=== PATIENT | female | born 1995 | race Caucasian/White ===

== ENCOUNTER 2025-01-30 05:28 | Day surgery (SDC) | payer BC, SELFPAY ==
[2025-01-30] VITALS (9 sets, daily range): BP systolic 87–115; BP diastolic 49–69; PULSE 60–90; RESP 16–18; TEMP 36.3–36.6; O2SAT 95–100; BMI 26.7
[2025-01-30] MEDS: Lactated Ringers 1,000 ML 15 ML IV (06:16)
--- NOTE | 2025-01-30 06:18 | PCM.PRE.AN2 ---
ASA Classification* ASA Classification ASA Classification: 2 Assessment & Plan Anesthesia* Anesthesia Assessment Anesthesia Assessment: Discussed sedation and/or anesthesia options, risks, benefits, and alternatives with patient/parents/legal guardian/POA. Questions invited. The patient/parents/legal guardian/POA seems to understand and agrees to proceed with anesthesia plan. Reviewed the physical assessment, medical history, allergy history and patient home medications list prior to surgery/procedure/anesthetic and documented any changes. Performed airway and anesthesia risk assessments. 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 When Was Last Pacemaker Check QUESTION #4 FULL TEXT: You/Your Family Experience fever (hyperthermia) with Anesthesia Last Oral Intake Last Oral intake: Last Oral Intake NPO since 02:30 01/30/25 06:10 Meds taken in AM with sips of water? Meds patient instructed to take am of surgery PONV PONV - marine operations coordinator: PONV - marine operations coordinator Female Yes 01/24/25 13:41 HX of Motion Sickness Yes 01/24/25 13:41 HX of N/V After Surgery No 01/24/25 13:41 Non-Smoker Yes 01/24/25 13:41 Duration of Surgery greater No 01/24/25 13:41 than 60 minutes Number of Risk Factors 3 01/24/25 13:41 PONV Score Moderate Risk 01/24/25 13:41 Height & Weight Height & Weight: Anesthesia: Height & Weight Height 5 ft 5 in 01/30/25 06:10 Weight: 73 kg 01/30/25 06:10 Body Mass Index (BMI) 26.7 01/30/25 06:10 Respiratory Assessment Respiratory Assessment - marine operations coordinator: Respiratory Tract Infection Hx - marine operations coordinator Hx Respiratory Tract Infection No 01/24/25 13:41 STOP Sleep Apnea STOP Sleep Apnea - marine operations coordinator: STOP Sleep Apnea - marine operations coordinator Hx Hypertension No 01/24/25 13:41 Hx Sleep Apnea No 01/24/25 13:41 CPAP BIPAP Do you snore loudly (louder No 01/24/25 13:41 than talking or can be heard Do you often feel tired/ No 01/24/25 13:41 fatigued/ sleepy during daytime? Has anyone observed you stop No 01/24/25 13:41 breathing during sleep? STOP Results Negative 01/24/25 13:41 QUESTION #5 FULL TEXT : Do you snore loudly (louder than talking or can be heard through closed doors)? Tobacco Use History Tobacco Use History - marine operations coordinator: Tobacco Use History - marine operations coordinator Tobacco Use Smoking Status Never smoker 01/24/25 13:41 Hx Tobacco Use No 01/24/25 13:41 Years Smoking Packs Smoked per Day Smoking Cessation Date was within the last 15 years Hx Smoking Cessation Date Hx Smoking Cessation Counseling Hematologic Medial History Hematologic Hx - marine operations coordinator: Hematologic Medical Hx - commissioning manager Hx of Blood Transfusion No 01/24/25 13:41 Hx of Transfusion in last 3 No 01/24/25 13:41 Months Date of Last Transfusion (if within last 3 months) Ever experience any problems No 01/24/25 13:41 with transfusion(s)? Specify any problems Hx of Preganancy in last 3 No 01/24/25 13:41 Months Nurse Filling Out Transfusion DSCHRIBER 01/24/25 13:41 & Questions: Date: 01/24/25 01/24/25 13:41 Time: 13:42 01/24/25 13:41 Patient unable to answer at this time (ie. confused, unrespo /Reproduction History /Reproductive History - marine operations coordinator: /Reproductive Hx- marine operations coordinator Hx Now No 01/24/25 13:41 Gestational Age (in weeks): EDC: Hx Hx Para Hx Section SAB Yes 01/24/25 13:41 Active Medications Active Medications: Current Medications Generic Name Dose Route Start Last Admin Trade Name Freq PRN Reason Stop Dose Admin Lactated Ringer's 1,000 mls @ 15 mls/hr 01/30/25 06:00 01/30/25 06:16 IV 15 mls/hr .Q48H JULIETA Administration PFSH Medical History Breast feeding status of mother Wears glasses Low iron Dietary restriction Difficulty swallowing Non-smoker Asthma Shortness of breath on exertion Vitamin D deficiency TMJ arthralgia Family history of colon cancer Home Medications ?Medication ?Instructions ?Recorded ?Last Taken ?Type albuterol sulfate 90 mcg/actuation 2 puff inhalation Q6H PRN 12/19/24 01/29/25 History aerosol inhaler (Ventolin HFA) shortness of breath or wheezing budesonide-formoterol HFA 160 2 puff inhalation BID 12/19/24 01/30/25 History mcg-4.5 mcg/actuation aerosol inhaler (Symbicort) multivitamin with mins no.113-iron 1 cap PO DAILY 12/19/24 01/21/25 History 4.5 mg-folic acid 200 mcg capsule ( Multivitamin (Ferrous Gluconate)) cetirizine 10 mg tablet (Zyrtec) 10 mg PO QDAY 12/20/24 Unknown History peg 3350-sod sulf,iefly-plo-olv See Rx Instructions PO .COMPLEX #2 01/28/25 01/29/25 Rx 178.7-7.3-0.5-1.12-0.9 gram oral mL soln (Suflave) Allergy/AdvReac Type Severity Reaction Status Date / Time latex Allergy Intermediate redness Verified 01/30/25 06:10 adhesive AdvReac Mild Rash Verified 01/30/25 06:10 lavender (Lavandula AdvReac Mild Hives Verified 01/30/25 06:10 angustifolia) Family History Mother Cancer Colon cancer Inflammatory bowel disease Epilepsy Father Diabetes Surgical History Hx of oophorectomy H/O wisdom tooth extraction H/O arthroscopy of knee Social History Smoking Status: Never smoker alcohol intake: current details: 1-2 times per year substance use type: does not use Addt'l Information Additional Findings: >4 Mets Review of Systems (Anesthesia) ROS Narrative System reviewed and no additional complaints, except as documented. Physical Exam Const alert and oriented x3 Orientation / Consciousness: awake Resp normal respiratory effort and normal air movement Auscultation: clear to auscultation bilaterally Cardio regular rate and regular rhythm Neuro oriented x3 and moves all extremities
--- NOTE | 2025-01-30 06:24 | PCM.HP.STD ---
HPI - General General Date of Admission: 01/30/25 Date of Service: 01/30/25 Chief Complaint: Dysphagia and family history of colon cancer HPI Narrative KALEY AL, is a 29 F who presents [ Chief Complaint: trouble swallowing Details: 29y/o female with intermittent dysphagia, first started when she was a teenager - progressively worse - gets stuck high in her throat - Brenda 09/13/2023 Esophagram - can choke on apple sauce or solid foods - tried to chug water to force down or up - she reports a personal h/o asthma - denies any h/o eczema - denies any family h/o esophageal or gastric CA - denies any h/o smoking - occasional alcohol use - denies any HB - denies any N/V - mom with colon cancer in her early 30's - reports there is no chance she could be now - she has PCOS - she is not on OC - she is breast feeding [facility] Medical History Breast feeding status of mother Wears glasses Low iron Dietary restriction Difficulty swallowing Non-smoker Asthma Shortness of breath on exertion Vitamin D deficiency TMJ arthralgia Family history of colon cancer Home Medications ?Medication ?Instructions ?Recorded ?Last Taken ?Type albuterol sulfate 90 mcg/actuation 2 puff inhalation Q6H PRN 12/19/24 01/29/25 History aerosol inhaler (Ventolin HFA) shortness of breath or wheezing budesonide-formoterol HFA 160 2 puff inhalation BID 12/19/24 01/30/25 History mcg-4.5 mcg/actuation aerosol inhaler (Symbicort) multivitamin with mins no.113-iron 1 cap PO DAILY 12/19/24 01/21/25 History 4.5 mg-folic acid 200 mcg capsule ( Multivitamin (Ferrous Gluconate)) cetirizine 10 mg tablet (Zyrtec) 10 mg PO QDAY 12/20/24 Unknown History peg 3350-sod sulf,xpwrd-gye-wff See Rx Instructions PO .COMPLEX #2 01/28/25 01/29/25 Rx 178.7-7.3-0.5-1.12-0.9 gram oral mL soln (Suflave) Allergy/AdvReac Type Severity Reaction Status Date / Time latex Allergy Intermediate redness Verified 01/30/25 06:10 adhesive AdvReac Mild Rash Verified 01/30/25 06:10 lavender (Lavandula AdvReac Mild Hives Verified 01/30/25 06:10 angustifolia) Family History Mother Cancer Colon cancer Inflammatory bowel disease Epilepsy Father Diabetes Surgical History Hx of oophorectomy H/O wisdom tooth extraction H/O arthroscopy of knee Social History Smoking Status: Never smoker alcohol intake: current details: 1-2 times per year substance use type: does not use ROS Constitutional Constitutional: Denies fatigue, fever(s), poor appetite, weight gain or weight loss Gastrointestinal Gastrointestinal: Denies belching, bloating, change in bowel habits, change in stool character, chewing difficulty, coffee ground emesis, constipation, cramping, diarrhea, dyspepsia, dysphagia, early satiety, excessive flatus, fecal incontinence, heartburn, hematemesis, hematochezia, hemorrhoids, loose stools, melena, nausea, odynophagia, rectal bleeding, tenesmus, vomiting or weight changes Vital Signs Vital Signs Vital Signs: 01/30/25 06:10 01/30/25 06:10 01/30/25 06:22 Temperature 97.3 F L 97.3 F L Temperature Source Temporal Pulse Rate 90 90 Respiratory Rate 18 18 Respiratory Pattern Normal Blood Pressure 105/69 105/69 Blood Pressure Mean 81 Blood Pressure Source Monitor Blood Pressure Position Semi-Fowlers Blood Pressure Location Left Arm Pulse Ox 98 98 Oxygen Delivery Method Room Air Room Air Weight Weight: 160 lb 14.999 oz Body Mass Index (BMI) 26.7 Physical Exam Const alert, oriented x3, no apparent distress and healthy appearing General Appearance: cooperative GI normal to inspection, nondistended, normoactive bowel sounds, soft to palpation, non-tender and non-distended Percussion: normal to percussion Rectal Exam: deferred Assessment & Plan Assessment/Plan (1) Family history of colon cancer in mother: (2) Dysphagia: PLAN: Assessment and Plan Assessment and Plan (1) Dysphagia: Status: Acute (2) Family history of colon cancer in mother: Status: Acute Comment: in her early 30's Orders: Orders Esophagus Dual Contrast Today R13.10 - Dysphagia, unspecified Plan 29-year-old female with a history of PCOS and asthma, presenting with dysphagia. The patient reports chronic and progressively worsening difficulty swallowing, initially observed in teenage years, with current impairment to both solid and soft foods. The condition was evaluated with a barium swallow revealing possible obstruction at the gastroesophageal junction, necessitating further esophageal examination via esophagram. There is no significant unintentional weight loss. A significant family history includes a maternal history of colon cancer in her early 30's, necessitating early screening for colorectal malignancy. Patient Instructions: ]
[2025-01-30 06:28] LABS: Internal QC Validated? YES +Cl - CLEAR BKGD; Pregnancy, Serum, hCG Quali. NEGATIVE Negative; Record Kit Lot#, Serum Preg. 0000964736
--- NOTE | 2025-01-30 06:30 | COLBX_PTH ---
PATIENT: KALEY ALT #:[id number] LOC: EN U#:[id number] AGE/SX: 29/F ROOM: RE01/30/[address]: Dr. Terrell May DO : 1995 BED: DIS: 01/30/2025 SPEC #: [id number] RECD: 01/30/25 08:32 STATUS: MARGARETH MERY #: [id number] REYNALDO: 01/30/25 06:[address]: Terrell May DEPT: SURGICAL PATHOLOGY RECD BY: Donald Sherman ENTERED: 01/30/25 14:55 SP TYPE: COLON BX OTHR DR: Moni Tony, REGIONAL SALES REPRESENTATIVE-C Tissues: A - Esophagus, NOS Procedures: Surgery Specimen Level IV HEADER OPERATION: Colonoscopy, EGD with biopsy and dilatation PRE-OP DIAGNOSIS: Family history of colon cancer in mother, dysphagia TISSUE SUBMITTED: A- Random esophagus biopsy MICROSCOPIC DIAGNOSIS A. Esophagus, random, biopsy: * Squamous mucosa with reactive changes and up to 40 eosinophils per high power field. * Columnar mucosa negative for goblet cell metaplasia. MICROSCOPIC DESCRIPTION Slides are reviewed. GROSS DESCRIPTION A. Received in fixative is one container labeled with the patient's name and designated Random esophagus biopsy. The specimen consists of multiple irregular fragments of lozano tissue that in aggregate measure 1.5 x 0.5 x 0.2 cm. The specimen is totally submitted in one cassette. GA 01/30/2025 CPT:64099
--- NOTE | 2025-01-30 07:05 | OP.EGD_ITS ---
Patient Name: Livia Boyer Procedure Date: 01/30/2025 6:11 AM Date of : 1995 Age: 29 Procedure: Upper GI endoscopy Indications: Dysphagia Providers: Terrell May DO Referring MD: Moni Tony Medicines: Monitored Anesthesia Care Patient Profile: This is a 29 year old female. Refer to note in patient chart for documentation of history and physical. Patient has symptoms of dysphagia with both liquids and solids. Complications: No immediate complications. Procedure: Pre-Anesthesia Assessment: - Prior to the procedure, a History and Physical was performed, and patient medications and allergies were reviewed. The patient is competent. The risks and benefits of the procedure and the sedation options and risks were discussed with the patient. All questions were answered and informed consent was obtained. Patient identification and proposed procedure were verified by the physician in the pre-procedure area. Mental Status Examination: alert and oriented. Airway Examination: normal oropharyngeal airway and neck mobility. Respiratory Examination: clear to auscultation. CV Examination: normal. Prophylactic Antibiotics: The patient does not require prophylactic antibiotics. Prior Anticoagulants: The patient has taken no anticoagulant or antiplatelet agents except for NSAID medication. ASA Grade Assessment: II - A patient with mild systemic disease. After reviewing the risks and benefits, the patient was deemed in satisfactory condition to undergo the procedure. The anesthesia plan was to use monitored anesthesia care (MAC). Immediately prior to administration of medications, the patient was re-assessed for adequacy to receive sedatives. The heart rate, respiratory rate, oxygen saturations, blood pressure, adequacy of pulmonary ventilation, and response to care were monitored throughout the procedure. The physical status of the patient was re-assessed after the procedure. After obtaining informed consent, the endoscope was passed under direct vision. Throughout the procedure, the patient's blood pressure, pulse, and oxygen saturations were monitored continuously. The Colonoscope was introduced through the mouth, and advanced to the second part of duodenum. The upper GI endoscopy was accomplished without difficulty. The patient tolerated the procedure well. Scope In: 6:41:28 AM Scope Out: 6:49:01 AM Total Procedure Duration Time 0 hours 7 minutes 33 seconds Findings: Mucosal changes including ringed esophagus, small-caliber esophagus, circumferential folds and congestion (edema) were found in the lower third of the esophagus. Biopsies were obtained from the proximal and distal esophagus with cold forceps for histology of suspected eosinophilic esophagitis. Verification of patient identification for the specimen was done. Estimated blood loss was minimal. One benign-appearing, intrinsic severe stenosis was found 37 to 40 cm from the incisors. This stenosis measured 6 cm (in length). The stenosis was traversed after dilation. A guidewire was placed and the scope was withdrawn. Dilation was performed with a Savary dilator with no resistance at 57 Fr. The dilation site was examined and showed moderate improvement in luminal narrowing. No gross lesions were noted in the entire examined stomach. The examined duodenum was normal. Impression: - Esophageal mucosal changes consistent with eosinophilic esophagitis. - Benign-appearing esophageal stenosis. Dilated. - No gross lesions in the entire stomach. - Normal examined duodenum. - Biopsies were taken with a cold forceps for evaluation of eosinophilic esophagitis. Recommendation: - Discharge patient to home. - Advance diet as tolerated. - Continue present medications. - Await pathology results. - Repeat upper endoscopy in 2 months for surveillance. - Use Prilosec (omeprazole) 20 mg PO BID for 2 months. Procedure Code(s): --- Professional --- 01938, Esophagogastroduodenoscopy, flexible, transoral; with insertion of guide wire followed by passage of dilator(s) through esophagus over guide wire 08128, 59,51, Esophagogastroduodenoscopy, flexible, transoral; with biopsy, single or multiple CPT copyright 2021 [employer]. All rights reserved. The codes documented in this report are preliminary and upon skylights assembler review may be revised to meet current compliance requirements. Terrell May DO 01/30/2025 7:04:54 AM This report has been signed electronically. Number of Addenda: 0 Note Initiated On: 01/30/2025 6:11 AM
--- NOTE | 2025-01-30 07:06 | OP.PROVAT_ITS ---
01/30/2025 Moni Tony Re : Upper GI endoscopy procedure for Livia Boyer Dear Cecily This procedure was performed on Thursday, January 30, 2025. My impressions and recommendations are as follows: Impressions : - Esophageal mucosal changes consistent with eosinophilic esophagitis. - Benign-appearing esophageal stenosis. Dilated. - No gross lesions in the entire stomach. - Normal examined duodenum. - Biopsies were taken with a cold forceps for evaluation of eosinophilic esophagitis. Recommendations : - Discharge patient to home. - Advance diet as tolerated. - Continue present medications. - Await pathology results. - Repeat upper endoscopy in 2 months for surveillance. - Use Prilosec (omeprazole) 20 mg PO BID for 2 months. My findings are described in the full procedure note, which is enclosed. If I can be of further assistance, please feel free to contact me at . Sincerely, Terrell Friend, DO 01/30/2025 7:04:54 AM This report has been signed electronically.
--- NOTE | 2025-01-30 07:07 | OP.COLON_ITS ---
Patient Name: Livia Boyer Procedure Date: 01/30/2025 6:49 AM Date of : 1995 Age: 29 Procedure: Colonoscopy Indications: Screening in patient at increased risk: Colorectal cancer in mother before age 60 Providers: Terrell May DO Referring MD: Moni Tony Medicines: Monitored Anesthesia Care Patient Profile: This is a 29 year old female. Refer to note in patient chart for documentation of history and physical. Patient has symptoms of dysphagia with both liquids and solids. Last Colonoscopy: none. The patient's first colonoscopy is today. Complications: No immediate complications. Procedure: Pre-Anesthesia Assessment: - Prior to the procedure, a History and Physical was performed, and patient medications and allergies were reviewed. The patient is competent. The risks and benefits of the procedure and the sedation options and risks were discussed with the patient. All questions were answered and informed consent was obtained. Patient identification and proposed procedure were verified by the physician in the pre-procedure area. Mental Status Examination: alert and oriented. Airway Examination: normal oropharyngeal airway and neck mobility. Respiratory Examination: clear to auscultation. CV Examination: normal. Prophylactic Antibiotics: The patient does not require prophylactic antibiotics. Prior Anticoagulants: The patient has taken no anticoagulant or antiplatelet agents except for NSAID medication. ASA Grade Assessment: II - A patient with mild systemic disease. After reviewing the risks and benefits, the patient was deemed in satisfactory condition to undergo the procedure. The anesthesia plan was to use monitored anesthesia care (MAC). Immediately prior to administration of medications, the patient was re-assessed for adequacy to receive sedatives. The heart rate, respiratory rate, oxygen saturations, blood pressure, adequacy of pulmonary ventilation, and response to care were monitored throughout the procedure. The physical status of the patient was re-assessed after the procedure. After I obtained informed consent, the scope was passed under direct vision. Throughout the procedure, the patient's blood pressure, pulse, and oxygen saturations were monitored continuously. The Colonoscope was introduced through the anus and advanced to the cecum, identified by appendiceal orifice and ileocecal valve. The colonoscopy was performed without difficulty. The patient tolerated the procedure well. The quality of the bowel preparation was adequate. The ileocecal valve, appendiceal orifice, and rectum were photographed. Scope In: 6:51:05 AM Scope Withdrawal Time 0 hours 5 minutes 34 seconds Scope Out: 6:59:23 AM Total Procedure Duration Time 0 hours 8 minutes 18 seconds Findings: The perianal and digital rectal examinations were normal. The colon (entire examined portion) appeared normal. Impression: - The entire examined colon is normal. - No specimens collected. Recommendation: - Discharge patient to home. - Resume previous diet. - Continue present medications. - Repeat colonoscopy in 5 years for screening purposes. Procedure Code(s): --- Professional --- G0105, Colorectal cancer screening; colonoscopy on individual at high risk CPT copyright 2021 [employer]. All rights reserved. The codes documented in this report are preliminary and upon supervisor rod placing review may be revised to meet current compliance requirements. Terrell May DO 01/30/2025 7:07:11 AM This report has been signed electronically. Number of Addenda: 0 Note Initiated On: 01/30/2025 6:49 AM
--- NOTE | 2025-01-30 07:07 | OP.PROVAT_ITS ---
01/30/2025 Mnoi Tony Re : Colonoscopy procedure for Livia Boyer Dear Cecily This procedure was performed on Thursday, January 30, 2025. My impressions and recommendations are as follows: Impressions : - The entire examined colon is normal. - No specimens collected. Recommendations : - Discharge patient to home. - Resume previous diet. - Continue present medications. - Repeat colonoscopy in 5 years for screening purposes. My findings are described in the full procedure note, which is enclosed. If I can be of further assistance, please feel free to contact me at . Sincerely, Terrell May, DO 01/30/2025 7:07:11 AM This report has been signed electronically.
--- NOTE | 2025-01-30 07:11 | PCM.POST.ANE ---
Anesthesia: Postop Eval I Current Vital Signs Temperature: 97.9 F Pulse Rate: 72 Blood Pressure: 115/69 Respiratory Rate: 16 Pulse Ox: 98 Oxygen Delivery Method: Room Air Assessment Airway patent: Yes Spontaneous unlabored respirations: Yes Mental status: Awake and Calm nausea: No Vomiting: No Anesthesia Complication: No Fluid Hydration Crystalloid volume administer (ml): 800 Total IV fluid infused: 800 Progress Note Anesthesia document: Postop Eval 1 completed: Yes
[2025-01-30] MEDS: Pantoprazole Sodium 40 MG in 0.9% Normal Saline (100mL MB+) 100 ML 300 MG IV (07:24)
--- NOTE | 2025-01-30 08:29 | PCM.POSTANE2 ---
Anesthesia Postop Eval I Sum Postop Eval Completion status Anesthesia document: Postop Eval 1 completed: Yes Anesthesia Postop Eval I Summary Anesthesia Postop Eval I Summary: Anesthesia Postop Eval I: Assessment Summary Airway patent Yes 01/30/25 07:11 [email or web address] Spontaneous unlabored Yes 01/30/25 07:11 [email or web address] respirations Mental status Awake,Calm 01/30/25 07:11 [email or web address] nausea No 01/30/25 07:11 [email or web address] Vomiting No 01/30/25 07:11 [email or web address] Anesthesia Postop Eval I: Fluid Summary Crystalloid volume administer 800 01/30/25 07:11 [email or web address] (ml) Colloids volume administered ( ml) Blood Product volume administered (ml) Total IV fluid infused 800 01/30/25 07:11 [email or web address] Anesthesia Postop Eval I: Summary Notes Anesthesia Complication No 01/30/25 07:11 [email or web address] Anesthesia Complication Comment: Post-operative progress note Anesthesia: Postop Eval II Evaluation Mental status: Awake and Calm Pain Level: 0 nausea: No Vomiting: No Complications Anesthesia Complication: No
--- OUTSIDE RECORDS SUMMARY | 2025-01-31 21:51 | XMS RPT_ITS | CCD ---
Author Organization [facility] CliniSyut Care Team Providers Care Nuclear Operator Name Role Phone Yoan Diaz Unavailable [phone] Jackie Diaz Unavailable MIRTHA RIVERA Unavailable Unavailable DOMINGA MEDEROS Unavailable Unavailable DOMINGA MEDEROS Unavailable Unavailable Isaiah Stark Unavailable Unavailable Isaiah Stark Unavailable Unavailable DOMINGA MEDEROS Unavailable UnavailJACKIE Kingsley Unavailable Unavailab le Unavailable Primary Care Provider UnavailYoan Kingsley Primary Care Provid er Yoan Diaz Primary Care Provider YOAN DIAZ Primary Care Asmita vailable LORENA OSBORNE Attending Unavailable LORENA OSBORNE Admitting Unavailable Liana Mccollum Unavailable YOAN DIAZ Primary Care Asmita vailable SUSI NY Attending Unavailab LIANA Anderson Attending Unavailable YOAN DIAZ Primary Care Asmita vailable YOAN DIAZ Attending Asmita vailable YOAN DIAZ Primary Care Asmita vailable CECILY HOLLINGSWORTH-MONI CLEMENTE Primary Care Physician CECILY NANOTECHNOLOGY ENGINEERING TECHNOLOGIST-MONI CLEMENTE Primary Care Physician CECILY NANOTECHNOLOGY ENGINEERING TECHNOLOGIST-MONI CLEMENTE Primary Care Physician Unavailable Primary Care Provider UnavailMONI Reyes Attending Unavailable MONI TONY Primary Care Unavailable MONI TONY Attending Unavailable MONI TONY Primary Care Unavailable MONI TONY Primary Care Unavailable RUCHI HAWK MD Attending Unavailable MONI TONY Attending Unavailable MONI TONY Primary Care Unavailable MONI TONY Attending Unavailable MONI TONY Primary Care Unavailable LORSON, MONI Attending Unavailable LORSON, MAURICE Primary Care Unavailable LORSON, MAURICE Attending Unavailable LORSON, MAURICE Primary Care Unavailable PROVIDER, UNKNOWN Attending Unavailable LORSON, MAURICE Primary Care Unavailable PROVIDER, UNKNOWN Attending Unavailable LORSON, MAURICE Primary Care Unavailable REUBEN SWEET, JAMES Attending Unavailable LORSON, MAURICE Primary Care Unavailable MARCIAL GORDON MD Attending Unavailable LORSON, MAURICE Primary Care Unavailable PROVIDER, UNKNOWN Attending Unavailable LORSON, MAURICE Primary Care Unavailable LORSON, MAURICE Attending Unavailable LORSON, MAURICE Primary Care Unavailable ALEXIS DUNHAM MD Attending Unavailable LORSON, MAURICE Primary Care Unavailable LIVIA TORRES Referring Unavailable JACKIE MENA Attending [facility] Unavailable LORSON NANOTECHNOLOGY ENGINEERING TECHNOLOGIST-MOLD STRIPPER, MAURICE Primary Care Unavail able LAURIE HOLLINGSWORTH-CNM, MAX Figueroa Attending Unav kumarable SUNIL PEARSON, LIVIA Attending Unavailable DAVID CROSS MD Admitting Unavailable LORSON NANOTECHNOLOGY ENGINEERING TECHNOLOGIST-MOLD STRIPPER, MAURICE Primary Care Unavail able LORSON NANOTECHNOLOGY ENGINEERING TECHNOLOGIST-MOLD STRIPPER, MAURICE Primary Care Unavail able BRITTNY PEARSON, CLAIRE Gonzalez Attending Unavail able LIVIA TORRES MD Attending Unavailable LORSON NANOTECHNOLOGY ENGINEERING TECHNOLOGIST-MOLD STRIPPER, MAURICE Primary Care Unavail able SUNIL PEARSON, LIVIA Attending Unavailable LORSON NANOTECHNOLOGY ENGINEERING TECHNOLOGIST-MOLD STRIPPER, MAURICE Primary Care Unavail able SUNIL PEARSON, LIVIA Attending Unavailable LORSON NANOTECHNOLOGY ENGINEERING TECHNOLOGIST-MOLD STRIPPER, MAURICE Primary Care Unavail able LIVIA TORRES MD Attending Unavailable LORSON NANOTECHNOLOGY ENGINEERING TECHNOLOGIST-MOLD STRIPPER, MAURICE Primary Care Unavail able SUNIL PEARSON, LIVIA Attending Unavailable LORSON NANOTECHNOLOGY ENGINEERING TECHNOLOGIST-MOLD STRIPPER, MAURICE Primary Care Unavail able SUNIL PEARSON, LIVIA Attending Unavailable LORSON NANOTECHNOLOGY ENGINEERING TECHNOLOGIST-MOLD STRIPPER, MAURICE Primary Care Unavail able Nikolai FARMWORKER LIVESTOCK-CNing Attending Provider Cecily FARMWORKER LIVESTOCK-C, [place] Primary Care Provider [phone] Cecily FARMWORKER LIVESTOCK-C, Moni Referring Provider [phone] Cecily Moni Referring Unavailable [facility], [place] Primary Care Unavailable Ning Menchaca Attending Unavailable [facility] Primary Care Unavailable Terrell May Attending Unavailable Allergies Allergy Classification Reported Allergen(s) Allergy Type Date of Onset Reaction(s) Facility (20 sources) Latex; Translations: [latex] Allergy to substance 5 Red color (finding) [facility] (16 sources) Adhesive bandage Allergy to substance Eruption of skin (disorder) [facility] (17 sources) Lavender extract; Translations: [lavender] Food allergy 5 Weal (disorder) [facility] (2 sources) Adhesive agent; Translations: [adhesive] Propensity to adverse reactions 5 Rash [facility] (1 source) lavender (Lavandula angustifolia) Drug allergy (disorder) 5 [facility] Repository Medications Current Medications Medication Drug Class(es) Dates Sig (Normalized) Sig (Original) acetaminophen 500 mg oral tablet (2 sources) Start: 06-20-2024 End: 07-18-2024 Tylenol Extra Strength 500 mg oral tablet Dose : 500 mg = 1 tab(s), Oral, q4h, X 14 day(s), # 30 tab(s), 1 Refill(s), 07/18/24 6:02:00 PM EDT, Pharmacy: [facility]/pharmacy #[id number], 157.5, cm, 06/19/24 5:00:00 EST, Height, kg, 06/19/24 5:00:00 EST, Dosing Weight Start Date: 06/20/24 Stop Date: 07/18/24 Status: Ordered Quantity: 30.0 Unit: tab(s) Repeat number: 2 [id number] 200 actuat albuterol 0.09 mg/actuat metered dose inhaler (20 sources) beta2-Adrenergic Agonist Start: 12-19-2024 Albuterol Sulfate (Ventolin Hfa) 90 mcg/actuation HFA aerosol inhaler Active 2 NMA INHALATION EVERY 6 HOURS as needed December 19, 2024 12:00am Start: 11-14-2023 take 2 puff(s) by in halation every six hours as needed for wheezing Ventolin HFA MDI (90 mcg/inh) inhalation aerosol 2 puff(s), Inhalation, q6hr, PRN as needed for wheezing, # 3 EA, 1 Refill(s), Pharmacy: [facility], 164.5, cm, 10/26/23 13:57:00 EDT, Height, kg, 10/26/23 13:57:00 EDT, Dosing Weight Start Date: 11/14/23 Status: Ordered Quantity: 3.0 Unit: EA Repeat number: 2 Start: 11-14-2023 take 2 puff(s) by in halation every six hours as needed for wheezing Ventolin HFA MDI (90 mcg/inh) inhalation aerosol 2 puff(s), Inhalation, q6hr, PRN as needed for wheezing, # 3 EA, 1 Refill(s), Pharmacy: [facility], 164.5, cm, 10/26/23 13:57:00 EDT, Height, kg, 10/26/23 13:57:00 EDT, Dosing Weight Start Date: 11/14/23 Status: Ordered Start: 08-01-2023 take 2 puff(s) by in halation every six hours as needed for wheezing Ventolin HFA MDI (90 mcg/inh) inhalation aerosol 2 puff(s), Inhalation, q6hr, PRN as needed for wheezing, # 3 EA, 1 Refill(s), Pharmacy: [facility], 160, cm, 07/06/23 11:31:00 EST, Height, kg, 07/06/23 11:31:00 EST, Dosing Weight Start Date: 08/01/23 Status: Ordered Start: 08-01-2023 take 2 puff(s) by in halation every six hours as needed for wheezing Ventolin HFA MDI (90 mcg/inh) inhalation aerosol 2 puff(s), Inhalation, q6hr, PRN as needed for wheezing, # 3 EA, 1 Refill(s), Pharmacy: [facility], 160, cm, 07/06/23 11:31:00 EST, Height, kg, 07/06/23 11:31:00 EST, Dosing Weight Start Date: 08/01/23 Status: Ordered Quantity: 3.0 Unit: EA Repeat number: 2 Start: 08-01-2023 take 2 puff(s) by in halation every six hours as needed for wheezing Ventolin HFA MDI (90 mcg/inh) inhalation aerosol 2 puff(s), Inhalation, q6hr, PRN as needed for wheezing, # 3 EA, 1 Refill(s), Pharmacy: [facility], 160, cm, 07/06/23 11:31:00 EST, Height, kg, 07/06/23 11:31:00 EST, Dosing Weight Start Date: 08/01/23 Status: Ordered Start: 07-18-2023 take 2 puff(s) by in halation every six hours as needed for wheezing Ventolin HFA MDI (90 mcg/inh) inhalation aerosol 2 puff(s), Inhalation, q6hr, PRN as needed for wheezing, # 1 EA, 1 Refill(s), Pharmacy: [facility], 160, cm, 07/06/23 11:31:00 EST, Height, kg, 07/06/23 11:31:00 EST, Dosing Weight Start Date: 07/18/23 Status: Ordered Start: 05-24-2023 take 2 puff(s) by in halation every six hours as needed for wheezing Ventolin HFA MDI (90 mcg/inh) inhalation aerosol 2 puff(s), Inhalation, q6hr, PRN as needed for wheezing, # 1 EA, 0 Refill(s), Pharmacy: [email or web address] #[id number], 160, cm, 03/09/23 14:38:00 EST, Height, kg, 03/09/23 14:38:00 EST, Dosing Weight Start Date: 05/24/23 Status: Ordered Start: 07-22-2021 take 2 puff(s) by in halation every six hours as needed for wheezing Ventolin HFA MDI (90 mcg/inh) inhalation aerosol 2 puff(s), Inhalation, q6hr, PRN as needed for wheezing, # 1 EA, 1 Refill(s), Pharmacy: [facility] 157, cm, 07/09/21 14:07:00 EST, Height, kg, 07/09/21 14:07:00 EST, Dosing Weight Start Date: 07/22/21 Status: Ordered Start: 06-12-2021 take 2 puff(s) by in halation every six hours as needed for wheezing Ventolin HFA MDI (90 mcg/inh) inhalation aerosol 2 puff(s), Inhalation, q6hr, PRN as needed for wheezing, # 1 EA, 1 Refill(s), Pharmacy: [facility] 162.5, cm, 05/12/21 8:14:00 EST, Height, kg, 05/12/21 8:14:00 EST, Dosing Weight Start Date: 06/12/21 Status: Ordered Start: 04-21-2021 take 2 puff(s) by in halation every six hours as needed for wheezing Ventolin HFA MDI (90 mcg/inh) inhalation aerosol 2 puff(s), Inhalation, q6hr, PRN as needed for wheezing, # 1 EA, 1 Refill(s), Pharmacy: [facility] 163, cm, 04/14/21 9:06:00 EST, Height, kg, 04/14/21 9:06:00 EST, Dosing Weight Start Date: 04/21/21 Status: Ordered Start: 02-02-2020 take 2 puff(s) by in halation every six hours as needed albuterol HFA (PROVENTIL HFA, VENTOLIN HFA) 90 mcg/actuation inhaler Inhale 2 Puffs as instructed every 6 hours as needed. 0 02/02/2020 Active Start: 03-02-2019 take 2 puff(s) by in halation every six hours as needed for wheezing albuterol (Ventolin HFA) 90 mcg/actuation inhaler Indications: Asthma, unspecified asthma severity, unspecified whether complicated, unspecified whether persistent Inhale 2 (two) puffs every 6 (six) hours as needed for wheezing or shortness of breath . 1 Inhaler 5 03/02/2019 Active Start: 12-14-2018 End: 03-14-2019 take 2.5 mg by inhalation every four hours as needed albuterol (PROVENTIL) 2.5 mg /3 mL (0.083 %) nebulizer solution Take 3 mL (2.5 mg total) by nebulization every 4 (four) hours as needed . 75 mL 3 12/14/2018 Active Start: 01-27-2018 take 2 puff(s) by in halation every six hours as needed for wheezing albuterol (VENTOLIN HFA) 90 mcg/actuation inhaler Inhale 2 (two) puffs every 6 (six) hours as needed NEEDED FOR WHEEZING. 1 Inhaler 11 01/27/2018 Active Start: 01-27-2018 albuterol (EFREN TOLIN HFA) 90 mcg/actuation inhaler Inhale 2 (two) puffs every 6 (six) hours as needed NEEDED FOR WHEEZING. 1 Inhaler 11 01/27/2018 Active Start: 05-03-2017 End: 01-27-2018 take 2 puff(s) by mouth every six hours as needed for wheezing VENTOLIN HFA 90 mcg/actuation inhaler INHALE TWO PUFFS BY MOUTH EVERY 6 HOURS NEEDED FOR WHEEZING 1 Inhaler 3 05/03/2017 01/27/2018 Discontinued Start: 05-03-2017 take 2 puff(s) by mo uth every six hours as needed for wheezing VENTOLIN HFA 90 mcg/actuation inhaler INHALE TWO PUFFS BY MOUTH EVERY 6 HOURS NEEDED FOR WHEEZING 1 Inhaler 3 05/03/2017 Active Start: 01-24-2017 take 2.5 mg by inhal ation every four hours as needed albuterol (PROVENTIL) 2.5 mg /3 mL (0.083 %) nebulizer solution Inhale 2.5 mg every 4 (four) hours as needed. 0 01/24/2017 Active Start: 01-24-2017 take 2.5 mg by inhal ation every four hours as needed albuterol (2.5 MG/3ML) 0.083% inhalation solution 3 mL by Nebulization route every 4 hours as needed for Wheezing or Shortness of Breath. 25 vial 0 01/24/2017 Active Start: 04-22-2016 End: 04-22-2017 albuterol 90 mcg/actuation i nhaler Indications: Bronchitis Inhale 2 puffs every 6 (six) hours as needed for wheezing. 1 Inhaler 5 04/22/2016 04/22/2017 Active Alcohol Swabs (3 sources) Start: 04-10-2024 Alcohol Swabs See Instructions, Use one alcohol swab to clean the finger QID as directed for blood sugar checks, # 200 EA, 3 Refill(s), Pharmacy: [facility], 160, cm, 03/21/24 11:41:00 EST, Height, 71.4, kg, 12/01/23 17:41:00 EDT, Dosing Weight Start Date: 04/10/24 Status: Ordered Quantity: 200.0 Unit: EA Repeat number: 4 Start: 04-10-2024 Alcohol Swabs See Instructions, Use one alcohol swab to clean the finger QID as directed for blood sugar checks, # 200 EA, 3 Refill(s), Pharmacy: [facility], 160, cm, 03/21/24 11:41:00 EST, Height, 71.4, kg, 12/01/23 17:41:00 EDT, Dosing Weight Start Date: 04/10/24 Status: Ordered amoxicillin 875 mg / clavulanate 125 mg oral tablet (5 sources) Penicillin-class Antibacterial Start: 04-03-2019 End: 04-13-2019 take 1 tablet by mouth twice daily amoxicillin-clavulanate (AUGMENTIN) 875-125 mg per tablet Indications: Non-recurrent acute serous otitis media of left ear , Acute non-recurrent maxillary sinusitis Take 1 (one) tablet by mouth 2 (two) times a day for 10 days . 20 tablet 0 04/03/2019 04/13/2019 Active Start: 01-09-2019 End: 01-19-2019 take 1 tablet by mouth twice daily amoxicillin-clavulanate (AUGMENTIN) 875-125 mg per tablet Indications: Acute non-recurrent frontal sinusitis Take 1 (one) tablet by mouth 2 (two) times a day for 10 days . 20 tablet 0 01/09/2019 01/19/2019 Active Start: 07-07-2017 End: 07-14-2017 take 1 tablet by mouth twice daily amoxicillin-clavulanate (AUGMENTIN) 875-125 mg per tablet Indications: Fever, unspecified fever cause , Sore throat Take 1 (one) tablet by mouth 2 (two) times a day for 7 days. 14 tablet 0 07/07/2017 07/14/2017 Active Start: 01-17-2017 End: 01-27-2017 take 1 tablet by mouth twice daily amoxicillin-clavulanate (AUGMENTIN) 875-125 mg per tablet Indications: Sinusitis, unspecified chronicity, unspecified location Take 1 (one) tablet by mouth 2 (two) times a day for 10 days. 20 tablet 0 01/17/2017 01/27/2017 Active Start: 12-31-2016 End: 01-10-2017 take 1 tablet by mouth twice daily amoxicillin-clavulanate (AUGMENTIN) 875-125 mg per tablet Indications: Bronchitis Take 1 (one) tablet by mouth 2 (two) times a day for 10 days. 20 tablet 0 12/31/2016 01/10/2017 Active ascorbic acid 250 mg oral tablet (6 sources) Vitamin C Start: 04-04-2024 ascorbic acid 250 mg oral tablet Dose : 250 mg = 1 tab(s), Oral, qDay, take w iron to enhance absorption, # 90 tab(s), 0 Refill(s), Pharmacy: [facility], 160, cm, 03/21/24 11:41:00 EST, Height, kg, 12/01/23 17:41:00 EDT, Dosing Weight Start Date: 04/04/24 Status: Ordered Quantity: 90.0 Unit: tab(s) Repeat number: 1 aspirin 81 mg delayed release oral tablet (4 sources) Platelet Aggregation Inhibitor, Nonsteroidal Anti-inflammatory Drug Start: 12-21-2023 aspirin 81 mg ora l delayed release tablet Dose : 81 mg = 1 tab(s), Oral, Daily, take until delivery for pre-eclampsia prevention, # 90 tab(s), 3 Refill(s), Pharmacy: [facility]/pharmacy #[id number], 12 weeks gestation of , 160, cm, 12/21/23 8:36:00 EDT, Height, kg, 12/01/23 17:41:00 EDT, Dosing Weight Start Date: 12/21/23 Status: Ordered azithromycin 250 mg oral tablet (2 sources) Macrolide Antimicrobial Start: 04-28-2021 End: 05-03-2021 Zithromax 250 mg oral tablet Take two (2) tablets day 1-then one (1) tablet, Oral, Daily, X 5 day(s), # 6 tab(s), 0 Refill(s), 05/03/21 10:27:00 EST, Pharmacy: [facility] 157.5, cm, 04/28/21 9:56:00 EST, Height, 63.6, kg, 04/28/21 9:56:00 EST, Dosing Weight Start Date: 04/28/21 Stop Date: 05/03/21 Status: Ordered Start: 01-27-2018 End: 02-01-2018 take 1 tablet by mouth once daily azithromycin (ZITHROMAX) 500 MG tablet Indications: Bronchitis Take 1 (one) tablet (500 mg total) by mouth daily for 5 days. 5 tablet 0 01/27/2018 02/01/2018 Active benzocaine 200 mg/ml topical spray (2 sources) Standardized Chemical Allergen Start: 06-20-2024 End: 07-04-2024 apply 1 dose topically four times daily Americaine 20% topical spray Dose = 1 azeem, Topical, QID, X 14 day(s), # 1 EA, 0 Refill(s), Pharmacy: [facility]/pharmacy #[id number], 157.5, cm, 06/19/24 5:00:00 EST, Height, kg, 06/19/24 5:00:00 EST, Dosing Weight Start Date: 06/20/24 Stop Date: 07/04/24 Status: Ordered Quantity: 1.0 Unit: EA Repeat number: 1 benzonatate 100 mg oral capsule (4 sources) Non-narcotic Antitussive Start: 01-09-2019 End: 01-16-2019 take 1 capsule by mouth three times daily as needed for cough benzonatate (TESSALON) 100 MG capsule Indications: Cough Take 1 (one) capsule (100 mg total) by mouth 3 (three) times a day as needed for cough . 20 capsule 0 01/09/2019 01/16/2019 Active Start: 12-13-2018 End: 12-20-2018 take 1 capsule by mouth three times daily as needed for cough benzonatate (TESSALON) 100 MG capsule Indications: Cough Take 1 (one) capsule (100 mg total) by mouth 3 (three) times a day as needed for cough . 20 capsule 0 12/13/2018 12/20/2018 Active Start: 01-17-2017 End: 01-24-2017 take 1 capsule by mouth three times daily as needed for cough benzonatate (TESSALON) 200 MG capsule Indications: Cough Take 1 (one) capsule (200 mg total) by mouth 3 (three) times a day as needed for cough. 20 capsule 0 01/17/2017 01/24/2017 Active Start: 12-31-2016 End: 01-07-2017 take 1 capsule by mouth three times daily as needed for cough benzonatate (TESSALON) 100 MG capsule Indications: Bronchitis Take 1 (one) capsule (100 mg total) by mouth 3 (three) times a day as needed for cough. 20 capsule 0 12/31/2016 01/07/2017 Active Blood Glucose Test Machine (3 sources) Start: 04-10-2024 Blood Glucose Test Machine See Instructions, Glucometer. Use to check sugar 4 times per day. Any brand of choice, # 1 EA, 0 Refill(s), Pharmacy: [facility], 160, cm, 03/21/24 11:41:00 EST, Height, 71.4, kg, 12/01/23 17:41:00 EDT, Dosing Weight Start Date: 04/10/24 Status: Ordered Quantity: 1.0 Unit: EA Repeat number: 1 Start: 04-10-2024 Blood Glucose Test Machine See Instructions, Glucometer. Use to check sugar 4 times per day. Any brand of choice, # 1 EA, 0 Refill(s), Pharmacy: [facility], 160, cm, 03/21/24 11:41:00 EST, Height, 71.4, kg, 12/01/23 17:41:00 EDT, Dosing Weight Start Date: 04/10/24 Status: Ordered Breztri Aerosphere inhalation aerosol (3 sources) Start: 06-24-2021 take 1 dose by inhalation twice daily Breztri Aerosphere inhalation aerosol Dose = 2 puff(s), Inhalation, BID, 0 Refill(s) Start Date: 06/24/21 Status: Ordered Budesonide-Formote rol (20 sources) Corticosteroid, beta2-Adrenergi c Agonist Start: 12-19-2024 Budesonide-Formote rol (Symbicort) 160-4.5 mcg/actuation HFA aerosol inhaler Active 2 NMA INHALATION TWICE A DAY December 19, 2024 12:00am Start: 02-02-2020 budesonide-for moterol (SYMBICORT) 160-4.5 mcg/actuation inhaler Inhale 2 Puffs as instructed. 0 02/02/2020 Active Start: 12-13-2018 take 2 puff(s) by in halation twice daily budesonide-formoterol (SYMBICORT) 160-4.5 mcg/actuation inhaler Indications: Cough , Mild intermittent asthma with acute exacerbation Inhale 2 (two) puffs 2 (two) times a day . 3 Inhaler 3 12/13/2018 Active Start: 08-23-2017 End: 12-13-2018 take 2 puff(s) by inhalation twice daily budesonide-formoterol (SYMBICORT) 160-4.5 mcg/actuation inhaler Indications: Cough , Mild intermittent asthma with acute exacerbation Inhale 2 (two) puffs 2 (two) times a day. 3 Inhaler 3 08/23/2017 12/13/2018 Discontinued (Reorder) Start: 08-23-2017 budesonide-for moterol (SYMBICORT) 160-4.5 mcg/actuation inhaler Indications: Cough , Mild intermittent asthma with acute exacerbation Inhale 2 (two) puffs 2 (two) times a day. 3 Inhaler 3 08/23/2017 Active Start: 12-31-2016 take 2 puff(s) by in halation twice daily budesonide-formoterol (SYMBICORT) 160-4.5 mcg/actuation inhaler Indications: Cough , Mild intermittent asthma with acute exacerbation Inhale 2 (two) puffs 2 (two) times a day. 3 Inhaler 3 12/31/2016 Active Start: 06-24-2016 End: 12-31-2016 take 2 puff(s) by mouth twice daily SYMBICORT 160-4.5 mcg/actuation inhaler Indications: Cough , Mild intermittent asthma with acute exacerbation INHALE TWO PUFFS BY MOUTH TWICE A DAY 1 Inhaler 11 06/24/2016 12/31/2016 Discontinued busPIRone hydrochloride 5 mg oral tablet (2 sources) Start: 04-14-2021 End: 05-14-2021 busPIRone 5 mg oral tablet Dose : 5 mg = 1 tab(s), Oral, BID, PRN Anxiety, # 60 tab(s), 0 Refill(s), Pharmacy: [address], 163, cm, 04/14/21 9:06:00 EST, Height, kg, 04/14/21 9:06:00 EST, Dosing Weight Start Date: 04/14/21 Stop Date: 05/14/21 Status: Ordered cephalexin 500 mg oral capsule (2 sources) Cephalosporin Antibacterial Start: 04-13-2018 End: 04-23-2018 take 1 capsule by mouth three times daily cephALEXin (KEFLEX) 500 MG capsule Indications: Acute maxillary sinusitis, recurrence not specified Take 1 (one) capsule (500 mg total) by mouth 3 (three) times a day for 10 days . 30 capsule 0 04/13/2018 04/23/2018 Active take 1 capsule by mouth four rita es daily cephALEXin (KEFLEX) 500 MG capsule Take 500 mg by mouth 4 (four) times a day For 7 days. . 0 Active cetirizine hydrochloride 10 mg oral tablet (1 source) Histamine-1 Receptor Antagonist Start: 12-20-2024 take 1 tablet by mouth once daily Cetirizine (Zyrtec) 10 mg tablet Active 10 mg PO daily December 20, 2024 12:00am cholecalciferol 0.125 mg oral tablet (1 source) Vitamin D Start: 07-21-2021 End: 01-17-2022 cholecalciferol 125 mcg (5000 intl units) oral tablet Dose : 125 mcg = 1 tab(s), Oral, qDay, # 90 tab(s), 1 Refill(s), Pharmacy: [facility] [address], 157, cm, 07/09/21 14:07:00 EST, Height, kg, 07/09/21 14:07:00 EST, Dosing Weight Start Date: 07/21/21 Stop Date: 01/17/22 Status: Ordered codeine phosphate 2 mg/ml / guaiFENesin 20 mg/ml oral solution (2 sources) Opioid Agonist Start: 01-24-2017 take 10 mL by mouth every six hours as needed guaiFENesin-codeine 100-10 MG/5ML Solution take 10 mL by mouth every 6 hours as needed for Cough. 118 mL 0 01/24/2017 Active 2 ml dicyclomine hydrochloride 10 mg/ml injection (7 sources) Anticholinergic Start: 10-09-2018 dicyclomine (BENTYL) injection 20 mg Start: 10-09-2018 End: 01-09-2019 take 1 tablet by mouth three times daily as needed for pain dicyclomine (BENTYL) 20 mg tablet Take 1 (one) tablet (20 mg total) by mouth 3 (three) times a day as needed (Abdominal pain) . 20 tablet 0 10/09/2018 01/09/2019 Discontinued (Therapy completed) DME MISCellaneous (8 sources) Start: 10-26-2023 DME MISCellane ous See Instructions, peak flow meter use weekly and with any signs of asthma exacerbation. If peak expiratory flow less than 80% of baseline should proceed with albuterol treatment. . if unimproved or less than 50% proceed to ER, # 1 EA, 0 Refill(s), Pharmacy: [email or web address] #[id number], Asthma during in first trimester, 164.5, cm, 10/26/23 13:57:00 EDT, Height, 74, kg, 10/26/23 13:57:00 EDT, Dosing Weight Start Date: 10/26/23 Status: Ordered Quantity: 1.0 Unit: EA Repeat number: 1 Indication: Diseases of the respiratory system complicating , first trimester Start: 10-26-2023 MIKAYLA MISCellane ous See Instructions, peak flow meter use weekly and with any signs of asthma exacerbation. If peak expiratory flow less than 80% of baseline should proceed with albuterol treatment. . if unimproved or less than 50% proceed to ER, # 1 EA, 0 Refill(s), Pharmacy: [email or web address] #[id number], Asthma during in first trimester, 164.5, cm, 10/26/23 13:57:00 EDT, Height, 74, kg, 10/26/23 13:57:00 EDT, Dosing Weight Start Date: 10/26/23 Status: Ordered doxycycline hyclate 100 mg oral tablet (1 source) Tetracycline-class Drug Start: 12-13-2018 End: 12-23-2018 take 1 tablet by mouth twice daily doxycycline hyclate (VIBRA-TABS) 100 MG tablet Indications: Exacerbation of asthma, unspecified asthma severity, unspecified whether persistent , Bronchitis Take 1 (one) tablet (100 mg total) by mouth 2 (two) times a day for 10 days . 20 tablet 0 12/13/2018 12/23/2018 Active ferrous sulfate 325 mg oral tablet (6 sources) Start: 04-04-2024 ferrous sulfate 325 mg (65 mg elemental iron) oral tablet Dose : 325 mg = 1 tab(s), Oral, qDay, # 100 tab(s), 0 Refill(s), Pharmacy: [facility], 160, cm, 03/21/24 11:41:00 EST, Height, kg, 12/01/23 17:41:00 EDT, Dosing Weight Start Date: 04/04/24 Status: Ordered Quantity: 100.0 Unit: tab(s) Repeat number: 1 Flonase 50 mcg/inh nasal spray (4 sources) Start: 02-19-2021 take 1 dose nasal route twice daily Flonase 50 mcg/inh nasal spray Dose = 1 spray(s), Nostril, each, BID, # 16 gram(s), 0 Refill(s), Pharmacy: [facility] Acute sinusitis, 164, cm, 02/19/21 11:33:00 EDT, Height, kg, 02/19/21 11:33:00 EDT, Dosing Weight Start Date: 02/19/21 Status: Ordered fluticasone propionate 0.05 mg/actuat metered dose nasal spray (5 sources) Corticosteroid Start: 02-19-2021 take 1 dose nasal route twice daily Flonase 50 mcg/inh nasal spray Dose = 1 spray(s), Nostril, each, BID, # 16 gram(s), 0 Refill(s), Pharmacy: [facility] Acute sinusitis, 164, cm, 02/19/21 11:33:00 EDT, Height, kg, 02/19/21 11:33:00 EDT, Dosing Weight Start Date: 02/19/21 Status: Ordered Start: 01-09-2019 End: 01-09-2020 take 2 spray(s) nasal route once daily fluticasone propionate (FLONASE) 50 mcg/actuation nasal spray Indications: Acute non-recurrent frontal sinusitis Instill 2 (two) sprays into each nostril daily . 16 g 12 01/09/2019 Active hydrOXYzine hydrochloride 25 mg oral tablet (3 sources) Antihistamine Start: 07-09-2021 hydrOXYzine hydrochloride 25 mg oral tablet Dose : 25 mg = 1 tab(s), Oral, QID, PRN as needed for anxiety, # 40 tab(s), 0 Refill(s), Pharmacy: [facility] 157, cm, 07/09/21 14:07:00 EST, Height, kg, 07/09/21 14:07:00 EST, Dosing Weight Start Date: 3/10/22 Status: Ordered ibuprofen 600 mg oral tablet (6 sources) Nonsteroidal Anti-inflammatory Drug Start: 06-20-2024 End: 06-27-2024 ibuprofen 600 mg oral tablet Dose : 600 mg = 1 tab(s), Oral, q6h, PRN for pain, Take with food or milk., X 7 day(s), # 42 cap(s), 0 Refill(s), 06/27/24 6:02:00 PM EST, Pharmacy: [facility]/pharmacy #[id number], 157.5, cm, 06/19/24 5:00:00 EST, Height, kg, 06/19/24 5:00:00 EST, Dosing Weight Start Date: 06/20/24 Stop Date: 06/27/24 Status: Ordered Quantity: 42.0 Unit: cap(s) Repeat number: 1 Start: 10-09-2018 End: 11-08-2018 take 1 tablet by mouth every eight hours as needed ibuprofen (ADVIL,MOTRIN) 600 MG tablet Take 1 (one) tablet (600 mg total) by mouth every 8 (eight) hours as needed for pain . 30 tablet 0 10/09/2018 11/08/2018 Active metoclopramide 10 mg oral tablet (9 sources) Dopamine-2 Receptor Antagonist Start: 05-07-2024 Reglan 10 mg oral tablet Dose : 10 mg = 1 tab(s), Oral, TIDAC, PRN Nausea, # 30 tab(s), 2 Refill(s), Pharmacy: [facility], 157.5, cm, 04/18/24 15:14:00 EST, Height, kg, 04/14/24 23:25:00 EST, Dosing Weight Start Date: 05/07/24 Status: Ordered Quantity: 30.0 Unit: tab(s) Repeat number: 3 Start: 02-13-2024 Reglan 10 mg o ral tablet Dose : 10 mg = 1 tab(s), Oral, TIDAC, PRN Nausea, # 28 tab(s), 2 Refill(s), Pharmacy: [facility], 160, cm, 01/18/24 15:07:00 EDT, Height, kg, 12/01/23 17:41:00 EDT, Dosing Weight Start Date: 02/13/24 Status: Ordered Start: 12-16-2023 Reglan 10 mg o ral tablet Dose : 10 mg = 1 tab(s), Oral, TIDAC, PRN Nausea, # 28 tab(s), 2 Refill(s), Pharmacy: [facility], 160, cm, 11/28/23 10:00:00 EDT, Height, kg, 12/01/23 17:41:00 EDT, Dosing Weight Start Date: 12/16/23 Status: Ordered Start: 11-28-2023 Reglan 10 mg o ral tablet Dose : 10 mg = 1 tab(s), Oral, TIDAC, PRN Nausea, # 28 tab(s), 2 Refill(s), [facility]acy: [facility] #[id number], 160, cm, 11/28/23 10:00:00 EDT, Height, kg, 11/28/23 10:00:00 EDT, Dosing Weight Start Date: 11/28/23 Status: Ordered Mv-Min No.[id number] Acid ( Multivit (Fe Gluc)) 4.5 mg iron- 200 mcg capsule (1 source) Start: 12-19-2024 take 4.5 capsules by mouth once daily Mv-Min No.925-[id number]-Hvizt Acid ( Multivit (Fe Gluc)) 4.5 mg iron- 200 mcg capsule Active NMA PO .QD December 19, 2024 12:00am ondansetron 4 mg disintegrating oral tablet (18 sources) Serotonin-3 Receptor Antagonist Start: 12-01-2023 End: 12-22-2023 ondansetron 4 mg oral tablet, disintegrating Dose : 4 mg = 1 tab(s), Oral, q6h, PRN Nausea/Vomiting, # 20 tab(s), 0 Refill(s), 12/22/23 8:11:00 PM EDT Start Date: 12/01/23 Stop Date: 12/22/23 Status: Ordered Start: 06-14-2023 End: 07-10-2023 take 1 tablet by mouth every eight hours Zofran ODT use ondansetron oral tablet, disintegrating Dose : 4 mg =, Oral, q8h, # 21 tab(s), 0 Refill(s) Start Date: 07/03/23 Stop Date: 07/10/23 Status: Ordered Start: 10-09-2018 End: 10-09-2018 ondansetron (ZOFRAN) injecti on 4 mg Start: 10-09-2018 End: 01-09-2019 take 1 tablet by mouth every six hours as needed ondansetron (ZOFRAN ODT) 4 MG disintegrating tablet Dissolve 1 (one) tablet (4 mg total) on top of tongue every 6 (six) hours as needed for nausea . 20 tablet 0 10/09/2018 01/09/2019 Discontinued (Therapy completed) PreNata oral tablet, chewable (10 sources) Start: 10-30-2023 take 1 tablet by mouth once daily PreNata oral tablet, chewable Dose = 1 tab(s), Chewed, qDay, any chewable or gummy covered, # 30 tab(s), 11 Refill(s), Pharmacy: [facility] #[id number], 164.5, cm, 10/26/23 13:57:00 EDT, Height, kg, 10/26/23 13:57:00 EDT, Dosing Weight Start Date: 10/30/23 Status: Ordered Quantity: 30.0 Unit: tab(s) Repeat number: 12 Start: 10-30-2023 take 1 tablet by carmelita th once daily PreNata oral tablet, chewable Dose = 1 tab(s), Chewed, qDay, any chewable or gummy covered, # 30 tab(s), 11 Refill(s), Pharmacy: [facility] #[id number], 164.5, cm, 10/26/23 13:57:00 EDT, Height, kg, 10/26/23 13:57:00 EDT, Dosing Weight Start Date: 10/30/23 Status: Ordered 19 (Pease) oral tablet (6 sources) Start: 10-26-2023 take 1 tablet by mouth once daily 19 (Pease) oral tablet Dose = 1 tab(s), Oral, qDay, # 90 tab(s), 3 Refill(s), Pharmacy: [facility] #[id number], 164.5, cm, 10/26/23 13:57:00 EDT, Height, kg, 10/26/23 13:57:00 EDT, Dosing Weight Start Date: 10/26/23 Status: Ordered sertraline 100 mg oral tablet (5 sources) Serotonin Reuptake Inhibitor Start: 07-28-2021 End: 11-25-2021 sertraline 100 mg oral tablet Dose : 150 mg = 1.5 tab(s), Oral, qDay, # 45 tab(s), 3 Refill(s), [email or web address] 163, cm, 07/28/21 8:06:00 EDT, Height, kg, 07/28/21 8:06:00 EDT, Dosing Weight Start Date: 07/28/21 Stop Date: 11/25/21 Status: Ordered Start: 07-09-2021 sertraline 100 mg oral tablet Dose : 100 mg = 1 tab(s), Oral, qDay, dose increase, # 90 tab(s), 0 Refill(s), [email or web address] 162.5, cm, 06/24/21 10:49:00 EST, Height, kg, 06/24/21 10:49:00 EST, Dosing Weight Start Date: 07/09/21 Status: Ordered Start: 04-01-2021 End: 09-28-2021 sertraline 50 mg oral tablet Dose : 75 mg = 1.5 tab(s), Oral, qDay, # 45 tab(s), 5 Refill(s), [facility] 164, cm, 02/26/21 7:05:00 EDT, Height, kg, 02/26/21 7:05:00 EDT, Dosing Weight Start Date: 04/01/21 Stop Date: 09/28/21 Status: Ordered Symbicort 160 mcg-4.5 mcg/inh Inhaler (20 sources) Start: 11-14-2023 take 1 dose by inhalation twice daily Symbicort 160 mcg-4.5 mcg/inh Inhaler Dose = 2 puff(s), Inhalation, BID, inhale 2 puffs by mouth twice a day Rinse mouth after use, # 1 EA, 11 Refill(s), Pharmacy: [facility], 164.5, cm, 10/26/23 13:57:00 EDT, Height, kg, 10/26/23 13:57:00 EDT, Dosing Weight Start Date: 11/14/23 Status: Ordered Quantity: 1.0 Unit: EA Repeat number: 12 Start: 11-14-2023 take 1 dose by inhal ation twice daily Symbicort 160 mcg-4.5 mcg/inh Inhaler Dose = 2 puff(s), Inhalation, BID, inhale 2 puffs by mouth twice a day Rinse mouth after use, # 1 EA, 11 Refill(s), Pharmacy: [facility], 164.5, cm, 10/26/23 13:57:00 EDT, Height, kg, 10/26/23 13:57:00 EDT, Dosing Weight Start Date: 11/14/23 Status: Ordered Start: 07-18-2023 take 1 dose by inhal ation twice daily Symbicort 160 mcg-4.5 mcg/inh Inhaler Dose = 2 puff(s), Inhalation, BID, inhale 2 puffs by mouth twice a day Rinse mouth after use, # 1 EA, 11 Refill(s), Pharmacy: [facility], 160, cm, 07/06/23 11:31:00 EST, Height, kg, 07/06/23 11:31:00 EST, Dosing Weight Start Date: 07/18/23 Status: Ordered Start: 05-24-2023 take 1 dose by inhal ation twice daily Symbicort 160 mcg-4.5 mcg/inh Inhaler Dose = 2 puff(s), Inhalation, BID, inhale 2 puffs by mouth twice a day Rinse mouth after use, # 1 EA, 0 Refill(s), Pharmacy: [facility] #[id number], 160, cm, 03/09/23 14:38:00 EST, Height, kg, 03/09/23 14:38:00 EST, Dosing Weight Start Date: 05/24/23 Status: Ordered Start: 01-16-2021 take 1 dose by mouth twice yanni ly Symbicort 160 mcg-4.5 mcg/inh Inhaler Dose = 2 puff(s), Inhalation, BID, rinse mouth and throat after use., # 1 EA, 5 Refill(s), Pharmacy: [email or web address] 164, cm, 01/06/21 8:58:00 EDT, Height, kg, 01/06/21 8:58:00 EDT, Dosing Weight Start Date: 01/16/21 Status: Ordered tiZANidine 4 mg oral capsule (1 source) Central alpha-2 Adrenergic Agonist Start: 03-29-2017 End: 04-08-2017 take 1 capsule by mouth three times daily as needed for muscle spasms, then take 1 capsule by mouth as needed for muscle spasms tiZANidine (ZANAFLEX) 4 MG capsule Indications: Left arm pain Take 1 (one) capsule (4 mg total) by mouth 3 (three) times a day as needed for muscle spasms. 30 capsule 0 03/29/2017 04/08/2017 Active Vitamin B6 50 mg oral tablet (2 sources) Start: 11-07-2023 End: 02-05-2024 Vitamin B6 50 mg oral tablet Dose : 25 mg = 0.5 tab(s), Oral, BID, for prevention of nausea, X 30 day(s), # 30 tab(s), 2 Refill(s), 02/05/24 12:54:00 PM EDT, Pharmacy: [facility] #[id number], 164.5, cm, 10/26/23 13:57:00 EDT, Height, kg, 10/26/23 13:57:00 EDT, Dosing Weight Start Date: 11/07/23 Stop Date: 02/05/24 Status: Ordered Completed/Discontinued Medications Medication Drug Class(es) Dates Sig (Normalized) Sig (Original) dextromethorphan hydrobromide 3 mg/ml / promethazine hydrochloride 1.25 mg/ml oral solution (2 sources) Phenothiazine, Uncompetitive [id number]-asparta te Receptor Antagonist, Sigma-1 Agonist Start: 01-17-2017 End: 03-29-2017 promethazine-dextro methorphan (PROMETHAZINE-DM) 6.25-15 mg/5 mL syrup Indications: Cough Take 7.5ml PO at HS. 118 mL 0 01/17/2017 03/29/2017 Discontinued diclofenac sodium 75 mg delayed release oral tablet (3 sources) Nonsteroidal Anti-inflammatory Drug Start: 03-29-2017 End: 03-29-2018 take 1 tablet by mouth twice daily at mealtime diclofenac sodium (VOLTAREN) 75 MG EC tablet Indications: Left arm pain Take 1 (one) tablet (75 mg total) by mouth 2 (two) times a day with meals. 60 tablet 11 03/29/2017 01/27/2018 Discontinued diphenhydrAMINE hydrochloride 25 mg disintegrating oral tablet (6 sources) Histamine-1 Receptor Antagonist Start: 12-19-2024 End: 12-20-2024 take 1 tablet by mouth at bedtime Diphenhydramine Hcl (Unisom Sleepmelts) 25 mg tablet,disintegrati ng Discontinued 25 mg PO AT BEDTIME December 19, 2024 12:00am December 20, 2024 2:14pm Start: 11-07-2023 End: 09-11-2024 Unisom 25mg oral tablet Dose : 25 mg = 1 tab(s), Oral, qHS, for nausea prevention, X 90 day(s), # 30 tab(s), 2 Refill(s), 09/11/24 12:03:00 PM EDT, Pharmacy: [facility], 160, cm, 11/28/23 10:00:00 EDT, Height, kg, 12/01/23 17:41:00 EDT, Dosing Weight Start Date: 12/16/23 Stop Date: 09/11/24 Status: Ordered levocetirizine dihydrochloride 5 mg oral tablet (9 sources) Histamine-1 Receptor Antagonist Start: 01-27-2018 End: 01-27-2019 take 1 tablet by mouth once daily in the evening levocetirizine (XYZAL) 5 MG tablet Indications: Environmental and seasonal allergies TAKE ONE TABLET BY MOUTH EVERY EVENING 30 tablet 11 07/05/2018 01/09/2019 Discontinued (Therapy completed) montelukast 10 mg oral tablet (18 sources) Leukotriene Receptor Antagonist Start: 12-19-2024 End: 12-20-2024 take 1 tablet by mouth once daily Montelukast 10 mg tablet Discontinued 10 mg PO daily December 19, 2024 12:00am December 20, 2024 2:14pm Start: 01-18-2023 Singulair 10 m g oral tablet Dose : 10 mg = 1 tab(s), Oral, qDay, # 90 tab(s), 3 Refill(s), Pharmacy: [facility] #[id number], 164, cm, 12/28/22 9:50:00 EDT, Height, kg, 12/28/22 9:50:00 EDT, Dosing Weight Start Date: 01/18/23 Status: Ordered Start: 12-23-2020 Singulair 10 m g oral tablet Dose : 10 mg = 1 tab(s), Oral, qDay, # 90 tab(s), 3 Refill(s), [facility]: [email or web address] 157.5, cm, 11/24/20 12:47:00 EDT, Height, kg, 12/09/20 10:09:00 EDT, Dosing Weight Start Date: 12/23/20 Status: Ordered Start: 12-13-2018 End: 12-13-2019 take 1 tablet by mouth once daily montelukast (SINGULAIR) 10 mg tablet Indications: Mild intermittent asthma with acute exacerbation Take 1 (one) tablet (10 mg total) by mouth nightly . 30 tablet 11 12/13/2018 Active omeprazole 40 mg delayed release oral capsule (3 sources) Proton Pump Inhibitor Start: 06-14-2023 End: 06-28-2023 omeprazole 40 mg oral delayed release capsule Dose : 40 mg = 1 cap(s), Oral, qDay, # 14 cap(s), 0 Refill(s), Pharmacy: [facility] #[id number], 160, cm, 06/14/23 10:05:00 EST, Height, kg, 06/14/23 10:05:00 EST, Dosing Weight Start Date: 06/14/23 Stop Date: 06/28/23 Status: Ordered predniSONE 10 mg oral tablet (8 sources) Start: 12-13-2018 End: 01-09-2019 predniSONE (DELTASONE) 10 MG tablet Indications: Exacerbation of asthma, unspecified asthma severity, unspecified whether persistent , Bronchitis Take 3 tabs by mouth for 3 days, take 2 tabs by mouth for 3 days, take 1 tab by mouth for 3 days . 18 tablet 0 12/13/2018 01/09/2019 Discontinued (Therapy completed) Start: 07-07-2017 End: 04-13-2018 take 3 tablets by mouth once daily, then take 2 tablets by mouth once daily, then take 1 tablet by mouth once daily predniSONE (DELTASONE) 10 MG tablet Indications: Bronchitis 3 tabs po daily for 3 days then 2 tabs po daily for 3 days then 1 tab po daily for 5 days. 20 tablet 0 01/27/2018 04/13/2018 Discontinued Start: 12-31-2016 End: 01-17-2017 take 4 tablets by mouth once daily, then take 2 tablets by mouth once daily, then take 1 tablet by mouth once daily, then take 1 tablet by mouth every other day predniSONE (DELTASONE) 10 MG tablet Indications: Bronchitis Take 4 tabs PO daily x 2 days then 2 tabs PO daily x 4 days then 1 tab PO daily x 2 days then 1 tab PO QOD x 4 days. 22 tablet 0 12/31/2016 01/17/2017 Discontinued promethazine hydrochloride 12.5 mg oral tablet (1 source) Phenothiazine Start: 12-19-2024 End: 12-20-2024 take 1 tablet by mouth every four to six hours as needed Promethazine 12.5 mg tablet Discontinued 12.5 mg PO EVERY 4-6 HOURS as needed December 19, 2024 12:00am December 20, 2024 2:14pm pyridoxine hydrochloride 25 mg oral tablet (1 source) Start: 12-19-2024 End: 12-20-2024 Pyridoxine (Vitamin B6) 50 mg tablet Discontinued 25 mg PO TWICE A DAY December 19, 2024 12:00am December 20, 2024 2:14pm 1000 ml sodium chloride 9 mg/ml injection (2 sources) Start: 10-09-2018 End: 10-09-2018 sodium chloride 0.9% (NS) bolus 500 mL Start: 10-09-2018 End: 10-09-2018 sodium chloride (PF) (NS) fl ush 5 mL terbinafine hydrochloride 10 mg/ml topical cream (3 sources) Allylamine Antifungal Start: 12-19-2024 End: 12-20-2024 Terbinafine Hcl 1 % cream Discontinued 1 NMA TOPICAL TWICE A DAY December 19, 2024 12:00am December 20, 2024 2:14pm Start: 09-20-2023 End: 11-19-2023 terbinafine 1% topical cream Apply 1 azeem, Topical, BID, X 30 day(s), # 30 gram(s), 1 Refill(s), Pharmacy: [facility], Cream, 164.5, cm, 09/20/23 10:54:00 EDT, Height, 74, kg, 09/20/23 10:54:00 EDT, Dosing Weight Start Date: 09/20/23 Stop Date: 11/19/23 Status: Ordered 60 actuat tiotropium 0.33460 mg/actuat inhalation spray (11 sources) Anticholinergic Start: 12-19-2024 End: 12-20-2024 take 1.25 ug by inhalation once daily Tiotropium [place] (Spiriva Respimat) 1.25 mcg/actuation mist Discontinued 2 NMA INHALATION daily December 19, 2024 12:00am December 20, 2024 2:14pm Start: 03-12-2024 Spiriva Respim at 1.25 mcg/inh inhalation aerosol 2 puff(s), Inhalation, qDay, # 3 EA, 3 Refill(s), Pharmacy: [facility], 160, cm, 02/22/24 15:33:00 EDT, Height, kg, 12/01/23 17:41:00 EDT, Dosing Weight Start Date: 03/12/24 Status: Ordered Quantity: 3.0 Unit: EA Repeat number: 4 Start: 11-14-2023 Spiriva Respim at 1.25 mcg/inh inhalation aerosol 2 puff(s), Inhalation, qDay, # 4 gram(s), 3 Refill(s), Pharmacy: [facility], 164.5, cm, 10/26/23 13:57:00 EDT, Height, kg, 10/26/23 13:57:00 EDT, Dosing Weight Start Date: 11/14/23 Status: Ordered Start: 09-21-2023 SPIRIVA RESPIM AT 1.25 mcg/actuation inhaler Start: 09-20-2023 Spiriva Respim at 1.25 mcg/inh inhalation aerosol 2 puff(s), Inhalation, qDay, # 4 gram(s), 3 Refill(s), [facility]: [email or web address][id number], 164.5, cm, 09/20/23 10:54:00 EDT, Height, kg, 09/20/23 10:54:00 EDT, Dosing Weight Start Date: 09/20/23 Status: Ordered Problems Active Problems Problem Classification Problem Date Documented Da te Episodic/Chronic Abdominal pain (4 sources) Right lower quadrant pain; Translations: [Abdominal pain] Onset: Episodic Administrative/social admission (1 source) Patient encounter status; Translations: [Encounter for pre-employment examination] 12-26-2023 Episodic Allergic reactions (1 source) Allergic disposition Episodic Anxiety disorders (20 sources) Mixed anxiety and depressive disorder; Translations: [Anxiety] 02-05-2021 Chronic Asthma (20 sources) Unspecified asthma with (acute) exacerbation; Translations: [Mild intermittent asthma] Onset: 7 03-07-2020 Chronic Bacterial infection; unspecified site (1 source) Streptococcus agalactiae infection; Translations: [Streptococcus, group B, as the cause of diseases classified elsewhere] Onset: 5 Episodic Blindness and vision defects (15 sources) Visual impairment 06-28-2023 Chronic Cardiac dysrhythmias (1 source) Tachyarrhythmia ; Translations: [Tachycardia, unspecified] Onset: 5 Episodic Chronic obstructive pulmonary disease and bronchiectasis (3 sources) Bronchitis; Translations: [Bronchitis] Episodic Deficiency and other anemia (1 source) Anemia; Translations: [Anemia, unspecified] Onset: 5 Episodic Diabetes or abnormal glucose tolerance complicating ; childbirth; or the puerperium (1 source) Gestational diabetes mellitus complicating ; Translations: [Gestational diabetes mellitus in , diet controlled] Onset: 5 Episodic Disorders of teeth and jaw (16 sources) Arthralgia of temporomandibular joint 08-10-2022 Episodic Genitourinary symptoms and ill-defined conditions (3 sources) Blood in urine; Translations: [Unspecified abnormal findings in urine] Onset: 4 Episodic Influenza (3 sources) Influenza 07-06-2023 Episodic Joint disorders and dislocations; trauma-related (16 sources) 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 10-16-2021 Chronic Lymphadenitis (1 source) Nonspecific mesenteric lymphadenitis; Translations: [Acute mesenteric adenitis] Episodic Malaise and fatigue (17 sources) Fatigue 04-14-2021 Episodic Menstrual disorders (4 sources) Secondary amenorrhea; Translations: [Irregular menstruation, unspecified] Onset: 3 Chronic Miscellaneous mental health disorders (17 sources) Bruxism (teeth grinding); Translations: [Other somatoform disorders] 08-10-2022 Chronic Mood disorders (1 source) Depressive disorder; Translations: [Depression] 12-19-2024 Chronic Mycoses (12 sources) Pityriasis versicolor; Translations: [Tinea pedis] 02-26-2021 Episodic Nausea and vomiting (8 sources) Nausea; Translations: [Nausea] 06-14-2023 Episodic Nutritional deficiencies (19 sources) Vitamin D deficiency 2021 Chronic Other complications of ; puerperium affecting management of mother (1 source) hemorrhage; Translations: [Other immediate hemorrhage] Onset: 5 Episodic Other complications of (1 source) Vomiting of ; Translations: [Vomiting of , unspecified] Onset: 4 Episodic Other complications of (1 source) Excessive growth affecting management of mother; Translations: [Maternal care for excessive growth, third trimester, not applicable or unspecified] Onset: 5 Episodic Other complications of (2 sources) Supervision of high risk done; Translations: [Supervision of other high risk pregnancies, unspecified trimester] Onset: 5 Episodic Other endocrine disorders (1 source) Polycystic ovary; Translations: [Polycystic ovarian syndrome] 12-20-2024 Chronic Other gastrointestinal disorders (18 sources) Dysphagia; Translations: [Dysphagia, unspecified] 06-14-2023 Episodic Other gastrointestinal disorders (1 source) Dysphagia, unspecified; Translations: [Dysphagia, unspecified] Onset: 5 Episodic Other injuries and conditions due to external causes (5 sources) Motion sickness 02-05-2021 Episodic Other lower respiratory disease (3 sources) Cough; Translations: [Cough] Episodic Other non-traumatic joint disorders (6 sources) Knee pain 10-16-2021 Episodic Other screening for suspected conditions (not mental disorders or infectious disease) (6 sources) Encounter for screening for cardiovascular disorders; Translations: [Encounter for screening for diabetes mellitus] Onset: 4 Episodic Other upper respiratory disease (20 sources) Allergic rhinitis; Translations: [Allergic rhinitis, unspecified] 2021 Chronic Other upper respiratory disease (1 source) Seasonal allergy; Translations: [Other seasonal allergic rhinitis] 12-20-2024 Chronic Other upper respiratory disease (7 sources) Nasal congestion 08-20-2021 Episodic Other upper respiratory infections (16 sources) Acute pharyngitis, unspecified; Translations: [Acute maxillary sinusitis] Onset: 7 09-25-2023 Episodic Otitis media and related conditions (1 source) Acute serous otitis media; Translations: [Non-recurrent acute serous otitis media of left ear] Episodic Ovarian cyst (7 sources) Hemorrhagic cyst of ovary; Translations: [Ruptured cyst of ovary] 11-13-2020 Episodic Residual codes; unclassified (5 sources) History of laparoscopy 11-24-2020 Episodic Residual codes; unclassified (18 sources) Family history of cancer of colon; Translations: [Family history of malignant neoplasm of digestive organs] 02-01-2023 Episodic Comment on above: in her early 30s Residual codes; unclassified (1 source) Rubella status not known 09-20-2023 Episodic Residual codes; unclassified (2 sources) 12 weeks gestation of ; Translations: [12 weeks gestation of ] Onset: 4 Episodic Residual codes; unclassified (2 sources) Other specified health status; Translations: [Other specified health status] Onset: 4 Episodic Residual codes; unclassified (1 source) Gestation period, 38 weeks; Translations: [38 weeks gestation of ] Onset: 5 Episodic Residual codes; unclassified (2 sources) 36 weeks gestation of ; Translations: [36 weeks gestation of ] Onset: 5 Episodic Residual codes; unclassified (1 source) Family history of malignant neoplasm of digestive organs; Translations: [Family history of malignant neoplasm of digestive organs] Onset: 5 Episodic Superficial injury; contusion (1 source) Contusion of thumb; Translations: [Contusion of right thumb without damage to nail, initial encounter] Episodic Unclassified (17 sources) Patient encounter status 12-25-2020 Unclassified (2 sources) Streptococcus agalactiae (organism) 06-19-2024 Past or Other Problems Problem Classification Problem Date Documented Date Episodic/Chronic Immunizations and screening for infectious disease (2 sources) Encounter for screening for other viral diseases; Translations: [Encounter for screening for other viral diseases] Onset: 06-14-2023 Episodic Noninfectious gastroenteritis (2 sources) Noninfective gastroenteritis and colitis, unspecified; Translations: [Noninfective gastroenteritis and colitis, unspecified] Onset: 11-19-2016 Episodic Other connective tissue disease (3 sources) Pain in left arm; Translations: [Pain in left arm] Onset: 03-29-2017 Episodic Other and delivery including normal (10 sources) Onset: 09-27-2023 10-26-2023 Episodic Results Test Name Value Interpretation Reference Range Facility Gastroenterology Visit Repor ton 12-20-2024 Gastroenterology Visit Report [facility] [address] [place] [address] OFFICE VISIT Date of Service: 12/20/24 MR#: [id number] Acct: [id number] Name: LIVIA BOYER Rep #: [id number] : 1995 Provider: YAIMA crandall Age/Sex: 29/F Location[place] [facility] [place] Status: Signed Intake Vital Signs 12/20/24 14:19 Height 5 ft 5 in Weight: 164 lb 2 oz BMI 27.3 BP 110/76 Respiration 14 Pulse 83 Temp 97.2 F L Temp Source Temporal Pulse Oximetry (%) 98 Oxygen Delivery Method room air Intake Visit Reasons: Dysphagia Chief Complaint: trouble swallowing Lift Team Technician Required: No Accompanied by: Self Is patient in pain?: No Allergies latex Allergy (Intermediate, Verified 12/19/24 17:34) redness adhesive Adverse Reaction (Mild, Verified 12/19/24 17:34) Rash lavender (Lavandula angustifolia) Adverse Reaction (Mild, Verified 12/19/24 17:34) Hives Medications ???Medication ???Instructions ???Recorded ???Confirmed ???Type albuterol sulfate 90 mcg/actuation 2 puff inhalation Q6H PRN 12/20/24 History aerosol inhaler (Ventolin HFA) budesonide-formoterol HFA 160 2 puff inhalation BID 12/19/24 History mcg-4.5 mcg/actuation aerosol inhaler (Symbicort) multivitamin with mins no.113-iron cap PO .QD 12/19/24 12/20/24 His tory 4.5 mg-folic acid 200 mcg capsule ( Multivitamin (Ferrous Gluconate)) cetirizine 10 mg tablet (Zyrtec) 10 mg PO QDAY 12/20/24 12/20/24 Hi story PFSH Medical History Ovarian cyst Acute exacerbation of asthma with allergic rhinitis Vitamin D deficiency Vision loss TMJ arthralgia Anemia Family history of colon cancer Derangement of unspecified meniscus due to old tear or injury, right knee Physical exam, pre-employment Surgical History H/O wisdom tooth extraction H/O arthroscopy of knee Family History Mother Cancer Colon cancer Inflammatory bowel disease Epilepsy Father Diabetes Social History Smoking Status: Never smoker alcohol intake: current details: 1-2 times per year substance use type: does not use HPI HPI Chief Complaint: trouble swallowing Details: 29y/o female with intermittent dysphagia, first started when she was a teenager - progressively worse - gets stuck high in her throat - Brenda 09/13/2023 Esophagram - can choke on apple sauce or solid foods - tried to chug water to force down or up - she reports a personal h/o asthma - denies any h/o eczema - denies any family h/o esophageal or gastric CA - denies any h/o smoking - occasional alcohol use - denies any HB - denies any N/V - mom with colon cancer in her early 30's - reports there is no chance she could be now - she has PCOS - she is not on OC - she is breast feeding ROS Const Constitutional: No fatigue, fever(s) or weight change ENT ENT: Positive for difficulty swallowing Gastro GI: Positive for difficulty swallowing; No abdominal pain, belching, bloating, change in bowel habits, change in stool character, coffee ground emesis, constipation, cramping, diarrhea, heartburn, feeling full early, excessive flatus, incontinent of stools, Vomiting blood/hematemesis, Blood in stool, loose stools, Black,tarry stools, nausea/dyspepsia, pain with swallowing, vomiting or other Musc Musculoskeletal: No joint pain Skin Skin: No yellowing of the eye or itchy eyes Psych Psychiatric: No anxiety and No depression Endo Endocrine: No fatigue or weight change Aller/Imm Allergy/Immunologic: No itchy eyes Josh/Lymp Hematologic/Lymphatic: No easy bleeding or easy bruising Exam Const General: cooperative, healthy appearing, no acute distress and well developed Nutritional Appearance: average body habitus and well nourished Orientation: alert and oriented x3 HENMT Head: normocephalic Ears: hearing grossly normal bilaterally Mouth: moist mucous membranes Teeth and gingiva: dentition normal Eyes Conjunctivae: conjunctivae normal Sclera: sclerae normal Neck Neck: normal visual inspection, full ROM and trachea midline Resp Effort Inspection: normal respiratory effort, able to speak in complete sentences and symmetric chest movement Auscultation: Bilateral: Clear to Auscultation Cardio Rate: regular rate Rhythm: regular rhythm GI Inspection: normal to inspection Auscultation: normal bowel sounds Palpation: soft and no hepatosplenomegaly Rectal Exam: deferred Skin General: no rashes or lesions noted and turgor normal Neuro General: patient alert and (more content not included)... Normal [facility] .Auto Diffon 06-25-2024 Basophil, Absolute 0.0 10 3/mcL Normal 0.0-0.2 [facility] Comment on above: Performed By: #### G FR, ADIFF, ANEU, ABOGEL, TSH, TROPHS, MDW, APTT, CMP, CBC, MG, PRO, ABSGEL ####[place] [address] [place], [place] [address] Basophils/100 WBC (Bld) 0.3 % Normal 0.0-2.5 [facility] Comment on above: Performed By: #### G FR, ADIFF, ANEU, ABOGEL, TSH, TROPHS, MDW, APTT, CMP, CBC, MG, PRO, ABSGEL ####[place] [address] [place], [place] [address] Eosinophil, Absolute 0.1 10 3/mcL Normal 0.0-0.7 [facility] Comment on above: Performed By: #### G FR, ADIFF, ANEU, ABOGEL, TSH, TROPHS, MDW, APTT, CMP, CBC, MG, PRO, ABSGEL ####[place] [address] [place] [address] Eosinophils/100 WBC (Bld) 3.0 % Normal 0.0-7.0 [facility] Comment on above: Performed By: #### G FR, ADIFF, ANEU, ABOGEL, TSH, TROPHS, MDW, APTT, CMP, CBC, MG, PRO, ABSGEL ####[place] [address] [place], [place] [address] Lymphocyte, Absolute 1.2 10 3/mcL Normal 0.9-4.3 [facility] Comment on above: Performed By: #### G FR, ADIFF, ANEU, ABOGEL, TSH, TROPHS, MDW, APTT, CMP, CBC, MG, PRO, ABSGEL ####[address] [address] Lymphocytes/100 WBC (Bld) 28.7 % Normal 20.0-40.0 [facility] Comment on above: Performed By: #### G FR, ADIFF, ANEU, ABOGEL, TSH, TROPHS, MDW, APTT, CMP, CBC, MG, PRO, ABSGEL ####[address] [address] Monocyte, Absolute 0.3 10 3/mcL Normal 0.1-1.4 [facility] Comment on above: Performed By: #### G FR, ADIFF, ANEU, ABOGEL, TSH, TROPHS, MDW, APTT, CMP, CBC, MG, PRO, ABSGEL ####[address] [address] Monocytes/100 WBC (Bld) 7.7 % Normal 2.0-13.0 [facility] Comment on above: Performed By: #### G FR, ADIFF, ANEU, ABOGEL, TSH, TROPHS, MDW, APTT, CMP, CBC, MG, PRO, ABSGEL ####[place] [address] [place], [place] [address] Neutrophils/100 WBC (Bld) 60.3 % Normal 50.0-75.0 [facility] Comment on above: Performed By: #### G FR, ADIFF, ANEU, ABOGEL, TSH, TROPHS, MDW, APTT, CMP, CBC, MG, PRO, ABSGEL ####[facility] [place], [place] [address] .GFRon 06-25-2024 GFR/1.73 sq M.predicted among non-blacks MDRD (S/P/Bld) [Vol rate/Area] mL/min/{1.73_m2} Normal [facility] Comment on above: Result Comment: Stages of Chronic Kidney Disease (CKD) Stage Description eGFR(ml/min/1.73 sq.m.) CKD 1 Normal kidney function or >=90 normal kindney function with possible kidney damage (ex. Proteinuria) CKD 2 Kidney damage with mild loss 60-89 of kidney function CKD 3a Mild to moderate loss of kidney 45-59 function CKD 3b Moderate to severe loss of 30-44 of kindey function CKD 4 Severe loss of kidney function 15-29 CKD 5 Kidney failure <15 Note: (go live 2024) the eGFR calculation was updated to the 2020 CKD-EPI creatinine equation without a race factor to calculate the eGFR results. Performed By: #### G FR, ADIFF, ANEU, ABOGEL, TSH, TROPHS, MDW, APTT, CMP, CBC, MG, PRO, ABSGEL ####[facility] [place], [place] [address] .MDWon 06-25-2024 Monocyte Distribution Width 26.44 High 0.00-20.00 [facility] Comment on above: Result Comment: For adults in ED, MDW>20.0 may be associated with a higher risk of sepsis during the first 12hrs of hospital admission Performed By: #### G FR, ADIFF, ANEU, ABOGEL, TSH, TROPHS, MDW, APTT, CMP, CBC, MG, PRO, ABSGEL ####[place] [address] [place], [place] [address] .NEUABSon 06-25-2024 Neutrophil, Absolute 2.6 10 3/mcL Normal 2.3-8.1 [facility] Comment on above: Performed By: #### G FR, ADIFF, ANEU, ABOGEL, TSH, TROPHS, MDW, APTT, CMP, CBC, MG, PRO, ABSGEL ####[address] [address] .Urinalysis Microscopic (AO) on 06-25-2024 UA Mucous 1+ /hpf Normal [facility] Comment on above: Performed By: #### H H #### [address] [address] UA RBC LOADED Abnormal None Seen [facility] Comment on above: Performed By: #### H H #### [address] [address] UA Renal Epithelial 0-5 Abnormal [facility] Comment on above: Performed By: #### H H #### [place] [address] UA Squam Epithelial 0-5 Abnormal None Seen [facility] Comment on above: Performed By: #### H H #### [place] [address] UA WBC 5-10 Abnormal None Seen [facility] Comment on above: Performed By: #### H H #### [place] [address] ABO/Rh (Gel)on 06-25-2024 ABO/Rh Interp Positive Invalid Interpretation Code [facility] Comment on above: Performed By: #### H H #### [place] [address] ABS (Gel)on 06-25-2024 ABSC Interp (Gel) Negative Normal [facility] Comment on above: Performed By: #### H H #### [place] [address] APTTon 06-25-2024 aPTT Coag (Bld) [Time] 27.8 s Normal 25.0-35.0 [facility] Comment on above: Result Comment: For Heparin anticoagulation therapy, the recommended therapeutic range is: 45.4-75.9 seconds. Patients on heparin therapy may have an extreme result. Performed By: #### G FR, ADIFF, ANEU, ABOGEL, TSH, TROPHS, MDW, APTT, CMP, CBC, MG, PRO, ABSGEL ####[address] [address] CBCon 06-25-2024 Erythrocyte distribution width (RBC) [Ratio] 19.1 % High 11.5-15.5 [facility] Comment on above: Performed By: #### G FR, ADIFF, ANEU, ABOGEL, TSH, TROPHS, MDW, APTT, CMP, CBC, MG, PRO, ABSGEL #### [place] [address] Hematocrit (Bld) [Volume fraction] 23.2 % Low 34.0-46.0 [facility] Comment on above: Performed By: #### G FR, ADIFF, ANEU, ABOGEL, TSH, TROPHS, MDW, APTT, CMP, CBC, MG, PRO, ABSGEL #### [place] [address] Hgb 7.5 G/dL Low 12.0-16.0 [facility] Comment on above: Performed By: #### G FR, ADIFF, ANEU, ABOGEL, TSH, TROPHS, MDW, APTT, CMP, CBC, MG, PRO, ABSGEL #### [address] [address] MCH (RBC) [Entitic mass] 26.0 pg Low 27.0-33.0 [facility] Comment on above: Performed By: #### G FR, ADIFF, ANEU, ABOGEL, TSH, TROPHS, MDW, APTT, CMP, CBC, MG, PRO, ABSGEL #### [address] [address] MCHC 32.5 G/dL Normal 32.0-36.0 [facility] Comment on above: Performed By: #### G FR, ADIFF, ANEU, ABOGEL, TSH, TROPHS, MDW, APTT, CMP, CBC, MG, PRO, ABSGEL #### [place] [address] MCV (RBC) [Entitic vol] 80.0 fL Normal 80.0-99.0 [facility] Comment on above: Performed By: #### G FR, ADIFF, ANEU, ABOGEL, TSH, TROPHS, MDW, APTT, CMP, CBC, MG, PRO, ABSGEL #### [address] [address] Platelet 263 10 3/mcL Normal 150-450 [facility] Comment on above: Performed By: #### G FR, ADIFF, ANEU, ABOGEL, TSH, TROPHS, MDW, APTT, CMP, CBC, MG, PRO, ABSGEL #### [address] [address] Platelet mean volume (Bld) [Entitic vol] 7.5 fL Normal 6.6-10.5 [facility] Comment on above: Performed By: #### G FR, ADIFF, ANEU, ABOGEL, TSH, TROPHS, MDW, APTT, CMP, CBC, MG, PRO, ABSGEL #### [address] [address] RBC 2.89 10 6/mcL Low 4.10-5.30 [facility] Comment on above: Performed By: #### G FR, ADIFF, ANEU, ABOGEL, TSH, TROPHS, MDW, APTT, CMP, CBC, MG, PRO, ABSGEL #### [address] [address] WBC 4.2 10 3/mcL Low 4.5-10.8 [facility] Comment on above: Performed By: #### G FR, ADIFF, ANEU, ABOGEL, TSH, TROPHS, MDW, APTT, CMP, CBC, MG, PRO, ABSGEL #### [address] [address] CMPon 06-25-2024 Albumin Level 2.6 G/dL Low 3.5-5.0 [facility] Comment on above: Performed By: #### G FR, ADIFF, ANEU, ABOGEL, TSH, TROPHS, MDW, APTT, CMP, CBC, MG, PRO, ABSGEL ####[facility] [place] [phone] Albumin/Globulin [Mass ratio] 0.7 {ratio} Low 1.1-2.5 [facility] Comment on above: Performed By: #### G FR, ADIFF, ANEU, ABOGEL, TSH, TROPHS, MDW, APTT, CMP, CBC, MG, PRO, ABSGEL ####[place] [address] [place] [phone] ALP [Catalytic activity/Vol] 82 U/L Normal 40-135 [facility] Comment on above: Performed By: #### G FR, ADIFF, ANEU, ABOGEL, TSH, TROPHS, MDW, APTT, CMP, CBC, MG, PRO, ABSGEL ####[place] [address] [place] [phone] ALT [Catalytic activity/Vol] 46 U/L Normal 14-59 [facility] Comment on above: Performed By: #### G FR, ADIFF, ANEU, ABOGEL, TSH, TROPHS, MDW, APTT, CMP, CBC, MG, PRO, ABSGEL ####[place] [phone] AST [Catalytic activity/Vol] 28 U/L Normal 10-40 [facility] Comment on above: Performed By: #### G FR, ADIFF, ANEU, ABOGEL, TSH, TROPHS, MDW, APTT, CMP, CBC, MG, PRO, ABSGEL ####[place] [address] [place] [phone] Bili Total 0.2 mg/dL Normal 0.2-1.0 [facility] Comment on above: Result Comment: Use of this assay is not recommended for patients undergoing treatment with eltrombopag due to the potential for falsely elevated results. Performed By: #### G FR, ADIFF, ANEU, ABOGEL, TSH, TROPHS, MDW, APTT, CMP, CBC, MG, PRO, ABSGEL ####[place] [address] [place] [phone] BUN/Creatinine Ratio 11 ratio Normal 7-27 [facility] Comment on above: Performed By: #### G FR, ADIFF, ANEU, ABOGEL, TSH, TROPHS, MDW, APTT, CMP, CBC, MG, PRO, ABSGEL ####[address] [address] Calcium [Mass/Vol] 8.9 mg/dL Normal 8.4-10.2 [facility] Comment on above: Performed By: #### G FR, ADIFF, ANEU, ABOGEL, TSH, TROPHS, MDW, APTT, CMP, CBC, MG, PRO, ABSGEL ####[place] [address] [place], [place] [address] Chloride [Moles/Vol] 105 mmol/L Normal 98-107 [facility] Comment on above: Performed By: #### G FR, ADIFF, ANEU, ABOGEL, TSH, TROPHS, MDW, APTT, CMP, CBC, MG, PRO, ABSGEL ####[place] [address] CO2 [Moles/Vol] 25 mmol/L Normal 22-29 [facility] Comment on above: Performed By: #### G FR, ADIFF, ANEU, ABOGEL, TSH, TROPHS, MDW, APTT, CMP, CBC, MG, PRO, ABSGEL ####[address] [address] Creatinine [Mass/Vol] 0.65 mg/dL Normal 0.55-1.02 [facility] Comment on above: Result Comment: Test ing performed on Siemens Dimension EXL analyzer using a modified kinetic Natan technique. Performed By: #### G FR, ADIFF, ANEU, ABOGEL, TSH, TROPHS, MDW, APTT, CMP, CBC, MG, PRO, ABSGEL ####[place] [address] [place], [place] [address] Electrolyte Balance 9.0 mEq/L Normal 4.0-15.0 [facility] Comment on above: Performed By: #### G FR, ADIFF, ANEU, ABOGEL, TSH, TROPHS, MDW, APTT, CMP, CBC, MG, PRO, ABSGEL ####[facility] [place], [place] [address] Globulin 3.6 G/dL Normal 1.5-3.8 [facility] Comment on above: Performed By: #### G FR, ADIFF, ANEU, ABOGEL, TSH, TROPHS, MDW, APTT, CMP, CBC, MG, PRO, ABSGEL ####[place] [address] [place], [place] [address] Glucose [Mass/Vol] 105 mg/dL Normal 70-105 [facility] Comment on above: Performed By: #### G FR, ADIFF, ANEU, ABOGEL, TSH, TROPHS, MDW, APTT, CMP, CBC, MG, PRO, ABSGEL ####[place] [address] [place], [place] [address] Potassium [Moles/Vol] 3.7 mmol/L Normal 3.5-5.1 [facility] Comment on above: Performed By: #### G FR, ADIFF, ANEU, ABOGEL, TSH, TROPHS, MDW, APTT, CMP, CBC, MG, PRO, ABSGEL ####[place] [address] [place], [place] [address] Sodium [Moles/Vol] 139 mmol/L Normal 136-145 [facility] Comment on above: Performed By: #### G FR, ADIFF, ANEU, ABOGEL, TSH, TROPHS, MDW, APTT, CMP, CBC, MG, PRO, ABSGEL ####[place] [address] [place], [place] [address] Total Protein 6.2 G/dL Low 6.4-8.2 [facility] Comment on above: Performed By: #### G FR, ADIFF, ANEU, ABOGEL, TSH, TROPHS, MDW, APTT, CMP, CBC, MG, PRO, ABSGEL ####[place] [address] [place], [place] [address] Urea nitrogen [Mass/Vol] 7 mg/dL Normal 7-18 [facility] Comment on above: Performed By: #### G FR, ADIFF, ANEU, ABOGEL, TSH, TROPHS, W, APTT, CMP, CBC, MG, PRO, ABSGEL ####[facility] [place], [place] [address] CT ANGIOGRAPHY CHEST W/CONTR Bonnie 06-25-2024 CT ANGIOGRAPHY CHEST W/CONTRAST ORIGINAL EXAMINATION: CTA OF THE CHEST 06/25/2024 2:34 pm TECHNIQUE: CTA of the chest was performed after the administration of intravenous contrast. Multiplanar reformatted images are provided for review. MIP images are provided for review. Automated exposure control, iterative reconstruction, and/or weight based adjustment of the mA/kV was utilized to reduce the radiation dose to as low as reasonably achievable. COMPARISON: July 03, 2023 HISTORY: ORDERING SYSTEM PROVIDED HISTORY: Reason for Exam: Concern for PE FINDINGS: No osseous abnormality identified. Overall lung volumes are low. Scattered areas of ground-glass density are noted, presumably scattered areas of volume loss. No focal regions of consolidation are visible, and there is no pleural fluid seen. No adenopathy is visible. No pulmonary artery defect is identified. No additional contributory abnormality seen. IMPRESSION: 1. Overall low lung volumes with hypoventilatory changes. 2. No other acute finding. No evidence for pulmonary embolism. Interpreted by: Jackie Hamm MD Preliminary Report By: Jackie Hamm MD Electronically signed By Jackie Hamm MD Dictated Date: 06/25/2024 2:35:31 PM Prelim Date: 06/25/2024 2:37:43 PM Sign Date: 06/25/2024 2:37:43 PM Ordering Provider: PINA Gage [facility] LABORATORYOrdered By: Divine Branch on 06-25-2024 ABO and Rh group Nom (Bld) Blood group A Rh(D) positive Invalid Interpretation Code AO BB Auto SS Blood group antibody screen Ql Negative ABSC (06/25/24 12:55 PM) Normal AO BB Auto SS LABORATORYOrdered By: SYSTEM SYSTEM on 06-25-2024 Albumin BCP dye [Mass/Vol] 2.6 G/dL Low 3.5 - 5.0 G/dL AO ADM SS Albumin/Globulin [Mass ratio] 0.7 {ratio} Low 1.1 - 2.5 ratio AO ADM SS ALP [Catalytic activity/Vol] 82 U/L Normal 40 - 135 U/L AO ADM SS ALT With P-5'-P [Catalytic activity/Vol] 46 U/L Normal 14 - 59 U/L AO ADM SS aPTT Coag (PPP) [Time] 27.8 s Normal 25.0 - 35.0 seconds AO [facility] SS Comment on above: Interpretive Data: F or Heparin anticoagulation therapy, the recommended therapeutic range is: 45.4-75.9 seconds. Patients on heparin therapy may have an extreme result. AST With P-5'-P [Catalytic activity/Vol] 28 U/L Normal 10 - 40 U/L AO ADM SS Basophils (Bld) [#/Vol] 0.0 103/mcL Normal 0.0 - 0.2 10^3/mcL AO Workflow SS Basophils/100 WBC (Bld) 0.3 % Normal 0.0 - 2.5 % AO Workflow SS Bilirubin [Mass/Vol] 0.2 mg/dL Normal 0.2 - 1 .0 mg/dL AO ADM SS Comment on above: Interpretive Data: U se of this assay is not recommended for patients undergoing treatment with eltrombopag due to the potential for falsely elevated results. Calcium [Mass/Vol] 8.9 mg/dL Normal 8.4 - 10. 2 mg/dL AO ADM SS Chloride [Moles/Vol] 105 mmol/L Normal 98 - 10 7 mmol/L AO ADM SS CO2 [Moles/Vol] 25 mmol/L Normal 22 - 29 mmol/L AO ADM SS Creatinine [Mass/Vol] 0.65 mg/dL Normal 0.55 - 1.02 mg/dL AO ADM SS Comment on above: Interpretive Data: T esting performed on Siemens Dimension EXL analyzer using a modified kinetic Natan technique. Electrolyte Balance 9.0 mEq/L Normal 4.0 - 15 .0 mEq/L AO ADM SS Eosinophil, Absolute 0.1 103/mcL Normal 0.0 - 0 .7 10^3/mcL AO Workflow SS Eosinophils/100 WBC (Bld) 3.0 % Normal 0.0 - 7.0 % AO Workflow SS Erythrocyte distribution width (RBC) [Ratio] 19.1 % High 11.5 - 15.5 % AO Workflow SS Estimated Glomerular Filtration Rate ml/min/1.73sqm Invalid Interpretation Code AO Chemistry S Comment on above: Interpretive Data: Stages of Chronic Kidney Disease (CKD) Stage Description eGFR(ml/min/1.73 sq.m.) CKD 1 Normal kidney function or >=90 normal kindney function with possible kidney damage (ex. Proteinuria) CKD 2 Kidney damage with mild loss 60-89 of kidney function CKD 3a Mild to moderate loss of kidney 45-59 function CKD 3b Moderate to severe loss of 30-44 of kindey function CKD 4 Severe loss of kidney function 15-29 CKD 5 Kidney failure <15 Note: (go live 2024) the eGFR calculation was updated to the 2020 CKD-EPI creatinine equation without a race factor to calculate the eGFR results. Globulin 3.6 G/dL Normal 1.5 - 3.8 G/dL AO ADM SS Glucose [Mass/Vol] 105 mg/dL Normal 70 - 105 mg/dL AO ADM SS Hematocrit (Bld) [Volume fraction] 23.2 % Low 34.0 - 46.0 % AO Workflow SS Hemoglobin (Bld) [Mass/Vol] 7.5 G/dL Low 12.0 - 16.0 G/dL AO Workflow SS INR Coag (PPP) [Relative time] 1.0 {INR} Invalid Interpretation Code AO [facility] SS Comment on above: Interpretive Data: [employer] [employer] (CHEST, 1991, [id number]) recommended therapeutic range for oral anticoagulant therapy is: LOW RISK: Prophylaxis of venous thrombosis INR: 2.0-3.0 Treatment of pulmonary embolism 2.0-3.0 Prevention of systemic embolism 2.0-3.0 HIGH RISK: Mechanical prosthetic valves 2.5-3.5 Lymphocytes (Bld) [#/Vol] 1.2 103/mcL Normal 0.9 - 4.3 10^3/mcL AO Workflow SS Lymphocytes/100 WBC (Bld) 28.7 % Normal 20.0 - 40.0 % AO Workflow SS Magnesium [Mass/Vol] 2.1 mg/dL Normal 1.8 - 2 .4 mg/dL AO ADM SS MCH (RBC) [Entitic mass] 26.0 pg Low 27.0 - 33.0 pg AO Workflow SS MCHC 32.5 G/dL Normal 32.0 - 36.0 G/dL AO Workflow SS MCV (RBC) [Entitic vol] 80.0 fL Normal 80.0 - 99.0 fL AO Workflow SS Monocyte distribution width Auto (Bld) [Entitic vol] 26.44 1 High 0.00 - 20.00 AO Workflow SS Comment on above: Result Comment: For adults in ED, MDW>20.0 may be associated with a higher risk of sepsis during the first 12hrs of hospital admission Monocytes (Bld) [#/Vol] 0.3 103/mcL Normal 0.1 - 1.4 10^3/mcL AO Workflow SS Monocytes/100 WBC (Bld) 7.7 % Normal 2.0 - 13.0 % AO Workflow SS Neutrophils (Bld) [#/Vol] 2.6 103/mcL Normal 2.3 - 8.1 10^3/mcL AO Workflow SS Neutrophils/100 WBC (Bld) 60.3 % Normal 50.0 - 75.0 % AO Workflow SS Platelet mean volume (Bld) [Entitic vol] 7.5 fL Normal 6.6 - 10.5 fL AO Workflow SS Platelets (Bld) [#/Vol] 263 103/mcL Normal 150 - 450 10^3/mcL AO Workflow SS Potassium [Moles/Vol] 3.7 mmol/L Normal 3.5 - 5.1 mmol/L AO ADM SS Protein [Mass/Vol] 6.2 G/dL Low 6.4 - 8.2 G/dL AO ADM SS PT Coag (PPP) [Time] 11.8 s Normal 9.0 - 1 4.4 seconds AO [facility] SS RBC (Bld) [#/Vol] 2.89 106/mcL Low 4.10 - 5.3 0 10^6/mcL AO Workflow SS Sodium [Moles/Vol] 139 mmol/L Normal 136 - 145 mmol/L AO ADM SS Troponin I.cardiac DL <= 0.01 ng/mL [Mass/Vol] ng/L Normal 0 - 51 ng/L AO ADM SS Comment on above: Interpretive Data: H igh Sensitive Troponin I Reference Ranges: Female: 0-51 ng/L Male: 0-76 ng/L Testing performed on [employer] using a homogeneous sandwich chemiluminescent immunoassay based on [employer] technology. TSH Qn 1.89 m[IU]/L Normal 0.36 - 3.74 mcIU/mL AO ADM SS Urea nitrogen [Mass/Vol] 7 mg/dL Normal 7 - 18 mg/dL AO ADM SS Urea nitrogen/Creatinine [Mass ratio] 11 ratio Normal 7 - 27 ratio AO ADM SS WBC (Bld) [#/Vol] 4.2 103/mcL Low 4.5 - 10.8 10^3/mcL AO Workflow SS LABORATORYOrdered By: Alexei Medina on 06-25-2024 Appearance (U) Slightly Cloudy *ABN* (06/25/24 12:55 PM) Invalid Interpretation Code Clear AO Auto Urine SS Bilirubin Ql (U) Negative (06/25/24 12:55 PM) Normal Negative AO Auto Urine SS Color (U) Dark yellow Invalid Interpretation Code AO Auto Urine SS Glucose Test strip (U) [Mass/Vol] Negative Normal Negative AO Auto Urine SS Hemoglobin Auto test strip (U) [Mass/Vol] Large *ABN* (06/25/24 12:55 PM) Invalid Interpretation Code Negative AO Auto Urine SS Ketones Ql (U) Negative Normal Negative AO Auto Urine SS UA Leuk Est Small *ABN* (06/25/24 12:55 PM) Invalid Interpretation Code Negative AO Auto Urine SS UA Mucous 1+ /HPF Normal AO Auto Urine SS UA Nitrite Negative (06/25/24 12:55 PM) Normal Negative AO Auto Urine SS UA pH 7.0 (06/25/24 12:55 PM) Normal 5.0 - 8.0 AO Auto Urine SS UA Protein Trace mg/dL Normal Negative AO Auto Urine SS UA RBC LOADED /HPF Invalid Interpretation Code None Seen AO Auto Urine SS UA Renal Epithelial 0-5 /HPF Invalid Interpretation Code AO Auto Urine SS UA Spec Grav 1.020 (06/25/24 12:55 PM) Normal 1.015-1.025 AO Auto Urine SS UA Specimen Type Clean Catch (06/25/24 12:55 PM) Normal AO Auto Urine SS UA Squam Epithelial 0-5 /HPF Invalid Interpretation Code None Seen AO Auto Urine SS UA Urobilinogen 1.0 E.U./dL Normal 0.2-1.0 AO Auto Urine SS WBC LM.HPF (Urine sed) [#/Area] 5-10 /HPF Invalid Interpretation Code None Seen AO Auto Urine SS MGon 06-25-2024 Magnesium [Mass/Vol] 2.1 mg/dL Normal 1.8-2.4 [facility] Comment on above: Performed By: #### G FR, ADIFF, ANEU, ABOGEL, TSH, TROPHS, MDW, APTT, CMP, CBC, MG, PRO, ABSGEL ####[address] [place], [place] [address] PROon 06-25-2024 PT Coag (PPP) [Time] 11.8 s Normal 9.0-14.4 [facility] Comment on above: Performed By: #### G FR, ADIFF, ANEU, ABOGEL, TSH, TROPHS, MDW, APTT, CMP, CBC, MG, PRO, ABSGEL ####[facility] [place], [place] [address] PT International Ratio 1.0 Normal [facility] Comment on above: Result Comment: The [employer] (CHEST, 1992, 102:312S-25S) recommended therapeutic range for oral anticoagulant therapy is: LOW RISK: Prophylaxis of venous thrombosis INR: 2.0-3.0 Treatment of pulmonary embolism 2.0-3.0 Prevention of systemic embolism 2.0-3.0 HIGH RISK: Mechanical prosthetic valves 2.5-3.5 Performed By: #### G FR, ADIFF, ANEU, ABOGEL, TSH, TROPHS, MDW, APTT, CMP, CBC, MG, PRO, ABSGEL ####[facility] [place], [place] [address] TROPHSon 06-25-2024 High Sensitivity Troponin I <4 Normal 0-51 [facility] Comment on above: Result Comment: High Sensitive Troponin I Reference Ranges: Female: 0-51 ng/L Male: 0-76 ng/L Testing performed on [employer] using a homogeneous sandwich chemiluminescent immunoassay based on [employer] technology. Performed By: #### G FR, ADIFF, ANEU, ABOGEL, TSH, TROPHS, MDW, APTT, CMP, CBC, MG, PRO, ABSGEL ####[facility] [place], [place] [address] TSHon 06-25-2024 TSH Qn 1.89 m[IU]/L Normal 0.36-3.74 [facility] Comment on above: Performed By: #### G FR, ADIFF, ANEU, ABOGEL, TSH, TROPHS, MDW, APTT, CMP, CBC, MG, PRO, ABSGEL ####[address] [address] UAon 06-25-2024 Color (U) Dark yellow Normal [facility] Comment on above: Performed By: #### H H #### [address] [address] Glucose (U) [Mass/Vol] Negative Normal Negative [facility] Comment on above: Performed By: #### H H #### [place] [address] Ketones Ql (U) Negative Normal Negative [facility] Comment on above: Performed By: #### H H #### [place] [address] UA Appear Slightly Cloudy Abnormal Clear [facility] Comment on above: Performed By: #### H H #### [place] [address] UA Blood Large Abnormal Negative [facility] Comment on above: Performed By: #### H H #### [place] [address] UA Leuk Est Small Abnormal Negative [facility] Comment on above: Performed By: #### H H #### [place] [address] UA Nitrite Negative Normal Negative [facility] Comment on above: Performed By: #### H H #### [place] [address] UA pH 7.0 Normal 5.0 - 8.0 [facility] Comment on above: Performed By: #### H H #### [address] [address] UA Protein Trace Normal Negative [facility] Comment on above: Performed By: #### H H #### [place] [address] UA Spec Grav 1.020 Normal 1.015-1.025 [facility] Comment on above: Performed By: #### H H #### [place] [address] UA Specimen Type Clean Catch Normal [facility] Comment on above: Performed By: #### H H #### [address] [address] UA Urobilinogen 1.0 E.U./dL Normal 0.2-1.0 [facility] Comment on above: Performed By: #### H H #### [address] [address] Urobilinogen (U) [Mass/Vol] Negative Normal Negative [facility] Comment on above: Performed By: #### H H #### [address] [address] XR CHEST 1 VIEWon 06-25-2024 XR CHEST 1 VIEW ORIGINAL EXAMINATION: ONE XRAY VIEW OF THE CHEST06/25/2024 12:27 pm COMPARISON: None HISTORY: ORDERING SYSTEM PROVIDED HISTORY: Reason for Exam: Tachycardia, 5 days post FINDINGS: The cardiomediastinal contours are normal. There is no consolidation, vascular congestion, pleural effusion, or pneumothorax. There are no acute abnormalities to osseous structures. IMPRESSION: No acute radiographic findings. Interpreted by: Ruchi Roberson DO Preliminary Report By: Ruchi Roberson DO Electronically signed By Ruchi Roberson DO Dictated Date: 06/25/2024 12:30:31 PM Prelim Date: 06/25/2024 12:31:08 PM Sign Date: 06/25/2024 12:31:08 PM Ordering Provider[facility]WELL [facility] Hematocrit (Bld) [Volume fraction] 21.0 % Low 34.0-46.0 [facility] Comment on above: Performed By: #### H H #### [address] [address] Hgb 7.0 G/dL Low 12.0-16.0 [facility] Comment on above: Performed By: #### H H #### [address] [address] LABORATORYOrdered By: SYSTEM SYSTEM on 06-21-2024 Hematocrit (Bld) [Volume fraction] 21.0 % Low 34.0 - 46.0 % AO Workflow SS Hemoglobin (Bld) [Mass/Vol] 7.0 G/dL Low 12.0 - 16.0 G/dL AO Workflow SS HHon 06-20-2024 Hematocrit (Bld) [Volume fraction] 22.8 % Low 34.0-46.0 [facility] Comment on above: Performed By: #### R NV #### [place] [address] #### ABOGEL, ABSGEL, ADIFF, CBC, ANEU #### [place] [address] [place], [place] [address] Hgb 7.6 G/dL Low 12.0-16.0 [facility] Comment on above: Performed By: #### R NV #### [place] [address] #### ABOGEL, ABSGEL, ADIFF, CBC, ANEU #### [place] [address] [place] [address] LABORATORYOrdered By: SYSTEM SYSTEM on 06-20-2024 Hematocrit (Bld) [Volume fraction] 22.8 % Low 34.0 - 46.0 % AO Workflow SS Hemoglobin (Bld) [Mass/Vol] 7.6 G/dL Low 12.0 - 16.0 G/dL AO Workflow SS RPRon 06-20-2024 Reagin Ab RPR Ql (S) Non-Reactive Normal Non-Reactive [facility] Comment on above: Result Comment: The RPR test is a non-treponemal assay useful as an aid in the diagnosis of primary and secondary syphilis. It converts to positive generally within 2 weeks after the appearance of a lesion. This test is also useful for monitoring response to antibiotic therapy. A positive RPR screening test will be followed by the FTA ABS test. False positive RPR tests may occur in 1) patients with underlying autoimmune disorders, 2) elderly patients, 3) , and 4) other conditions with abnormal serum globulins. Performed By: #### R NV #### [place] [address] #### ABOGEL, ABSGEL, ADIFF, CBC, ANEU #### [address] [address] .Auto Diffon 06-19-2024 Basophil, Absolute 0.0 10 3/mcL Normal 0.0-0.2 [facility] Comment on above: Performed By: #### R NV #### [place] [address] #### ABOGEL, ABSGEL, ADIFF, CBC, ANEU #### [address] [address] Basophils/100 WBC (Bld) 0.3 % Normal 0.0-2.5 [facility] Comment on above: Performed By: #### R NV #### [place] [address] #### ABOGEL, ABSGEL, ADIFF, CBC, ANEU #### [address] [address] Eosinophil, Absolute 0.5 10 3/mcL Normal 0.0-0.7 [facility] Comment on above: Performed By: #### R NV #### [place] [address] #### ABOGEL, ABSGEL, ADIFF, CBC, ANEU #### [address] [address] Eosinophils/100 WBC (Bld) 6.0 % Normal 0.0-7.0 [facility] Comment on above: Performed By: #### R NV #### [place] [address] #### ABOGEL, ABSGEL, ADIFF, CBC, ANEU #### [address] [address] Lymphocyte, Absolute 2.3 10 3/mcL Normal 0.9-4.3 [facility] Comment on above: Performed By: #### R NV #### [place] [address] #### ABOGEL, ABSGEL, ADIFF, CBC, ANEU #### [address] [address] Lymphocytes/100 WBC (Bld) 30.8 % Normal 20.0-40.0 [facility] Comment on above: Performed By: #### R NV #### [place] [address] #### ABOGEL, ABSGEL, ADIFF, CBC, ANEU #### [address] [address] Monocyte, Absolute 0.5 10 3/mcL Normal 0.1-1.4 [facility] Comment on above: Performed By: #### R NV #### [place] [address] #### ABOGEL, ABSGEL, ADIFF, CBC, ANEU #### [address] [address] Monocytes/100 WBC (Bld) 7.0 % Normal 2.0-13.0 [facility] Comment on above: Performed By: #### R NV #### [place] [address] #### ABOGEL, ABSGEL, ADIFF, CBC, ANEU #### [address] [address] Neutrophils/100 WBC (Bld) 55.9 % Normal 50.0-75.0 [facility] Comment on above: Performed By: #### R NV #### [place] [address] #### ABOGEL, ABSGEL, ADIFF, CBC, ANEU #### [address] [address] .NEUABSon 06-19-2024 Neutrophil, Absolute 4.2 10 3/mcL Normal 2.3-8.1 [facility] Comment on above: Performed By: #### R NV #### [place] [address] #### ABOGEL, ABSGEL, ADIFF, CBC, ANEU #### [address] [address] ABO/Rh (Gel)on 06-19-2024 ABO/Rh Interp Positive Invalid Interpretation Code [facility] Comment on above: Performed By: #### R NV #### [place] [address] #### ABOGEL, ABSGEL, ADIFF, CBC, ANEU #### [address] [address] ABS (Gel)on 06-19-2024 ABSC Interp (Gel) Negative Normal [facility] Comment on above: Performed By: #### R NV #### [place] [address] #### ABOGEL, ABSGEL, ADIFF, CBC, ANEU #### [place] [address] CBCon 06-19-2024 Erythrocyte distribution width (RBC) [Ratio] 18.1 % High 11.5-15.5 [facility] Comment on above: Performed By: #### R NV #### [place] [address] #### ABOGEL, ABSGEL, ADIFF, CBC, ANEU #### [address] [address] Hematocrit (Bld) [Volume fraction] 31.3 % Low 34.0-46.0 [facility] Comment on above: Performed By: #### R NV #### [place] [address] #### ABOGEL, ABSGEL, ADIFF, CBC, ANEU #### [address] [address] Hgb 10.5 G/dL Low 12.0-16.0 [facility] Comment on above: Performed By: #### R NV #### [place] [address] #### ABOGEL, ABSGEL, ADIFF, CBC, ANEU #### [address] [address] MCH (RBC) [Entitic mass] 25.9 pg Low 27.0-33.0 [facility] Comment on above: Performed By: #### R NV #### [place] [address] #### ABOGEL, ABSGEL, ADIFF, CBC, ANEU #### [address] [address] MCHC 33.4 G/dL Normal 32.0-36.0 [facility] Comment on above: Performed By: #### R NV #### [place] [address] #### ABOGEL, ABSGEL, ADIFF, CBC, ANEU #### [address] [address] MCV (RBC) [Entitic vol] 77.7 fL Low 80.0-99.0 [facility] Comment on above: Performed By: #### R NV #### [place] [address] #### ABOGEL, ABSGEL, ADIFF, CBC, ANEU #### [address] [address] Platelet 211 10 3/mcL Normal 150-450 [facility] Comment on above: Performed By: #### R NV #### [place] [address] #### ABOGEL, ABSGEL, ADIFF, CBC, ANEU #### [address] [address] Platelet mean volume (Bld) [Entitic vol] 8.3 fL Normal 6.6-10.5 [facility] Comment on above: Performed By: #### R NV #### [place] [address] #### ABOGEL, ABSGEL, ADIFF, CBC, ANEU #### [address] [address] RBC 4.03 10 6/mcL Low 4.10-5.30 [facility] Comment on above: Performed By: #### R NV #### [place] [address] #### ABOGEL, ABSGEL, ADIFF, CBC, ANEU #### [place] [address] [place], [place] [address] WBC 7.6 10 3/mcL Normal 4.5-10.8 [facility] Comment on above: Performed By: #### R NV #### [facility] [address] [place] [address] #### ABOGEL, ABSGEL, ADIFF, CBC, ANEU #### [facility] [address] [place], [place] [address] LABORATORYOrdered By: Dariela Vargas on 06-19-2024 Glucose [Mass/Vol] 78 mg/dL Normal 70 - 110 mg/dL [facility] Work Phone: ABO and Rh group Nom (Bld) A positive (06/19/24 5:00 AM) [facility] Work Phone: Group B Strep Date Performed [id number] [facility] Work Phone: Group B Strep, External Positive (06/19/24 5:00 AM) [facility] Work Phone: Hepatitis B Date Performed [id number] [facility] Work Phone: Hepatitis B, External Negative (06/19/24 5:00 AM) [facility] Work Phone: HIV Antibodies, External Negative (06/19/24 5:00 AM) [facility] Work Phone: RPR, External Nonreactive (06/19/24 5:00 AM) [facility] Work Phone: Rubella, External Immune (06/19/24 5:00 AM) [facility] Work Phone: LABORATORYOrdered By: Kierra Merrill on 06-19-2024 ABO and Rh group Nom (Bld) Blood group A Rh(D) positive Invalid Interpretation Code AO BB Auto SS Blood group antibody screen Ql Negative ABSC (06/19/24 5:24 AM) Normal AO BB Auto SS LABORATORYOrdered By: SYSTEM SYSTEM on 06-19-2024 Basophils (Bld) [#/Vol] 0.0 103/mcL Normal 0.0 - 0.2 10^3/mcL AO Workflow SS Basophils/100 WBC (Bld) 0.3 % Normal 0.0 - 2.5 % AO Workflow SS Eosinophil, Absolute 0.5 103/mcL Normal 0.0 - 0 .7 10^3/mcL AO Workflow SS Eosinophils/100 WBC (Bld) 6.0 % Normal 0.0 - 7.0 % AO Workflow SS Erythrocyte distribution width (RBC) [Ratio] 18.1 % High 11.5 - 15.5 % AO Workflow SS Hematocrit (Bld) [Volume fraction] 31.3 % Low 34.0 - 46.0 % AO Workflow SS Hemoglobin (Bld) [Mass/Vol] 10.5 G/dL Low 12.0 - 16.0 G/dL AO Workflow SS Lymphocytes (Bld) [#/Vol] 2.3 103/mcL Normal 0.9 - 4.3 10^3/mcL AO Workflow SS Lymphocytes/100 WBC (Bld) 30.8 % Normal 20.0 - 40.0 % AO Workflow SS MCH (RBC) [Entitic mass] 25.9 pg Low 27.0 - 33.0 pg AO Workflow SS MCHC 33.4 G/dL Normal 32.0 - 36.0 G/dL AO Workflow SS MCV (RBC) [Entitic vol] 77.7 fL Low 80.0 - 99.0 fL AO Workflow SS Monocytes (Bld) [#/Vol] 0.5 103/mcL Normal 0.1 - 1.4 10^3/mcL AO Workflow SS Monocytes/100 WBC (Bld) 7.0 % Normal 2.0 - 13.0 % AO Workflow SS Neutrophils (Bld) [#/Vol] 4.2 103/mcL Normal 2.3 - 8.1 10^3/mcL AO Workflow SS Neutrophils/100 WBC (Bld) 55.9 % Normal 50.0 - 75.0 % AO Workflow SS Platelet mean volume (Bld) [Entitic vol] 8.3 fL Normal 6.6 - 10.5 fL AO Workflow SS Platelets (Bld) [#/Vol] 211 103/mcL Normal 150 - 450 10^3/mcL AO Workflow SS RBC (Bld) [#/Vol] 4.03 106/mcL Low 4.10 - 5.3 0 10^6/mcL AO Workflow SS WBC (Bld) [#/Vol] 7.6 103/mcL Normal 4.5 - 10.8 10^3/mcL AO Workflow SS LABORATORYOrdered By: Beth Pinzon on 06-19-2024 Reagin Ab RPR Ql (S) Non-Reactive 1 (06/19/24 5:24 AM) Normal Non-Reactive [facility]/Sero SS Comment on above: Interpretive Data: T he RPR test is a non-treponemal assay useful as an aid in the diagnosis of primary and secondary syphilis. It converts to positive generally within 2 weeks after the appearance of a lesion. This test is also useful for monitoring response to antibiotic therapy. A positive RPR screening test will be followed by the FTA ABS test. False positive RPR tests may occur in 1) patients with underlying autoimmune disorders, 2) elderly patients, 3) , and 4) other conditions with abnormal serum globulins. GBSPCRon 06-07-2024 Group B Strep (PCR) Positive Abnormal Negative [facility] Comment on above: Performed By: #### R NV #### [place] [address] #### ABOGEL, ABSGEL, ADIFF, CBC, ANEU #### [address] [address] Group B Strep PCR Int Normal [facility] Comment on above: Result Comment: Grou p B Streptococcus DNA detected by Real- Time Polymerase Chain Reaction (PCR). Organism viability cannot be determined since DNA may persist in the absence of viable organisms. As with all PCR invitro tests, extremely low level of target, below the limit of detection of the assay may be detected, but results may not be reproducible. Sensitivity testing method.is not available with this See Below Performed By: #### R NV #### [place] [address] #### ABOGEL, ABSGEL, ADIFF, CBC, ANEU #### [place] [address] [place], [place] [address] GL1on 04-10-2024 Glucose [Mass/Vol] 226 mg/dL Normal [facility] Comment on above: Performed By: #### H H #### [address] [address] [id number] 04-10-2024 Glucose 2 Hour (PGTT) 191 mg/dL Normal [facility] Comment on above: Result Comment: Gestational Glucose Tolerance based on 100 gm of oral glucose challenge: Glucose Fasting - 70-110 mg/dL Glucose 1 Hour - 70-179 mg/dL Glucose 2 Hour - 70-154 mg/dL Glucose 3 Hour - 70-139 mg/dL For diagnosis of gestational diabetes, at least two values must meet or exceed normal limits. Performed By: #### H H #### [address] [address] GL3on 04-10-2024 Glucose [Mass/Vol] 131 mg/dL Normal [facility] Comment on above: Performed By: #### H H #### [address] [address] GLFo 04-10-2024 Glucose [Mass/Vol] 94 mg/dL Normal 70-110 [facility] Comment on above: Performed By: #### H H #### [address] [address] LABORATORYOrdered By: Alexei Medina on 04-10-2024 Glucose 2 Hour (PGTT) 191 mg/dL Invalid Interpretation Code AO ADM Comment on above: Interpretive Data: Gestational Glucose Tolerance based on 100 gm of oral glucose challenge: Glucose Fasting - 70-110 mg/dL Glucose 1 Hour - 70-179 mg/dL Glucose 2 Hour - 70-154 mg/dL Glucose 3 Hour - 70-139 mg/dL For diagnosis of gestational diabetes, at least two values must meet or exceed normal limits. Glucose [Mass/Vol] 94 mg/dL Normal 70 - 110 mg/dL AO Chemistry S Glucose [Mass/Vol] 226 mg/dL Invalid Interpretation Code AO ADM SS LABORATORYOrdered By: Wil Saxena on 04-10-2024 Glucose [Mass/Vol] 131 mg/dL Invalid Interpretation Code AO ADM SS RPRon 04-05-2024 Reagin Ab RPR Ql (S) Non-Reactive Normal Non-Reactive [facility] Comment on above: Result Comment: The RPR test is a non-treponemal assay useful as an aid in the diagnosis of primary and secondary syphilis. It converts to positive generally within 2 weeks after the appearance of a lesion. This test is also useful for monitoring response to antibiotic therapy. A positive RPR screening test will be followed by the FTA ABS test. False positive RPR tests may occur in 1) patients with underlying autoimmune disorders, 2) elderly patients, 3) , and 4) other conditions with abnormal serum globulins. Performed By: #### R NV #### [place] [address] #### ABOGEL, ABSGEL, ADIFF, CBC, ANEU #### [address] [address] .Auto Diffon 04-04-2024 Basophil, Absolute 0.0 10 3/mcL Normal 0.0-0.2 [facility] Comment on above: Performed By: #### H H #### [address] [address] Basophils/100 WBC (Bld) 0.1 % Normal 0.0-2.5 [facility] Comment on above: Performed By: #### H H #### [address] [address] Eosinophil, Absolute 0.2 10 3/mcL Normal 0.0-0.7 [facility] Comment on above: Performed By: #### H H #### [address] [address] Eosinophils/100 WBC (Bld) 3.6 % Normal 0.0-7.0 [facility] Comment on above: Performed By: #### H H #### [address] [address] Lymphocyte, Absolute 1.7 10 3/mcL Normal 0.9-4.3 [facility] Comment on above: Performed By: #### H H #### [address] [address] Lymphocytes/100 WBC (Bld) 24.7 % Normal 20.0-40.0 [facility] Comment on above: Performed By: #### H H #### [address] [address] Monocyte, Absolute 0.4 10 3/mcL Normal 0.1-1.4 [facility] Comment on above: Performed By: #### H H #### [address] [address] Monocytes/100 WBC (Bld) 5.3 % Normal 2.0-13.0 [facility] Comment on above: Performed By: #### H H #### [address] [address] Neutrophils/100 WBC (Bld) 66.3 % Normal 50.0-75.0 [facility] Comment on above: Performed By: #### H H #### [address] [address] .NEUABSon 04-04-2024 Neutrophil, Absolute 4.4 10 3/mcL Normal 2.3-8.1 [facility] Comment on above: Performed By: #### R NV #### [place] [address] #### TENA CASTILLO ADIFF, CBC, ANEU #### [address] [address] CBCon 04-04-2024 Erythrocyte distribution width (RBC) [Ratio] 13.5 % Normal 11.5-15.5 [facility] Comment on above: Performed By: #### H H #### [address] [address] Hematocrit (Bld) [Volume fraction] 31.7 % Low 34.0-46.0 [facility] Comment on above: Performed By: #### H H #### [address] [address] Hgb 10.3 G/dL Low 12.0-16.0 [facility] Comment on above: Performed By: #### H H #### [address] [address] MCH (RBC) [Entitic mass] 27.4 pg Normal 27.0-33.0 [facility] Comment on above: Performed By: #### H H #### [address] [address] MCHC 32.5 G/dL Normal 32.0-36.0 [facility] Comment on above: Performed By: #### H H #### [address] [address] MCV (RBC) [Entitic vol] 84.3 fL Normal 80.0-99.0 [facility] Comment on above: Performed By: #### H H #### [address] [address] Platelet 241 10 3/mcL Normal 150-450 [facility] Comment on above: Performed By: #### H H #### [address] [address] Platelet mean volume (Bld) [Entitic vol] 8.0 fL Normal 6.6-10.5 [facility] Comment on above: Performed By: #### H H #### [address] [address] RBC 3.75 10 6/mcL Low 4.10-5.30 [facility] Comment on above: Performed By: #### H H #### [address] [address] WBC 6.7 10 3/mcL Normal 4.5-10.8 [facility] Comment on above: Performed By: #### H H #### [address] [address] [id number] 04-04-2024 Glucose [Mass/Vol] 163 mg/dL High 70-140 [facility] Comment on above: Performed By: #### R NV #### [facility] [address] [place] [address] #### JONATHAN, CATHERINE MADSEN, CBC, ANEU #### [address] [place] [address] [place], [place] [address] LABORATORYOrdered By: SYSTEM SYSTEM on 04-04-2024 Basophils (Bld) [#/Vol] 0.0 103/mcL Normal 0.0 - 0.2 10^3/mcL AO Workflow SS Basophils/100 WBC (Bld) 0.1 % Normal 0.0 - 2.5 % AO Workflow SS Eosinophil, Absolute 0.2 103/mcL Normal 0.0 - 0 .7 10^3/mcL AO Workflow SS Eosinophils/100 WBC (Bld) 3.6 % Normal 0.0 - 7.0 % AO Workflow SS Erythrocyte distribution width (RBC) [Ratio] 13.5 % Normal 11.5 - 15.5 % AO Workflow SS Glucose [Mass/Vol] 163 mg/dL High 70 - 140 mg/dL AO ADM SS Hematocrit (Bld) [Volume fraction] 31.7 % Low 34.0 - 46.0 % AO Workflow SS Hemoglobin (Bld) [Mass/Vol] 10.3 G/dL Low 12.0 - 16.0 G/dL AO Workflow SS Lymphocytes (Bld) [#/Vol] 1.7 103/mcL Normal 0.9 - 4.3 10^3/mcL AO Workflow SS Lymphocytes/100 WBC (Bld) 24.7 % Normal 20.0 - 40.0 % AO Workflow SS MCH (RBC) [Entitic mass] 27.4 pg Normal 27.0 - 33.0 pg AO Workflow SS MCHC 32.5 G/dL Normal 32.0 - 36.0 G/dL AO Workflow SS MCV (RBC) [Entitic vol] 84.3 fL Normal 80.0 - 99.0 fL AO Workflow SS Monocytes (Bld) [#/Vol] 0.4 103/mcL Normal 0.1 - 1.4 10^3/mcL AO Workflow SS Monocytes/100 WBC (Bld) 5.3 % Normal 2.0 - 13.0 % AO Workflow SS Neutrophils (Bld) [#/Vol] 4.4 103/mcL Normal 2.3 - 8.1 10^3/mcL AO Workflow SS Neutrophils/100 WBC (Bld) 66.3 % Normal 50.0 - 75.0 % AO Workflow SS Platelet mean volume (Bld) [Entitic vol] 8.0 fL Normal 6.6 - 10.5 fL AO Workflow SS Platelets (Bld) [#/Vol] 241 103/mcL Normal 150 - 450 10^3/mcL AO Workflow SS RBC (Bld) [#/Vol] 3.75 106/mcL Low 4.10 - 5.3 0 10^6/mcL AO Workflow SS WBC (Bld) [#/Vol] 6.7 103/mcL Normal 4.5 - 10.8 10^3/mcL AO Workflow SS Office Visit Reporton 2023 Office Visit Report [facility] [address] 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 No Significant growth. Sensitivity not indicated. [facility] Work Phone: RPRon 12-07-2023 Reagin Ab RPR Ql (S) Non-Reactive Normal Non-Reactive [facility] ([place]) Comment on above: Result Comment: The RPR test is a non-treponemal assay useful as an aid in the diagnosis of primary and secondary syphilis. It converts to positive generally within 2 weeks after the appearance of a lesion. This test is also useful for monitoring response to antibiotic therapy. A positive RPR screening test will be followed by the FTA ABS test. False positive RPR tests may occur in 1) patients with underlying autoimmune disorders, 2) elderly patients, 3) , and 4) other conditions with abnormal serum globulins. Performed By: #### D HEAS, INSLN, FSH, LH, PROL, E2 #### [place] [address] #### TSH, FT4, GLU, TFTEST, HPROG #### [address] [address] ABO/Rh (Gel)on 12-06-2023 ABO/Rh Interp Positive Invalid Interpretation Code [facility] ([place]) Comment on above: Performed By: #### D HEAS, INSLN, FSH, LH, PROL, E2 #### [place] [address] #### TSH, FT4, GLU, TFTEST, HPROG #### [address] [address] ABS (Gel)on 12-06-2023 ABSC Interp (Gel) Negative Normal [facility] ([place]) Comment on above: Performed By: #### D HEAS, INSLN, FSH, LH, PROL, E2 #### [place] [address] #### TSH, FT4, GLU, TFTEST, HPROG #### [address] [address] HBSAGon 12-06-2023 Hep B Surf Ag Non-Reactive Normal Non-Reactive [facility] ([place]) Comment on above: Performed By: #### D HEAS, INSLN, FSH, LH, PROL, E2 #### [place] [address] #### TSH, FT4, GLU, TFTEST, HPROG #### [address] [address] HCVon 12-06-2023 Hep C Ab Non-Reactive Normal Non-Reactive [facility] ([place] Comment on above: Performed By: #### D HEAS, INSLN, FSH, LH, PROL, E2 #### [place] [address] #### TSH, FT4, GLU, TFTEST, HPROG #### [address] [address] Hep C Ab Int Normal [facility] ([place]) Comment on above: Result Comment: Nonr eactive: Samples with a value < 0.80 are considered nonreactive (negative) for antibodies to HCV. A negative test result does not exclude the possibility of exposure to or infection with HCV. HCV antibodies may be undetectable in some stages of the infection and in some clinical conditions. See Interp Performed By: #### D HEAS, INSLN, FSH, LH, PROL, E2 #### [place] [address] #### TSH, FT4, GLU, TFTEST, HPROG #### [place] [address] HIVRPon 12-06-2023 HIV p24 Antigen Non-Reactive Normal Non-Reactive [facility] ([place]) Comment on above: Result Comment: Dete ction of p24 may be inhibited by biotin in the sample, causing false negative results in acute infection. Therefore do not test samples from patients who are taking biotin. Performed By: #### D HEAS, INSLN, FSH, LH, PROL, E2 #### [place] [address] #### TSH, FT4, GLU, TFTEST, HPROG #### [place] [address] HIV P24 Int Non-Reactive Invalid Interpretation Code [facility] ([place] Comment on above: Performed By: #### D HEAS, INSLN, FSH, LH, PROL, E2 #### [place] [address] #### TSH, FT4, GLU, TFTEST, HPROG #### [place] [address] Rapid HIV 1/2 Antibody Non-Reactive Normal Non-Reactive [facility] ([place]) Comment on above: Performed By: #### D HEAS, INSLN, FSH, LH, PROL, E2 #### [place] [address] #### TSH, FT4, GLU, TFTEST, HPROG #### [address] [address] RHIV 1/2 Ab Int Non-Reactive Invalid Interpretation Code [facility] ([place]) Comment on above: Performed By: #### D HEAS, INSLN, FSH, LH, PROL, E2 #### [place] [address] #### TSH, FT4, GLU, TFTEST, HPROG #### [address] [address] Technical Sme Cytology Reporton 2023 Technical Sme Cytology Report . Pathology Reports Accession: Collected Date/Time: Received Date/Time: Pathologist: [id number] 10/26/2023 14:02 EDT 10/26/2023 18:00 EDT GABRIELE SHAIKH MD Technical Sme Cytology Report SPECIMEN: Specimen Description: Liquid Prep Reflex ASCUS+ Specimen: Cervical Screening or Diagnostic: Screening RELEVANT HISTORY: LMP: SPECIMEN ADEQUACY: SATISFACTORY FOR EVALUATION Endocervical/Transforma tional zone component present INTERPRETATION/RESULTS: NEGATIVE FOR INTRAEPITHELIAL LESION OR MALIGNANCY SUGGESTIONS/EDUCATIONAL NOTES: This case has been reviewed for 10% QA rescreen COMMENT: This Pap Test was successfully processed and evaluated with the assistance of the [employer] ThinPrep Test Imaging System. Electronically Signed by Pathology report verified by [facility] Screened by: NIR DW Electronically signed by GABRIELE SHAIKH Sign-Out Date: 10/31/2023 14:05 Performing Lab: [address] Pathology Dept Disclaimer The Pap test is a screening test for cervical cancer. As evidenced by published data, it is subject to both inherent false negative and false positive results. Your patient's results should be interpreted in context with pertinent clinical history including gynecological examination. Normal [facility] ([place]) CTPCRon 10-27-2023 C. trachomatis Interp Normal See CT Interp N [facility] ([place]) Comment on above: Result Comment: C. t rachomatis DNA not detected. Specimen is presumptive negative for C. trachomatis. A negative result does not preclude C. trachomatis infection because results depend on adequate specimen collection, absence of inhibitors, and sufficient DNA to be detected. See CT Interp N Performed By: #### D KANDISAS, INSLN, FSH, LH, PROL, E2 #### [place] [address] #### TSH, FT4, GLU, TFTEST, HPROG #### [address] [address] C.trachomatis PCR Negative Normal Negative [facility] ([place]) Comment on above: Result Comment: Geri abdiar (PCR) assay performed on the Ingrid Cuong 4800 system. Performed By: #### Irasema CUEVASAS, INSLN, FSH, LH, PROL, E2 #### [place] [address] #### TSH, FT4, GLU, TFTEST, HPROG #### [address] [address] Chlam Source Cervix Normal [facility] ([place] Comment on above: Performed By: #### Irasema SMITH, INSLN, FSH, LH, PROL, E2 #### [place] [address] #### TSH, FT4, GLU, TFTEST, HPROG #### [address] [address] [id number] 10-27-2023 GC PCR Source Cervix Normal [facility] ([place]) Comment on above: Performed By: #### Irasema HEAS, INSLN, FSH, LH, PROL, E2 #### [place] [address] #### TSH, FT4, GLU, TFTEST, HPROG #### [address] [address] N. gonorrhoeae (PCR) Negative Normal Negative Counts include 234 beds at the [facility] ([place]) Comment on above: Result Comment: Geri cular (PCR) assay performed on the Ingrid Cuong 4800 System. Performed By: #### Irasema SMITH, INSLN, FSH, LH, PROL, E2 #### [address] [address] #### TSH, FT4, GLU, TFTEST, HPROG #### [address] [address] N. gonorrhoeae Interp Normal See NG Interp N [facility] ([place]) Comment on above: Result Comment: N. g onorrhoeae DNA not detected. Specimen is presumptive negative for N. gonorrhoeae. A negative result does not preclude Neisseria gonorrhoeae infection because results depend on adequate specimen collection, absence of inhibitors, and sufficient DNA to be detected. See NG Interp N Performed By: #### D HEAS, INSLN, FSH, LH, PROL, E2 #### [place] [address] #### TSH, FT4, GLU, TFTEST, HPROG #### [address] [address] LABORATORYOrdered By: Carrie Dubon on 10-26-2023 C. trachomatis DNA ANTONIA+probe Ql (Unsp spec) Negative 2 (10/26/23 2:02 PM) Normal Negative [facility] Auto Viro[facility]Sero SS Comment on above: Interpretive Data: M olecular (PCR) assay performed on the Ingrid Cuong 4800 system. C. trachomatis DNA ANTONIA+probe Ql (Unsp spec) C. trachomatis DNA not detected. Specimen is presumptive negative forC. trachomatis.A negative result does not preclude C. trachomatis infection becauseresults depend on adequate specimen collection, absence of inhibitors,and sufficient DNA to be detected. Normal See CT Interp N [facility] Auto Viro/Sero SS N. gonorrhoeae DNA ANTONIA+probe Ql (Unsp spec) Negative 1 (10/26/23 2:02 PM) Normal Negative [facility] Auto Viro/Sero SS Comment on above: Interpretive Data: M olecular (PCR) assay performed on the Ingrid Cuong 4800 System. N. gonorrhoeae DNA ANTONIA+probe Ql (Unsp spec) N. gonorrhoeae DNA not detected. Specimen is presumptive negative forN. gonorrhoeae. A negative result does not preclude Neisseria gonorrhoeaeinfection because results depend on adequate specimen collection, absenceof inhibitors, and sufficient DNA to be detected. Normal See NG Interp N [facility]iro/Sero SS Laboratory - Specimen inform ationOrdered By: Dale Dubon on 10-26-2023 Specimen source Nom (Unsp spec) Cervix (10/26/23 2:02 PM) Normal AH Auto Viro/Sero SS No Panel Informationon 10-25 Culture Urine 10,000 - 50,000 cfu/ ml Mixed growth consistent with normal urogenital manjula. [facility] Work Phone: RUBEOon 10-19-2023 Rubeola IgG Ab Equiv Normal [facility] ([place]) Comment on above: Result Comment: INTE RPRETATION OF RUBEOLA (MEASLES) IgG BY EIA: Negative: No detectable Measles IgG antibody. Presumed non-immune to measles virus. Positive: Measles IgG antibody Detected. Presumed immune to measles virus. If clinically indicated, order Measles IgM to rule out active infection. Equivocal: Equivocal for antibodies to Measles. Suggest repeat testing 10-14 days. Performed By: #### D HEAS, INSLN, FSH, LH, PROL, E2 #### [place] [address] #### TSH, FT4, GLU, TFTEST, HPROG #### [address] [address] MUMPSon 10-10-2023 Mumps Ab Negative Normal [facility] ([place]) Comment on above: Result Comment: INTE RPRETATION OF MUMPS IgG BY EIA: Negative: No detectable Mumps IgG antibody. Positive: Mumps IgG antibody Detected. This test does not differentiate between current or previous infection. If clinically indicated, order Mumps IgM to rule out active infection. Equivocal: Equivocal for IgG antibodies to Mumps. Suggest repeat testing in 10-14 days. Performed By: #### D HEAS, INSLN, FSH, LH, PROL, E2 #### [place] [address] #### TSH, FT4, GLU, TFTEST, HPROG #### [address] [address] VARISon 10-07-[address] Positive Normal [facility] ([place] Comment on above: Result Comment: INTE RPRETATION OF VARICELLA IMMUNE STATUS IgG BY EIA: Negative: No detectable VZV IgG antibody. Positive: VZV IgG antibody Detected. If clinically indicated, order Varicella IgM to rule out recent infection. Equivocal: Equivocal for antibodies to VZV. Suggest repeat testing in 10-14 days. Performed By: #### D HEAS, INSLN, FSH, LH, PROL, E2 #### [place] [address] #### TSH, FT4, GLU, TFTEST, HPROG #### [place] [address] RUBISon 10-06-[address] Positive Normal Positive [facility] ([place]) Comment on above: Result Comment: This immune status assay detects IgM and/or IgG antibody to Rubella. Interpret results in conjunction with clinical history. POS: Antibody detected; exposure at undetermined recent or distant time. If clinically indicated, order Rubella IGM to rule out recent infection. NEG: No antibody detected. Performed By: #### D HEAS, INSLN, FSH, LH, PROL, E2 #### [place] [address] #### TSH, FT4, GLU, TFTEST, HPROG #### [place] [address] GLUon 10-05-2023 Glucose [Mass/Vol] 90 mg/dL Normal 70-105 [facility] ([place]) Comment on above: Performed By: #### Irasema HEAS, INSLN, FSH, LH, PROL, E2 #### [place] [address] #### TSH, FT4, GLU, TFTEST, HPROG #### [place] [address] LABORATORYOrdered By: Alexei Medina on 10-05-2023 Amphetamines Screen Ql (U) Negative *NA* (10/05/23 4:43 PM) Invalid Interpretation Code Negative AO ADM SS Barbiturates Screen Ql (U) Negative *NA* (10/05/23 4:43 PM) Invalid Interpretation Code Negative AO ADM SS Benzodiazepines Ql (U) Negative *NA* (10/05/23 4:43 PM) Invalid Interpretation Code Negative AO ADM SS Benzoylecgonine Screen Ql (U) Negative *NA* (10/05/23 4:43 PM) Invalid Interpretation Code Negative AO ADM SS Cannabinoids Screen Ql (U) Negative *NA* (10/05/23 4:43 PM) Invalid Interpretation Code Negative AO ADM SS Methadone Screen Ql (U) Negative *NA* (10/05/23 4:43 PM) Invalid Interpretation Code Negative AO ADM SS Opiates Screen Ql (U) Negative *NA* (10/05/23 4:43 PM) Invalid Interpretation Code Negative AO ADM SS Phencyclidine Ql (U) Negative *NA* (10/05/23 4:43 PM) Invalid Interpretation Code Negative AO ADM SS Urine Drugs screened: See Below 3 (10/05/23 4:43 PM) Normal AO Chemistry S Comment on above: Interpretive Data: T his drug screen is a presumptive screening only. No confirmation will be performed unless requested. Drugs screened include: Threshold Amphetamines/Methamphetamines 1,000 ng/mL Barbiturates 200 ng/mL Benzodiazepine metabolites 200 ng/mL Cannabinoids (THC metabolites) 50 ng/mL Cocaine 300 ng/mL Opiates 300 ng/mL Methadone 300 ng/mL Phencyclidine (PCP) 25 ng/mL Testing has been performed FOR MEDICAL PURPOSES ONLY. Cholesterol [Mass/Vol] 214 mg/dL High 0 - 200 mg/dL AO ADM SS Comment on above: Interpretive Data: C holesterol Reference Interval: Less than 200 Desirable 200-239 Borderline high risk 240 and above High risk Cholesterol in HDL [Mass/Vol] 54 mg/dL Normal 40 - 60 mg/dL AO ADM SS Cholesterol in LDL [Mass/Vol] 133 mg/dL High 0 - 130 mg/dL AO ADM SS Triglyceride [Mass/Vol] 134 mg/dL Normal 0 - 150 mg/dL AO ADM SS Comment on above: Interpretive Data: T riglyceride Reference Interval: Less than 150 Normal 150-199 Borderline high risk 200-499 High risk 500 or higher Very high risk LABORATORYOrdered By: SYSTEM SYSTEM on 10-05-2023 Glucose [Mass/Vol] 90 mg/dL Normal 70 - 105 mg/dL AO ADM SS LABORATORYOrdered By: Carrie Dubon on 10-05-2023 Rubella virus Ab LA Ql (S) Positive 4 (10/05/23 4:10 PM) Normal Positive Man Viro/Sero SS Comment on above: Interpretive Data: T his immune status assay detects IgM and/or IgG antibody to Rubella. Interpret results in conjunction with clinical history. POS: Antibody detected; exposure at undetermined recent or distant time. If clinically indicated, order Rubella IGM to rule out recent infection. NEG: No antibody detected. LABORATORYOrdered By: Beth Pinzon on 10-05-2023 VZV IgG IA Ql (S) Positive Invalid Interpretation Code Auto Viro/Sero SS Comment on above: Interpretive Data: I NTERPRETATION OF VARICELLA IMMUNE STATUS IgG BY EIA: Negative: No detectable VZV IgG antibody. Positive: VZV IgG antibody Detected. If clinically indicated, order Varicella IgM to rule out recent infection. Equivocal: Equivocal for antibodies to VZV. Suggest repeat testing in 10-14 days. LIPIDon 10-05-2023 Cholesterol [Mass/Vol] 214 mg/dL High 0-200 [facility] ([place]) Comment on above: Result Comment: Chol esterol Reference Interval: Less than 200 Desirable 200-239 Borderline high risk 240 and above High risk Performed By: #### D HEAS, INSLN, FSH, LH, PROL, E2 #### [address] [address] #### TSH, FT4, GLU, TFTEST, HPROG #### [address] [address] Cholesterol in HDL [Mass/Vol] 54 mg/dL Normal 40-60 [facility] ([place]) Comment on above: Performed By: #### D HEAS, INSLN, FSH, LH, PROL, E2 #### [address] [address] #### TSH, FT4, GLU, TFTEST, HPROG #### [address] [address] Cholesterol in LDL [Mass/Vol] 133 mg/dL High 0-130 [facility] ([place]) Comment on above: Performed By: #### D HEAS, INSLN, FSH, LH, PROL, E2 #### [place] [address] #### TSH, FT4, GLU, TFTEST, HPROG #### [place] [address] Triglyceride [Mass/Vol] 134 mg/dL Normal 0-150 [facility] ([place]) Comment on above: Result Comment: Trig lyceride Reference Interval: Less than 150 Normal 150-199 Borderline high risk 200-499 High risk 500 or higher Very high risk Performed By: #### D HEAS, INSLN, FSH, LH, PROL, E2 #### [place] [address] #### TSH, FT4, GLU, TFTEST, HPROG #### [place] [address] UDRUGon 10-05-2023 Amphetamine (u) Negative Normal Negative [facility] ([place]) Comment on above: Performed By: #### Irasema HEAS, INSLN, FSH, LH, PROL, E2 #### [place] [address] #### TSH, FT4, GLU, TFTEST, HPROG #### [place] [address] Barbiturate (u) Negative Normal Negative [facility] ([place]) Comment on above: Performed By: #### Irasema CUEVASAS, INSLN, FSH, LH, PROL, E2 #### [place] [address] #### TSH, FT4, GLU, TFTEST, HPROG #### [place] [address] Benzodiazepine (u) Negative Normal Negative [facility] ([place]) Comment on above: Performed By: #### D HEAS, INSLN, FSH, LH, PROL, E2 #### [place] [address] #### TSH, FT4, GLU, TFTEST, HPROG #### [place] [address] Cannabinoid (u) Negative Normal Negative [facility] ([place]) Comment on above: Performed By: #### D HEAS, INSLN, FSH, LH, PROL, E2 #### [place] [address] #### TSH, FT4, GLU, TFTEST, HPROG #### [address] [address] Cocaine Ql (U) Negative Normal Negative [facility] ([place]) Comment on above: Performed By: #### D HEAS, INSLN, FSH, LH, PROL, E2 #### [place] [address] #### TSH, FT4, GLU, TFTEST, HPROG #### [place] [address] Methadone Ql (U) Negative Normal Negative [facility] ([place]) Comment on above: Performed By: #### D HEAS, INSLN, FSH, LH, PROL, E2 #### [place] [address] #### TSH, FT4, GLU, TFTEST, HPROG #### [place] [address] Opiate (u) Negative Normal Negative [facility] ([place] Comment on above: Performed By: #### D HEAS, INSLN, FSH, LH, PROL, E2 #### [place] [address] #### TSH, FT4, GLU, TFTEST, HPROG #### [place] [address] PCP (u) Negative Normal Negative [facility] ([place] Comment on above: Performed By: #### D HEAS, INSLN, FSH, LH, PROL, E2 #### [place] [address] #### TSH, FT4, GLU, TFTEST, HPROG #### [place] [address] Urine Drugs screened: See Below Normal [facility] ([place]) Comment on above: Result Comment: This drug screen is a presumptive screening only. No confirmation will be performed unless requested. Drugs screened include: Threshold Amphetamines/Methamphetamines 1,000 ng/mL Barbiturates 200 ng/mL Benzodiazepine metabolites 200 ng/mL Cannabinoids (THC metabolites) 50 ng/mL Cocaine 300 ng/mL Opiates 300 ng/mL Methadone 300 ng/mL Phencyclidine (PCP) 25 ng/mL Testing has been performed FOR MEDICAL PURPOSES ONLY. Performed By: #### D HEAS, INSLN, FSH, LH, PROL, E2 #### [address] [address] #### TSH, FT4, GLU, TFTEST, HPROG #### [address] [address] CNOVon 09-25-2023 CNOV Office Visit (UCTR ) LIVIA BOYERPhoebe ([id number]) 1995 F [facility] Date Time Provider Department 09/25/23 9:45 AM RITA CARABALLO [facility] During your visit today, we recorded the following information about you: Temperature Pulse Respiration Blood pressure 97.8 degrees 73/minute 18/minute 120/79 Weight 74.1 kg Rita Caraballo APRN.MOLD STRIPPER 09/25/2023 9:57 AM Signed This note was created using [employer]. Subjective Livia Boyer is a 28 year old female. HPI Pt complains of two days of sore throat. Her has the same symptoms., Review of Systems Constitutional: Negative for fatigue and fever. HENT: Positive for congestion and postnasal drip. Negative for sore throat. Objective BP 120/79 Pulse 73 Temp 36.6 ?C (97.8 ?F) Resp 18 Wt 74.1 kg (163 lb 5.8 oz) SpO2 99% Physical Exam Vitals and nursing note reviewed. Constitutional: General: She is not in acute distress. Appearance: Normal appearance. She is not ill-appearing. HENT: Head: Normocephalic. Mouth/Throat: Mouth: Mucous membranes are moist. Pharynx: Posterior oropharyngeal erythema present. No oropharyngeal exudate. Eyes: Conjunctiva/sclera: Conjunctivae normal. Cardiovascular: Rate and Rhythm: Normal rate and regular rhythm. Pulmonary: Effort: Pulmonary effort is normal. Breath sounds: Normal breath sounds. Musculoskeletal: General: Normal range of motion. Cervical back: Normal range of motion. Skin: General: Skin is warm and dry. Neurological: General: No focal deficit present. Mental Status: She is alert. Psychiatric: Mood and Affect: Mood normal. Behavior: Behavior normal. Assessment and Plan ASSESSMENT/PLAN: 1. Sore throat - ICD9: 462, ICD10: J02.9 - suspect viral - Rapid Strep negative in the office today - Discussed supportive care treatment with fluids, rest and analgesia. - The patient should follow up in one week if symptoms persist or worsen - Call back if drooling, increased temperature, symptoms of dehydration and/or still sick in one week Rita Caraballo APRN.CNP Allergies As of Date: 09/25/2023 (No Known Allergies) Date Reviewed: 09/25/2023 Reviewed by: Rita Caraballo APRN.CNP - Fully Assessed Reason for Visit: Sore Throat [200] Cmt: RAMIREZ, runny nose x1 day Primary Visit Diagnosis:Sore throat [J02.9] Order(s):STREP A MOLECULAR (POC) [[id number]] Order #: [id number] #:[id number] Prescriptions as of 09/25/2023 - albuterol HFA (PROVENTIL HFA, VENTOLIN HFA) 90 mcg/actuation inhaler Inhale 2 Puffs as instructed every 6 hours as needed. - budesonide-formoterol (SYMBICORT) 160-4.5 mcg/actuation inhaler Inhale 2 Puffs as instructed. - SPIRIVA RESPIMAT 1.25 mcg/actuation inhaler Problem List As Of Date: 09/25/2023 (None) Encounter Status:Closed by RITA CARABALLO on 09/25/23 Normal [facility] STREP A MOLECULAR (POC)on 05 -26-2024 Procedural Control Valid [facility] Strep A (POCT) Negative Negative [facility] XR SWALLOWING FUNCTIONon XR SWALLOWING FUNCTION ORIGINAL Images acquired, not reported on this accession number. Normal [facility]) MRI BRAIN W/ + W/O CONTRASTo n 07-22-2023 MRI BRAIN W/ + W/O CONTRAST ORIGINAL HISTORY: Acute vision loss COMPARISON: Head CT 29 June 2023 TECHNIQUE: 1. Axial and sagittal T1-weighted images. 2. Axial T2-weighted images. 3. Axial FLAIR images. 4. Axial diffusion-weighted images with ADC map. 5. Axial T2-weighted images with thin cuts through the orbits. 6. Coronal T2-weighted images of the orbits with fat saturation. 7. Coronal T1-weighted images of the orbits. 8. Axial and coronal T1-weighted images of the orbits with fat saturation following uncomplicated administration of intravenous gadolinium contrast. 9. Axial, coronal and sagittal T1-weighted images following uncomplicated administration of intravenous gadolinium contrast. FINDINGS: The ventricles and sulci are normal in size and configuration. 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 Nye-white matter differentiation is maintained. There is no abnormal restriction of diffusion. There is no abnormal enhancement of the brain or its coverings. The globes are normal in appearance and symmetric. The optic nerves as well as the extraocular muscles are normal in course and caliber. The intra and extraconal fat is unremarkable. There is mild sinus disease. 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 This is likely of no significance, but a 12 month follow-up is suggested to ensure stability. Otherwise unremarkable examination of the brain and orbits. Sinus disease. Interpreted by: Isaiah Carrizales MD Preliminary Report By: Isaiah Carrizales MD Electronically signed By Isaiah Carrizales MD Dictated Date: 07/22/2023 11:42:29 AM Prelim Date: 07/22/2023 11:46:51 AM Sign Date: 07/22/2023 11:46:51 AM Ordering Provider: MONI Gage [facility] ([place]) .Auto Diffon 07-04-2023 Basophil, Absolute 0.0 10 3/mcL Normal 0.0-0.3 Counts include 234 beds at the [facility] ([place]) Comment on above: Performed By: #### G RONI SHAW #### Brenda [address] [address] Basophils/100 WBC (Bld) 0.3 % Normal 0.0-2.5 [facility] ([place]) Comment on above: Performed By: #### Jeff SHAW, LIPID #### [address] [address] Eosinophil, Absolute 0.0 10 3/mcL Normal 0.0-0.7 [facility] ([place]) Comment on above: Performed By: #### Jeff SHAW, LIPID #### [address] [address] Eosinophils/100 WBC (Bld) 0.8 % Normal 0.0-6.0 [facility] ([place]) Comment on above: Performed By: #### Jeff SHAW, LIPID #### [address] [address] Lymphocyte, Absolute 0.7 10 3/mcL Low 0.9-4.3 [facility] ([place]) Comment on above: Performed By: #### Jeff SHAW, LIPID #### [address] [address] Lymphocytes/100 WBC (Bld) 14.7 % Low 20.0-40.0 [facility] ([place]) Comment on above: Performed By: #### Jeff SHAW, LIPID #### [address] [address] Monocyte, Absolute 0.5 10 3/mcL Normal 0.1-1.4 Counts include 234 beds at the [facility] ([place]) Comment on above: Performed By: #### Jeff SHAW, LIPID #### [address] [address] Monocytes/100 WBC (Bld) 11.4 % Normal 2.0-13.0 [facility] ([place]) Comment on above: Performed By: #### Jeff SHAW, LIPID #### [address] [address] Neutrophils/100 WBC (Bld) 72.8 % Normal 50.0-75.0 [facility] ([place]) Comment on above: Performed By: #### Jfef SHAW, LIPID #### [address] [address] .GFRon 07-04-2023 GFR Non- 75 ml/min/1.73sqm Normal [facility] ([place]) Comment on above: Result Comment: GFR Population mean for , Non- Americans Ages 20-29 = 116 mL/min/1.73 sq.m. Ages 30-39 = 107 mL/min/1.73 sq.m. Ages 40-49 = 99 mL/min/1.73 sq.m. Ages 50-59 = 93 mL/min/1.73 sq.m. Ages 60-69 = 85 mL/min/1.73 sq.m. Ages 70+ = 75 mL/min/1.73 sq.m. Chronic Kidney Disease: Less than 60 mL/min/1.73 square meters End Stage Renal Disease: Less than 15 mL/min/1.73 square meters Performed By: #### D HEAS, INSLN, FSH, LH, PROL, E2 #### [place] [address] #### TSH, FT4, GLU, TFTEST, HPROG #### [address] [address] GFR 91 ml/min/1.73sqm Normal [facility] ([place]) Comment on above: Result Comment: GFR Population mean for , Non- Americans Ages 20-29 = 116 mL/min/1.73 sq.m. Ages 30-39 = 107 mL/min/1.73 sq.m. Ages 40-49 = 99 mL/min/1.73 sq.m. Ages 50-59 = 93 mL/min/1.73 sq.m. Ages 60-69 = 85 mL/min/1.73 sq.m. Ages 70+ = 75 mL/min/1.73 sq.m. Chronic Kidney Disease: Less than 60 mL/min/1.73 square meters End Stage Renal Disease: Less than 15 mL/min/1.73 square meters Performed By: #### D HEAS, INSLN, FSH, LH, PROL, E2 #### [address] [address] #### TSH, FT4, GLU, TFTEST, HPROG #### [address] [address] .MDWon 07-04-2023 Monocyte Distribution Width 23.11 High 0.00-20.00 [facility] ([place]) Comment on above: Result Comment: For adults in ED, MDW>20.0 may be associated with a higher risk of sepsis during the first 12hrs of hospital admission Performed By: #### Jeff SHAW, LIPID #### [place] [address] .Morphon 07-04-2023 Platelet Estimate Normal Normal [facility] ([place]) Comment on above: Performed By: #### Jeff SHAW, LIPID #### [place] [address] .NEUABSon 07-04-2023 Neutrophil, Absolute 3.4 10 3/mcL Normal 2.3-8.1 [facility] ([place]) Comment on above: Performed By: #### Jeff SHAW, LIPID #### [place] [address] CBCon 07-04-2023 Erythrocyte distribution width (RBC) [Ratio] 13.7 % Normal 11.5-15.5 [facility] ([place]) Comment on above: Performed By: #### Jeff SHAW, LIPID #### [place] [address] Hematocrit (Bld) [Volume fraction] 36.2 % Normal 34.0-46.0 [facility] ([place]) Comment on above: Performed By: #### Jeff SHAW, LIPID #### [place] [address] Hgb 12.3 G/dL Normal 12.0-16.0 [facility] ([place]) Comment on above: Performed By: #### Jeff SHAW, LIPID #### [place] [address] MCH (RBC) [Entitic mass] 28.7 pg Normal 27.0-33.0 [facility] ([place]) Comment on above: Performed By: #### Jeff SHAW, LIPID #### [address] [address] MCHC 34.1 G/dL Normal 32.0-36.0 [facility] ([place] Comment on above: Performed By: #### Jeff SHAW, LIPID #### [address] [address] MCV (RBC) [Entitic vol] 84.3 fL Normal 80.0-99.0 [facility] ([place]) Comment on above: Performed By: #### Jeff SHAW, LIPID #### [address] [address] Platelet 225 10 3/mcL Normal 150-450 [facility] ([place]) Comment on above: Performed By: #### Jeff SHAW, LIPID #### [address] [address] Platelet mean volume (Bld) [Entitic vol] 7.5 fL Normal 6.6-10.5 [facility] ([place]) Comment on above: Performed By: #### Jeff SHAW, LIPID #### [address] [address] RBC 4.30 10 6/mcL Normal 4.10-5.30 [facility] ([place] Comment on above: Performed By: #### Jeff SHAW, LIPID #### [address] [address] WBC 4.7 10 3/mcL Normal 4.5-10.8 [facility] ([place] Comment on above: Performed By: #### Jeff SHAW, LIPID #### [address] [address] CMPon 07-04-2023 Albumin Level 3.8 G/dL Normal 3.5-5.0 [facility] ([place]) Comment on above: Performed By: #### D HEAS, INSLN, FSH, LH, PROL, E2 #### [address] [address] #### TSH, FT4, GLU, TFTEST, HPROG #### [address] [address] Albumin/Globulin [Mass ratio] 1.2 {ratio} Normal 1.1-2.5 [facility] ([place] Comment on above: Performed By: #### D HEAS, INSLN, FSH, LH, PROL, E2 #### [place] [address] #### TSH, FT4, GLU, TFTEST, HPROG #### [address] [address] ALP [Catalytic activity/Vol] 57 U/L Normal 40-135 [facility] ([place] Comment on above: Performed By: #### Irasema HEAS, INSLN, FSH, LH, PROL, E2 #### [place] [address] #### TSH, FT4, GLU, TFTEST, HPROG #### [address] [address] ALT [Catalytic activity/Vol] 38 U/L Normal 14-59 [facility] ([place] Comment on above: Performed By: #### Irasema HEAS, INSLN, FSH, LH, PROL, E2 #### [place] [address] #### TSH, FT4, GLU, TFTEST, HPROG #### [address] [address] AST [Catalytic activity/Vol] 18 U/L Normal 10-40 [facility] ([place] Comment on above: Performed By: #### D HEAS, INSLN, FSH, LH, PROL, E2 #### [place] [address] #### TSH, FT4, GLU, TFTEST, HPROG #### [address] [address] Bili Total 0.2 mg/dL Normal 0.2-1.0 [facility] ([place] Comment on above: Result Comment: Use of this assay is not recommended for patients undergoing treatment with eltrombopag due to the potential for falsely elevated results. Performed By: #### D HEAS, INSLN, FSH, LH, PROL, E2 #### [place] [address] #### TSH, FT4, GLU, TFTEST, HPROG #### [address] [address] BUN/Creatinine Ratio 7 ratio Normal 7-27 Counts include 234 beds at the [facility] ([place]) Comment on above: Performed By: #### Irasema HEAS, INSLN, FSH, LH, PROL, E2 #### [place] [address] #### TSH, FT4, GLU, TFTEST, HPROG #### [address] [address] Calcium [Mass/Vol] 9.5 mg/dL Normal 8.4-10.2 [facility] ([place]) Comment on above: Performed By: #### Irasema HEAS, INSLN, FSH, LH, PROL, E2 #### [place] [address] #### TSH, FT4, GLU, TFTEST, HPROG #### [address] [address] Chloride [Moles/Vol] 98 mmol/L Normal 98-107 Counts include 234 beds at the [facility] ([place]) Comment on above: Performed By: #### Irasema HEAS, INSLN, FSH, LH, PROL, E2 #### [place] [address] #### TSH, FT4, GLU, TFTEST, HPROG #### [address] [address] CO2 [Moles/Vol] 28 mmol/L Normal 22-29 [facility] ([place] Comment on above: Performed By: #### D HEAS, INSLN, FSH, LH, PROL, E2 #### [place] [address] #### TSH, FT4, GLU, TFTEST, HPROG #### [address] [address] Creatinine [Mass/Vol] 0.90 mg/dL Normal 0.55-1.02 [facility] ([place]) Comment on above: Performed By: #### D HEAS, INSLN, FSH, LH, PROL, E2 #### [place] [address] #### TSH, FT4, GLU, TFTEST, HPROG #### [address] [address] Electrolyte Balance 10.0 mEq/L Normal 4.0-15.0 [facility] ([place]) Comment on above: Performed By: #### D HEAS, INSLN, FSH, LH, PROL, E2 #### [place] [address] #### TSH, FT4, GLU, TFTEST, HPROG #### [address] [address] Globulin 3.2 G/dL Normal [facility] ([place]) Comment on above: Performed By: #### Irasema HEAS, INSLN, FSH, LH, PROL, E2 #### [place] [address] #### TSH, FT4, GLU, TFTEST, HPROG #### [address] [address] Glucose [Mass/Vol] 106 mg/dL High 70-105 [facility] ([place]) Comment on above: Performed By: #### Irasema HEAS, INSLN, FSH, LH, PROL, E2 #### [place] [address] #### TSH, FT4, GLU, TFTEST, HPROG #### [address] [address] Potassium [Moles/Vol] 3.7 mmol/L Normal 3.5-5.1 [facility] ([place] Comment on above: Performed By: #### D HEAS, INSLN, FSH, LH, PROL, E2 #### [place] [address] #### TSH, FT4, GLU, TFTEST, HPROG #### [address] [address] Sodium [Moles/Vol] 136 mmol/L Normal 136-145 [facility] ([place]) Comment on above: Performed By: #### Irasema HEAS, INSLN, FSH, LH, PROL, E2 #### [place] [address] #### TSH, FT4, GLU, TFTEST, HPROG #### [address] [address] Total Protein 7.0 G/dL Normal 6.4-8.2 [facility] ([place]) Comment on above: Performed By: #### Irasema HEAS, INSLN, FSH, LH, PROL, E2 #### [place] [address] #### TSH, FT4, GLU, TFTEST, HPROG #### [address] [address] Urea nitrogen [Mass/Vol] 6 mg/dL Low 7-18 [facility] ([place]) Comment on above: Result Comment: Repe ated to verify Performed By: #### Irasema HEAS, INSLN, FSH, LH, PROL, E2 #### [place] [address] #### TSH, FT4, GLU, TFTEST, HPROG #### [address] [address] CVFLURVon 07-04-2023 FLU A PCR Positive Abnormal Negative [facility] ([place]) Comment on above: Performed By: #### Irasema HEAS, INSLN, FSH, LH, PROL, E2 #### [place] [address] #### TSH, FT4, GLU, TFTEST, HPROG #### [address] [address] FLU B PCR Negative Normal Negative [facility] ([place]) Comment on above: Performed By: #### Irasema HEAS, INSLN, FSH, LH, PROL, E2 #### [place] [address] #### TSH, FT4, GLU, TFTEST, HPROG #### [address] [address] RSV PCR Negative Normal Negative [facility] ([place] Comment on above: Performed By: #### D HEAS, INSLN, FSH, LH, PROL, E2 #### [address] [address] #### TSH, FT4, GLU, TFTEST, HPROG #### [address] [address] SARS-CoV-2 (COVID-19) RNA ANTONIA+probe Ql (Unsp spec) Negative Normal Negative [facility] ([place]) Comment on above: Result Comment: This test has been authorized by FDA under an EUA for use by authorized laboratories and has not been FDA cleared or approved. Results from the Xpert Xpress SARS-CoV-2/Flu/RSV or Xpert Xpress SARS-CoV-2 only test should be correlated with the clinical history, epidemiological data, and other data available to the clinician evaluating the patient. Performance of the Xpert Xpress SARS-CoV-2/Flu/RSV or Xpert Xpress SARS-CoV-2 only test has only been established in nasopharyngeal swab specimens. Erroneous test results might occur from improper specimen collection; failure to follow the recommended sample collection, handling, and storage procedures; technical error; or sample mix-up.False negative results may occur if virus is present at levels below the analytical limit of detection. Viral nucleic acid may persist in vivo, independent of virus viability. Detection of analyte target(s) does not imply that the corresponding virus(es) are infectious or are the causative agents for clinical symptoms.Recent patient exposure to FluMist or other live attenuated influenza vaccines may cause inaccurate positive results. Performed By: #### D HEAS, INSLN, FSH, LH, PROL, E2 #### [place] [address] #### TSH, FT4, GLU, TFTEST, HPROG #### [address] [address] LACon 07-04-2023 Lactic Acid Lvl 0.8 mmol/L Normal 0.4-2.0 [facility] ([place]) Comment on above: Performed By: #### G VALERIA, LIPID #### [address] [address] LIPon 07-04-2023 Lipase Level 23 U/L Normal 16-77 [facility] ([place]) Comment on above: Performed By: #### Jeff SHAW, LIPID #### [address] [address] MGon 07-04-2023 Magnesium [Mass/Vol] 1.9 mg/dL Normal 1.8-2.4 Counts include 234 beds at the [facility] ([place]) Comment on above: Performed By: #### Irasema CUEVASAS, INSLN, FSH, LH, PROL, E2 #### [place] [address] #### TSH, FT4, GLU, TFTEST, HPROG #### [address] [address] .Auto Diffon 07-03-2023 Basophil, Absolute 0.0 10 3/mcL Normal 0.0-0.2 Counts include 234 beds at the [facility] ([place] Comment on above: Performed By: #### Irasema HEAS, INSLN, FSH, LH, PROL, E2 #### [place] [address] #### TSH, FT4, GLU, TFTEST, HPROG #### [address] [address] Basophils/100 WBC (Bld) 0.2 % Normal 0.0-2.5 [facility] ([place]) Comment on above: Performed By: #### D HEAS, INSLN, FSH, LH, PROL, E2 #### [place] [address] #### TSH, FT4, GLU, TFTEST, HPROG #### [address] [address] Eosinophil, Absolute 0.2 10 3/mcL Normal 0.0-0.4 [facility] ([place]) Comment on above: Performed By: #### D HEAS, INSLN, FSH, LH, PROL, E2 #### [place] [address] #### TSH, FT4, GLU, TFTEST, HPROG #### [address] [address] Eosinophils/100 WBC (Bld) 2.4 % Normal 0.0-7.0 [facility] ([place]) Comment on above: Performed By: #### Irasema HEAS, INSLN, FSH, LH, PROL, E2 #### [place] [address] #### TSH, FT4, GLU, TFTEST, HPROG #### [address] [address] Lymphocyte, Absolute 1.0 10 3/mcL Normal 0.8-3.9 [facility] ([place]) Comment on above: Performed By: #### Irasema HEAS, INSLN, FSH, LH, PROL, E2 #### [place] [address] #### TSH, FT4, GLU, TFTEST, HPROG #### [address] [address] Lymphocytes/100 WBC (Bld) 14.8 % Normal 10.0-50.0 [facility] ([place]) Comment on above: Performed By: #### Irasema HEAS, INSLN, FSH, LH, PROL, E2 #### [place] [address] #### TSH, FT4, GLU, TFTEST, HPROG #### [address] [address] Monocyte, Absolute 0.6 10 3/mcL Normal 0.2-1.0 Counts include 234 beds at the [facility] ([place]) Comment on above: Performed By: #### D HEAS, INSLN, FSH, LH, PROL, E2 #### [place] [address] #### TSH, FT4, GLU, TFTEST, HPROG #### [address] [address] Monocytes/100 WBC (Bld) 9.5 % Normal 1.7-13.0 [facility] ([place]) Comment on above: Performed By: #### D HEAS, INSLN, FSH, LH, PROL, E2 #### [address] [address] #### TSH, FT4, GLU, TFTEST, HPROG #### [address] [address] Neutrophils/100 WBC (Bld) 73.1 % Normal 37.0-80.0 [facility] ([place]) Comment on above: Performed By: #### Irasema HEAS, INSLN, FSH, LH, PROL, E2 #### [address] [address] #### TSH, FT4, GLU, TFTEST, HPROG #### [address] [address] .GFRon 07-03-2023 GFR 120 ml/min/1.73sqm Normal [facility] ([place]) Comment on above: Result Comment: GFR Population mean for , Non- Americans Ages 20-29 = 116 mL/min/1.73 sq.m. Ages 30-39 = 107 mL/min/1.73 sq.m. Ages 40-49 = 99 mL/min/1.73 sq.m. Ages 50-59 = 93 mL/min/1.73 sq.m. Ages 60-69 = 85 mL/min/1.73 sq.m. Ages 70+ = 75 mL/min/1.73 sq.m. Chronic Kidney Disease: Less than 60 mL/min/1.73 square meters End Stage Renal Disease: Less than 15 mL/min/1.73 square meters Performed By: #### D HEAS, INSLN, FSH, LH, PROL, E2 #### [address] [address] #### TSH, FT4, GLU, TFTEST, HPROG #### [address] [address] GFR Non- 99 ml/min/1.73sqm Normal [facility] ([place]) Comment on above: Result Comment: GFR Population mean for , Non- Americans Ages 20-29 = 116 mL/min/1.73 sq.m. Ages 30-39 = 107 mL/min/1.73 sq.m. Ages 40-49 = 99 mL/min/1.73 sq.m. Ages 50-59 = 93 mL/min/1.73 sq.m. Ages 60-69 = 85 mL/min/1.73 sq.m. Ages 70+ = 75 mL/min/1.73 sq.m. Chronic Kidney Disease: Less than 60 mL/min/1.73 square meters End Stage Renal Disease: Less than 15 mL/min/1.73 square meters Performed By: #### Irasema HEAS, INSLN, FSH, LH, PROL, E2 #### [place] [address] #### TSH, FT4, GLU, TFTEST, HPROG #### [address] [address] .MDWon 07-03-2023 Monocyte Distribution Width 23.72 High 0.00-20.00 [facility] ([place]) Comment on above: Result Comment: For adults in ED, MDW>20.0 may be associated with a higher risk of sepsis during the first 12hrs of hospital admission Performed By: #### Irasema SMITH, INSLN, FSH, LH, PROL, E2 #### [place] [address] #### TSH, FT4, GLU, TFTEST, HPROG #### [address] [address] .NEUABSon 07-03-2023 Neutrophil, Absolute 4.9 10 3/mcL Normal 2.9-6.2 [facility] ([place]) Comment on above: Performed By: #### Irasema HEAS, INSLN, FSH, LH, PROL, E2 #### [place] [address] #### TSH, FT4, GLU, TFTEST, HPROG #### [address] [address] .Urinalysis Microscopic (AO) on 07-03-2023 UA Bacteria Trace Abnormal [facility] ([place]) Comment on above: Performed By: #### D HEAS, INSLN, FSH, LH, PROL, E2 #### [place] [address] #### TSH, FT4, GLU, TFTEST, HPROG #### [address] [address] UA RBC 0-5 Abnormal None Seen [facility] ([place]) Comment on above: Performed By: #### Irasema HEAS, INSLN, FSH, LH, PROL, E2 #### [place] [address] #### TSH, FT4, GLU, TFTEST, HPROG #### [place] [address] UA Squam Epithelial LOADED Abnormal None Seen [facility] ([place]) Comment on above: Performed By: #### Irasema SMITH, INSLN, FSH, LH, PROL, E2 #### [place] [address] #### TSH, FT4, GLU, TFTEST, HPROG #### [place] [address] UA WBC 0-5 Abnormal None Seen [facility] ([place] Comment on above: Performed By: #### Irasema SMITH, INSLN, FSH, LH, PROL, E2 #### [place] [address] #### TSH, FT4, GLU, TFTEST, HPROG #### [place] [address] CBCon 07-03-2023 Erythrocyte distribution width (RBC) [Ratio] 13.6 % Normal 11.5-14.5 [facility] ([place]) Comment on above: Performed By: #### Irasema HEAS, INSLN, FSH, LH, PROL, E2 #### [place] [address] #### TSH, FT4, GLU, TFTEST, HPROG #### [place] [address] Hematocrit (Bld) [Volume fraction] 37.7 % Normal 37.0-47.0 [facility] ([place]) Comment on above: Performed By: #### Irasema HEAS, INSLN, FSH, LH, PROL, E2 #### [place] [address] #### TSH, FT4, GLU, TFTEST, HPROG #### [address] [address] Hgb 13.1 G/dL Normal 12.0-16.0 [facility] ([place]) Comment on above: Performed By: #### Irasema HEAS, INSLN, FSH, LH, PROL, E2 #### [place] [address] #### TSH, FT4, GLU, TFTEST, HPROG #### [place] [address] MCH (RBC) [Entitic mass] 29.1 pg Normal 27.0-31.2 [facility] ([place]) Comment on above: Performed By: #### Irasema HEAS, INSLN, FSH, LH, PROL, E2 #### [place] [address] #### TSH, FT4, GLU, TFTEST, HPROG #### [place] [address] MCHC 34.7 G/dL Normal 33.0-37.0 [facility] ([place]) Comment on above: Performed By: #### Irasema CUEVASAS, INSLN, FSH, LH, PROL, E2 #### [place] [address] #### TSH, FT4, GLU, TFTEST, HPROG #### [place] [address] MCV (RBC) [Entitic vol] 83.7 fL Normal 80.0-94.0 [facility] ([place]) Comment on above: Performed By: #### Irasema HEAS, INSLN, FSH, LH, PROL, E2 #### [place] [address] #### TSH, FT4, GLU, TFTEST, HPROG #### [address] [address] Platelet 253 10 3/mcL Normal 130-400 [facility] ([place]) Comment on above: Performed By: #### Irasema HEAS, INSLN, FSH, LH, PROL, E2 #### [place] [address] #### TSH, FT4, GLU, TFTEST, HPROG #### [address] [address] Platelet mean volume (Bld) [Entitic vol] 7.5 fL Normal 7.4-10.4 [facility] ([place]) Comment on above: Performed By: #### Irasema HEAS, INSLN, FSH, LH, PROL, E2 #### [place] [address] #### TSH, FT4, GLU, TFTEST, HPROG #### [address] [address] RBC 4.50 10 6/mcL Normal 4.20-5.40 [facility] ([place]) Comment on above: Performed By: #### Irasema CUEVASAS, INSLN, FSH, LH, PROL, E2 #### [place] [address] #### TSH, FT4, GLU, TFTEST, HPROG #### [address] [address] WBC 6.7 10 3/mcL Normal 4.6-10.8 [facility] ([place]) Comment on above: Performed By: #### D HEAS, INSLN, FSH, LH, PROL, E2 #### [place] [address] #### TSH, FT4, GLU, TFTEST, HPROG #### [address] [address] CMPon 07-03-2023 Albumin Level 3.9 G/dL Normal 3.5-5.0 [facility] ([place]) Comment on above: Performed By: #### D HEAS, INSLN, FSH, LH, PROL, E2 #### [place] [address] #### TSH, FT4, GLU, TFTEST, HPROG #### [address] [address] Albumin/Globulin [Mass ratio] 1.1 {ratio} Normal 1.1-2.5 [facility] ([place]) Comment on above: Performed By: #### D HEAS, INSLN, FSH, LH, PROL, E2 #### [place] [address] #### TSH, FT4, GLU, TFTEST, HPROG #### [address] [address] ALP [Catalytic activity/Vol] 65 U/L Normal 40-135 [facility] ([place]) Comment on above: Performed By: #### Irasema HEAS, INSLN, FSH, LH, PROL, E2 #### [place] [address] #### TSH, FT4, GLU, TFTEST, HPROG #### [address] [address] ALT [Catalytic activity/Vol] 38 U/L Normal 14-59 [facility] ([place]) Comment on above: Performed By: #### Irasema HEAS, INSLN, FSH, LH, PROL, E2 #### [place] [address] #### TSH, FT4, GLU, TFTEST, HPROG #### [address] [address] AST [Catalytic activity/Vol] 29 U/L Normal 10-40 [facility] ([place]) Comment on above: Performed By: #### D HEAS, INSLN, FSH, LH, PROL, E2 #### [place] [address] #### TSH, FT4, GLU, TFTEST, HPROG #### [address] [address] Bili Total 0.4 mg/dL Normal 0.2-1.0 [facility] ([place]) Comment on above: Result Comment: Use of this assay is not recommended for patients undergoing treatment with eltrombopag due to the potential for falsely elevated results. Performed By: #### D HEAS, INSLN, FSH, LH, PROL, E2 #### [place] [address] #### TSH, FT4, GLU, TFTEST, HPROG #### [address] [address] BUN/Creatinine Ratio 15 ratio Normal 7-27 Counts include 234 beds at the [facility] ([place] Comment on above: Performed By: #### Irasema HEAS, INSLN, FSH, LH, PROL, E2 #### [place] [address] #### TSH, FT4, GLU, TFTEST, HPROG #### [address] [address] Calcium [Mass/Vol] 8.8 mg/dL Normal 8.4-10.2 [facility] ([place]) Comment on above: Performed By: #### Irasema HEAS, INSLN, FSH, LH, PROL, E2 #### [place] [address] #### TSH, FT4, GLU, TFTEST, HPROG #### [address] [address] Chloride [Moles/Vol] 101 mmol/L Normal 98-107 Counts include 234 beds at the [facility] ([place] Comment on above: Performed By: #### D HEAS, INSLN, FSH, LH, PROL, E2 #### [place] [address] #### TSH, FT4, GLU, TFTEST, HPROG #### [address] [address] CO2 [Moles/Vol] 28 mmol/L Normal 22-29 [facility] ([place]) Comment on above: Performed By: #### D HEAS, INSLN, FSH, LH, PROL, E2 #### [place] [address] #### TSH, FT4, GLU, TFTEST, HPROG #### [address] [address] Creatinine [Mass/Vol] 0.71 mg/dL Normal 0.55-1.02 [facility] ([place]) Comment on above: Performed By: #### D HEAS, INSLN, FSH, LH, PROL, E2 #### [place] [address] #### TSH, FT4, GLU, TFTEST, HPROG #### [address] [address] Electrolyte Balance 8.0 mEq/L Normal 4.0-15.0 [facility] ([place]) Comment on above: Performed By: #### D HEAS, INSLN, FSH, LH, PROL, E2 #### [place] [address] #### TSH, FT4, GLU, TFTEST, HPROG #### [place] [id number] Globulin 3.5 G/dL Normal [facility] ([place]) Comment on above: Performed By: #### Irasema HEAS, INSLN, FSH, LH, PROL, E2 #### [place] [address] #### TSH, FT4, GLU, TFTEST, HPROG #### [address] [address] Glucose [Mass/Vol] 92 mg/dL Normal 70-105 [facility] ([place]) Comment on above: Performed By: #### D HEAS, INSLN, FSH, LH, PROL, E2 #### [place] [address] #### TSH, FT4, GLU, TFTEST, HPROG #### [address] [address] Potassium [Moles/Vol] 4.4 mmol/L Normal 3.5-5.1 [facility] ([place]) Comment on above: Performed By: #### D HEAS, INSLN, FSH, LH, PROL, E2 #### [address] [address] #### TSH, FT4, GLU, TFTEST, HPROG #### [address] [address] Sodium [Moles/Vol] 137 mmol/L Normal 136-145 [facility] ([place]) Comment on above: Performed By: #### D HEAS, INSLN, FSH, LH, PROL, E2 #### [address] [address] #### TSH, FT4, GLU, TFTEST, HPROG #### [address] [address] Total Protein 7.4 G/dL Normal 6.4-8.2 [facility] ([place]) Comment on above: Performed By: #### D HEAS, INSLN, FSH, LH, PROL, E2 #### [place] [address] #### TSH, FT4, GLU, TFTEST, HPROG #### [address] [address] Urea nitrogen [Mass/Vol] 11 mg/dL Normal 7-18 [facility] ([place]) Comment on above: Performed By: #### D HEAS, INSLN, FSH, LH, PROL, E2 #### [place] [address] #### TSH, FT4, GLU, TFTEST, HPROG #### [address] [address] [address] ABD/PELVIS W/ IV CONTRAST ONLYon 07-03-2023 CT ABD/PELVIS W/ IV CONTRAST ONLY ORIGINAL EXAMINATION: CT OF THE ABDOMEN AND PELVIS WITH CONTRAST 07/03/2023 4:23 pm TECHNIQUE: CT of the abdomen and pelvis was performed with the administration of intravenous contrast. Multiplanar reformatted images are provided for review. Automated exposure control, iterative reconstruction, and/or weight based adjustment of the mA/kV was utilized to reduce the radiation dose to as low as reasonably achievable. COMPARISON: None. HISTORY: ORDERING SYSTEM PROVIDED HISTORY: Reason for Exam: epigastric pain FINDINGS: No osseous abnormality is evident. Minimal volume loss is noted in the lingula. Liver, spleen, adrenal glands and pancreas are unremarkable. No kidney abnormality seen. No adenopathy, free air or free fluid is evident. There is a 3.6 cm left ovarian cyst. The solid pelvic organs and the urinary bladder are otherwise grossly normal. No GI tract abnormality is visible. The appendix is unremarkable. No other contributory finding seen. IMPRESSION: No acute abnormality identified on this exam. RECOMMENDATIONS: 3.6 cm left ovarian simple-appearing cyst. No follow-up imaging is recommended. Reference: JACR 2019;17(2):248-254 Interpreted by: Jackie Hamm MD Preliminary Report By: Jackie Hamm MD Electronically signed By Jackie Hamm MD Dictated Date: 07/03/2023 4:32:24 PM Prelim Date: 07/03/2023 4:34:26 PM Sign Date: 07/03/2023 4:34:26 PM Ordering Provider: NANDA WADE [facility] ([place]) CT ANGIOGRAPHY CHEST W/CONTR Bonnie 07-03-2023 CT ANGIOGRAPHY CHEST W/CONTRAST ORIGINAL EXAMINATION: CTA OF THE CHEST07/03/2023 5:10 pm TECHNIQUE: CTA of the chest was performed after the administration of intravenous contrast. Multiplanar reformatted images are provided for review. MIP images are provided for review. Automated exposure control, iterative reconstruction, and/or weight based adjustment of the mA/kV was utilized to reduce the radiation dose to as low as reasonably achievable. COMPARISON: None HISTORY: ORDERING SYSTEM PROVIDED HISTORY: Reason for Exam: elevated dimer. tachycardia FINDINGS: The contrast bolus is adequate for the evaluation of the lobar and segmental pulmonary arterial branches. No filling defect is seen to suggest acute pulmonary embolism. Hazy hyperdensity within the anterior superior mediastinum; this is favored to represent residual thymic tissue, possibly thymic hyperplasia. Normal heart size. No pericardial effusion or pericardial thickening. Nonaneurysmal thoracic aorta. Main pulmonary artery is normal caliber. The trachea and mainstem bronchi are patent. Few small peribronchovascular nodular infiltrates about the anterior/inferior/media l right upper lobe. Some adjacent bronchial wall thickening is also seen. Some volume loss about the right middle lobe along the major fissure anteriorly. 6 mm calcified pleural based nodule on the left posteriorly. No pleural effusion or pneumothorax. No pathologically enlarged or aggressive appearing lymph nodes. No acute abnormality within the partially visualized upper abdomen. IMPRESSION: No evidence of pulmonary embolism. Few small peribronchovascular nodular infiltrates, right upper lobe. Adjacent bronchial wall thickening. Findings may be infectious or inflammatory. Consider 6-8 week follow-up study to document resolution. I have personally reviewed the images of this examination and agree with the resident's finding and interpretation. Interpreted by: Jackie Hamm MD Preliminary Report By: Jackie Graham Electronically signed By Jackie Hamm MD Dictated Date: 07/03/2023 5:14:01 PM Prelim Date: 07/03/2023 5:26:07 PM Sign Date: 07/03/2023 5:30:28 PM Ordering Provider: NANDA Gage [facility] ([place]) DIMERon 07-03-2023 D-Dimer 277 ng/mL D-DU High 0-230 [facility] ([place]) Comment on above: Result Comment: Resu lts reported in D-DU ng/mL. Positive for D-dimer. A positive D-Dimer may occur in the following: DVT, PE, DIC, Trauma, Cancer, Sepsis, , Rheumatoid arthritis, Myocardial infarction and Cirrhosis. The presence of Rheumatoid Factor and HAMA (human mouse antibody) produces an overestimation of test results. The result of the D-Dimer test should be evaluated in the context of all the clinical and laboratory data available. In those instances where the laboratory result does not agree with the clinical evaluation, additional tests should be performed accordingly. If the D-Dimer result is used to exclude DVT or PE, the recommended cutoff value is less than 230 ng/mL. The D-Dimer result should not be used alone to rule in DVT/PE, but should be used in conjunction with a clinical pretest probability (PTP)assessment model to exclude venous thromboembolism (VTE) in outpatients suspected of deep venous thrombosis (DVT) and pulmonary embolism (PE). Performed By: #### D HEAS, INSLN, FSH, LH, PROL, E2 #### [facility] [address] [place] [id number] #### TSH, FT4, GLU, TFTEST, HPROG #### [address] [address] LABORATORYOrdered By: Angie Hoskins on 07-03-2023 Fibrin D-dimer DDU (PPP) [Mass/Vol] 277 ng/mL D-DU High 0 - 230 ng/mL D-DU AO [facility] SS Comment on above: Result Comment: Resu lts reported in D-DU ng/mL. Positive for D-dimer. A positive D-Dimer may occur in the following: DVT, PE, DIC, Trauma, Cancer, Sepsis, , Rheumatoid arthritis, Myocardial infarction and Cirrhosis. The presence of Rheumatoid Factor and HAMA (human mouse antibody) produces an overestimation of test results. Interpretive Data: T he result of the D-Dimer test should be evaluated in the context of all the clinical and laboratory data available. In those instances where the laboratory result does not agree with the clinical evaluation, additional tests should be performed accordingly. If the D-Dimer result is used to exclude DVT or PE, the recommended cutoff value is less than 230 ng/mL. The D-Dimer result should not be used alone to rule in DVT/PE, but should be used in conjunction with a clinical pretest probability (PTP)assessment model to exclude venous thromboembolism (VTE) in outpatients suspected of deep venous thrombosis (DVT) and pulmonary embolism (PE). Appearance (U) Slightly Cloudy *ABN* (07/03/23 3:35 PM) Invalid Interpretation Code Clear AO Auto Urine SS Bacteria LM.HPF (Urine sed) [#/Area] Trace /HPF Invalid Interpretation Code AO Auto Urine SS Bilirubin Ql (U) Negative (07/03/23 3:35 PM) Normal Negative AO Auto Urine SS Color (U) Yellow (07/03/23 3:35 PM) Normal AO Auto Urine SS Glucose Test strip (U) [Mass/Vol] Negative Normal Negative AO Auto Urine SS HCG ( test) Ql Negative (07/03/23 3:35 PM) Normal AO Manual Urine SS Hemoglobin Auto test strip (U) [Mass/Vol] Small *ABN* (07/03/23 3:35 PM) Invalid Interpretation Code Negative AO Auto Urine SS Ketones Ql (U) Negative Normal Negative AO Auto Urine SS test (u) int Not detected Invalid Interpretation Code AO Manual Urine SS UA Leuk Est Trace *ABN* (07/03/23 3:35 PM) Invalid Interpretation Code Negative AO Auto Urine SS UA Nitrite Negative (07/03/23 3:35 PM) Normal Negative AO Auto Urine SS UA pH 6.0 (07/03/23 3:35 PM) Normal 5.0 - 8.0 AO Auto Urine SS UA Protein Negative Normal Negative AO Auto Urine SS UA RBC 0-5 /HPF Invalid Interpretation Code None Seen AO Auto Urine SS UA Spec Grav 1.025 (07/03/23 3:35 PM) Normal 1.015-1.025 AO Auto Urine SS UA Specimen Type Clean Catch (07/03/23 3:35 PM) Normal AO Auto Urine SS UA Squam Epithelial LOADED /HPF Invalid Interpretation Code None Seen AO Auto Urine SS UA Urobilinogen 0.2 E.U./dL Normal 0.2-1.0 AO Auto Urine SS WBC LM.HPF (Urine sed) [#/Area] 0-5 /HPF Invalid Interpretation Code None Seen AO Auto Urine SS LABORATORYOrdered By: SYSTEM SYSTEM on 07-03-2023 Lactate [Moles/Vol] 0.6 mmol/L Normal 0.4 - 2. 0 mmol/L AO ADM SS TSH Qn 0.85 m[IU]/L Normal 0.36 - 3.74 mcIU/mL AO ADM SS Albumin BCP dye [Mass/Vol] 3.9 G/dL Normal 3.5 - 5.0 G/dL AO ADM SS Albumin/Globulin [Mass ratio] 1.1 {ratio} Normal 1.1 - 2.5 ratio AO ADM SS ALP [Catalytic activity/Vol] 65 U/L Normal 40 - 135 U/L AO ADM SS ALT With P-5'-P [Catalytic activity/Vol] 38 U/L Normal 14 - 59 U/L AO ADM SS AST With P-5'-P [Catalytic activity/Vol] 29 U/L Normal 10 - 40 U/L AO ADM SS Basophil, Absolute 0.0 103/mcL Normal 0.0 - 0.2 10^3/mcL AO Workflow SS Basophils/100 WBC (Bld) 0.2 % Normal 0.0 - 2.5 % AO Workflow SS Bilirubin [Mass/Vol] 0.4 mg/dL Normal 0.2 - 1 .0 mg/dL AO ADM SS Comment on above: Interpretive Data: U se of this assay is not recommended for patients undergoing treatment with eltrombopag due to the potential for falsely elevated results. Calcium [Mass/Vol] 8.8 mg/dL Normal 8.4 - 10. 2 mg/dL AO ADM SS Chloride [Moles/Vol] 101 mmol/L Normal 98 - 10 7 mmol/L AO ADM SS CO2 [Moles/Vol] 28 mmol/L Normal 22 - 29 mmol/L AO ADM SS Creatinine [Mass/Vol] 0.71 mg/dL Normal 0.55 - 1.02 mg/dL AO ADM SS Electrolyte Balance 8.0 mEq/L Normal 4.0 - 15 .0 mEq/L AO ADM SS Eosinophil, Absolute 0.2 103/mcL Normal 0.0 - 0 .4 10^3/mcL AO Workflow SS Eosinophils/100 WBC (Bld) 2.4 % Normal 0.0 - 7.0 % AO Workflow SS Erythrocyte distribution width (RBC) [Ratio] 13.6 % Normal 11.5 - 14.5 % AO Workflow SS GFR/1.73 sq M.predicted among blacks MDRD (S/P/Bld) [Vol rate/Area] 120 ml/min/1.73sqm Invalid Interpretation Code AO Chemistry S Comment on above: Interpretive Data: GFR Population mean for , Non- Americans Ages 20-29 = 116 mL/min/1.73 sq.m. Ages 30-39 = 107 mL/min/1.73 sq.m. Ages 40-49 = 99 mL/min/1.73 sq.m. Ages 50-59 = 93 mL/min/1.73 sq.m. Ages 60-69 = 85 mL/min/1.73 sq.m. Ages 70+ = 75 mL/min/1.73 sq.m. Chronic Kidney Disease: Less than 60 mL/min/1.73 square meters End Stage Renal Disease: Less than 15 mL/min/1.73 square meters GFR/1.73 sq M.predicted among non-blacks MDRD (S/P/Bld) [Vol rate/Area] 99 ml/min/1.73sqm Invalid Interpretation Code AO Chemistry S Comment on above: Interpretive Data: GFR Population mean for , Non- Americans Ages 20-29 = 116 mL/min/1.73 sq.m. Ages 30-39 = 107 mL/min/1.73 sq.m. Ages 40-49 = 99 mL/min/1.73 sq.m. Ages 50-59 = 93 mL/min/1.73 sq.m. Ages 60-69 = 85 mL/min/1.73 sq.m. Ages 70+ = 75 mL/min/1.73 sq.m. Chronic Kidney Disease: Less than 60 mL/min/1.73 square meters End Stage Renal Disease: Less than 15 mL/min/1.73 square meters Globulin 3.5 G/dL Invalid Interpretation Code AO ADM SS Glucose [Mass/Vol] 92 mg/dL Normal 70 - 105 mg/dL AO ADM SS Hematocrit (Bld) [Volume fraction] 37.7 % Normal 37.0 - 47.0 % AO Workflow SS Hemoglobin (Bld) [Mass/Vol] 13.1 G/dL Normal 12.0 - 16.0 G/dL AO Workflow SS Lipase [Catalytic activity/Vol] 21 U/L Normal 16 - 77 U/L AO ADM SS Lymphocyte, Absolute 1.0 103/mcL Normal 0.8 - 3 .9 10^3/mcL AO Workflow SS Lymphocytes/100 WBC (Bld) 14.8 % Normal 10.0 - 50.0 % AO Workflow SS Magnesium [Mass/Vol] 1.8 mg/dL Normal 1.8 - 2 .4 mg/dL AO ADM SS MCH (RBC) [Entitic mass] 29.1 pg Normal 27.0 - 31.2 pg AO Workflow SS MCHC 34.7 G/dL Normal 33.0 - 37.0 G/dL AO Workflow SS MCV (RBC) [Entitic vol] 83.7 fL Normal 80.0 - 94.0 fL AO Workflow SS Monocyte distribution width Auto (Bld) [Entitic vol] 23.72 1 High 0.00 - 20.00 AO Workflow SS Comment on above: Result Comment: For adults in ED, MDW>20.0 may be associated with a higher risk of sepsis during the first 12hrs of hospital admission Monocyte, Absolute 0.6 103/mcL Normal 0.2 - 1.0 10^3/mcL AO Workflow SS Monocytes/100 WBC (Bld) 9.5 % Normal 1.7 - 13.0 % AO Workflow SS Neutrophil, Absolute 4.9 103/mcL Normal 2.9 - 6 .2 10^3/mcL AO Workflow SS Neutrophils/100 WBC (Bld) 73.1 % Normal 37.0 - 80.0 % AO Workflow SS Platelet mean volume (Bld) [Entitic vol] 7.5 fL Normal 7.4 - 10.4 fL AO Workflow SS Platelets (Bld) [#/Vol] 253 103/mcL Normal 130 - 400 10^3/mcL AO Workflow SS Potassium [Moles/Vol] 4.4 mmol/L Normal 3.5 - 5.1 mmol/L AO ADM SS Protein [Mass/Vol] 7.4 G/dL Normal 6.4 - 8.2 G/dL AO ADM SS RBC (Bld) [#/Vol] 4.50 106/mcL Normal 4.20 - 5.4 0 10^6/mcL AO Workflow SS Sodium [Moles/Vol] 137 mmol/L Normal 136 - 145 mmol/L AO ADM SS Urea nitrogen [Mass/Vol] 11 mg/dL Normal 7 - 18 mg/dL AO ADM SS Urea nitrogen/Creatinine [Mass ratio] 15 ratio Normal 7 - 27 ratio AO ADM SS WBC (Bld) [#/Vol] 6.7 103/mcL Normal 4.6 - 10.8 10^3/mcL AO Workflow SS LACon 07-03-2023 Lactic Acid Lvl 0.6 mmol/L Normal 0.4-2.0 [facility] ([place]) Comment on above: Performed By: #### Irasema SMITH, INSLN, FSH, LH, PROL, E2 #### [place] [address] #### TSH, FT4, GLU, TFTEST, HPROG #### [address] [address] LIPon 07-03-2023 Lipase Level 21 U/L Normal 16-77 [facility] ([place]) Comment on above: Performed By: #### Irasema HEAS, INSLN, FSH, LH, PROL, E2 #### [address] [address] #### TSH, FT4, GLU, TFTEST, HPROG #### [address] [address] MGon 07-03-2023 Magnesium [Mass/Vol] 1.8 mg/dL Normal 1.8-2.4 Counts include 234 beds at the [facility] ([place]) Comment on above: Performed By: #### Irasema HEAS, INSLN, FSH, LH, PROL, E2 #### [place] [address] #### TSH, FT4, GLU, TFTEST, HPROG #### [address] [address] PREGUon 07-03-2023 HCG ( test) Ql (U) Negative Normal [facility] ([place]) Comment on above: Performed By: #### D HEAS, INSLN, FSH, LH, PROL, E2 #### [place] [address] #### TSH, FT4, GLU, TFTEST, HPROG #### [place] [address] test (u) int Not detected Invalid Interpretation Code [facility] ([place]) Comment on above: Performed By: #### Irasema HEAS, INSLN, FSH, LH, PROL, E2 #### [place] [address] #### TSH, FT4, GLU, TFTEST, HPROG #### [address] [address] TSHon 07-03-2023 TSH Qn 0.85 m[IU]/L Normal 0.36-3.74 [facility] ([place]) Comment on above: Performed By: #### Irasema HEAS, INSLN, FSH, LH, PROL, E2 #### [place] [address] #### TSH, FT4, GLU, TFTEST, HPROG #### [address] [address] UAon 07-03-2023 Color (U) Yellow Normal [facility] ([place]) Comment on above: Performed By: #### D HEAS, INSLN, FSH, LH, PROL, E2 #### [place] [address] #### TSH, FT4, GLU, TFTEST, HPROG #### [address] [address] Glucose (U) [Mass/Vol] Negative Normal Negative [facility] ([place]) Comment on above: Performed By: #### Irasema HEAS, INSLN, FSH, LH, PROL, E2 #### [place] [address] #### TSH, FT4, GLU, TFTEST, HPROG #### [address] [address] Ketones Ql (U) Negative Normal Negative [facility] ([place] Comment on above: Performed By: #### Irasema HEAS, INSLN, FSH, LH, PROL, E2 #### [place] [address] #### TSH, FT4, GLU, TFTEST, HPROG #### [place] [address] UA Appear Slightly Cloudy Abnormal Clear [facility] ([place] Comment on above: Performed By: #### Irasema HEAS, INSLN, FSH, LH, PROL, E2 #### [place] [address] #### TSH, FT4, GLU, TFTEST, HPROG #### [place] [address] UA Blood Small Abnormal Negative [facility] ([place] Comment on above: Performed By: #### Irasema CUEVASAS, INSLN, FSH, LH, PROL, E2 #### [place] [address] #### TSH, FT4, GLU, TFTEST, HPROG #### [address] [address] UA Leuk Est Trace Abnormal Negative [facility] ([place] Comment on above: Performed By: #### Irasema HEAS, INSLN, FSH, LH, PROL, E2 #### [place] [address] #### TSH, FT4, GLU, TFTEST, HPROG #### [address] [address] UA Nitrite Negative Normal Negative [facility] ([place] Comment on above: Performed By: #### Irasema HEAS, INSLN, FSH, LH, PROL, E2 #### [place] [address] #### TSH, FT4, GLU, TFTEST, HPROG #### [place] [address] UA pH 6.0 Normal 5.0 - 8.0 [facility] ([place] Comment on above: Performed By: #### Irasema SMITH, INSLN, FSH, LH, PROL, E2 #### [place] [address] #### TSH, FT4, GLU, TFTEST, HPROG #### [place] [address] UA Protein Negative Normal Negative [facility] ([place] Comment on above: Performed By: #### Irasema SMITH, INSLN, FSH, LH, PROL, E2 #### [place] [address] #### TSH, FT4, GLU, TFTEST, HPROG #### [place] [address] UA Spec Grav 1.025 Normal 1.015-1.025 [facility] ([place] Comment on above: Performed By: #### Irasema SMITH, INSLN, FSH, LH, PROL, E2 #### [place] [address] #### TSH, FT4, GLU, TFTEST, HPROG #### [place] [address] UA Specimen Type Clean Catch Normal [facility] ([place] Comment on above: Performed By: #### Irasema CUEVASAS, INSLN, FSH, LH, PROL, E2 #### [place] [address] #### TSH, FT4, GLU, TFTEST, HPROG #### [place] [address] UA Urobilinogen 0.2 E.U./dL Normal 0.2-1.0 [facility] ([place] Comment on above: Performed By: #### Irasema HEAS, INSLN, FSH, LH, PROL, E2 #### [address] [address] #### TSH, FT4, GLU, TFTEST, HPROG #### [address] [address] Urobilinogen (U) [Mass/Vol] Negative Normal Negative [facility] ([place]) Comment on above: Performed By: #### D HEAS, INSLN, FSH, LH, PROL, E2 #### [address] [address] #### TSH, FT4, GLU, TFTEST, HPROG #### [place] [address] [place], [place] [address] CT HEAD OR BRAIN W/ + W/O CO NTRASTon 06-29-2023 CT HEAD OR BRAIN W/ + W/O CONTRAST ORIGINAL EXAMINATION: CT OF THE HEAD WITH AND WITHOUT CONTRAST 06/29/2023 1:47 pm TECHNIQUE: CT of the head/brain was performed without and with the administration of intravenous contrast. Multiplanar reformatted images are provided for review. Automated exposure control, iterative reconstruction, and/or weight based adjustment of the mA/kV was utilized to reduce the radiation dose to as low as reasonably achievable. COMPARISON: None. HISTORY: ORDERING SYSTEM PROVIDED HISTORY: Reason for Exam: Loss of vision right eye FINDINGS: BRAIN/VENTRICLES: There is no acute intracranial hemorrhage, mass effect or midline shift. No abnormal extra-axial fluid collection. The nye-white differentiation is maintained without evidence of an acute infarct. There is no evidence of hydrocephalus. No abnormal parenchymal enhancement. Intracranial cerebrovascular structures in hands normally. ORBITS: The visualized portion of the orbits demonstrate no acute abnormality. SINUSES: Mild paranasal mucosal thickening. The mastoid air cells demonstrate no acute abnormality. SOFT TISSUES/SKULL: No acute abnormality of the visualized skull or soft tissues. IMPRESSION: Mild paranasal sinusitis, otherwise unremarkable CT head with and without contrast. If concern for optic neuritis, consider follow-up with MRI brain and orbits with and without contrast. Interpreted by: Lane Duval Preliminary Report By: Lane Duval Electronically signed By Lane Duval Dictated Date: 06/29/2023 3:55:34 PM Prelim Date: 06/29/2023 4:00:36 PM Sign Date: 06/29/2023 4:00:36 PM Ordering Provider: MONI Gage [facility]) HBSABon 06-14-2023 Hep B Surf Ab 1078.6 mIU/mL Normal >=10.0 [facility] ([place]) Comment on above: Result Comment: 0 to < 10.0 mIU/mL Nonreactive Patient is considered not to have protective immunity to HBV infection >/= 10.0 mIU/mL Reactive Patient is considered to have protective immunity to HBV infection. This assay is traceable to the World Health Organization (WHO) Hepatitis B Immunoglobulin 1st International Reference Preparation (1976). The accepted criteria for immunity to HBV is anti-HBs activity >/= 10.0 mIU/mL, as defined by the WHO International Reference Preparation. Performed By: #### D HEAS, INSLN, FSH, LH, PROL, E2 #### [place] [address] #### TSH, FT4, GLU, TFTEST, HPROG #### [address] [address] LABORATORYOrdered By: SYSTEM SYSTEM on 06-14-2023 HBV surface Ab Qn (S) 1078.6 mIU/mL Normal >=10.0mIU/m L AH ADM SS Comment on above: Interpretive Data: 0 to < 10.0 mIU/mL Nonreactive Patient is considered not to have protective immunity to HBV infection >/= 10.0 mIU/mL Reactive Patient is considered to have protective immunity to HBV infection. This assay is traceable to the World Health Organization (WHO) Hepatitis B Immunoglobulin 1st International Reference Preparation (1976). The accepted criteria for immunity to HBV is anti-HBs activity >/= 10.0 mIU/mL, as defined by the WHO International Reference Preparation. TFTESTon 03-16-2023 Free Testosterone 0.57 ng/dL Normal <0.13-1.06 [facility] ([place]) Comment on above: Result Comment: ---- ADDITIONAL INFORMATION This test was developed and its performance characteristics determined by [facility] in a manner consistent with CLIA requirements. This test has not been cleared or approved by the U.S. Food and Drug Administration. Performed By: #### Jeff SHAW, LIPID #### [place] [address] [place], [place] [address] Testoster Tot 24 ng/dL Normal 8-60 [facility] ([place]) Comment on above: Result Comment: ---- ADDITIONAL INFORMATION Testing performed by Liquid Chromatography-Tandem Mass Spectrometry (LC-MS/MS). This test was developed and its performance characteristics determined by [facility] in a manner consistent with CLIA requirements. This test has not been cleared or approved by the U.S. Food and Drug Administration. Test Performed by: [place] [address] Package Dye Stand Loader: Raffy Villavicencio M.D. Ph.D.; CLIA# [id number] Performed By: #### Jeff SHAW, LIPID #### [address] [address] 17OHPon 03-09-2023 17-Hydroxyprogesteron e 51.23 ng/dL Normal <=206.00 [facility] ([place]) Comment on above: Result Comment: INTE RPRETIVE INFORMATION for 17-Hydroxyprogesterone in females: Follicular 15 to 70 ng/dL Luteal 35 to 290 ng/dL REFERENCE INTERVAL: 17-Hydroxyprogesterone Qnt, HPLC-MS/MS Access complete set of age- and/or gender-specific reference intervals for this test in the [facility] Test Directory ([employer]). This test was developed and its performance characteristics determined by [facility]. It has not been cleared or approved by the [place] Food and Drug Administration. This test was performed in a CLIA certified laboratory and is intended for clinical purposes. Performed By: [facility] [address] [place] [address] Crusher And Binder Operator: Ramo Hassan MD, PhD CLIA Number: [id number] Performed By: #### Jeff SHAW, LIPID #### [address] [address] DHEASon 03-05-2023 DHEA-SO4 128.79 mcg/dL Normal 25.90-460.20 [facility] ([place]) Comment on above: Result Comment: No te - New Reference Range in effect 19 Performed By: #### D HEAS, INSLN, FSH, LH, PROL, E2 #### [place] [address] #### TSH, FT4, GLU, TFTEST, HPROG #### [address] [address] E2on 03-05-2023 Estradiol Level 39.88 pg/mL Normal [facility] ([place]) Comment on above: Result Comment: No te - New Reference Range in effect 19 Adult Female E2 Reference Ranges: Follicular phase 19.5 - 144.2 pg/mL Midcycle 63.9 - 356.7 pg/mL Luteal phase 55.8 - 214.2 pg/mL Post menopausal 0 - 33.2 pg/mL Performed By: #### G VALERIA, LIPID #### [address] [address] FSHon 03-05-2023 FSH 5.7 mIU/mL Normal [facility] ([place]) Comment on above: Result Comment: Adul t Female FSH Reference Ranges (03/25/99): Follicular phase 2.5 - 10.2 mIU/mL Midcycle phase 3.4 - 33.4 mIU/mL Luteal phase 1.5 - 9.1 mIU/mL Post menopausal 23.0 -116.3 mIU/mL Adult Male: 1.4 - 18.1 mIU/mL Performed By: #### D HEAS, INSLN, FSH, LH, PROL, E2 #### [place] [address] #### TSH, FT4, GLU, TFTEST, HPROG #### [address] [address] INSLNon 03-05-2023 Insulin 10.20 munit/L Normal 2.60-37.60 [facility] ([place]) Comment on above: Performed By: #### D HEAS, INSLN, FSH, LH, PROL, E2 #### [place] [address] #### TSH, FT4, GLU, TFTEST, HPROG #### [address] [address] LHon 03-05-2023 LH 2.2 mIU/mL Normal [facility] ([place] Comment on above: Result Comment: No te - New Reference Range in effect 19 Adult Female LH Reference Ranges: Follicular phase 1.9 - 12.5 mIU/mL Midcycle phase 8.7 - 76.3 mIU/mL Luteal phase 0.5 - 16.9 mIU/mL Post menopausal 5.0 - 55.2 mIU/mL Performed By: #### Irasema CUEVASAS, INSLN, FSH, LH, PROL, E2 #### [place] [address] #### TSH, FT4, GLU, TFTEST, HPROG #### [address] [address] PROLon 03-05-2023 Prolactin 17.0 ng/mL Normal 2.0-30.0 [facility] ([place]) Comment on above: Performed By: #### D HEAS, INSLN, FSH, LH, PROL, E2 #### [place] [address] #### TSH, FT4, GLU, TFTEST, HPROG #### [address] [address] FT4on 03-04-2023 Free T4 [Mass/Vol] 0.93 ng/dL Normal 0.76-1.46 [facility] ([place]) Comment on above: Performed By: #### D HEAS, INSLN, FSH, LH, PROL, E2 #### [place] [address] #### TSH, FT4, GLU, TFTEST, HPROG #### [address] [address] GLUon 03-04-2023 Glucose [Mass/Vol] 89 mg/dL Normal 70-105 [facility] ([place]) Comment on above: Performed By: #### D HEAS, INSLN, FSH, LH, PROL, E2 #### [place] [address] #### TSH, FT4, GLU, TFTEST, HPROG #### [address] [address] TSHon 03-04-2023 TSH Qn 1.95 m[IU]/L Normal 0.36-3.74 [facility] ([place]) Comment on above: Performed By: #### D KANDISAS, INSLN, FSH, LH, PROL, E2 #### [address] [address] #### TSH, FT4, GLU, TFTEST, HPROG #### [address] [address] GLUon 02-01-2023 Glucose [Mass/Vol] 94 mg/dL Normal 70-105 [facility] ([place]) Comment on above: Performed By: #### Jeff SHAW, LIPID #### [address] [address] LIPIDon 02-01-2023 Cholesterol [Mass/Vol] 206 mg/dL High 0-200 [facility] ([place]) Comment on above: Result Comment: Chol esterol Reference Interval: Less than 200 Desirable 200-239 Borderline high risk 240 and above High risk Performed By: #### Jeff SHAW, LIPID #### [address] [address] Cholesterol in HDL [Mass/Vol] 56 mg/dL Normal 40-60 [facility] ([place]) Comment on above: Performed By: #### Jeff SHAW, LIPID #### [address] [address] Cholesterol in LDL [Mass/Vol] 125 mg/dL Normal 0-130 [facility] ([place]) Comment on above: Performed By: #### Jeff SHAW, LIPID #### [address] [address] Triglyceride [Mass/Vol] 123 mg/dL Normal 0-150 [facility] ([place]) Comment on above: Result Comment: Trig lyceride Reference Interval: Less than 150 Normal 150-199 Borderline high risk 200-499 High risk 500 or higher Very high risk Performed By: #### G VALERIA, LIPID #### [place] [address] [place], [place] [address] HBSABon 01-20-2023 Hep B Surf Ab 4.8 mIU/mL Low >=10.0 [facility] ([place]) Comment on above: Result Comment: 0 to < 10.0 mIU/mL Nonreactive Patient is considered not to have protective immunity to HBV infection >/= 10.0 mIU/mL Reactive Patient is considered to have protective immunity to HBV infection. This assay is traceable to the World Health Organization (WHO) Hepatitis B Immunoglobulin 1st International Reference Preparation (1976). The accepted criteria for immunity to HBV is anti-HBs activity >/= 10.0 mIU/mL, as defined by the WHO International Reference Preparation. Performed By: #### D HEAS, INSLN, FSH, LH, PROL, E2 #### [facility] [address] [place] [id number] #### TSH, FT4, GLU, TFTEST, HPROG #### [id number] [place], [place] [address] No Panel Informationon 08-20 Culture Throat Normal throat manjula present Sensitivity Testing: Not Indicated Comment: The most common etiologic agents in pharyngitis include Group A beta Strep, Adenovirus, EBV, and CMV. A negative bacterial culture may be supplemented with a virus culture if duration of present illness is less than 7 days. [facility] Work Phone: LABORATORYOrdered By: Kierra Merrill on 07-18-2021 Albumin BCP dye [Mass/Vol] 4.0 G/dL Invalid Interpretation Code 3.5 - 5.0 G/dL AO ADM SS Albumin/Globulin [Mass ratio] 1.2 {ratio} Invalid Interpretation Code 1.1 - 2.5 ratio AO ADM SS ALP [Catalytic activity/Vol] 42 U/L Invalid Interpretation Code 40 - 135 U/L AO ADM SS ALT With P-5'-P [Catalytic activity/Vol] 22 U/L Invalid Interpretation Code 14 - 59 U/L AO ADM SS AST With P-5'-P [Catalytic activity/Vol] 11 U/L Invalid Interpretation Code 10 - 40 U/L AO ADM SS Basophil, Absolute 0.00 103/mcL Invalid Interpretation Code 0.00 - 0.19 10^3/mcL AO Auto Heme SS Basophils/100 WBC (Bld) 0.4 % Invalid Interpretation Code 0.0 - 2.5 % AO Auto Heme SS Bilirubin [Mass/Vol] 0.4 mg/dL Invalid Interpretation Code 0.2 - 1.0 mg/dL AO ADM SS Calcium [Mass/Vol] 8.9 mg/dL Invalid Interpretation Code 8.4 - 10.2 mg/dL AO ADM SS Chloride [Moles/Vol] 102 mmol/L Invalid Interpretation Code 98 - 107 mmol/L AO ADM SS Cholesterol [Mass/Vol] 232 mg/dL Invalid Interpretation Code 0 - 200 mg/dL AO ADM SS Cholesterol in HDL [Mass/Vol] 71 mg/dL Invalid Interpretation Code 40 - 60 mg/dL AO ADM SS Cholesterol in LDL [Mass/Vol] 144 mg/dL Invalid Interpretation Code 0 - 130 mg/dL AO ADM SS CO2 [Moles/Vol] 28 mmol/L Invalid Interpretation Code 22 - 29 mmol/L AO ADM SS Creatinine [Mass/Vol] 0.69 mg/dL Invalid Interpretation Code 0.55 - 1.02 mg/dL AO ADM SS Electrolyte Balance 9.0 mEq/L Invalid Interpretation Code 4.0 - 15.0 mEq/L AO ADM SS Eosinophil, Absolute 0.20 103/mcL Invalid Interpretation Code 0.00 - 0.40 10^3/mcL AO Auto Heme SS Eosinophils/100 WBC (Bld) 4.6 % Invalid Interpretation Code 0.0 - 7.0 % AO Auto Heme SS Erythrocyte distribution width (RBC) [Ratio] 13.6 % Invalid Interpretation Code 11.5 - 14.5 % AO Auto Heme SS Free T4 [Mass/Vol] 0.89 ng/dL Invalid Interpretation Code 0.76 - 1.46 ng/dL AO ADM SS Globulin 3.3 G/dL Invalid Interpretation Code AO ADM SS Glucose [Mass/Vol] 82 mg/dL Invalid Interpretation Code 70 - 105 mg/dL AO ADM SS Hematocrit (Bld) [Volume fraction] 38.5 % Invalid Interpretation Code 37.0 - 47.0 % AO Auto Heme SS Hemoglobin (Bld) [Mass/Vol] 12.9 G/dL Invalid Interpretation Code 12.0 - 16.0 G/dL AO Auto Heme SS Lymphocyte, Absolute 2.10 103/mcL Invalid Interpretation Code 0.77 - 3.85 10^3/mcL AO Auto Heme SS Lymphocytes/100 WBC (Bld) 40.5 % Invalid Interpretation Code 10.0 - 50.0 % AO Auto Heme SS MCH (RBC) [Entitic mass] 28.7 pg Invalid Interpretation Code 27.0 - 31.2 pg AO Auto Heme SS MCHC (RBC) [Mass/Vol] 33.6 G/dL Invalid Interpretation Code 33.0 - 37.0 G/dL AO Auto Heme SS MCV (RBC) [Entitic vol] 85.4 fL Invalid Interpretation Code 80.0 - 94.0 fL AO Auto Heme SS Monocyte, Absolute 0.50 103/mcL Invalid Interpretation Code 0.15 - 1.00 10^3/mcL AO Auto Heme SS Monocytes/100 WBC (Bld) 9.5 % Invalid Interpretation Code 1.7 - 13.0 % AO Auto Heme SS Neutrophil, Absolute 2.40 103/mcL Invalid Interpretation Code 2.85 - 6.16 10^3/mcL AO Auto Heme SS Neutrophils/100 WBC (Bld) 45.0 % Invalid Interpretation Code 37.0 - 80.0 % AO Auto Heme SS Platelet mean volume (Bld) [Entitic vol] 7.9 fL Invalid Interpretation Code 7.4 - 10.4 fL AO Auto Heme SS Platelets (Bld) [#/Vol] 276 103/mcL Invalid Interpretation Code 130 - 400 10^3/mcL AO Auto Heme SS Potassium [Moles/Vol] 4.1 mmol/L Invalid Interpretation Code 3.5 - 5.1 mmol/L AO ADM SS Protein [Mass/Vol] 7.3 G/dL Invalid Interpretation Code 6.4 - 8.2 G/dL AO ADM SS RBC (Bld) [#/Vol] 4.51 106/mcL Invalid Interpretation Code 4.20 - 5.40 10^6/mcL AO Auto Heme SS Sodium [Moles/Vol] 139 mmol/L Invalid Interpretation Code 136 - 145 mmol/L AO ADM SS Triglyceride [Mass/Vol] 85 mg/dL Invalid Interpretation Code 0 - 150 mg/dL AO ADM SS TSH Qn 1.60 m[IU]/L Invalid Interpretation Code 0.36 - 3.74 mcIU/mL AO ADM SS Urea nitrogen [Mass/Vol] 13 mg/dL Invalid Interpretation Code 7 - 18 mg/dL AO ADM SS Urea nitrogen/Creatinine [Mass ratio] 19 ratio Invalid Interpretation Code 7 - 27 ratio AO ADM SS Vit. D 25-Hydroxy 23.2 ng/mL Invalid Interpretation Code AO ADM SS WBC (Bld) [#/Vol] 5.20 103/mcL Invalid Interpretation Code 4.60 - 10.80 10^3/mcL AO Auto Heme SS LABORATORYOrdered By: SYSTEM SYSTEM on 07-18-2021 GFR 126 ml/min/1.73sqm Invalid Interpretation Code AO Chemistry S GFR Non- 104 ml/min/1.73sqm Invalid Interpretation Code AO Chemistry S LABORATORYOrdered By: Maciej Chong on 05-07-2021 Albumin BCP dye [Mass/Vol] 4.4 G/dL Invalid Interpretation Code 3.5 - 5.0 G/dL AO ADM SS Albumin/Globulin [Mass ratio] 1.5 {ratio} Invalid Interpretation Code 1.1 - 2.5 ratio AO ADM SS ALP [Catalytic activity/Vol] 51 U/L Invalid Interpretation Code 40 - 135 U/L AO ADM SS ALT With P-5'-P [Catalytic activity/Vol] 21 U/L Invalid Interpretation Code 14 - 59 U/L AO ADM SS AST With P-5'-P [Catalytic activity/Vol] 13 U/L Invalid Interpretation Code 10 - 40 U/L AO ADM SS Bilirubin [Mass/Vol] 0.3 mg/dL Invalid Interpretation Code 0.2 - 1.0 mg/dL AO ADM SS Calcium [Mass/Vol] 9.2 mg/dL Invalid Interpretation Code 8.4 - 10.2 mg/dL AO ADM SS Chloride [Moles/Vol] 102 mmol/L Invalid Interpretation Code 98 - 107 mmol/L AO ADM SS CO2 [Moles/Vol] 28 mmol/L Invalid Interpretation Code 22 - 29 mmol/L AO ADM SS Creatinine [Mass/Vol] 0.81 mg/dL Invalid Interpretation Code 0.55 - 1.02 mg/dL AO ADM SS Electrolyte Balance 8.0 mEq/L Invalid Interpretation Code AO ADM SS Free T4 [Mass/Vol] 0.85 ng/dL Invalid Interpretation Code 0.76 - 1.46 ng/dL AO ADM SS Globulin 3.0 G/dL Invalid Interpretation Code AO ADM SS Glucose [Mass/Vol] 86 mg/dL Invalid Interpretation Code 70 - 105 mg/dL AO ADM SS Potassium [Moles/Vol] 3.9 mmol/L Invalid Interpretation Code 3.5 - 5.1 mmol/L AO ADM SS Protein [Mass/Vol] 7.4 G/dL Invalid Interpretation Code 6.4 - 8.2 G/dL AO ADM SS Sodium [Moles/Vol] 138 mmol/L Invalid Interpretation Code 136 - 145 mmol/L AO ADM SS TSH Qn 1.31 m[IU]/L Invalid Interpretation Code 0.36 - 3.74 mcIU/mL AO ADM SS Urea nitrogen [Mass/Vol] 10 mg/dL Invalid Interpretation Code 7 - 18 mg/dL AO ADM SS Urea nitrogen/Creatinine [Mass ratio] 12 ratio Invalid Interpretation Code 7 - 27 ratio AO ADM SS Vit. D 25-Hydroxy 18.8 ng/mL Invalid Interpretation Code AO ADM SS LABORATORYOrdered By: Genet Graham on 05-07-2021 Basophil, Absolute 0.00 103/mcL Invalid Interpretation Code 0.00 - 0.19 10^3/mcL AO Auto Heme SS Basophils/100 WBC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 blood pressure 120 mm[Hg] Rita Moomaw NANOTECHNOLOGY ENGINEERING TECHNOLOGIST.MOLD STRIPPER Work Phone: [facility] 07-03-2023 17:10-0500 Diastolic Blood Pressure Non-Invasive 80 mm[Hg] MARCIAL GORDON MD [facility] 07-03-2023 17:10-0500 Heart rate 130 /min MARCIAL GORDON MD [facility] 07-03-2023 17:10-0500 Respiratory rate 18 /min MARCIAL GORDON MD [facility] 07-03-2023 17:10-0500 Systolic Blood Pressure Non-Invasive 127 mm[Hg] MARCIAL GORDON MD [facility] 07-03-2023 15:19-0500 Blood Pressure Location MARCIAL GORDON MD [facility] 07-03-2023 15:19-0500 Body height 157 cm MARCIAL GORDON MD [facility] 07-03-2023 15:19-0500 Body temperature 98.78 [degF] MARCIAL GORDON MD [facility] 07-03-2023 15:19-0500 Body weight 72.7 kg MARCIAL GORDON MD [facility] 07-03-2023 15:19-0500 Diastolic Blood Pressure Non-Invasive 82 mm[Hg] MARCIAL GORDON MD [facility] 07-03-2023 15:19-0500 Heart rate 138 /min MARCIAL GORDON MD [facility] 07-03-2023 15:19-0500 Respiratory rate 18 /min MARCIAL GORDON MD [facility] 07-03-2023 15:19-0500 Systolic Blood Pressure Non-Invasive 127 mm[Hg] MARCIAL GODRON MD [facility] 01-22-2020 10:53-0400 BMI (Body Mass Index) 27.73 kg/m2 Yoan Diaz [facility] 01-22-2020 10:53-0400 Body Temperature 97.59 [degF] Christianacaredante Diaz [facility] 01-22-2020 10:53-0400 Body weight 68.77 kg Christianacaredante Diaz [facility] 01-22-2020 10:53-0400 BP Diastolic 71 mm[Hg] Christianacaredante Diaz [facility] 01-22-2020 10:53-0400 BP Systolic 108 mm[Hg] Christianacaredante Diaz [facility] 01-22-2020 10:53-0400 Height 157.5 cm Christianacaredante Diaz [facility] 01-22-2020 10:53-0400 Pulse (Heart Rate) 93 /min Christianacaredante Diaz [facility] 04-03-2019 11:33-0500 BMI (Body Mass Index) 27.31 kg/m2 [facility] 04-03-2019 11:33-0500 Body Temperature 97.81 [degF] [facility] 04-03-2019 11:33-0500 Body weight 67.72 kg [facility] 04-03-2019 11:33-0500 BP Diastolic 77 mm[Hg] [facility] 04-03-2019 11:33-0500 BP Systolic 118 mm[Hg] [facility] 04-03-2019 11:33-0500 Height 157.5 cm [facility] 04-03-2019 11:33-0500 Pulse (Heart Rate) 89 /min [facility] 03-26-2019 21:33-0500 BMI (Body Mass Index) 26.52 kg/m2 [facility] 03-26-2019 21:33-0500 Body Temperature 98.01 [degF] [facility] 03-26-2019 21:33-0500 Body weight 65.77 kg [facility] 03-26-2019 21:33-0500 BP Diastolic 92 mm[Hg] [facility] 03-26-2019 21:33-0500 BP Systolic 148 mm[Hg] [facility] 03-26-2019 21:33-0500 Height 157.5 cm [facility] 03-26-2019 21:33-0500 Pulse (Heart Rate) 120 /min [facility] 03-26-2019 21:33-0500 Pulse Oximetry 98 % [facility] 03-26-2019 21:33-0500 Respiratory Rate 16 /min [facility] 01-09-2019 10:13-0400 BMI (Body Mass Index) 27.54 kg/m2 [facility] 01-09-2019 10:13-0400 Body Temperature 97.39 [degF] [facility] 01-09-2019 10:13-0400 Body weight 69.4 kg [facility] 01-09-2019 10:13-0400 BP Diastolic 67 mm[Hg] [facility] 01-09-2019 10:13-0400 BP Systolic 103 mm[Hg] [facility] 01-09-2019 10:13-0400 Height 158.8 cm [facility] 01-09-2019 10:13-0400 Pulse (Heart Rate) 93 /min [facility] 12-13-2018 09:15-0400 BMI (Body Mass Index) 28.15 kg/m2 [facility] 12-13-2018 09:15-0400 Body Temperature 97.11 [degF] [facility] 12-13-2018 09:15-0400 Body weight 69.81 kg [facility] 12-13-2018 09:15-0400 BP Diastolic 74 mm[Hg] [facility] 12-13-2018 09:15-0400 BP Systolic 107 mm[Hg] [facility] 12-13-2018 09:15-0400 Height 157.5 cm [facility] 12-13-2018 09:15-0400 Pulse (Heart Rate) 101 /min [facility] 12-13-2018 09:15-0400 Pulse Oximetry 98 % [facility] 10-10-2018 13:57-0400 BMI (Body Mass Index) 27.34 kg/m2 [facility] 10-10-2018 13:57-0400 Body Temperature 98.49 [degF] [facility] 10-10-2018 13:57-0400 BP Diastolic 66 mm[Hg] [facility] 10-10-2018 13:57-0400 BP Systolic 96 mm[Hg] [facility] 10-10-2018 13:57-0400 Height 157.5 cm [facility] 10-10-2018 13:57-0400 Pulse (Heart Rate) 91 /min [facility] 10-10-2018 13:57-0400 Weight 67.81 kg [facility] 10-09-2018 17:29-0400 BP Diastolic 80 mm[Hg] [facility] 10-09-2018 17:29-0400 BP Systolic 111 mm[Hg] [facility] 10-09-2018 17:29-0400 Pulse (Heart Rate) 82 /min [facility] 10-09-2018 17:29-0400 Pulse Oximetry 98 % [facility] 10-09-2018 17:29-0400 Respiratory Rate 16 /min [facility] 10-09-2018 15:35-0400 BMI (Body Mass Index) 26.52 kg/m2 [facility] 10-09-2018 15:35-0400 Body Temperature 98.1 [degF] [facility] 10-09-2018 15:35-[address] [facility] 10-09-2018 15:35-[address] [facility] 10-09-2018 11:25-0400 BMI (Body Mass Index) 26.59 kg/m2 [facility] 10-09-2018 11:25-0400 Body Temperature 98.2 [degF] [facility] 10-09-2018 11:25-0400 BP Diastolic 83 mm[Hg] [facility] 10-09-2018 11:25-0400 BP Systolic 120 mm[Hg] [facility] 10-09-2018 11:25-0400 Height 160 cm [facility] 10-09-2018 11:25-0400 Pulse (Heart Rate) 103 /min [facility] 10-09-2018 11:25-0400 Pulse Oximetry 98 % [facility] 10-09-2018 11:25-0400 Weight 68.08 kg [facility] 04-13-2018 11:27-0500 BMI (Body Mass Index) 25.44 kg/m2 Yoan [facility] 04-13-2018 11:27-0500 Body Temperature 98.1 [degF] Yoan Diaz [facility] 04-13-2018 11:27-0500 BP Diastolic 74 mm[Hg] Christianacaredante Diaz [facility] 04-13-2018 11:27-0500 BP Systolic 111 mm[Hg] Yoan Diaz [facility] 04-13-2018 11:27-0500 Height 160 cm Christianacaredante Diaz [facility] 04-13-2018 11:27-0500 Pulse (Heart Rate) 76 /min Yoan Diaz [facility] 04-13-2018 11:27-0500 Weight 65.14 kg Christianacaredante Diaz [facility] 01-27-2018 15:25-0400 BMI (Body Mass Index) 25.12 kg/m2 Christianacaredante Diaz [facility] 01-27-2018 15:25-0400 Body Temperature 98.8 [degF] Yoan Diaz [facility] 01-27-2018 15:25-0400 BP Diastolic 67 mm[Hg] Christianacaredante Diaz [facility] 01-27-2018 15:25-0400 BP Systolic 101 mm[Hg] Christianacaredante Diaz [facility] 01-27-2018 15:25-0400 Height 160 cm Christianacaredante Diaz [facility] 01-27-2018 15:25-0400 Pulse (Heart Rate) 85 /min Christianacaredante Diaz [facility] 01-27-2018 15:25-0400 Pulse Oximetry 98 % Christianacaredante Diza [facility] 01-27-2018 15:25-0400 Weight 64.32 kg Christianacaredante Diaz [facility] 07-07-2017 14:40-0500 BMI (Body Mass Index) 23.99 kg/m2 [facility] 07-07-2017 14:40-0500 Body Temperature 98.1 [degF] [facility] 07-07-2017 14:40-0500 BP Diastolic 69 mm[Hg] [facility] 07-07-2017 14:40-0500 BP Systolic 108 mm[Hg] [facility] 07-07-2017 14:40-0500 Height 160 cm [facility] 07-07-2017 14:40-0500 Pulse (Heart Rate) 103 /min [facility] 07-07-2017 14:40-0500 Weight 61.42 kg [facility] 03-29-2017 13:25-0500 BP Diastolic 67 mm[Hg] [facility] Work Phone: 03-29-2017 13:25-0500 BP Systolic 110 mm[Hg] [facility] Work Phone: 03-29-2017 13:25-0500 Pulse (Heart Rate) 98 /min [facility] Work Phone: 01-17-2017 08:44-0400 BMI (Body Mass Index) 22.82 kg/m2 [facility] Work Phone: 01-17-2017 08:44-0400 Body Temperature 98.4 [degF] Dominga Mederos [facility] Work Phone: 01-17-2017 08:44-0400 BP Diastolic 71 mm[Hg] Doimnga Mederos [facility] Work Phone: 01-17-2017 08:44-0400 BP Systolic 111 mm[Hg] Dominga Mederos [facility] Work Phone: 01-17-2017 08:44-0400 Height 160 cm Dominga Mederos [facility] Work Phone: 01-17-2017 08:44-0400 Pulse (Heart Rate) 111 /min Dominga Mederos [facility] Work Phone: 01-17-2017 08:44-0400 Pulse Oximetry 97 % Dominga Mederos [facility] Work Phone: 01-17-2017 08:44-0400 Weight 58.42 kg Dominga Mederos [facility] Work Phone: 12-31-2016 11:07-0400 BMI (Body Mass Index) 22.71 kg/m2 Dominga Mederos [facility] Work Phone: 12-31-2016 11:07-0400 Body Temperature 98.49 [degF] Dominga Mederos [facility] Work Phone: 12-31-2016 11:07-0400 BP Diastolic 72 mm[Hg] Dominga Mederos [facility] Work Phone: 12-31-2016 11:07-0400 BP Systolic 104 mm[Hg] Dominga Mederos [facility] Work Phone: 12-31-2016 11:07-0400 Height 160 cm Dominga Mederos [facility] Work Phone: 12-31-2016 11:07-0400 Pulse (Heart Rate) 120 /min Dominga Mederos [facility] Work Phone: 12-31-2016 11:07-0400 Pulse Oximetry 98 % Dominga Mederos [facility] Work Phone: 12-31-2016 11:07-0400 Weight 58.15 kg Dominga Mederos [facility] Work Phone: Encounters Encounter Date Encounter Type Care Provider Facility Start: 01-30-2025 ambulatory Moni Tony Facility :[facility] Start: 12-20-2024 End: 12-20-2024 Patient encounter procedure Ning Menchaca [employer] -[facility] Work Phone: Start: 12-20-2024 End: 12-20-2024 ambulatory Moni Tony [employer] Work Phone: -[facility] Start: 06-25-2024 End: 06-25-2024 Emergency department patient visit CLAIRE MART MD [facility] Start: 06-19-2024 End: 06-21-2024 Evaluation and management of inpatient DAVID CROSS MD [facility] Start: 06-06-2024 End: 06-10-2024 ambulatory LIVIA TORRES MD Facility:[facility] Start: 06-04-2024 End: 06-04-2024 ambulatory LIVIA TORRES MD Facility:[facility] Start: 06-04-2024 End: 06-04-2024 Patient encounter procedure LIVIA TORRES MD [facility] Start: 05-07-2024 End: 05-07-2024 ambulatory LIVIA TORRES MD Facility:[facility] Start: 05-07-2024 End: 05-07-2024 Patient encounter procedure LIVIA TORRES MD [facility] Start: 04-14-2024 End: 04-15-2024 ambulatory MONI TONY NANOTECHNOLOGY ENGINEERING TECHNOLOGIST-MOLD STRIPPER Facility:[facility] Start: 04-10-2024 End: 04-10-2024 ambulatory LIVIA TORRES MD Facility:[facility] Start: 04-10-2024 End: 04-10-2024 Patient encounter procedure LIVIA TORRES MD [facility] Start: 04-04-2024 End: 04-04-2024 ambulatory LIVIA TORRES MD Facility[facility] Start: 04-04-2024 End: 04-04-2024 Patient encounter procedure LIVIA TORRES MD [facility] Start: 02-29-2024 End: 02-29-2024 ambulatory LIVIA TORRES [facility] Start: 02-15-2024 End: 02-15-2024 ambulatory LIVIA TORRES MD Facility:[facility] Start: 02-15-2024 End: 02-15-2024 Patient encounter procedure LIVIA TORRES MD [facility] Start: 12-21-2023 End: 12-25-2023 ambulatory UNKNOWN PROVIDER Facility:[facility] Start: 12-21-2023 End: 12-25-2023 Outreach Lab LIVIA TORRES MD [facility] Start: 12-06-2023 End: 12-06-2023 ambulatory UNKNOWN PROVIDER Facility:[facility] Start: 12-01-2023 End: 12-01-2023 Emergency department patient visit JAMES ALEXIS [facility] Start: 10-26-2023 End: 10-30-2023 ambulatory UNKNOWN PROVIDER Facility:[facility] Start: 10-26-2023 End: 10-30-2023 Outreach Lab LIVIA TORRES MD [facility] Start: 10-05-2023 ambulatory MONI TONY Facility :[facility] Start: 10-05-2023 End: 10-09-2023 ambulatory MONI TONY Facility:[facility] Start: 10-05-2023 End: 10-09-2023 Outreach Lab MONI TONY NANOTECHNOLOGY ENGINEERING TECHNOLOGIST-MOLD STRIPPER [facility] Start: 09-25-2023 End: 09-25-2023 ambulatory Facility:[facility] Start: 09-25-2023 End: 09-25-2023 Patient encounter procedure Rita Nareshlogan NANOTECHNOLOGY ENGINEERING TECHNOLOGIST.MOLD STRIPPER Work Phone: [facility] Comment on above: Sore throat (Primary Dx) Start: 09-13-2023 End: 09-13-2023 ambulatory MONI TONY Facility:[facility] Start: 09-13-2023 End: 09-13-2023 Patient encounter procedure MONI TONY NANOTECHNOLOGY ENGINEERING TECHNOLOGIST-MOLD STRIPPER [facility] Start: 07-22-2023 End: 07-22-2023 ambulatory MONISAMMY TONY Facility:[facility] Start: 07-22-2023 End: 07-22-2023 Patient encounter procedure MONI TONY NANOTECHNOLOGY ENGINEERING TECHNOLOGIST-MOLD STRIPPER [facility] Start: 07-04-2023 End: 07-04-2023 Emergency department patient visit MONI TONY Facility:[facility] Start: 07-03-2023 End: 07-03-2023 Emergency department patient visit MARCIAL GORDON MD [facility] Start: 06-29-2023 End: 06-29-2023 ambulatory MONI TONY Facility:[facility] Start: 06-29-2023 End: 06-29-2023 Patient encounter procedure MONI TONY NANOTECHNOLOGY ENGINEERING TECHNOLOGIST-MOLD STRIPPER [facility] Start: 06-14-2023 End: 06-18-2023 ambulatory MONI TONY Facility:[facility] Start: 06-14-2023 End: 06-18-2023 Outreach Lab MONI TONY NANOTECHNOLOGY ENGINEERING TECHNOLOGIST-MOLD STRIPPER [facility] Start: 03-04-2023 End: 03-08-2023 ambulatory ALEXIS DUNHAM MD Facility:[facility] Start: 02-01-2023 End: 02-05-2023 ambulatory MONI MEDINATANIA Facility:[facility] Start: 02-01-2023 End: 02-05-2023 Encounter for general adult medical examination without abnormal findings MONI TONY Facility:B Start: 08-20-2021 End: 08-24-[address] IRMA LARA DO [facility] Start: 07-18-2021 End: 07-18-2021 Patient encounter procedure JACKIE GALVEZ DO [facility] Start: 05-07-2021 End: 05-07-2021 Patient encounter procedure MONI TONY NANOTECHNOLOGY ENGINEERING TECHNOLOGIST-MOLD STRIPPER [facility] Start: 04-27-2021 End: 05-01-2021 Outreach Lab MAGO MAXWELL NANOTECHNOLOGY ENGINEERING TECHNOLOGIST-MOLD STRIPPER [facility] Start: 01-22-2020 End: 01-22-2020 Patient encounter procedure YOAN DIAZ [facility] Start: 01-22-2020 End: 01-22-2020 Office outpatient visit 15 minutes Yoan Diaz Work Phone: [facility] Comment on above: Hematuria, unspecifi ed type (Primary Dx) Start: 04-03-2019 End: 04-03-2019 Patient encounter procedure LIANA MCCOLLUM [facility] Start: 04-03-2019 End: 04-03-2019 Office outpatient visit 15 minutes Liana Mccollum Work Phone: [facility] Comment on above: Non-recurrent acute serous otitis media of left ear (Primary Dx); Acute non-recurrent maxillary sinusitis Start: 03-26-2019 End: 03-27-2019 Emergency department patient visit YOAN MEJIA [facility] Start: 03-26-2019 End: 03-26-2019 Emergency department patient visit Susi Ny Work Phone: [facility] Emergency Department Comment on above: Contusion of right t humb without damage to nail, initial encounter (Primary Dx) Start: 01-09-2019 End: 01-09-2019 Office outpatient visit 15 minutes Liana Mccollum Work Phone: [facility] Comment on above: Acute non-recurrent frontal sinusitis (Primary Dx); Cough Start: 12-13-2018 End: 12-13-2018 Office outpatient visit 15 minutes Liana Mccollum Work Phone: [facility] Comment on above: Bronchitis (Primary Dx); Exacerbation of asthma, unspecified asthma severity, unspecified whether persistent; Cough; Mild intermittent asthma with acute exacerbation Start: 10-20-2018 End: 10-20-2018 Documentation procedure Camila Short [facility] Comment on above: RLQ pain Start: 10-10-2018 End: 10-10-2018 Documentation procedure Hailey Arredondo [facility] Comment on above: ED Follow-up Start: 10-10-2018 End: 10-10-2018 Office outpatient visit 15 minutes Liana Mccollum Work Phone: [facility] Comment on above: Ruptured ovarian cys t (Primary Dx) Start: 10-09-2018 End: 10-09-2018 [facility] Start: 10-09-2018 End: 10-09-2018 Emergency department patient visit Yves Colon Maday Work Phone: [facility] Emergency Department Comment on above: Acute mesenteric sterling nitis (Primary Dx); Hemorrhagic ovarian cyst Start: 10-09-2018 End: 10-09-2018 Patient encounter procedure Liana Mccollum Work Phone: [facility] Comment on above: Abdominal pain, righ t lower quadrant Start: 10-09-2018 End: 10-09-2018 Office outpatient visit 15 minutes Liana Mccollum Work Phone: [facility] Comment on above: RLQ abdominal pain ( Primary Dx) Start: 04-13-2018 End: 04-13-2018 Office outpatient visit 15 minutes Yoan Diaz Work Phone: [facility] Comment on above: Acute maxillary sinu sitis, recurrence not specified (Primary Dx); Sore throat Start: 01-27-2018 End: 01-27-2018 Office outpatient visit 15 minutes Yoan Diaz Work Phone: [facility] Comment on above: Bronchitis (Primary Dx); Environmental and seasonal allergies Start: 07-07-2017 Office/outpatient visit, est, level 3 Dominga Mederos Work Phone: [facility] Start: 03-29-2017 Ambulatory DOIMNGA MEDEROS [facility] Start: 03-29-2017 Office outpatient visit 15 minutes Dominga Mederos Work Phone: [facility] Start: 03-24-2017 End: 03-24-2017 Emergency department patient visit [facility] Facility:[place] Start: 01-24-2017 End: 01-24-2017 Emergency department patient [facility] Start: 01-17-2017 Office/outpatient visit, est, level 3 Dominga Mederos Work Phone: [facility] Start: 12-31-2016 End: 12-31-2016 Office outpatient visit 15 minutes Dominga Mederos Work Phone: [facility] Comment on above: Bronchitis (Primary Dx);Cough;Mild intermittent asthma with acute exacerbation Start: 11-19-2016 End: 11-23-2016 Ambulatory DOMINGA MEDEROS [facility] Procedures Date Procedure Procedure Detail Performing Clinician Start: 09-25-2023 STREP A MOLECULAR (POC) [facility] Provider Start: 11-24-2020 Abdominal (qualifier value) MAGO MAXWELL NANOTECHNOLOGY ENGINEERING TECHNOLOGIST-MOLD STRIPPER Comment on above: laproscopy - Dr. Freedom puir Start: 01-22-2020 Urinalysis macro (di pstick) panel - Urine Yoan Diaz Work Phone: Start: 01-22-2020 Adult depression scr eening assessment Yoan Diaz Start: 03-26-2019 Radex hand minimum 3 views Susi Ny Work Phone: Start: 10-09-2018 Ct abdomen & pelvis w/contrast material Irish Vania Guillod Work Phone: Start: 10-09-2018 Complete blood count with white cell differential, automated Irish Vania Guillod Work Phone: Start: 10-09-2018 Complete blood count with white cell differential, manual Irish Vania Guillod Work Phone: Start: 10-09-2018 Comprehensive metabo lic 2000 panel - Serum or Plasma Irish Vania Musalod Work Phone: Start: 10-09-2018 Choriogonadotropin ( test) [Presence] in Urine Lorena Martinezoh Work Phone: Start: 10-09-2018 Urinalysis Lorena Osborne Work Phone: Arthroscopy of knee MAGO STORM NANOTECHNOLOGY ENGINEERING TECHNOLOGISTFeaturespace Comment on above: LEFT H/O: surgery S/P ovarian cystectomy( Confirmed ) MAGO MAXWELL NANOTECHNOLOGY ENGINEERING TECHNOLOGISTFeaturespace Structure of wisdom tooth (body structure) MAGO MAXWELL NANOTECHNOLOGY ENGINEERING TECHNOLOGISTFeaturespace Plan of Treatment Date Care Activity Detail Author Start: 03-07-2030 Urine microalbumin profile DTa P,Tdap,Td Vaccine (8 - Td or Tdap) [facility] Start: 05-02-2023 Behavioral Health Screening Behavioral Health Screening [facility] Start: 12-31-2022 Covid-19 Vaccine ( season) Covid-19 Vaccine ( season) [facility] Start: 01-21-2021 Depression screening using PHQ-9 (Patient Health Questionnaire 9) score Depression Screening (PHQ9) [facility] Start: 01-01-2020 Influenza vaccinatio n given Sequential Influenza Vaccine (#1) [facility] Start: 12-31-2018 Influenza vaccination INFLUENZ A VACCINE (Season Ended) [facility] Start: 12-31-2018 Influenza vaccinatio n given [facility] Start: 10-09-2018 End: 10-10-2019 Ultrasonography of abdomen [facility] Comment on above: 1 Occurrences starti ng 10/09/2018 until 10/09/2018 Expected: 10/09/2018 , Expires: 10/10/2019 Start: 12-31-2017 Influenza vaccination SEQUENTI AL INFLUENZA VACCINE (#1) [facility] Start: 2017 Screening for malign ant neoplasm of cervix [facility] Start: 12-31-2016 Influenza vaccination SEQUENTI AL INFLUENZA VACCINE (#1) [facility] Work Phone: Start: 12-31-2016 SEQUENTIAL INFLUENZA VACCINE (#1) SEQUENTIAL INFLUENZA VACCINE (#1) [facility] Work Phone: Start: 2015 Third diphtheria, te tanus and acellular pertussis (DTaP) vaccination TDAP (ADULT) [facility] Start: 2014 Hepatitis C screening [facility] C [facility] Start: 2014 HIV screening HIV Screening [facility] Start: 2014 Tetanus vaccination [facility] Start: 2012 Screening for Chlamy louisa trachomatis CHLAMYDIA SCREEN [facility] Start: 2011 HIV screening HIV Screening [facility] Start: 2011 Vaccination for addis n papillomavirus [facility] Start: 2009 HIV screening HIV SCREENING DISCUSSION [facility] Start: 2007 HPV VACCINES (1 of 3 - Female 3 Dose Series) HPV VACCINES (1 of 3 - Female 3 Dose Series) [facility] Work Phone: Start: 2007 Vaccination for addis n papillomavirus [facility] Work Phone: Start: 1999 History and physical examination, annual for health maintenance Wellness Visit [facility] Start: 1996 Depression screening using PHQ-9 (Patient Health Questionnaire 9) score DEPRESSION SCREENING (PHQ9) [facility] Start: 1996 GONORRHEA SCREEN GONORRHEA SCREEN [facility] Start: 1996 Screening for Chlamy louisa trachomatis Chlamydia Screening [facility] Start: 1996 Screening for malign ant neoplasm of cervix PAP SMEAR [facility] Start: 1996 TETANUS EVERY 10 YR TETANUS EVERY 10 YR [facility] Work Phone: Start: 1996 Tetanus vaccination [facility] Work Phone: End: 07-07-2018 Bacteria identified in Throat by Aerobe culture Throat Aerobic Culture Routine Sore throat 1 Occurrences starting 07/07/2017 until 07/07/[address] [facility] [address] Abdomen Pelvis Wi th IV Contrast Only CT Abdomen Pelvis With IV Contrast Only Imaging MILAN 10/09/2018 6:39 PM EDT [facility] Radiologic exam esop hagus double contrast study [facility] End: 10-10-2019 Ultrasonography of abdomen US Abdomen Complete Imaging Routine RLQ abdominal pain 1 Occurrences starting 10/09/2018 until 10/10/2019 [facility] Comment on above: 1 Occurrences starti ng 10/09/2018 until 10/10/2019 Urinalysis with refl ex to microscopy and culture Outreach Urinalysis w/ Reflex Culture Lab Routine Hematuria, unspecified type 01/22/2020 11:13 AM EDT [facility] URINE CONTAINER Urine Container Lab Routine Hematuria, unspecified type 01/22/2020 11:35 AM EDT [facility] End: 03-29-2018 XR Elbow Left 3+ Views (Standard) XR Elbow Left 3+ Views (Standard) Routine Left arm pain 1 Occurrences starting 03/29/2017 until 03/29/2018 [facility] Work Phone: End: 03-29-2018 XR Forearm Left 2 Views XR Forearm Left 2 Views Routine Left arm pain 1 Occurrences starting 03/29/2017 until 03/29/2018 [facility] Work Phone: Immunizations Immunization Date Immunization Notes Care Provider Fa cility 04-11-2024 tetanus toxoid, redu kane diphtheria toxoid, and acellular pertussis vaccine, adsorbed; Translations: [Boostrix (Tdap)] LIVIA TORRES MD [facility] Comment on above: Result Comment: [facility]# [id number] 02-08-2023 influenza, injectabl e, quadrivalent, contains preservative; Translations: [Fluarix PF Quadrivalent ] MONI TONY NANOTECHNOLOGY ENGINEERING TECHNOLOGIST-[facility] 02-08-2023 hepatitis B vaccine, adult dosage; Translations: [Engerix-B] MONI TONY NANOTECHNOLOGY ENGINEERING TECHNOLOGISTFeaturespace [facility] 03-04-2022 influenza, injectabl e, quadrivalent, contains preservative; Translations: [Fluarix PF Quadrivalent ] MONI TONY NANOTECHNOLOGY ENGINEERING TECHNOLOGISTChewseMOLD STRIPPER [facility] 05-30-2020 SARS-CoV-2 (COVID-19 ) mRNA-1273 vaccine [facility]O MAXWELL [facility] Comment on above: Result Comment: 2020: TPV20 05-05-2020 SARS-CoV-2 (COVID-19 ) mRNA-1273 vaccine MAGO HANS NANOTECHNOLOGY ENGINEERING TECHNOLOGISTChewseARBOUR-[facility] Comment on above: Result Comment: 2020: TPV20 03-07-2020 tetanus toxoid, redu kane diphtheria toxoid, and acellular pertussis vaccine, adsorbed; Translations: [Boostrix (Tdap)] MAGO DELUNAERS NANOTECHNOLOGY ENGINEERING TECHNOLOGISTChewseARB[facility] 02-19-2010 meningococcal polysaccharide (groups A, C, Y and W-135) diphtheria toxoid conjugate vaccine (MCV4P) MAGO MAXWELL NANOTECHNOLOGY ENGINEERING TECHNOLOGISTChewseARB[facility] 02-19-2010 tetanus toxoid, redu kane diphtheria toxoid, and acellular pertussis vaccine, adsorbed MAGO HANS NANOTECHNOLOGY ENGINEERING TECHNOLOGISTChewseARB[facility] 02-19-2010 varicella virus vaccine MAGO MAXWELL [facility] 11-16-2001 measles/mumps/rubell a virus vaccine MAGO MAXWELL NANOTECHNOLOGY ENGINEERING TECHNOLOGIST-[facility] 07-20-2001 diphtheria, tetanus toxoids and acellular pertussis vaccine, unspecified formulation MAGO MAXWELL [facility] 07-20-2001 poliovirus vaccine, inactivated MAGO MAXWELL NANOTECHNOLOGY ENGINEERING TECHNOLOGIST-[facility] 07-20-2001 varicella virus vaccine MAGO MAXWELL [facility] 09-16-1997 diphtheria, tetanus toxoids and acellular pertussis vaccine, unspecified formulation MAGO MAXWELL [facility] 09-16-1997 haemophilus influenz ae type b vaccine, PRP-T conjugate MAGO MAXWELL [facility] 09-16-1997 hepatitis B vaccine, adult dosage MAGO MAXWELL [facility] 09-16-1997 measles/mumps/rubell a virus vaccine MAGO MAXWELL NANOTECHNOLOGY ENGINEERING TECHNOLOGIST-[facility] 1996 diphtheria, tetanus toxoids and acellular pertussis vaccine, unspecified formulation MAGO MAXWELL NANOTECHNOLOGY ENGINEERING TECHNOLOGIST-[facility] 1996 haemophilus influenz ae type b vaccine, PRP-T conjugate MAGO MAXWELL NANOTECHNOLOGY ENGINEERING TECHNOLOGIST-[facility] 1996 poliovirus vaccine, live, trivalent MAGO MAXWELL NANOTECHNOLOGY ENGINEERING TECHNOLOGIST-[facility] 1996 diphtheria, tetanus toxoids and acellular pertussis vaccine, unspecified formulation MAGO MAXWELL NANOTECHNOLOGY ENGINEERING TECHNOLOGIST-[facility] 1996 haemophilus influenz ae type b vaccine, PRP-T conjugate MAGO MAXWELL NANOTECHNOLOGY ENGINEERING TECHNOLOGIST-[facility] 1996 poliovirus vaccine, live, trivalent MAGO MAXWELL NANOTECHNOLOGY ENGINEERING TECHNOLOGIST-[facility] 1996 diphtheria, tetanus toxoids and acellular pertussis vaccine, unspecified formulation MAGO MAXWELL NANOTECHNOLOGY ENGINEERING TECHNOLOGIST-[facility] 1996 haemophilus influenz ae type b vaccine, PRP-T conjugate MAGO MAXWELL NANOTECHNOLOGY ENGINEERING TECHNOLOGIST-[facility] 1996 hepatitis B pediatri c vaccine MAGO MAXWELL NANOTECHNOLOGY ENGINEERING TECHNOLOGIST-M[employer] STRIPPER [facility] 1996 poliovirus vaccine, live, trivalent MAGO MAXWELL NANOTECHNOLOGY ENGINEERING TECHNOLOGIST-MOLD STRIPPER [facility] 1996 hepatitis B vaccine, adult dosage MAGO MAXWELL NANOTECHNOLOGY ENGINEERING TECHNOLOGIST-MOLD STRIPPER [facility] Payers Date Payer Category Payer Self-pay 2024 Unknown [id number] 2024 Unknown [id number] 2023 Unknown [id number]. [id number] 2023 Unknown [id number] 2019 Worker's Compensation [id number] 2018 Unknown [id number] 2018 Unknown [employer] - [employer]ERRED [id number] 2018-Present [id number]. [id number] 2016 Private Health Insurance xxx [id number] 2.16.840.1.453677.3.249. 13 2016 Unknown [id number] 2.16.840.1.676455.3.249. 13 2016 Unknown [id number] 1.2.840.084598.1.13.385. 2.7.3.006267.315 1996 Unknown [id number] 2.16.840.1.496505.3.579. 2.903 1996 Unknown [id number] 2.16.840.1.503608.3.579. 2.902 1996 Unknown [id number] 2.16.840.1.916530.3.579. 2.903 1996 Unknown [id number] 2.16.840.1.168980.3.579. 2.903 1996 Unknown [id number] 2.16.840.1.904040.3.579. 2.627 1996 Unknown [id number] 2.16.840.1.151869.3.579. 2. 1996 Unknown [id number] 2.16.840.1.045502.3.579. 2. 1996 Unknown [id number] 2.16.840.1.984255.3.579. 2. 1996 Unknown [id number] 2.16.840.1.115982.3.579. 2. 1996 Unknown [id number] 2.16.840.1.261915.3.579. 2. 1996 Unknown [id number] 2.16.840.1.103797.3.579. 2. 1996 Unknown [id number] 2.16.840.1.835087.3.579. 2. 1996 Unknown [id number] 2.16.840.1.243617.3.579. 2. 1996 Unknown [id number] 2.16.840.1.235463.3.579. 2. 1996 Unknown [id number] 2.16.840.1.873086.3.579. 2. 1996 Unknown [id number] 2.16.840.1.616207.3.579. 2. 1996 Unknown [id number] 2.16.840.1.274569.3.579. 2. 1996 Unknown [id number] 2.16.840.1.889459.3.579. 2. 1996 Unknown [id number] 2.16.840.1.618632.3.579. 2.479 1996 Unknown [id number] 2.16.840.1.365644.3.579. 2. 1996 Unknown [id number] 2.16.840.1.432361.3.579. 2.627 1996 Unknown [id number] 2.16.840.1.600259.3.579. 2.627 1996 Unknown [id number] 2.16.840.1.687685.3.579. 2.627 1996 Unknown [id number] 2.16.840.1.164932.3.579. 2.627 1996 Unknown [id number] 2.16.840.1.595666.3.579. 2.627 1996 Unknown [id number] 2.16.840.1.884083.3.579. 2.627 1996 Unknown [id number] 2.16.840.1.905142.3.579. 2.627 1996 Unknown [id number] 2.16.840.1.558942.3.579. 2.627 Private Health Insurance [id number] Unknown [id number] 2.16.840.1.182772.3.579. 2.462 Unknown [id number] 2.16.840.1.496277.3.579. 2.462 Social History Date Type Detail Facility Start: 07-07-2017 End: 12-20-2024 Tobacco smoking status [facility] Never smoker [facility] Work Phone: Start: 1996 Sex Assigned At Not on file O [facility] Work Phone: Start: 01-09-2019 End: 01-22-2020 Alcohol intake Current non-drinker of alcohol (finding) [facility] Start: 01-22-2020 End: 09-25-2023 Tobacco use and exposure Never used [facility] Start: 01-22-2020 History SDOH [facility] Start: 01-22-2020 History SDOH Food Worry 1 [facility] Start: 01-22-2020 History SDOH Transpo rt Med 2 [facility] Exposure to SARS-CoV -2 (event) Not sure [facility] Start: 1995 Sex Assigned At Female [facility] Start: 09-25-2023 History of Social function [facility] Start: 09-25-2023 Tobacco use panel [facility] National Score (1-10 0), lower number is lower risk 64 [facility] Sexual Orientation [facility] Start: 01-21-2020 Sex Female (finding) [facility] Medical Equipment Procedure Code Equipment Code Equipment Origin al Text Equipment Identifier Dates See Instructions , glucose test strips. check fasting glucose and 1 hour after each meal., # 200 EA, 11 Refill(s), Pharmacy: [facility], 160, cm, 03/21/24 11:41:00 EST, Height, 71.4, kg, 12/01/23 17:41:00 EDT, Dosing Weight Start: 04-10-2024 See Instructions , lancets: check glucose 4 times per day, # 200 EA, 11 Refill(s), Pharmacy: [facility], 160, cm, 03/21/24 11:41:00 EST, Height, 71.4, kg, 12/01/23 17:41:00 EDT, Dosing Weight Start: 04-10-2024 See Instructions , glucose test strips. check fasting glucose and 1 hour after each meal., # 200 EA, 11 Refill(s), Pharmacy: [facility], 160, cm, 03/21/24 11:41:00 EST, Height, 71.4, kg, 12/01/23 17:41:00 EDT, Dosing Weight Start: 04-10-2024 See Instructions , lancets: check glucose 4 times per day, # 200 EA, 11 Refill(s), Pharmacy: [facility], 160, cm, 03/21/24 11:41:00 EST, Height, 71.4, kg, 12/01/23 17:41:00 EDT, Dosing Weight Start: 04-10-2024 See Instructions , glucose test strips. check fasting glucose and 1 hour after each meal., # 200 EA, 11 Refill(s), Pharmacy: [facility], 160, cm, 03/21/24 11:41:00 EST, Height, 71.4, kg, 12/01/23 17:41:00 EDT, Dosing Weight Start: 04-10-2024 See Instructions , lancets: check glucose 4 times per day, # 200 EA, 11 Refill(s), Pharmacy: [facility], 160, cm, 03/21/24 11:41:00 EST, Height, 71.4, kg, 12/01/23 17:41:00 EDT, Dosing Weight Start: 04-10-2024 Functional Status Date Assessment Result Facility 06-25-2024 Functional Status ID band on, Call device within reach, Bed in low position, Wheels locked, Bedside Cart Locked, Visitor at bedside, Safety level maintained [facility] 06-25-2024 Functional Status [facility] 06-21-2024 Functional Status Repositions self [facility] 06-21-2024 Functional Status [facility] 06-21-2024 Functional Status [facility] 06-21-2024 Functional Status [facility] 06-19-2024 Functional Status 7pm-7am [facility] 12-01-2023 Functional Status Independent [facility] 12-01-2023 Functional Status Standard Safet y ID band on, Call device within reach, Bed in low position, Wheels locked, Safety level maintained [facility] 07-03-2023 Functional Status Independent [facility] 07-03-2023 Functional Status Standard Safet y ID band on, Call device within reach, Bed in low position, Wheels locked, Upper/Half-Length side-rails up [facility] Mental Status Date Assessment Result Facility 06-25-2024 Mental Status Oriented x 4 [facility] 12-01-2023 Mental Status Orientation Oriented x 4 [facility] 12-01-2023 Mental Status [facility] 07-03-2023 Mental Status Orientation Oriented x 4 [facility] Clinical Notes 11-14-2020 to 12-20-2024 Note Date & Type Note Facility 12-20-2024 Progress note [facility] 12-20-2024 Progress note Note Date/Time December 20, 2024 2:40pm [facility] [address] [place] [address] OFFICE VISIT Date of Service: 12/20/24 MR#: [id number] Acct: [id number] Name: LIVIA BOYER Rep #: [id number] : 1995 Provider: YAIMA Menchaca Age/Sex: 29/F Location[place] [facility] Status: Signed Intake Vital Signs 12/20/24 14:19 Height 5 ft 5 in Weight: 164 lb 2 oz BMI 27.3 BP 110/76 Respiration 14 Pulse 83 Temp 97.2 F L Temp Source Temporal Pulse Oximetry (%) 98 Oxygen Delivery Method room air Intake Visit Reasons: Dysphagia Chief Complaint: trouble swallowing 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 Team 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 Required: No Accompanied by: Self Is patient in pain?: No Allergies latex Allergy (Intermediate, Verified 12/19/24 17:34) redness adhesive Adverse Reaction (Mild, Verified 12/19/24 17:34) Rash lavender (Lavandula angustifolia) Adverse Reaction (Mild, Verified 12/19/24 17:34) Hives Medications ?Medication ?Instructions ?Recorded ?Confirmed ?Type albuterol sulfate 90 mcg/actuation 2 puff inhalation Q 6H PRN 12/19/24 12/20/24 History aerosol inhaler (Ventolin HFA) budesonide-formoterol HFA 160 2 puff inhalation BID 12/20/24 History mcg-4.5 mcg/actuation aerosol inhaler (Symbicort) multivitamin with mins no.113-iron cap PO .QD 12/19/24 12/20/24 History 4.5 mg-folic acid 200 mcg capsule ( Multivitamin (Ferrous Gluconate)) cetirizine 10 mg tablet (Zyrtec) 10 mg PO QDAY 5 12/20/24 History PFSH Medical History Ovarian cyst Acute exacerbation of asthma with allergic rhinitis Vitamin D deficiency Vision loss TMJ arthralgia Anemia Family history of colon cancer Derangement of unspecified meniscus due to old tear or injury, right knee Physical exam, pre-employment Surgical History H/O wisdom tooth extraction H/O arthroscopy of knee Family History Mother Cancer Colon cancer Inflammatory bowel disease Epilepsy Father Diabetes Social History Smoking Status: Never smoker alcohol intake: current details: 1-2 times per year substance use type: does not use HPI HPI Chief Complaint: trouble swallowing Details: 29y/o female with intermittent dysphagia, first started when she was a teenager - progressively worse - gets stuck high in her throat - [facility] 09/13/2023 Esophagram - can choke on apple sauce or solid foods - tried to chug water to force down or up - she reports a personal h/o asthma - denies any h/o eczema - denies any family h/o esophageal or gastric CA - denies any h/o smoking - occasional alcohol use - denies any HB - denies any N/V - mom with colon cancer in her early 30's - reports there is no chance she could be now - she has PCOS - she is not on OC - she is breast feeding ROS Const Constitutional: No fatigue, fever(s) or weight change ENT ENT: Positive for difficulty swallowing Gastro GI: Positive for difficulty swallowing; No abdominal pain, belching, bloating, change in bowel habits, change in stool character, coffee ground emesis, constipation, cramping, diarrhea, heartburn, feeling full early, excessive flatus, incontinent of stools, Vomiting blood/hematemesis, Blood in stool, loose stools, Black,tarry stools, nausea/dyspepsia, pain with swallowing, vomiting or other Musc Musculoskeletal: No joint pain Skin Skin: No yellowing of the eye or itchy eyes Psych Psychiatric: No anxiety and No depression Endo Endocrine: No fatigue or weight change Aller/Imm Allergy/Immunologic: No itchy eyes Josh/Lymp Hematologic/Lymphatic: No easy bleeding or easy bruising Exam Const General: cooperative, healthy appearing, no acute distress and well developed Nutritional Appearance: average body habitus and well nourished Orientation: alert and oriented x3 HENMT Head: normocephalic Ears: hearing grossly normal bilaterally Mouth: moist mucous membranes Teeth and gingiva: dentition normal Eyes Conjunctivae: conjunctivae normal Sclera: sclerae normal Neck Neck: normal visual inspection, full ROM and trachea midline Resp Effort & Inspection: normal respiratory effort, able to speak in complete sentences and symmetric chest movement Auscultation: Bilateral: Clear to Auscultation Cardio Rate: regular rate Rhythm: regular rhythm GI Inspection: normal to inspection Auscultation: normal bowel sounds Palpation: soft and no hepatosplenomegaly Rectal Exam: deferred Skin General: no rashes or lesions noted and turgor normal Neuro General: patient alert and patient oriented x3 Cranial Nerves: other (CN's grossly intact, non-focal exam) Cognition: normal cognition Speech: speech normal Gait: normal gait Extrem General: normal to inspection (no edema noted) Psych Appearance: grossly normal and well kempt Affect: normal affect Attitude: cooperative Thought Process: normal Assessment and Plan Assessment and Plan (1) Dysphagia: Status: Acute (2) Family history of colon cancer in mother: Status: Acute Comment: in her early 30's Orders: Orders Esophagus Dual Contrast Today R13.10 - Dysphagia, unspecified Plan 29-year-old female with a history of PCOS and asthma, presenting with dysphagia.The patient reports chronic and progressively worsening difficulty swallowing, initially observed in teenage years, with current impairment to both solid and soft foods. The condition was evaluated with a barium swallow revealing possibleobstruction at the gastroesophageal junction, necessitating further esophageal examination via esophagram. There is no significant unintentional weight loss. Asignificant family history includes a maternal history of colon cancer in her early 30's, necessitating early screening for colorectal malignancy. Patient Instructions: Esophagram Colon & EGD - SuFlave Coding Level of Care Code Off vis,new,level 3 Diagnoses Dysphagia R13.10 Family history of colon cancer in mother Z80.0 Clinical Quality Measures Smoking Screening Smoking Status: Never smoker 12/20/24 1440 <Electronically signed by Ning tao [employer]> Date _ [facility] Signature: Date (if applicable) CC: ~ [place] [employer] Work Phone: [phone] Hospital Discharge instructions Patient Education 06/25/2024 15:02:00 Anemia Anemia Anemia is a condition that occurs when your body does not have enough healthy red blood cells (RBCs). RBCs are the parts of your blood that carry oxygen throughout your body. A protein called hemoglobin allows your RBCs to absorb and release oxygen. Without enough RBCs or hemoglobin, your body doesn't get enough oxygen. Symptoms of anemia may then occur. What are the symptoms of anemia? Some people with anemia have no symptoms. But most people have symptoms that range from mild to severe. These can include: Tiredness (fatigue) Weakness Pale skin Shortness of breath Dizziness or fainting Rapid heartbeat Trouble doing normal amounts of activity Jaundice (yellowing of your eyes, skin, or mouth; dark urine) What causes anemia? Anemia can occur when your body: Loses too much blood Does not make enough RBCs Destroys your RBCs at a faster rate than it can replace them Does not make a normal amount of hemoglobin in your RBCs These problems can occur for many reasons, including: A condition that you are born with (congenital or inherited), such as sickle cell disease or thalassemia Heavy bleeding for any reason, including injury, surgery, childbirth, or even heavy menstrual periods Being low in certain nutrients, such as iron, folate, or vitamin B12, possibly from a poor diet or a condition like celiac disease or Crohn's disease Certain chronic conditions like diabetes, arthritis, or kidney disease Certain chronic infections like tuberculosis or HIV Exposure to certain medicines, such as those used for chemotherapy There are different types of anemia. Your healthcare provider can tell you more about the type of anemia you have and what may have caused it. How is anemia diagnosed? To diagnose anemia, your healthcare provider orders blood tests. These can include: Complete blood cell count (CBC). This test measures the amounts of the different types of blood cells. Blood smear. This test checks the size and shape of your blood cells. To do the test, a drop of your blood is viewed under a microscope. A stain is used to make the blood cells easier to see. Iron studies. These tests measure the amount of iron in your blood. Your body needs iron to make hemoglobin in your RBCs. Vitamin B12 and folate studies. These tests check for some of the components that help give RBCs a normal size and shape. Reticulocyte count. This test measures the amount of new RBCs that your bone marrow makes. Hemoglobin electrophoresis. This test checks for problems with your hemoglobin in RBCs. How is anemia treated? Treatment for anemia is based on the type of anemia, its cause, and the severity of your symptoms. Treatments may include: Diet changes. This involves increasing the amount of certain nutrients in your diet, such as iron, vitamin B12, or folate. Your healthcare provider may also prescribe nutrient supplements. Medicines. Certain medicines treat the cause of your anemia. Others help build new RBCs or relieve symptoms. If a medicine is the cause of your anemia, you may need to stop or change it. Blood transfusions. Replacing some of your blood can increase the number of healthy RBCs in your body. Surgery. In some cases, your doctor may do surgery to treat the underlying cause of anemia. If you need surgery, your healthcare provider will explain the procedure and outline the risks and benefitsfor you. What are the long-term concerns? If you have a certain type of anemia, you can expect a full recovery after treatment. If you have other types of anemia (especially a type you're born with), you will need to manage it for life. Yourdoctor can tell you more. 6554-5335 [employer]. [address] [place] [address], [place] [address]. All rights reserved. This information is not intended as a substitute for professional medical care. Always follow yourhealthcare professional's instructions. Follow Up Care 06/25/2024 11:55:54 With:MONI TONY APRN-MOLD STRIPPER Address: [address] [facility] [address] [facility] [place] [address]- [phone] When:2-4 days [facility] 02-24-2025 Emergency department Discharge summary Discharge Instructions Thank you for allowing [facility] to assist you with your healthcare needs. The following is importantdischarge information regarding your hospital visit. Diagnosis from Today's Visit Anemia Tachycardia What to Do Next Instructions from Your Care Team Please follow up with your OBGYN and your primary care physician; especially for follow up labs. For worsening symptoms, please return to the ER. No qualifying data available. Post Acute Orders No qualifying data available. You Need to Schedule the Following Appointments Follow Up with MONI TONY When:Within 2-4 days Where:[address] [facility] [place] [address]- [phone] Allergies Adhesive Bandage Rash Latex Redness lavender Hives Medications Please ask your primary doctor or pharmacist before taking any other medication not listed, including over the counter drugs, herbal medications, vitamins and or supplements as they may interact withyour home medications. What How Much When Instructions Last Dose Unchanged acetaminophen (Tylenol Extra Strength 500 mg oral tablet) 1 tab(s) by mouth Every 4 hours Duration: 14 Days Unchanged ascorbic acid (ascorbic acid 250 mg oral tablet) 1 tab(s) by mouth Once a day take w iron to enhance absorption Unchanged benzocaine topical (Americaine 20% topical spray) 1 application Topical Four (4) times a day Duration: 14 Days Unchanged budesonide-formoterol (Symbicort 160 mcg-4.5 mcg/ inh Inhaler) 2 puff(s) by inhalation Two (2) times a day inhale 2 puffs by mouth twice a day Rinse mouth after use Unchanged ferrous sulfate (ferrous sulfate 325 mg (65 mg elemental iron) oral tablet) 1 tab(s) by mouth Once a day Unchanged ibuprofen (ibuprofen 600 mg oral tablet) 1 tab(s) by mouth Every 6 hours as needed for for pain Duration: 7 Days Take with food or milk. Unchanged metoclopramide (Reglan 10 mg oral tablet) 1 tab(s) by mouth Three (3) times a day before meals as needed for Nausea Unchanged multivitamin, (PreNata oral tablet, chewable) 1 tab(s) Chewed Once a day any chewable or gummy covered Please take this list to your next doctor s visit. Bring all medications you take, including over the counter medications, herbals and other supplements with you to your doctor s visit. Patients and families are reminded to discard old lists and to update any records with all medication providers or retail pharmacies. Education Materials Anemia Anemia is a condition that occurs when your body does not have enough healthy red blood cells (RBCs). RBCs are the parts of your blood that carry oxygen throughout your body. A protein called hemoglobin allows your RBCs to absorb and release oxygen. Without enough RBCs or hemoglobin, your body doesn't get enough oxygen. Symptoms of anemia may then occur. What are the symptoms of anemia? Some people with anemia have no symptoms. But most people have symptoms that range from mild to severe. These can include: Tiredness (fatigue) Weakness Pale skin Shortness of breath Dizziness or fainting Rapid heartbeat Trouble doing normal amounts of activity Jaundice (yellowing of your eyes, skin, or mouth; dark urine) What causes anemia? Anemia can occur when your body: Loses too much blood Does not make enough RBCs Destroys your RBCs at a faster rate than it can replace them Does not make a normal amount of hemoglobin in your RBCs These problems can occur for many reasons, including: A condition that you are born with (congenital or inherited), such as sickle cell disease or thalassemia Heavy bleeding for any reason, including injury, surgery, childbirth, or even heavy menstrual periods Being low in certain nutrients, such as iron, folate, or vitamin B12, possibly from a poor diet or a condition like celiac disease or Crohn's disease Certain chronic conditions like diabetes, arthritis, or kidney disease Certain chronic infections like tuberculosis or HIV Exposure to certain medicines, such as those used for chemotherapy There are different types of anemia. Your healthcare provider can tell you more about the type of anemia you have and what may have caused it. How is anemia diagnosed? To diagnose anemia, your healthcare provider orders blood tests. These can include: Complete blood cell count (CBC). This test measures the amounts of the different types of blood cells. Blood smear. This test checks the size and shape of your blood cells. To do the test, a drop of your blood is viewed under a microscope. A stain is used to make the blood cells easier to see. Iron studies. These tests measure the amount of iron in your blood. Your body needs iron to make hemoglobin in your RBCs. Vitamin B12 and folate studies. These tests check for some of the components that help give RBCs a normal size and shape. Reticulocyte count. This test measures the amount of new RBCs that your bone marrow makes. Hemoglobin electrophoresis. This test checks for problems with your hemoglobin in RBCs. How is anemia treated? Treatment for anemia is based on the type of anemia, its cause, and the severity of your symptoms. Treatments may include: Diet changes. This involves increasing the amount of certain nutrients in your diet, such as iron, vitamin B12, or folate. Your healthcare provider may also prescribe nutrient supplements. Medicines. Certain medicines treat the cause of your anemia. Others help build new RBCs or relieve symptoms. If a medicine is the cause of your anemia, you may need to stop or change it. Blood transfusions. Replacing some of your blood can increase the number of healthy RBCs in your body. Surgery. In some cases, your doctor may do surgery to treat the underlying cause of anemia. If you need surgery, your healthcare provider will explain the procedure and outline the risks and benefitsfor you. What are the long-term concerns? If you have a certain type of anemia, you can expect a full recovery after treatment. If you have other types of anemia (especially a type you're born with), you will need to manage it for life. Yourdoctor can tell you more. [id number] [employer]. [address] [place] [address], [place] [address]. All rights reserved. This information is not intended as a substitute for professional medical care. Always follow yourhealthcare professional's instructions. Additional Information VACCINATE! IT SAVES LIVES! Members of the community who have not yet received the COVID-19 vaccine and would like to receive it can visit one of [facility] vaccine clinics. There are many vaccine clinic locations within the [facility]. For locations and available times, please visit [email or web address]/. It is important to note that some COVID mobile vaccine clinics are held outdoors and may be canceled in rainy or stormy conditions. To learn more about pediatric vaccinations (ages 5-11), we invite you to visit the [facility] webpage. [email or web address]/[email or web address] [email or web address] learn more about the COVID-19 vaccine, we invite you to visit the CDC website for a list of frequently asked questions. https://www.cdc.gov/coronavirus/2019-ncov/vaccines/faq.html [employer] Patient Portal Access Instructions: Stay connected with your healthcare team and access your personal medical information anytime with the [facility] Patient Portal. If you would like a full copy of your medical records please contact the [facility] Medical Records Department Tuesday through Tuesday between 8a.m. and 4:30p.m. Please follow the directions below to access the portal: 1.Access the email account you provided upon registration to the [facility].2.Look for an invitation email from [facility].3.Open the email and access the invitation link: Accept Invitation to [employer]4.Fill in the required drew to create your account. Sign into [email or web address] with your username and password that you created in the above steps to stay up to date. You can then view a summary of results, a summary of your visits, and the ability to download your summaries to your computer or send the information securely to a physician. Remember that your healthcare information is confidential, so carefully consider who you will allow to register on the [facility] Patient Portal for access to your information. You can also access the [facility] Patient Portal on the [employer] azeem. Simply click on Health Records under [employer] and then click on the [facility] logo. HOW TO SAFELY DISPOSE OF PRESCRIPTION MEDICATIONS Please use one of the following methods to safely dispose of your unused medications. 1.Use a drug disposal kit: the drug disposal pouch allows you to safely discard your old and unuseddrugs. Ask your nurse to give you one when you are discharged.2.Visit a local take-back location: Many local pharmacies and police departments have programs that collect old and unwanted prescriptiondrugs. Call your local pharmacy or go to http://bit.digedu/6T7Am1h to find one close to you.3.Make use of household items: Use cat litter or old coffee grounds to dispose medications if other options arenot available. Mix your drugs with these household products, seal them in an airtight container andthrow it into the garbage. Call [facility]: [phone] to be sure your drugs can be disposed of in this way. Some medicines may require a different approach.4.Never flush your medications down the toilet. IF YOU HAVE BEEN PRESCRIBED AN OPIOIDS FOR PAIN If you have been prescribed an opioid (such as hydrocodone, oxycodone or morphine), it is critical to understand the possible side effects and risks of opioid pain medications. Even when taken as directed, opioids can have several side effects including: Tolerance, meaning you might need to take more of a medication for the same pain relief. Nausea, vomiting and/or constipation. Sleepiness, dizziness, dry mouth, confusion, depression or itching. Physical dependence, meaning you have withdrawal symptoms when a medication is stopped ? this can develop within a few days. KNOW YOUR RESPONSIBILITIES It is important to know exactly how much and how often to take the opioid pain medications you are prescribed. Never take opioids in higher amounts or more often than prescribed. Do not combine opioids with alcohol or other drugs that cause drowsiness, such as benzodiazepines, also known as benzos,including diazepam and alprazolam, muscle relaxants or sleep aids. Never sell or share prescriptionopioids. This is illegal. Store opioids in a secure place and out of reach of others (including children, family, friends and visitors). The last page(s) of this document has been signed and retained as a CHART COPY Signatures Patient Education Materials Anemia Medication Leaflets My discharge plan and instructions have been reviewed and explained to me and I,LIVIA BOYER M understand my current condition and have read and understand these discharge instructions. I have received a written copy of the plan/instructions. If I have questions, I am aware that I should contactmy doctor. Patient/[employer] Signature: Date/Time: Relationship to Patient: Witness Name/Signature: Date/Time: [facility] Emergency department Discharge summary Discharge Instructions Thank you for allowing [facility] to assist you with your healthcare needs. The following is importantdischarge information regarding your hospital visit. Diagnosis from Today's Visit Anemia Tachycardia What to Do Next Instructions from Your Care Team Please follow up with your OBGYN and your primary care physician; especially for follow up labs. For worsening symptoms, please return to the ER. No qualifying data available. Post Acute Orders No qualifying data available. You Need to Schedule the Following Appointments Follow Up with MONI TONY When:Within 2-4 days Where:[address] [facility] [place] [address]- [phone] Allergies Adhesive Bandage Rash Latex Redness lavender Hives Medications Please ask your primary doctor or pharmacist before taking any other medication not listed, including over the counter drugs, herbal medications, vitamins and or supplements as they may interact withyour home medications. What How Much When Instructions Last Dose Unchanged acetaminophen (Tylenol Extra Strength 500 mg oral tablet) 1 tab(s) by mouth Every 4 hours Duration: 14 Days Unchanged ascorbic acid (ascorbic acid 250 mg oral tablet) 1 tab(s) by mouth Once a day take w iron to enhance absorption Unchanged benzocaine topical (Americaine 20% topical spray) 1 application Topical Four (4) times a day Duration: 14 Days Unchanged budesonide-formoterol (Symbicort 160 mcg-4.5 mcg/ inh Inhaler) 2 puff(s) by inhalation Two (2) times a day inhale 2 puffs by mouth twice a day Rinse mouth after use Unchanged ferrous sulfate (ferrous sulfate 325 mg (65 mg elemental iron) oral tablet) 1 tab(s) by mouth Once a day Unchanged ibuprofen (ibuprofen 600 mg oral tablet) 1 tab(s) by mouth Every 6 hours as needed for for pain Duration: 7 Days Take with food or milk. Unchanged metoclopramide (Reglan 10 mg oral tablet) 1 tab(s) by mouth Three (3) times a day before meals as needed for Nausea Unchanged multivitamin, (PreNata oral tablet, chewable) 1 tab(s) Chewed Once a day any chewable or gummy covered Please take this list to your next doctor s visit. Bring all medications you take, including over the counter medications, herbals and other supplements with you to your doctor s visit. Patients and families are reminded to discard old lists and to update any records with all medication providers or retail pharmacies. Education Materials Anemia Anemia is a condition that occurs when your body does not have enough healthy red blood cells (RBCs). RBCs are the parts of your blood that carry oxygen throughout your body. A protein called hemoglobin allows your RBCs to absorb and release oxygen. Without enough RBCs or hemoglobin, your body doesn't get enough oxygen. Symptoms of anemia may then occur. What are the symptoms of anemia? Some people with anemia have no symptoms. But most people have symptoms that range from mild to severe. These can include: Tiredness (fatigue) Weakness Pale skin Shortness of breath Dizziness or fainting Rapid heartbeat Trouble doing normal amounts of activity Jaundice (yellowing of your eyes, skin, or mouth; dark urine) What causes anemia? Anemia can occur when your body: Loses too much blood Does not make enough RBCs Destroys your RBCs at a faster rate than it can replace them Does not make a normal amount of hemoglobin in your RBCs These problems can occur for many reasons, including: A condition that you are born with (congenital or inherited), such as sickle cell disease or thalassemia Heavy bleeding for any reason, including injury, surgery, childbirth, or even heavy menstrual periods Being low in certain nutrients, such as iron, folate, or vitamin B12, possibly from a poor diet or a condition like celiac disease or Crohn's disease Certain chronic conditions like diabetes, arthritis, or kidney disease Certain chronic infections like tuberculosis or HIV Exposure to certain medicines, such as those used for chemotherapy There are different types of anemia. Your healthcare provider can tell you more about the type of anemia you have and what may have caused it. How is anemia diagnosed? To diagnose anemia, your healthcare provider orders blood tests. These can include: Complete blood cell count (CBC). This test measures the amounts of the different types of blood cells. Blood smear. This test checks the size and shape of your blood cells. To do the test, a drop of your blood is viewed under a microscope. A stain is used to make the blood cells easier to see. Iron studies. These tests measure the amount of iron in your blood. Your body needs iron to make hemoglobin in your RBCs. Vitamin B12 and folate studies. These tests check for some of the components that help give RBCs a normal size and shape. Reticulocyte count. This test measures the amount of new RBCs that your bone marrow makes. Hemoglobin electrophoresis. This test checks for problems with your hemoglobin in RBCs. How is anemia treated? Treatment for anemia is based on the type of anemia, its cause, and the severity of your symptoms. Treatments may include: Diet changes. This involves increasing the amount of certain nutrients in your diet, such as iron, vitamin B12, or folate. Your healthcare provider may also prescribe nutrient supplements. Medicines. Certain medicines treat the cause of your anemia. Others help build new RBCs or relieve symptoms. If a medicine is the cause of your anemia, you may need to stop or change it. Blood transfusions. Replacing some of your blood can increase the number of healthy RBCs in your body. Surgery. In some cases, your doctor may do surgery to treat the underlying cause of anemia. If you need surgery, your healthcare provider will explain the procedure and outline the risks and benefitsfor you. What are the long-term concerns? If you have a certain type of anemia, you can expect a full recovery after treatment. If you have other types of anemia (especially a type you're born with), you will need to manage it for life. Yourdoctor can tell you more. 1714-6212 [employer]. [address] [place] [address]. All rights reserved. This information is not intended as a substitute for professional medical care. Always follow yourhealthcare professional's instructions. Additional Information VACCINATE! IT SAVES LIVES! Members of the community who have not yet received the COVID-19 vaccine and would like to receive it can visit one of [facility] vaccine clinics. There are many vaccine clinic locations within the [facility]. For locations and available times, please visit www.[email or web address]/. It is important to note that some COVID mobile vaccine clinics are held outdoors and may be canceled in rainy or stormy conditions. To learn more about pediatric vaccinations (ages 5-11), we invite you to visit the [facility] webpage. [email or web address]/[email or web address]-[email or web address] [email or web address] learn more about the COVID-19 vaccine, we invite you to visit the CDC website for a list of frequently asked questions. https://www.cdc.gov/coronavirus/2019-ncov/vaccines/faq.html [facility] [employer] Patient Portal Access Instructions: Stay connected with your healthcare team and access your personal medical information anytime with the [facility] Patient Portal. If you would like a full copy of your medical records please contact the [facility] Medical Records Department Tuesday through Tuesday between 8a.m. and 4:30p.m. Please follow the directions below to access the portal: 1.Access the email account you provided upon registration to the [facility].2.Look for an invitation email from [facility].3.Open the email and access the invitation link: [facility] to [facility].Fill in the required drew to create your account. Sign into [email or web address].[email or web address] with your username and password that you created in the above steps to stay up to date. You can then view a summary of results, a summary of your visits, and the ability to download your summaries to your computer or send the information securely to a physician. Remember that your healthcare information is confidential, so carefully consider who you will allow to register on the [facility] Patient Portal for access to your information. You can also access the [facility] Patient Portal on the [employer] azeem. Simply click on Health Records under [employer] and then click on the [facility] logo. HOW TO SAFELY DISPOSE OF PRESCRIPTION MEDICATIONS Please use one of the following methods to safely dispose of your unused medications. 1.Use a drug disposal kit: the drug disposal pouch allows you to safely discard your old and unuseddrugs. Ask your nurse to give you one when you are discharged.2.Visit a local take-back location: Many local pharmacies and police departments have programs that collect old and unwanted prescriptiondrugs. Call your local pharmacy or go to http://bit.digedu/1K5Om9f to find one close to you.3.Make use of household items: Use cat litter or old coffee grounds to dispose medications if other options arenot available. Mix your drugs with these household products, seal them in an airtight container andthrow it into the garbage. Call [facility]: [phone] to be sure your drugs can be disposed of in this way. Some medicines may require a different approach.4.Never flush your medications down the toilet. IF YOU HAVE BEEN PRESCRIBED AN OPIOIDS FOR PAIN If you have been prescribed an opioid (such as hydrocodone, oxycodone or morphine), it is critical to understand the possible side effects and risks of opioid pain medications. Even when taken as directed, opioids can have several side effects including: Tolerance, meaning you might need to take more of a medication for the same pain relief. Nausea, vomiting and/or constipation. Sleepiness, dizziness, dry mouth, confusion, depression or itching. Physical dependence, meaning you have withdrawal symptoms when a medication is stopped ? this can develop within a few days. KNOW YOUR RESPONSIBILITIES It is important to know exactly how much and how often to take the opioid pain medications you are prescribed. Never take opioids in higher amounts or more often than prescribed. Do not combine opioids with alcohol or other drugs that cause drowsiness, such as benzodiazepines, also known as benzos,including diazepam and alprazolam, muscle relaxants or sleep aids. Never sell or share prescriptionopioids. This is illegal. Store opioids in a secure place and out of reach of others (including children, family, friends and visitors). The last page(s) of this document has been signed and retained as a CHART COPY Signatures Patient Education Materials Anemia Medication Leaflets My discharge plan and instructions have been reviewed and explained to me and I,LIVIA BOYER understand my current condition and have read and understand these discharge instructions. I have received a written copy of the plan/instructions. If I have questions, I am aware that I should contactmy doctor. 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 Multiplanar reformatted images are provided for review. MIP images are provided for review. Automated exposure control, iterative reconstruction, and/or weight based adjustment of the mA/kV was utilized to reduce the radiation dose to as low as reasonably achievable. COMPARISON: July 03, 2023 HISTORY: ORDERING SYSTEM PROVIDED HISTORY: Reason for Exam: Concern for PE FINDINGS: No osseous abnormality identified. Overall lung volumes are low. Scattered areas of ground-glass density are noted, presumably scattered areas of volume loss. No focal regions of consolidation are visible, and there is no pleural fluid seen. No adenopathy is visible. No pulmonary artery defect is identified. No additional contributory abnormality seen. IMPRESSION: 1. Overall low lung volumes with hypoventilatory changes. 2. No other acute finding. No evidence for pulmonary embolism. Interpreted by: Jackie Hamm MD Preliminary Report By: Jackie Hamm MD Electronically signed By Jackie Hamm MD Dictated Date: 06/25/2024 2:35:31 PM Prelim Date: 06/25/2024 2:37:43 PM Sign Date: 06/25/2024 2:37:43 PM Ordering Provider: PINA BLACKWELL [facility]02-24-2025 Note* Exam Date Time Procedure Performing Provider Status 06/25/24 12:41 PM EKG [ED AO] - CV CLAIRE MART MD; Auth (Verified) ECG Final Report Sinus tachycardia Baseline wander in lead(s) V3 Electronic Signature: CLAIRE MART MD 06/25/2024 13:07:42 [facility]02-24-2025 Note* Exam Date Time Procedure Performing Provider Status 06/25/24 12:27 PM XR Chest 1 View RUCHI ROBERSON DO; Rosibel galan (Verified) [id number] ORIGINAL EXAMINATION: ONE XRAY VIEW OF THE CHEST06/25/2024 12:27 pm COMPARISON: None HISTORY: ORDERING SYSTEM PROVIDED HISTORY: Reason for Exam: Tachycardia, 5 days post FINDINGS: The cardiomediastinal contours are normal. There is no consolidation, vascular congestion, pleural effusion, or pneumothorax. There are no acute abnormalities to osseous structures. IMPRESSION: No acute radiographic findings. Interpreted by: Ruchi Roberson DO Preliminary Report By: Ruchi Roberson DO Electronically signed By Ruchi Roberson DO Dictated Date: 06/25/2024 12:30:31 PM Prelim Date: 06/25/2024 12:31:08 PM Sign Date: 06/25/2024 12:31:08 PM Ordering Provider: PINA BLACKWELL [facility]02-21-2025 Evaluation + Plan note Future Scheduled Tests Laboratory* Complete Blood Count 06/22/24 Radiology* US OB Limited/Transvaginal 05/07/24 * US OB Limited/Transvaginal 06/04/24 * US OB > 14 weeks 05/07/24 [facility] 02-20-2025 Note day #1 progress note: Patient feeling well but somewhat tired. Not feeling dizzy. No headache. Bleeding reported as light. No complaints of abdominal pain. No complaints of vulvar soreness. No difficulties urinating. No nausea or vomiting and tolerating p.o. well. Afebrile vital signs stable. Hemoglobin 7 this morning which is stable from 7.6 14 hours previously. No signs of acute blood loss. Abdomen is soft and fundus is firm and nontender. No significant vaginal bleeding. No significant lower extremity edema. Doing reasonably well on day #1. Patient received a dose of Venofer intravenously yesterday. Hemoglobin on admission was 10. Baby was transferred to [facility] yesterday andpatient would like to be discharged home today. Discussed low hemoglobin level today and warnings were given regarding bleeding. Discussed needing to go to the emergency room if she should have any significant vaginal bleeding or passage of clots. She was offered opportunity for blood transfusion today but declined. Instructed to pickle pumper her prescription for iron. Instructed to follow-up in the office in 3 weeks for first checkup. Other discharge instructions and warnings were also given. Digitally Signed by RUCHI AUGUST MD on 06/21/2024 02:03 PM [facility]02-19-2025 Hospital Discharge instructions Patient Education 06/20/2024 18:05:05 7b- Depression and Blues (01/2020) (CUSTOM) [facility] Depression and Blues All mothers are at risk of developing depression or the blues. These mood changes can occur right after giving , or they may occur many months after giving . blues or depression can be mild or severe. Additionally, depression can goaway rather quickly, or it can be a long-term condition. CAUSES Raised hormone levels and the rapid drop in those levels are thought to be a main cause of depression and blues. A number of hormones change during and after . Estrogenand progesterone usually decrease right after delivery. The levels of thyroid hormone and various cortisol steroids also rapidly drop. Other factors that play a role in these mood changes include major life events and genetics. RISK FACTORS If you have any of the following risks for blues or depression, know what symptoms to watch out for during the period. Risk factors that may increase the likelihood of getting blues or depression include: Having a personal or family history of depression. Having depression while being . Having premenstrual mood issues or mood issues related to oral contraceptives. Having a lot of life stress. Having marital conflict. Lacking a social support network. Having health problems, such as diabetes. SIGNS AND SYMPTOMS Symptoms of blues include: Brief changes in mood, such as going from extreme happiness to sadness. Decreased concentration. Difficulty sleeping. Crying spells, tearfulness. Irritability. Anxiety. Symptoms of depression typically begin within the first month after giving . These symptoms include: Difficulty sleeping or excessive sleepiness. Marked weight loss. Agitation. Feelings of worthlessness. Lack of interest in activity or food. psychosis is a very serious condition and can be dangerous. Fortunately, it is rare. Displaying any of the following symptoms is cause for immediate medical attention. Symptoms of psychosis include: Hallucinations and delusions. Bizarre or disorganized behavior. Confusion or disorientation. DIAGNOSIS A diagnosis is made by an evaluation of your symptoms. There are no medical or lab tests that lead to a diagnosis, but there are various questionnaires that a health care provider may use to identifythose with blues, depression, or psychosis. Often, a screening tool called the [place] Depression Scale is used to diagnose depression in the period. TREATMENT blues usually goes away on its own in 1 2 weeks. Social support is often all that is needed. You will be encouraged to get adequate sleep and rest. Occasionally, you may be given medicinesto help you sleep. depression requires treatment because it can last several months or longer if it is not treated. Treatment may include individual or group therapy, medicine, or both to address any social,physiological, and psychological factors that may play a role in the depression. Regular exercise, a healthy diet, rest, and social support may also be strongly recommended. psychosis is more serious and needs treatment right away. Hospitalization is often needed. HOME CARE INSTRUCTIONS Get as much rest as you can. Exercise regularly. Some women find yoga and walking to be beneficial. Eat a balanced and nourishing diet. Do little things that you enjoy. Have a cup of tea, take a bubble bath, read your favorite magazine, or listen to your favorite music. Avoid alcohol. Ask for help with bookkeeping service sales agent, cooking, grocery shopping, or running errands as needed. Do nottry to do everything. Talk to people close to you about how you are feeling. Get support from your partner, family members, and friends. Try to stay positive in how you think. Think about the things you are grateful for. Do not spend a lot of time alone. Only take fwob-dky-zobrdwp or prescription medicine as directed by your health care provider. Keep all your appointments. Let your health care provider know if you have any concerns. SEEK MEDICAL CARE IF: You are having a reaction to or problems with your medicine. SEEK IMMEDIATE MEDICAL CARE IF: You have suicidal feelings. You think you may harm yourself or someone else. MAKE SURE YOU: Understand these instructions. Will watch your condition. Will get help right away if you are not doing well or get worse. Resource: ExitCare Patient Information 2014 [employer]. This information is not intended to replace advicegiven to you by your health care provider. Make sure you discuss any questions you have with your health care provider. 06/20/2024 18:05:01 Care After Vaginal Delivery Care After Vaginal Delivery This sheet gives you information about how to care for yourself from the time you deliver your babyto up to 6 12 weeks after delivery ( period). Your health care provider may also give youmore specific instructions. If you have problems or questions, contact your health care provider. Follow these instructions at home: Vaginal bleeding It is normal to have vaginal bleeding (lochia) after delivery. Wear a sanitary pad for vaginal bleeding and discharge. ?During the first week after delivery, the amount and appearance of lochia is often similar to a menstrual period. ?Over the next few weeks, it will gradually decrease to a dry, yellow-brown discharge. ?For most women, lochia stops completely by 4 6 weeks after delivery. Vaginal bleeding can vary from woman to woman. Change your sanitary pads frequently. Watch for any changes in your flow, such as: ?A sudden increase in volume. ?A change in color. ?Large blood clots. If you pass a blood clot from your vagina, save it and call your health care provider to discuss. Do not flush blood clots down the toilet before talking with your health care provider. Do not use tampons or douches until your health care provider says this is safe. If you are not , your period should return 6 8 weeks after delivery. If you are feeding your child breast milk only (exclusive ), your period may not return until you stop . Perineal care Keep the area between the vagina and the anus (perineum) clean and dry as told by your health care provider. Use medicated pads and pain-relieving sprays and creams as directed. If you had a cut in the perineum (episiotomy) or a tear in the vagina, check the area for signs of infection until you are healed. Check for: ?More redness, swelling, or pain. ?Fluid or blood coming from the cut or tear. ?Warmth. ?Pus or a bad smell. You may be given a squirt bottle to use instead of wiping to clean the perineum area after you go to the bathroom. As you start healing, you may use the squirt bottle before wiping yourself. Make sure to wipe gently. To relieve pain caused by an episiotomy, a tear in the vagina, or swollen veins in the anus (hemorrhoids), try taking a warm sitz bath 2 3 times a day. A sitz bath is a warm water bath that is taken while you are sitting down. The water should only come up to your hips and should cover your buttocks. Breast care Within the first few days after delivery, your breasts may feel heavy, full, and uncomfortable (breast engorgement). Milk may also leak from your breasts. Your health care provider can suggest ways to help relieve the discomfort. Breast engorgement should go away within a few days. If you are : ?Wear a bra that supports your breasts and fits you well. ?Keep your nipples clean and dry. Apply creams and ointments as told by your health care provider. ?You may need to use breast pads to absorb milk that leaks from your breasts. ?You may have uterine contractions every time you breastfeed for up to several weeks after delivery. Uterine contractions help your uterus return to its normal size. ?If you have any problems with , work with your health care provider or incident response consultant. If you are not : ?Avoid touching your breasts a lot. Doing this can make your breasts produce more milk. ?Wear a good-fitting bra and use cold packs to help with swelling. ?Do not squeeze out (express) milk. This causes you to make more milk. Intimacy and sexuality Ask your health care provider when you can engage in sexual activity. This may depend on: ?Your risk of infection. ?How fast you are healing. ?Your comfort and desire to engage in sexual activity. You are able to get after delivery, even if you have not had your period. If desired, talkwith your health care provider about methods of control (contraception). Medicines Take dand-zos-ouwjtfg and prescription medicines only as told by your health care provider. If you were prescribed an antibiotic medicine, take it as told by your health care provider. Do notstop taking the antibiotic even if you start to feel better. Activity Gradually return to your normal activities as told by your health care provider. Ask your health care provider what activities are safe for you. Rest as much as possible. Try to rest or take a nap while your baby is sleeping. Eating and drinking Drink enough fluid to keep your urine pale yellow. Eat high-fiber foods every day. These may help prevent or relieve constipation. High-fiber foods include: ?Whole grain cereals and breads. ?Brown rice. ?Beans. ?Fresh fruits and vegetables. Do not try to lose weight quickly by cutting back on calories. Take your vitamins until your checkup or until your health care provider tells you it is okay to stop. Lifestyle Do not use any products that contain nicotine or tobacco, such as cigarettes and e-cigarettes. If you need help quitting, ask your health care provider. Do not drink alcohol, especially if you are . General instructions Keep all follow-up visits for you and your baby as told by your health care provider. Most women visit their health care provider for a checkup within the first 3 6 weeks after delivery. Contact a health care provider if: You feel unable to cope with the changes that your child brings to your life, and these feelings donot go away. You feel unusually sad or worried. Your breasts become red, painful, or hard. You have a fever. You have trouble holding urine or keeping urine from leaking. You have little or no interest in activities you used to enjoy. You have not breastfed at all and you have not had a menstrual period for 12 weeks after delivery. You have stopped and you have not had a menstrual period for 12 weeks after you stopped . You have questions about caring for yourself or your baby. You pass a blood clot from your vagina. Get help right away if: You have chest pain. You have difficulty breathing. You have sudden, severe leg pain. You have severe pain or cramping in your lower abdomen. You bleed from your vagina so much that you fill more than one sanitary pad in one hour. Bleeding should not be heavier than your heaviest period. You develop a severe headache. You faint. You have blurred vision or spots in your vision. You have bad-smelling vaginal discharge. You have thoughts about hurting yourself or your baby. If you ever feel like you may hurt yourself or others, or have thoughts about taking your own life,get help right away. You can go to the nearest emergency department or call: Your local emergency services (911 in the [place] A suicide crisis helpline, such as the National Suicide Prevention Lifeline at . Thisis open 24 hours a day. Summary The period of time right after you deliver your up to 6 12 weeks after delivery is called the period. Gradually return to your normal activities as told by your health care provider. Keep all follow-up visits for you and your baby as told by your health care provider. This information is not intended to replace advice given to you by your health care provider. Make sure you discuss any questions you have with your health care provider. Document Released: 02/13/2008 Document Revised: 04/21/2018 Document Reviewed: 01/30/2018 [employer] Patient Education 2020 [employer]. 06/20/2024 18:04:59 benefits both mom and baby It contains both antibodies that help protect your baby against viruses and bacteria that you have been exposed to or been vaccinated against and nutrition for your baby. This is especially importantin the first 6 months when your baby is unable to receive most vaccinations as their immune system is immature. Even for the first two weeks of babies like helps babies get this important antibody rich breast milk called colostrum. Breast milk composition changes according to babys needs. Babies who are exclusively breastfed for the first 6 months of life have: 50% less ear infections 70% less risk of diarrheal illnesses 70% less risk of hospitalization with serious respiratory illness 60% reduction in gut damage seen in infants called necrotizing enterocolitis 50% less risk of SIDS ie, sudden syndrome 30% reduced risk of allergies, eczema 50% reduction of celiac disease 30% reduction of IBS 30% reduced risk of type I diabetes 40% reduced risk of type II diabetes 20% risk reduction of childhood leukemia 30% risk reduction of childhood obesity Breastfed babies have higher intelligence scores and are less likely to develop behavioral problemsas the grow. The [place] [employer] and World Health Organization recommend exclusively the first 12-24 months before transitioning to alternative milk. benefits mom too. helps with weight loss and getting back to pre- weight. helps with blood loss after delivery. depression affects 15% of mothers, mothers tend to luke better with their babies and are less likely to be affected by pp depression. also decreases your future risk of breast and ovarian cancer by about 30%. It also decreases the risk of type II diabetes Some women may not ovulate or menstruate while , especially if you breastfeed every 3 to 4 hours. This is a natural form of birthcontrol for some women. is cheap! The average cost of formula for one year is about $2,000. Who cant breastfeed? Mothers with HIV, active tuberculosis, HTLV, herpes outbreaks on the breast. Mothers suffering from active drug or alcohol addiction. Mothers on certain medications like radioactive iodine, sedatives, certain seizure medications, certain cold medications like those containing pseudoephedrine or those undergoing active chemotherapy treatment. Mothers with Hepatitis B or C with active viral loads and bleeding or cracked nipples. Mothers of babies with galactosemia or phenylketonuria or maple syrup urine disease. Mothers with inverted nipples or babies with cleft lips or palates may have difficulties with , but most may still be able to breastfeed with certain adaptations or with pumping. Patient with prior breast surgery, breast implants or reductions, or breast radiation or those withinsufficient glandular tissue may struggle with low milk supply. If you struggle with low milk supply, be sure you are staying well hydrated. Breastfeed or pump more often, at least every 3-4 hours. You may want to try some OTC supplements like fenugreek. Some women notice healthy diet changes like eating plain oatmeal help. Handling and Storage of breastmilk: Room temperautre (up to 77F) up to 4 hours Refridgerator (below 40F) up to 4 days Freezer (0F) up to 6 months Deep freezer (-4F) up to 12 months Thawed breast milk in the fridge: use within 24 hours How do I breastfeed? During the few weeks of life baby will breastfeed A LOT! It is normal for them to clusterfeed frequently to help increase your milk supply. Typically your milk comes in 48-96 hours after . If you havent had milk production by day 5 you should call your doctor and consider seeing alactation sap portal consultant. You should try to put baby to breast every 2 hours in the first weeks of life and offer each breastwith each feed. Babies will typically have 8 to 12 feeds in the first few weeks. A typical nursing schedule for baby in the first weeks is 20-30 minutes every 2- 3 hours. Some babies will drink every 1.5 hours and some will space out to every 3 or 4 hour. Breastfed babies, unlike formula fed babies do not increase the amount of milk they drink as they age as your milk changes with them. They drink about 1-1.5 oz of breast milk per hour or 4-5 oz every3-4 hours. How do I know my baby is getting enough? Many women worry that their baby isnt getting enough, when in reality most women are producting enough. If you are concerned you should discuss with your avionics manager. It is normal for breastfed babies to lose up to 10% of their weight while your milk comes in. Your baby should be back to their weight by 2 weeks of age. Babies typically gain 20-30 grams a day or 4-7 ounces a week for the first 4-6 months. If baby is having normal weight gain and having 6-8 wet diapers a day, there is little concern for low production. If you worried about babys milk transfer you may do a weighted feed with a avionics manager, your obgynor your incident response consultant. What are signs my baby isnt getting enough? If you baby never settles in between feeds, has low urine output or poor weight gain they may need supplementation. It is perfectly normal and okay to need to supplement with formula. Even some breast milk is beneficial for you and baby. However, may not work well for everyone- if it is causing you significant stress it may be time to switch to some or all formula. What are some reasons for low milk supply? Poor infant latch can cause difficulty with maintaining supply. If you are having continued nipple pain with feeding or concerns about supply you should be evaluated by a incident response consultant. Your baby isnt feeding enough. In the first few weeks baby should 8-12 times in 24 hours. You have inadequate breast tissue or have had a prior breast surgery. Your breast tissue develops with each , so even if you were unable to exclusively breastfeed with one , you maybe able to in the future. You have a medical condition or take medications that decrease milk supply: retained placenta, abnromal hormone levels can prevent breast milk production. This is rare. You should avoid decongestantsduring as this is commonly used to suppress . I have low supply, what can help? is supply and demand so keep offering breast to baby as much as possible. Supplement only after offereing breast (if needed). Increasing hydration: especially water. Coconut water or coconut milk may be helpful for some women. Adequate nutrition. Some people notice a decrease in supply with any calorie cutting. Be sure to have a well balanced diet. Supplements: there is limited data on supplements in but some women may have increases with brewers yeast, goats rue, milk thistle, fenugreek (although some women notice a decrease as well) garlic, moringam, fennel. Studies have shown little to no increase with these supplements. Prescription medications: metoclopramide and domperidone have been used to induce in those with low prolactin. Domperidone is not currently available in the [place]. There is a risk of increased QT intervals and sudden cardiac with domperidone in women > 60 yo or with pre-existing heart conditions. Tardive dyskinesia or abnormal muscle movements have not been seen with doses used for (30-60 mgper day) side effects like dry mouth, cramping, headache may occur. Metoclopramide is avaiilable in the [place] but has highger rates of depression and tardive dyskinesia as well as cardiac effects. When do I start pumping? Unless you are from your baby or are having difficulty with milk supply, we do not recommend pumping in the first 3 weeks for most mothers as this can lead to an over supply of milk and increased risk of mastitis. If you are from your baby at all you should pump any time baby would feed. After 3 weeks when you milk is more established you may pump after every feed. Typically you will only get 0.25 to 1 oz total after baby has fed. You can save this milk up to feed later or freeze forwhen you are from baby or if you are going back to work. In the first few weeks you may use a passive advanced manufacturing consultant like a haaka on the opposite side you are feeding on if you are having leakage during feeding and save this as well. Most people will need to pump for 10-20 minutes, but if you are replacing a feed you can stop pumping after milk stops flowing. If you are trying to increase milk supply you may try power pumping 1-2 times per day for a total of 40 minutes. (10 minute pump, 10 minute rest, 20 minute pump, 20 minute resut, 10 minute pump etc_as this simulates how baby cluster feeds. Helpful products for : lanolin or similar nipple butter- apply to nipples after every feed to prevent nipple chaffing. Youdo not need to wipe these off before your next feed. Breast warmers may help in the early weeks with any discomfort or help with let down, hot showers can also be helpful for discomfort. Vigorous breast massage should be avoided as this can cause tissue damage and worsen pain and clogged ducts. Gentle lymphatic massage can be used to help loosen any clogged ducts. Silverettes- silver nipple covers placed in between feeding can help with pain and discomfort Breastpads- available in disposable and non disposable options these can help with unintentional let down and leakage. Most women do not need to use these tank terminal gauger but find them helpful in the firstfew weeks. Follow Up Care 06/19/2024 04:53:59 With:LIVIA TORRES MD Address: [address] [place] [address] [address] [facility] [place] [address]- [phone] When:Within 2 Week(s) [facility] 02-19-2025 Note Date of Service 06/20/24 1652 29 yo PPD#1 from following IOL for uncontrolled GDMA=, macrosomia. Patient's requires transfer for persistent hypoglycemia. Patient requests discharge in order to not be from . Lochia decreasing normally. Has been up to bathroom x1 without dizziness. Pain controlled w tylenol. Will check stat H/H due to excessive blood loss with delivery. Encourage ambulation, if doing well OK for discharge tonight. Given strict bleeding precautions. 1801 Hgb 7.3, Will give 300 mg IV venofer and reassess post infusion. [facility] Digitally Signed by LIVIA TORRES MD on 06/20/2024 04:56 PM Digitally Signed by LIVIA TORRES MD on 06/20/2024 06:01 PM [facility]02-19-2025 Note Date of Service 06/19/24 1615 Amniotomy for large amount of clear fluid. SCE 480/-2 cat I tracing toco q2 continue pitocin for induction currently at 2 mvU discussed IUPC if needed epidural or nubain prn Digitally Signed by LIVIA TORRES MD on 06/19/2024 04:33 PM [facility]02-19-2025 Note Date of Service 06/19/24 1615 Amniotomy for large amount of clear fluid. SCE 4/80/-2 cat I tracing toco q2 continue pitocin for induction currently at 2 mvU discussed IUPC if needed epidural or nubain prn Digitally Signed by LIVIA TORRES MD on 06/19/2024 04:33 PM [facility]02-18-2025 Note Date of Service 06/19/24 1615 Amniotomy for large amount of clear fluid. SCE /-2 cat I tracing toco q2 continue pitocin for induction currently at 2 U discussed IUPC if needed epidural or nubain prn Digitally Signed by LIVIA TORRES MD on 06/19/2024 04:33 PM [facility]02-18-2025 Anesthesiology Consult note Patient: LIVIA BOYER Age: 29 years Sex: Female : 1995 Associated Diagnoses: None Author: MEGAN BECERRA APRN-GLASS HANDLER Preoperative Information Time of last food or liquid consumption: 06/19/2024 08:00:00 Anesthesia history Patient's history: negative. Family's history: negative. Review of Systems Ear/Nose/Mouth/Throat: Negative except as documented in history of present illness. Respiratory: Negative except as documented in history of present illness. Cardiovascular: Negative except as documented in history of present illness. Gastrointestinal: Negative except as documented in history of present illness. Genitourinary: Negative except as documented in history of present illness. Endocrine: Negative except as documented in history of present illness. Musculoskeletal: Negative except as documented in history of present illness. Integumentary: Negative except as documented in history of present illness. Neurologic: Negative except as documented in history of present illness. Reproductive: Para Scoring , Week's Gestation 38. Health Status Allergies: Allergic Reactions (Selected) Severity Not Documented Adhesive Bandage- Rash. Latex- Redness. Lavender- Hives., Allergies (3) ActiveSeverityReaction LatexRedness Adhesive BandageRash lavenderHives Current medications: (Selected) Inpatient Medications Ordered Bicitra: 30 mL, Oral, AsDirected, PRN: Gastric Upset Brethine: 0.25 mg, 0.25 mL, Subcutaneous, AsDirected, PRN: Control symptoms Brethine: 0.25 mg, 0.25 mL, Subcutaneous, AsDirected, PRN: Control symptoms Brethine: 0.25 mg, 0.25 mL, Subcutaneous, AsDirected, PRN: Other (see order comments) Cytotec 25 mcg VAGINAL tablet: 25 mcg, 1 EA, Vaginal, q4h Cytotec: 1,000 mcg, 5 tab(s), Rectal, Once, PRN: Other (see order comments) LR 1,000 mL: 125 mL/hr, Intravenous LR 500 mL Bolus: 500 mL, IV Bolus, AsDirected, PRN: Other (see order comments) Methergine: 0.2 mg, 1 mL, Intramuscular, Once, PRN: Other (see order comments) Oxytocin for IV (mL/hr) 20 unit(s) + LR Premix Diluent 500 mL: 500 mL/hr, Intravenous Oxytocin for IV (munit/min) 20 unit(s) [2 munit/min] + LR Premix Diluent 500 mL: 3 mL/hr, Intravenous Pfizerpen: 3,000,000 unit(s), 50 mL, 100 mL/hr, IV Piggyback, q4hr Pitocin: 20 unit(s), 2 mL, Intramuscular, Once, PRN: Other (see order comments) Xylocaine HCl 1% injectable solution: 100 mg, 10 mL, Perineum, AsDirected, PRN: to perineal sutures Zofran: 4 mg, 2 mL, IV Push, q4h, PRN: Nausea tranexamic acid 1 g / 100 mL 0.7% NaCl PMX: 1 gram(s), 100 mL, 300 mL/hr, IV Piggyback, AsDirected,PRN: Other (see order comments) Prescriptions Prescribed Alcohol Swabs: See Instructions, Use one alcohol swab to clean the finger QID as directed for bloodsugar checks, 200 EA, 3 Refill(s) Blood Glucose Test Machine: See Instructions, Glucometer. Use to check sugar 4 times per day. Any brand of choice, 1 EA, 0 Refill(s) Blood Glucose Test Strips: See Instructions, glucose test strips. check fasting glucose and 1 hour after each meal., 200 EA, 11 Refill(s) DME MISCellaneous: See Instructions, peak flow meter use weekly and with any signs of asthma exacerbation. If peak expiratory flow less than 80% of baseline should proceed with albuterol treatment. .if unimproved or less than 50% proceed to ER, 1 EA, 0 Refill(s) Lancets: See Instructions, lancets: check glucose 4 times per day, 200 EA, 11 Refill(s) PreNata oral tablet, chewable: 1 tab(s), Chewed, qDay, any chewable or gummy covered, 30 tab(s), 11 Refill(s) Reglan 10 mg oral tablet: 10 mg, 1 tab(s), Oral, TIDAC, PRN: Nausea, 30 tab(s), 2 Refill(s) Spiriva Respimat 1.25 mcg/inh inhalation aerosol: 2 puff(s), Inhalation, qDay, 3 EA, 3 Refill(s) Symbicort 160 mcg-4.5 mcg/inh Inhaler: 2 puff(s), Inhalation, BID, inhale 2 puffs by mouth twice a day Rinse mouth after use, 1 EA, 11 Refill(s) Ventolin HFA MDI (90 mcg/inh) inhalation aerosol: 2 puff(s), Inhalation, q6hr, PRN: as needed for wheezing, 3 EA, 1 Refill(s) Ventolin HFA MDI (90 mcg/inh) inhalation aerosol: 2 puff(s), Inhalation, q6hr, PRN: as needed for wheezing, 3 EA, 1 Refill(s) ascorbic acid 250 mg oral tablet: 250 mg, 1 tab(s), Oral, qDay, take w iron to enhance absorption, 90 tab(s), 0 Refill(s) ferrous sulfate 325 mg (65 mg elemental iron) oral tablet: 325 mg, 1 tab(s), Oral, qDay, 100 tab(s), 0 Refill(s), Medications (16) Active Scheduled: (2) misoprostol 25 mcg tablet (1/4 of 100 mcg tab) 25 mcg 1 EA, Vaginal, q4h penicillin G potassium 3,000,000 unit(s) 50 mL, IV Piggyback, q4hr Continuous: (3) Lactated Ringers 1,000 mL 1,000 mL, Intravenous, 125 mL/hr oxytocin 20 unit(s) + LR Premix Diluent 500 mL 500 mL, Intravenous, 500 mL/hr oxytocin 20 unit(s) [2 munit/min] + LR Premix Diluent 500 mL 500 mL, Intravenous, 3 mL/hr PRN: (11) citric acid-sodium citrate 334 mg-500 mg/5 mL (30 mL) Giana UD 30 mL, Oral, AsDirected Lactated Ringers Injection 500 mL * Bolus * 500 mL, IV Bolus, AsDirected lidocaine 1% preservative-free Soln 30 mL 100 mg 10 mL, Perineum, AsDirected methylergonovine 0.2 mg/mL (1 mL) ampule 0.2 mg 1 mL, Intramuscular, Once misoprostol 200 mcg tablet 1,000 mcg 5 tab(s), Rectal, Once ondansetron 2 mg/ 1 mL 2 mL INJ 4 mg 2 mL, IV Push, q4h oxytocin 10 units/mL 1 mL vial 20 unit(s) 2 mL, Intramuscular, Once terbutaline 1 mg/ml vial 0.25 mg 0.25 mL, Subcutaneous, AsDirected terbutaline 1 mg/ml vial 0.25 mg 0.25 mL, Subcutaneous, AsDirected terbutaline 1 mg/ml vial 0.25 mg 0.25 mL, Subcutaneous, AsDirected tranexamic acid PMX 1 gram(s) 100 mL, IV Piggyback, AsDirected Problem list: Medical Allergic rhinitis / SNOMED CT 155501027 / Confirmed 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 / SNOMED CT 7422547945 / Confirmed Derangement of unspecified meniscus due to old tear or injury, right knee / SNOMED CT 9884659825 / Confirmed Dysphagia / SNOMED CT 18089785 / Confirmed Family hx of colon cancer / SNOMED CT 549260581 / Confirmed Group B streptococcus / SNOMED CT 401461016 / Confirmed Anxiety and depression / SNOMED CT 429250963 / Confirmed / SNOMED CT 229088272 / Confirmed Severe persistent asthma / SNOMED CT 5261707837 / Confirmed Viral URI / SNOMED CT 441158993 / Confirmed Vision loss / SNOMED CT 7208800727 / Confirmed Vitamin D deficiency / SNOMED CT 68507528 / Confirmed Resolved: Acute asthma exacerbation / SNOMED CT 1590972405 Resolved: Ovarian cyst / SNOMED CT 629128494 Canceled: Asthma with acute exacerbation / SNOMED CT 5286092617 Canceled: Fatigue / SNOMED CT 515505583 Canceled: Fatigue / SNOMED CT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 Tuesday between 8a.m. and 4:30p.m. Please follow the directions below to access the portal: 1.Access the email account you provided upon registration to the [facility].2.Look for an invitation email from [facility].3.Open the email and access the invitation link: Accept Invitation to [facility] [employer]4.Fill in the required drew to create your account. Sign into [email or web address] with your username and password that you created in the above steps to stay up to date. You can then view a summary of results, a summary of your visits, and the ability to download your summaries to your computer or send the information securely to a physician. Remember that your healthcare information is confidential, so carefully consider who you will allow to register on the [facility] Patient Portal for access to your information. You can also access the [facility] Patient Portal on the [employer] azeem. Simply click on Health Records under HealthData and then click on the [employer] logo. HOW TO SAFELY DISPOSE OF PRESCRIPTION MEDICATIONS Please use one of the following methods to safely dispose of your unused medications. 1.Use a drug disposal kit: the drug disposal pouch allows you to safely discard your old and unuseddrugs. Ask your nurse to give you one when you are discharged.2.Visit a local take-back location: Many local pharmacies and police departments have programs that collect old and unwanted prescriptiondrugs. Call your local pharmacy or go to http://bit.digedu/6C0Um2k to find one close to you.3.Make use of household items: Use cat litter or old coffee grounds to dispose medications if other options arenot available. Mix your drugs with these household products, seal them in an airtight container andthrow it into the garbage. Call [facility]: [phone] to be sure your drugs can be disposed of in this way. Some medicines may require a different approach.4.Never flush your medications down the toilet. IF YOU HAVE BEEN PRESCRIBED AN OPIOIDS FOR PAIN If you have been prescribed an opioid (such as hydrocodone, oxycodone or morphine), it is critical to understand the possible side effects and risks of opioid pain medications. Even when taken as directed, opioids can have several side effects including: Tolerance, meaning you might need to take more of a medication for the same pain relief. Nausea, vomiting and/or constipation. Sleepiness, dizziness, dry mouth, confusion, depression or itching. Physical dependence, meaning you have withdrawal symptoms when a medication is stopped ? this can develop within a few days. KNOW YOUR RESPONSIBILITIES It is important to know exactly how much and how often to take the opioid pain medications you are prescribed. Never take opioids in higher amounts or more often than prescribed. Do not combine opioids with alcohol or other drugs that cause drowsiness, such as benzodiazepines, also known as benzos,including diazepam and alprazolam, muscle relaxants or sleep aids. Never sell or share prescriptionopioids. This is illegal. Store opioids in a secure place and out of reach of others (including children, family, friends and visitors). The last page(s) of this document has been signed and retained as a CHART COPY Signatures Patient Education Materials Hyperemesis Gravidarum Medication Leaflets ondansetron (oral) My discharge plan and instructions have been reviewed and explained to me and ISERVANDO SAMANTHA M understand my current condition and have read and understand these discharge instructions. I have received a written copy of the plan/instructions. If I have questions, I am aware that I should contactmy doctor. 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 MICRO - Microbiology PROCEDURE: Urine Culture [*1] SOURCE: Urine, Clean Catch BODY SITE: COLLECTED DATE/TIME: 10/26/2023 14:02 EDT RECEIVED DATE/TIME: 10/26/2023 20:01 EDT START DATE/TIME: 10/26/2023 20:01 EDT FREE TEXT SOURCE: FINAL REPORTS Final Report [] Verified Date/Time/Personnel: 10/28/2023 07:29 EDT 10,000 - 50,000 cfu/ml Mixed growth consistent with normal urogenital manjula. PRELIMINARY REPORTS Preliminary Report [] Verified Date/Time/Personnel: 10/27/2023 08:57 EDT No growth to date Performing Locations *1: This test was performed at: [facility], [address] [place] [address], [facility] , [facility] ([place])10-05-2023 Evaluation + Plan note Diagnostic Tests Pending * Mumps Antibody 10/05/23 * Rubeola IgG Antibody 10/05/23 [facility] 05-26-2024 NoteHNO ID: [id number] Author: RITA CARABALLO APRN.[employer] Service: ? Author Type: Nurse Practitioner Type: Progress Notes Filed: 09/25/2023 09:57 Note Text: This note was created using NoteWriter. Subjective Livia Boyer is a 28 year old female. HPI Pt complains of two days of sore throat. Her has the same symptoms., Review of Systems Constitutional: Negative for fatigue and fever. HENT: Positive for congestion and postnasal drip. Negative for sore throat. Objective BP 120/79 Pulse 73 Temp 36.6 ?C (97.8 ?F) Resp 18 Wt 74.1 kg (163 lb 5.8 oz) SpO2 99% Physical Exam Vitals and nursing note reviewed. Constitutional: General: She is not in acute distress. Appearance: Normal appearance. She is not ill-appearing. HENT: Head: Normocephalic. Mouth/Throat: Mouth: Mucous membranes are moist. Pharynx: Posterior oropharyngeal erythema present. No oropharyngeal exudate. Eyes: Conjunctiva/sclera: Conjunctivae normal. Cardiovascular: Rate and Rhythm: Normal rate and regular rhythm. Pulmonary: Effort: Pulmonary effort is normal. Breath sounds: Normal breath sounds. Musculoskeletal: General: Normal range of motion. Cervical back: Normal range of motion. Skin: General: Skin is warm and dry. Neurological: General: No focal deficit present. Mental Status: She is alert. Psychiatric: Mood and Affect: Mood normal. Behavior: Behavior normal. Assessment and Plan ASSESSMENT/PLAN: 1. Sore throat - ICD9: 462, ICD10: J02.9 - suspect viral - Rapid Strep negative in the office today - Discussed supportive care treatment with fluids, rest and analgesia. - The patient should follow up in one week if symptoms persist or worsen - Call back if drooling, increased temperature, symptoms of dehydration and/or still sick in one week Rita Caraballo APRN.[facility]05-26-2024 History of Present illness Narrative* Rita Caraballo APRN.[facility] - 09/25/2023 9:41 AM EDT This note was created using Withings. Subjective Livia Boyer is a 28 year old female. HPI Pt complains of two days of sore throat. Her has the same symptoms., Review of Systems Constitutional: Negative for fatigue and fever. HENT: Positive for congestion and postnasal drip. Negative for sore throat. Objective BP 120/79 Pulse 73 Temp 36.6 C (97.8 F) Resp 18 Wt 74.1 kg (163 lb 5.8 oz) SpO2 99% Physical Exam Vitals and nursing note reviewed. Constitutional: General: She is not in acute distress. Appearance: Normal appearance. She is not ill-appearing. HENT: Head: Normocephalic. Mouth/Throat: Mouth: Mucous membranes are moist. Pharynx: Posterior oropharyngeal erythema present. No oropharyngeal exudate. Eyes: Conjunctiva/sclera: Conjunctivae normal. Cardiovascular: Rate and Rhythm: Normal rate and regular rhythm. Pulmonary: Effort: Pulmonary effort is normal. Breath sounds: Normal breath sounds. Musculoskeletal: General: Normal range of motion. Cervical back: Normal range of motion. Skin: General: Skin is warm and dry. Neurological: General: No focal deficit present. Mental Status: She is alert. Psychiatric: Mood and Affect: Mood normal. Behavior: Behavior normal. Assessment and Plan ASSESSMENT/PLAN: 1. Sore throat - ICD9: 462, ICD10: J02.9 - suspect viral - Rapid Strep negative in the office today - Discussed supportive care treatment with fluids, rest and analgesia. - The patient should follow up in one week if symptoms persist or worsen - Call back if drooling, increased temperature, symptoms of dehydration and/or still sick in one week Rita Caraballo APRN.MOLD STRIPPER [facility] ORIGINAL Images acquired, not reported on this accession number.[facility] 07-22-2023 Note ORIGINAL HISTORY: Acute vision loss COMPARISON: Head CT 29 June 2023 TECHNIQUE: 1. Axial and sagittal T1-weighted images. 2. Axial T2-weighted images. 3. Axial FLAIR images. 4. Axial diffusion-weighted images with ADC map. 5. Axial T2-weighted images with thin cuts through the orbits. 6. Coronal T2-weighted images of the orbits with fat saturation. 7. Coronal T1-weighted images of the orbits. 8. Axial and coronal T1-weighted images of the orbits with fat saturation following uncomplicated administration of intravenous gadolinium contrast. 9. Axial, coronal and sagittal T1-weighted images following uncomplicated administration of intravenous gadolinium contrast. FINDINGS: The ventricles and sulci are normal in size and configuration. 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 Nye-white matter differentiation is maintained. There is no abnormal restriction of diffusion. There is no abnormal enhancement of the brain or its coverings. The globes are normal in appearance and symmetric. The optic nerves as well as the extraocular muscles are normal in course and caliber. The intra and extraconal fat is unremarkable. There is mild sinus disease. 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 This is likely of no significance, but a 12 month follow-up is suggested to ensure stability. Otherwise unremarkable examination of the brain and orbits. Sinus disease. Interpreted by: Isaiah Carrizales MD Preliminary Report By: Isaiah Carrizales MD Electronically signed By Isaiah Carrizales MD Dictated Date: 07/22/2023 11:42:29 AM Prelim Date: 07/22/2023 11:46:51 AM Sign Date: 07/22/2023 11:46:51 AM Ordering Provider: MONI [facility]03-03-2024 Hospital Discharge instructions Patient Education 07/03/2023 18:55:34 Abdominal Pain, Unknown Cause, (Female) Unknown Causes of Abdominal Pain (Female) The exact cause of your belly (abdominal) pain is not clear. This does not mean that this is something to worry about. Everyone likes to know the exact cause of the problem. But sometimes with belly pain, there is no clear-cut cause, and this could be a good thing. The good news is that your symptoms can be treated, and you will feel better. Your condition does not seem serious now. But sometimes the signs of a serious problem may take more time to appear. For this reason, it is important for you to watch for any new symptoms, problems, or worsening of your condition. Over the next few days, the abdominal pain may come and go. Or it may be constant. Other common symptoms can include nausea and vomiting. Sometimes it can be difficult to tell if you feel nauseous. You may just feel bad and not connect that feeling to nausea. Constipation, diarrhea, and a fever maygo along with the pain. The pain may continue even if treated correctly over the following days. Depending on how things go, sometimes the cause can become clear and may need more or different treatment. Additional evaluations, medicines, or tests may also be needed. Home care Your healthcare provider may prescribe medicine for pain, symptoms, or an infection. Follow the healthcare provider's instructions for taking these medicines. General care Rest as much as you can until your next exam. No strenuous activities. Try to find positions that ease discomfort. A small pillow placed on the abdomen may help relieve pain. Something warm on your abdomen (such as a heating pad) may help, but be careful not to burn yourself. Diet Don t force yourself to eat, especially if having cramps, vomiting, or diarrhea. Water is important so you don't get dehydrated. Soup may also be good. Sports drinks may also help,especially if they are not too acidic. Don't drink sugary drinks as this can make things worse. Take liquids in small amounts. Don t guzzle them. Caffeine sometimes makes the pain and cramping worse. Don t take dairy products if you have vomiting or diarrhea. Don't eat large amounts at a time. Wait a few minutes between bites. Eat a diet low in fiber (called a low-residue diet). Foods allowed include refined breads, white rice, fruit and vegetable juices without pulp, tender meats. These foods will pass more easily throughthe intestine. Don t have whole-grain foods, whole fruits and vegetables, meats, seeds and nuts, fried or fatty foods, dairy, alcohol and spicy foods until your symptoms go away. Follow-up care Follow up with your healthcare provider, or as advised, if your pain does not begin to improve in the next 24 hours. Call 911 Call 911 if any of these occur: Trouble breathing Confusion Fainting or loss of consciousness Rapid heart rate Seizure When to seek medical advice Call your healthcare provider right away if any of these occur: Pain gets worse or moves to the right lower abdomen New or worsening vomiting or diarrhea Swelling of the abdomen Unable to pass stool for more than 3 days Fever of 100.4 F (38 C) or higher, or as directed by your healthcare provider. Blood in vomit or bowel movements (dark red or black color) Yellow color of eyes and skin (jaundice) Weakness, dizziness Chest, arm, back, neck, or jaw pain Unexpected vaginal bleeding or missed period Can't keep down liquids or water and you are getting dehydrated [id number] [employer]. [address] [place] [address]. All rights reserved. This information is not intended as a substitute for professional medical care. Always follow yourhealthcare professional's instructions. 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 Pedialyte or Gatorade till tomorrow morning and if feeling better can increase back to brat diet then bland foodsRestart ProtonixPrecautions as describedReturn if worse vomiting feverMay use Tylenol avoid NSAIDs and increase fluids and diet for the next week [facility] 03-03-2024 Note Discharge Instructions Thank you for allowing [facility] to assist you with your healthcare needs. The following is importantdischarge information regarding your hospital visit. Diagnosis from Today's Visit Abdominal pain Abdominal pain What to Do Next Instructions from Your Care Team Discharge Return to Work, School, or Sports (Return to Work, School, or Sports) - Ordered -- 07/05/23, May return to: work, 07/03/23 18:56:00 EST Post Acute Orders No qualifying data available. 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 Pedialyte or Gatorade till tomorrow morning and if feeling better can increase back to brat diet then bland foods Restart Protonix Precautions as described Return if worse vomiting fever May use Tylenol avoid NSAIDs and increase fluids and diet for the next week Allergies Adhesive Bandage (Rash) Latex (Redness) lavender (Hives) Medications Please ask your primary doctor or pharmacist before taking any other medication not listed, including over the counter drugs, herbal medications, vitamins and or supplements as they may interact withyour home medications. What How Much When Instructions Last Dose Unchanged albuterol (Ventolin HFA MDI (90 mcg/ inh) inhalation aerosol) 2 puff(s) by inhalation Every 6 hours as needed for as needed for wheezing Unchanged budesonide-formoterol (Symbicort 160 mcg-4.5 mcg/ inh Inhaler) 2 puff(s) by inhalation Two (2) times a day inhale 2 puffs by mouth twice a day Rinse mouth after use Unchanged montelukast (Singulair 10 mg oral tablet) 1 tab(s) by mouth Once a day Unchanged omeprazole (omeprazole 40 mg oral delayed release capsule) 1 cap by mouth Once a day Duration: 14 Days Unchanged ondansetron (Zofran 4 mg oral tablet) 1 tab(s) by mouth Every 6 hours as needed for Nausea/Vomiting Please take this list to your next doctor s visit. Bring all medications you take, including over the counter medications, herbals and other supplements with you to your doctor s visit. Patients and families are reminded to discard old lists and to update any records with all medication providers or retail pharmacies. Education Materials Unknown Causes of Abdominal Pain (Female) The exact cause of your belly (abdominal) pain is not clear. This does not mean that this is something to worry about. Everyone likes to know the exact cause of the problem. But sometimes with belly pain, there is no clear-cut cause, and this could be a good thing. The good news is that your symptoms can be treated, and you will feel better. Your condition does not seem serious now. But sometimes the signs of a serious problem may take more time to appear. For this reason, it is important for you to watch for any new symptoms, problems, or worsening of your condition. Over the next few days, the abdominal pain may come and go. Or it may be constant. Other common symptoms can include nausea and vomiting. Sometimes it can be difficult to tell if you feel nauseous. You may just feel bad and not connect that feeling to nausea. Constipation, diarrhea, and a fever maygo along with the pain. The pain may continue even if treated correctly over the following days. Depending on how things go, sometimes the cause can become clear and may need more or different treatment. Additional evaluations, medicines, or tests may also be needed. Home care Your healthcare provider may prescribe medicine for pain, symptoms, or an infection. Follow the healthcare provider's instructions for taking these medicines. General care Rest as much as you can until your next exam. No strenuous activities. Try to find positions that ease discomfort. A small pillow placed on the abdomen may help relieve pain. Something warm on your abdomen (such as a heating pad) may help, but be careful not to burn yourself. Diet Don t force yourself to eat, especially if having cramps, vomiting, or diarrhea. Water is important so you don't get dehydrated. Soup may also be good. Sports drinks may also help,especially if they are not too acidic. Don't drink sugary drinks as this can make things worse. Take liquids in small amounts. Don t guzzle them. Caffeine sometimes makes the pain and cramping worse. Don t take dairy products if you have vomiting or diarrhea. Don't eat large amounts at a time. Wait a few minutes between bites. Eat a diet low in fiber (called a low-residue diet). Foods allowed include refined breads, white rice, fruit and vegetable juices without pulp, tender meats. These foods will pass more easily throughthe intestine. Don t have whole-grain foods, whole fruits and vegetables, meats, seeds and nuts, fried or fatty foods, dairy, alcohol and spicy foods until your symptoms go away. Follow-up care Follow up with your healthcare provider, or as advised, if your pain does not begin to improve in the next 24 hours. Call 911 Call 911 if any of these occur: Trouble breathing Confusion Fainting or loss of consciousness Rapid heart rate Seizure When to seek medical advice Call your healthcare provider right away if any of these occur: Pain gets worse or moves to the right lower abdomen New or worsening vomiting or diarrhea Swelling of the abdomen Unable to pass stool for more than 3 days Fever of 100.4 F (38 C) or higher, or as directed by your healthcare provider. Blood in vomit or bowel movements (dark red or black color) Yellow color of eyes and skin (jaundice) Weakness, dizziness Chest, arm, back, neck, or jaw pain Unexpected vaginal bleeding or missed period Can't keep down liquids or water and you are getting dehydrated [id number] [employer]. [address] [place] [address], [place] [address]. All rights reserved. This information is not intended as a substitute for professional medical care. Always follow yourhealthcare professional's instructions. Additional Information VACCINATE! IT SAVES LIVES! Members of the community who have not yet received the COVID-19 vaccine and would like to receive it can visit one of [facility] vaccine clinics. There are many vaccine clinic locations within the [facility]. For locations and available times, please visit www.[email or web address].[email or web address]/. It is important to note that some COVID mobile vaccine clinics are held outdoors and may be canceled in rainy or stormy conditions. To learn more about pediatric vaccinations (ages 5-11), we invite you to visit the [facility] webpage. [email or web address]/pages/[email or web address]-Uxaip-[email or web address]-[email or web address] [email or web address] learn more about the COVID-19 vaccine, we invite you to visit the CDC website for a list of frequently asked questions. https://www.cdc.gov/coronavirus/2019-ncov/vaccines/faq.html [facility] Patient Portal Access Instructions: Stay connected with your healthcare team and access your personal medical information anytime with the [facility] Patient Portal. If you would like a full copy of your medical records please contact the [facility] Medical Records Department Tuesday through Tuesday between 8a.m. and 4:30p.m. Please follow the directions below to access the portal: 1.Access the email account you provided upon registration to the hospital.2.Look for an invitation email from [facility].3.Open the email and access the invitation link: Accept Invitation to [facility]4.Fill in the required drew to create your account. Sign into [email or web address] with your username and password that you created in the above steps to stay up to date. You can then view a summary of results, a summary of your visits, and the ability to download your summaries to your computer or send the information securely to a physician. Remember that your healthcare information is confidential, so carefully consider who you will allow to register on the [facility] Patient Portal for access to your information. You can also access the [facility] Patient Portal on the [employer] azeem. Simply click on Health Records under [employer] and then click on the [employer] logo. HOW TO SAFELY DISPOSE OF PRESCRIPTION MEDICATIONS Please use one of the following methods to safely dispose of your unused medications. 1.Use a drug disposal kit: the drug disposal pouch allows you to safely discard your old and unuseddrugs. Ask your nurse to give you one when you are discharged.2.Visit a local take-back location: Many local pharmacies and police departments have programs that collect old and unwanted prescriptiondrugs. Call your local pharmacy or go to http://bit.digedu/5T0Az2n to find one close to you.3.Make use of household items: Use cat litter or old coffee grounds to dispose medications if other options arenot available. Mix your drugs with these household products, seal them in an airtight container andthrow it into the garbage. Call [facility]: [phone] to be sure your drugs can be disposed of in this way. Some medicines may require a different approach.4.Never flush your medications down the toilet. IF YOU HAVE BEEN PRESCRIBED AN OPIOIDS FOR PAIN If you have been prescribed an opioid (such as hydrocodone, oxycodone or morphine), it is critical to understand the possible side effects and risks of opioid pain medications. Even when taken as directed, opioids can have several side effects including: Tolerance, meaning you might need to take more of a medication for the same pain relief. Nausea, vomiting and/or constipation. Sleepiness, dizziness, dry mouth, confusion, depression or itching. Physical dependence, meaning you have withdrawal symptoms when a medication is stopped ? this can develop within a few days. KNOW YOUR RESPONSIBILITIES It is important to know exactly how much and how often to take the opioid pain medications you are prescribed. Never take opioids in higher amounts or more often than prescribed. Do not combine opioids with alcohol or other drugs that cause drowsiness, such as benzodiazepines, also known as benzos,including diazepam and alprazolam, muscle relaxants or sleep aids. Never sell or share prescriptionopioids. This is illegal. Store opioids in a secure place and out of reach of others (including children, family, friends and visitors). The last page(s) of this document has been signed and retained as a CHART COPY Signatures Patient Education Materials Abdominal Pain, Unknown Cause, (Female) Medication Leaflets My discharge plan and instructions have been reviewed and explained to me and ISERVANDO SAMANTHA M understand my current condition and have read and understand these discharge instructions. I have received a written copy of the plan/instructions. If I have questions, I am aware that I should contactmy doctor. 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 Multiplanar reformatted images are provided for review. MIP images are provided for review. Automated exposure control, iterative reconstruction, and/or weight based adjustment of the mA/kV was utilized to reduce the radiation dose to as low as reasonably achievable. COMPARISON: None HISTORY: ORDERING SYSTEM PROVIDED HISTORY: Reason for Exam: elevated dimer. tachycardia FINDINGS: The contrast bolus is adequate for the evaluation of the lobar and segmental pulmonary arterial branches. No filling defect is seen to suggest acute pulmonary embolism. Hazy hyperdensity within the anterior superior mediastinum; this is favored to represent residual thymic tissue, possibly thymic hyperplasia. Normal heart size. No pericardial effusion or pericardial thickening. Nonaneurysmal thoracic aorta. Main pulmonary artery is normal caliber. The trachea and mainstem bronchi are patent. Few small peribronchovascular nodular infiltrates about the anterior/inferior/medial right upper lobe. Some adjacent bronchial wall thickening is also seen. Some volume loss about the right middle lobe along the major fissure anteriorly. 6 mm calcified pleural based nodule on the left posteriorly. No pleural effusion or pneumothorax. No pathologically enlarged or aggressive appearing lymph nodes. No acute abnormality within the partially visualized upper abdomen. IMPRESSION: No evidence of pulmonary embolism. Few small peribronchovascular nodular infiltrates, right upper lobe. Adjacent bronchial wall thickening. Findings may be infectious or inflammatory. Consider 6-8 week follow-up study to document resolution. I have personally reviewed the images of this examination and agree with the resident's finding and interpretation. Interpreted by: Jackie Hamm MD Preliminary Report By: Jackie Graham Electronically signed By Jackie Hamm MD Dictated Date: 07/03/2023 5:14:01 PM Prelim Date: 07/03/2023 5:26:07 PM Sign Date: 07/03/2023 5:30:28 PM Ordering Provider: [facility]03-03-2024 Note ORIGINAL EXAMINATION: CT OF THE ABDOMEN AND PELVIS WITH CONTRAST 07/03/2023 4:23 pm TECHNIQUE: CT of the abdomen and pelvis was performed with the administration of intravenous contrast. Multiplanar reformatted images are provided for review. Automated exposure control, iterative reconstruction, and/or weight based adjustment of the mA/kV was utilized to reduce the radiation dose to as low as reasonably achievable. COMPARISON: None. HISTORY: ORDERING SYSTEM PROVIDED HISTORY: Reason for Exam: epigastric pain FINDINGS: No osseous abnormality is evident. Minimal volume loss is noted in the lingula. Liver, spleen, adrenal glands and pancreas are unremarkable. No kidney abnormality seen. No adenopathy, free air or free fluid is evident. There is a 3.6 cm left ovarian cyst. The solid pelvic organs and the urinary bladder are otherwise grossly normal. No GI tract abnormality is visible. The appendix is unremarkable. No other contributory finding seen. IMPRESSION: No acute abnormality identified on this exam. RECOMMENDATIONS: 3.6 cm left ovarian simple-appearing cyst. No follow-up imaging is recommended. Reference: JACR 2019;17(2):248-254 Interpreted by: Jackie Hamm MD Preliminary Report By: Jackie Hamm MD Electronically signed By Jackie Hamm MD Dictated Date: 07/03/2023 4:32:24 PM Prelim Date: 07/03/2023 4:34:26 PM Sign Date: 07/03/2023 4:34:26 PM Ordering Provider: NANDA [facility]03-03-2024 NoteSinus tachycardia SEE DICTATION Electronic Signature: MARCIAL GORDON MD 07/03/2023 16:10:04[facility] 02-28-2024 Note ORIGINAL EXAMINATION: CT OF THE HEAD WITH AND WITHOUT CONTRAST 06/29/2023 1:47 pm TECHNIQUE: CT of the head/brain was performed without and with the administration of intravenous contrast. Multiplanar reformatted images are provided for review. Automated exposure control, iterative reconstruction, and/or weight based adjustment of the mA/kV was utilized to reduce the radiation dose to as low as reasonably achievable. COMPARISON: None. HISTORY: ORDERING SYSTEM PROVIDED HISTORY: Reason for Exam: Loss of vision right eye FINDINGS: BRAIN/VENTRICLES: There is no acute intracranial hemorrhage, mass effect or midline shift. No abnormal extra-axial fluid collection. The nye-white differentiation is maintained without evidence of an acute infarct. There is no evidence of hydrocephalus. No abnormal parenchymal enhancement. Intracranial cerebrovascular structures in hands normally. ORBITS: The visualized portion of the orbits demonstrate no acute abnormality. SINUSES: Mild paranasal mucosal thickening. The mastoid air cells demonstrate no acute abnormality. SOFT TISSUES/SKULL: No acute abnormality of the visualized skull or soft tissues. IMPRESSION: Mild paranasal sinusitis, otherwise unremarkable CT head with and without contrast. If concern for optic neuritis, consider follow-up with MRI brain and orbits with and without contrast. Interpreted by: Lane Duval Preliminary Report By: Lane Duval Electronically signed By Lane Duval Dictated Date: 06/29/2023 3:55:34 PM Prelim Date: 06/29/2023 4:00:36 PM Sign Date: 06/29/2023 4:00:36 PM Ordering Provider: [facility]04-11-2022 Evaluation + Plan note Future Scheduled Tests Laboratory* Vitamin D Level 08/10/21 Radiology* XR Hysterosalpingography 11/14/20 [facility] 12-14-2021 Evaluation + Plan note Future Scheduled Tests Laboratory* Thyroid Stimulating Hormone 04/14/21 * Free T4 04/14/21 * Complete Blood Count 04/14/21 * Vitamin D Level 04/14/21 * Complete Metabolic Panel 04/14/21 Radiology* XR Hysterosalpingography 11/14/20 * MA Mammo Diagnostic Bilateral w/Manuel 05/21/20 [facility] 07-16-2021 Evaluation + Plan note Future Scheduled Tests Radiology* XR Hysterosalpingography 11/14/20 * MA Mammo Diagnostic Bilateral w/Manuel 05/21/20 [facility] Evaluation + Plan note Future Appointments Appointment Date:07/28/2021 08:30:00 AM Scheduled Provider:MAX PERRY Location:[facility] Appointment Type: OV Future Scheduled Tests Laboratory* Vitamin D Level 08/10/21 Radiology* XR Hysterosalpingography 11/14/20 [facility] Evaluation + Plan note Future Appointments Appointment Date:07/05/2023 01:30:00 PM Scheduled Provider: Location:XRAY Appointment Type:XR Swallowing Function Future Scheduled Tests Laboratory* hCG, quantitative(AO) 09/15/22 * Thyroid Stimulating Hormone 09/15/22 * Complete Blood Count 09/15/22 * Complete Metabolic Panel 09/15/22 Radiology* XR Swallowing Function 07/05/23 [facility] Evaluation + Plan note Future Appointments Appointment Date:07/05/2023 01:30:00 PM Scheduled Provider: Location:XRAY Appointment Type:XR Swallowing Function Future Scheduled Tests Laboratory* hCG, quantitative(AO) 09/15/22 * Thyroid Stimulating Hormone 09/15/22 * Complete Blood Count 09/15/22 * Complete Metabolic Panel 09/15/22 Radiology* MRI Brain w/ Contrast 06/29/23 * XR Swallowing Function 07/05/23 [facility] Evaluation + Plan note Future Appointments Appointment Date:08/04/2023 01:15:00 PM Scheduled Provider: Location:XRAY Appointment Type:XR Swallowing Function Future Scheduled Tests Laboratory* hCG, quantitative(AO) 09/15/22 * Thyroid Stimulating Hormone 09/15/22 * Complete Blood Count 09/15/22 * Complete Metabolic Panel 09/15/22 Radiology* XR Swallowing Function 08/04/23 [facility] Evaluation + Plan note Future Appointments Appointment Date:09/20/2023 11:00:00 AM Scheduled Provider:MONI TONY Location:[facility] Appointment Type:[facility] Future Scheduled Tests Laboratory* hCG, quantitative(AO) 09/15/22 * Thyroid Stimulating Hormone 09/15/22 * Complete Blood Count 09/15/22 * Complete Metabolic Panel 09/15/22 [facility] Evaluation + Plan note Future Appointments Appointment Date:11/23/2023 01:00:00 PM Scheduled Provider:LIVIA TORRES MD Location:[facility] Appointment Type:WH OV OB Routine Follow Up Future Scheduled Tests Laboratory* ABO/Rh (Gel) 10/26/23 * Antibody Screen (Gel) 10/26/23 * Hepatitis B Surface Antigen 10/26/23 * Rapid Plasma Reagin Test 10/26/23 * Hepatitis C Antibody IgG 10/26/23 * HIV 1/2 Ab 10/26/23 * MISC Lab Send out (Blood Specimens) 10/26/23 * MISC Lab Send out (Blood Specimens) 10/26/23 [facility] Evaluation + Plan note Future Appointments Appointment Date:12/21/2023 08:30:00 AM Scheduled Provider:LIVIA TORRES MD Location:[facility] Appointment Type:WH OV OB Routine Follow Up Future Scheduled Tests Laboratory* ABO/Rh (Gel) 10/26/23 * Antibody Screen (Gel) 10/26/23 * Hepatitis B Surface Antigen 10/26/23 * Rapid Plasma Reagin Test 10/26/23 * Hepatitis C Antibody IgG 10/26/23 * HIV 1/2 Ab 10/26/23 * MISC Lab Send out (Blood Specimens) 10/26/23 * MISC Lab Send out (Blood Specimens) 10/26/23 [facility] evaluation + Plan note Future Appointments Appointment Date:01/18/2024 04:00:00 PM Scheduled Provider:LIVIA TORRES MD Location:[facility] Appointment Type: OV OB Routine Follow Up Future Scheduled Tests Laboratory* MISC Lab Send out (Blood Specimens) 10/26/23 * MISC Lab Send out (Blood Specimens) 10/26/23 [facility] Evaluation + Plan note Future Appointments Appointment Date:02/22/2024 03:30:00 PM Scheduled Provider:LIVIA TORRES MD Location:[facility] Appointment Type: OV OB Routine Follow Up Future Scheduled Tests Radiology* US OB Limited/Transvaginal 02/15/24 [facility] Evaluation + Plan note Future Appointments Appointment Date:04/11/2024 09:30:00 AM Scheduled Provider:LIVIA TORRES MD Location:[facility] Appointment Type: OV OB Routine Follow Up Diagnostic Tests Pending * Rapid Plasma Reagin Test 04/04/24 Future Scheduled Tests Laboratory* .Glucose Fasting 04/04/24 * .Glucose 1 Hour 04/04/24 * .Glucose 3 Hour 04/04/24 * .Glucose 2 Hour (PGTT) 04/04/24 [facility] Evaluation + Plan note Future Appointments Appointment Date:04/11/2024 03:15:00 PM Scheduled Provider:LIVIA TORRES MD Location:[facility] Appointment Type: OV OB Routine Follow Up [facility] Evaluation + Plan note Future Appointments Appointment Date:05/23/2024 08:45:00 AM Scheduled Provider:LIVIA TORRES MD Location:[facility] Appointment Type: OV OB Routine Follow Up Appointment Date:06/04/2024 11:00:00 AM Scheduled Provider: Location:[facility] Appointment Type:US OB > 14 wks Future Scheduled Tests Radiology* US OB Limited/Transvaginal 05/07/24 * US OB Limited/Transvaginal 06/04/24 * US OB > 14 weeks 05/07/24 * US OB > 14 weeks 06/04/24 [facility] Evaluation + Plan note Future Appointments Appointment Date:06/06/2024 10:00:00 AM Scheduled Provider:LIVIA TORRES MD Location:[facility] Appointment Type: OV OB Routine Follow Up Future Scheduled Tests Radiology* US OB Limited/Transvaginal 05/07/24 * US OB Limited/Transvaginal 06/04/24 * US OB > 14 weeks 05/07/24 [facility] Evaluation note* Diagnosis Sore throat- Primary [facility] Diagnosis Onset Date Resolution Status Admit Date Dysphagia acute December 20, 025 1:52pm Family history of colon canc er in mother acute December 20 1:52pm [facility] Work Phone: Hospital course Narrative No data available for this section [facility] Hospital Discharge instructions No data available for this section [facility] Progress note No data available for this section [facility] Reason for referral (narrative)No reason for referral [facility] Work [facility]: Assessments Diagnosis Fever, unspecified fever cau se - Primary Wheeze Wheezing Sore throat Acute pharyngitis Diagnosis Sinusitis, unspecified chron icity, unspecified location - Primary Cough Diagnosis Left arm pain - Primary Pain in soft tissues of limb Diagnosis Bronchitis - Primary Bronchitis, not specified as acute or chronic Environmental and seasonal a llergies Diagnosis Acute maxillary sinusitis, r ecurrence not specified - Primary Sore throat Acute pharyngitis Diagnosis Bronchitis - Primary Bronchitis, not specified as acute or chronic Cough Mild intermittent asthma wit h acute exacerbation Diagnosis RLQ abdominal pain- Primary Abdominal pain, right lower quadrant Diagnosis Abdominal pain, right lower quadrant Diagnosis Acute mesenteric adenitis- Primary Nonspecific mesenteric lymphadenitis Hemorrhagic ovarian cyst Diagnosis Ruptured ovarian cyst- Primary Other and unspecified ovarian cyst Diagnosis Abdominal pain, right lower quadrant Diagnosis Bronchitis- Primary Bronchitis, not specified as acute or chronic Exacerbation of asthma, unspecified asthma severity, unspecified whether persistent Cough Mild intermittent asthma with acute exacerbation Diagnosis Acute non-recurrent frontal sinusitis- Primary Cough Diagnosis Contusion of right thumb without damage to nail, initial encounter Diagnosis Non-recurrent acute serous otitis media of left ear Acute non-recurrent maxillary sinusitis Diagnosis Hematuria, unspecified type- Primary Summary Purpose Family History No Family History Records Found Relationship Condition Age at Onset Recorded Date/T atul mother Malignant neoplasm Unknown Malignant neoplasm of colon Unknown Inflammatory bowel disease Unknown Epilepsy Unknown father Diabetes mellitus Unknown Advance Directives No Advanced Directives Records FoundDocuments on File Type Date Recorded 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 Advance Directives and Living Will Documents on File Type Date Recorded 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 Advance Directives and Livin g Will 10/09/2018 4:39 PM Documents on File Type Date Recorded 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 Asthma in Adults: Care Instructions Your Care Instructions During an asthma attack, your airways swell and narrow as a reaction to certain things (triggers). This makes it hard to breathe. You may be able to prevent asthma attacks if you avoid the things that set off your asthma symptoms. Keeping your asthma under control and treating symptoms before they get bad can help you avoid severe attacks. If you can control your asthma, you may be able to do all of your normal daily activities. You may also avoid asthma attacks and trips to the hospital. Follow-up care is a jennings part of your treatment and safety. Be sure to make and go to all appointments, and call your doctor if you are having problems. It's also a good idea to know your test resultsand keep a list of the medicines you take. How can you care for yourself at home? Follow your asthma action plan so you can manage your symptoms at home. An asthma action plan will help you prevent and control airway reactions and will tell you what to do during an asthma attack. If you do not have an asthma action plan, work with your doctor to build one. Take your asthma medicine exactly as prescribed. Medicine plays an important role in controlling asthma. Talk to your doctor right away if you have any questions about what to take and how to take it. Use your quick-relief medicine when you have symptoms of an attack. Quick-relief medicine often is an albuterol inhaler. Some people need to use quick-relief medicine before they exercise. Take your controller medicine every day, not just when you have symptoms. Controller medicine is usually an inhaled corticosteroid. The goal is to prevent problems before they occur. Do not use your controller medicine to try to treat an attack that has already started. It does not work fast enoughto help. If your doctor prescribed corticosteroid pills to use during an attack, take them as directed. Theymay take hours to work, but they may shorten the attack and help you breathe better. Keep your quick-relief medicine with you at all times. Talk to your doctor before using other medicines. Some medicines, such as aspirin, can cause asthmaattacks in some people. Check yourself for asthma symptoms to know which step to follow in your action plan. Watch for things like being short of breath, having chest tightness, coughing, and wheezing. Also notice if symptoms wake you up at night or if you get tired quickly when you exercise. If you have a peak flow meter, use it to check how well you are breathing. This can help you predict when an asthma attack is going to occur. Then you can take medicine to prevent the asthma attack or make it less severe. See your doctor regularly. These visits will help you learn more about asthma and what you can do to control it. Your doctor will monitor your treatment to make sure the medicine is helping you. Keep track of your asthma attacks and your treatment. After you have had an attack, write down whattriggered it, what helped end it, and any concerns you have about your asthma action plan. Take your diary when you see your doctor. You can then review your asthma action plan and decide if it is working. Do not smoke or allow others to smoke around you. Avoid smoky places. Smoking makes asthma worse. If you need help quitting, talk to your doctor about stop- smoking programs and medicines. These can increase your chances of quitting for good. Learn what triggers an asthma attack for you, and avoid the triggers when you can. Common triggers include colds, smoke, air pollution, dust, pollen, mold, pets, cockroaches, stress, and cold air. Avoid colds and the flu. Get a pneumococcal vaccine shot. If you have had one before, ask your doctor whether you need a second dose. Get a flu vaccine every fall. If you must be around people with colds or the flu, wash your hands often. When should you call for help? Call 911 anytime you think you may need emergency care. For example, call if: ? You have severe trouble breathing. ?Call your doctor now or seek immediate medical care if: ? Your symptoms do not get better after you have followed your asthma action plan. ? You cough up yellow, dark brown, or bloody mucus (sputum). ?Watch closely for changes in your health, and be sure to contact your doctor if: ? Your coughing and wheezing get worse. ? You need to use quick-relief medicine on more than 2 days a week (unless it is just for exercise). ? You need help figuring out what is triggering your asthma attacks. Where can you learn more? Log into your personal health record on https://[email or web address] and enter P597 in the Education box to learn more about Asthma in Adults: Care Instructions. Current as of: April 06, 2017 Content Version: .[id number] [employer]. Care instructions adapted under license by your healthcare professional. If you have questions about a medical condition or this instruction, always ask your healthcare professional. [employer] disclaims any warranty or liability for your use of this information. in this encounter* Patient Instructions - Yoan Diaz DO - 04/13/2018 11:47 AM EST Formatting of this note may be different from the original. Sinusitis: Care Instructions Your Care Instructions Sinusitis is an infection of the lining of the sinus cavities in your head. Sinusitis often followsa cold. It causes pain and pressure in your head and face. In most cases, sinusitis gets better on its own in 1 to 2 weeks. But some mild symptoms may last for several weeks. Sometimes antibiotics are needed. Follow-up care is a jennings part of your treatment and safety. Be sure to make and go to all appointments, and call your doctor if you are having problems. It's also a good idea to know your test resultsand keep a list of the medicines you take. How can you care for yourself at home? Take an myxo-bnm-tqtcujv pain medicine, such as acetaminophen (Tylenol), ibuprofen (Advil, Motrin),or naproxen (Aleve). Read and follow all instructions on the label. If the doctor prescribed antibiotics, take them as directed. Do not stop taking them just because you feel better. You need to take the full course of antibiotics. Be careful when taking xzvg-nzl-bdmimpo cold or flu medicines and Tylenol at the same time. Many ofthese medicines have acetaminophen, which is Tylenol. Read the labels to make sure that you are nottaking more than the recommended dose. Too much acetaminophen (Tylenol) can be harmful. Breathe warm, moist air from a steamy shower, a hot bath, or a sink filled with hot water. Avoid cold, dry air. Using a humidifier in your home may help. Follow the directions for cleaning the machine. Use saline (saltwater) nasal washes to help keep your nasal passages open and wash out mucus and bacteria. You can buy saline nose drops at a grocery store or drugstore. Or you can make your own at home by adding 1 teaspoon of salt and 1 teaspoon of baking soda to 2 cups of distilled water. If you make your own, fill a bulb syringe with the solution, insert the tip into your nostril, and squeeze gently. Blow your nose. Put a hot, wet towel or a warm gel pack on your face 3 or 4 times a day for 5 to 10 minutes each time. Try a decongestant nasal spray like oxymetazoline (Afrin). Do not use it for more than 3 days in a row. Using it for more than 3 days can make your congestion worse. When should you call for help? Call your doctor now or seek immediate medical care if: ? You have new or worse swelling or redness in your face or around your eyes. ? You have a new or higher fever. ?Watch closely for changes in your health, and be sure to contact your doctor if: ? You have new or worse facial pain. ? The mucus from your nose becomes thicker (like pus) or has new blood in it. ? You are not getting better as expected. Where can you learn more? Log into your personal health record on https://[email or web address].[email or web address] and enter I933 in the Education box to learn more about Sinusitis: Care Instructions. Current as of: September 10, 2016 Content Version: 11.6 6364-8380 [employer]. Care instructions adapted under license by your healthcare professional. If you have questions about a medical condition or this instruction, always ask your healthcare professional. [employer] disclaims any warranty or liability for your use of this information. in this encounter* Patient Instructions* Liana Mccollum, MOLD STRIPPER - 10/09/2018 11:47 AM EDT Abdominal Pain: Care Instructions Your Care Instructions Abdominal pain has many possible causes. Some aren't serious and get better on their own in a few days. Others need more testing and treatment. If your pain continues or gets worse, you need to be rechecked and may need more tests to find out what is wrong. You may need surgery to correct the problem. Don't ignore new symptoms, such as fever, nausea and vomiting, urination problems, pain that gets worse, and dizziness. These may be signs of a more serious problem. Your doctor may have recommended a follow-up visit in the next 8 to 12 hours. If you are not getting better, you may need more tests or treatment. The doctor has checked you carefully, but problems can develop later. If you notice any problems ornew symptoms, get medical treatment right away. Follow-up care is a jennings part of your treatment and safety. Be sure to make and go to all appointments, and call your doctor if you are having problems. It's also a good idea to know your test resultsand keep a list of the medicines you take. How can you care for yourself at home? Rest until you feel better. To prevent dehydration, drink plenty of fluids, enough so that your urine is light yellow or clear like water. Choose water and other caffeine-free clear liquids until you feel better. If you have kidney, heart, or liver disease and have to limit fluids, talk with your doctor before you increase the amount of fluids you drink. If your stomach is upset, eat mild foods, such as rice, dry toast or crackers, bananas, and applesauce. Try eating several small meals instead of two or three large ones. Wait until 48 hours after all symptoms have gone away before you have spicy foods, alcohol, and drinks that contain caffeine. Do not eat foods that are high in fat. Avoid anti-inflammatory medicines such as aspirin, ibuprofen (Advil, Motrin), and naproxen (Aleve).These can cause stomach upset. Talk to your doctor if you take daily aspirin for another health problem. When should you call for help? Call 911 anytime you think you may need emergency care. For example, call if: You passed out (lost consciousness). You pass maroon or very bloody stools. You vomit blood or what looks like coffee grounds. You have new, severe belly pain. Call your doctor now or seek immediate medical care if: Your pain gets worse, especially if it becomes focused in one area of your belly. You have a new or higher fever. Your stools are black and look like tar, or they have streaks of blood. You have unexpected vaginal bleeding. You have symptoms of a urinary tract infection. These may include: ? Pain when you urinate. ? Urinating more often than usual. ? Blood in your urine. You are dizzy or lightheaded, or you feel like you may faint. Watch closely for changes in your health, and be sure to contact your doctor if: You are not getting better after 1 day (24 hours). Where can you learn more? Log into your personal health record on https://[email or web address] and enter E907 in the Education box to learn more about Abdominal Pain: Care Instructions. Current as of: January 22, 2018 Content Version: 12.0 3946-0738 [employer]. Care instructions adapted under license by your healthcare professional. If you have questions about a medical condition or this instruction, always ask your healthcare professional. [employer] disclaims any warranty or liability for your use of this information. documented in this encounter* Patient Instructions* Liana Mccollum CNP - 12/13/2018 9:28 AM EDT Bronchitis: Care Instructions Your Care Instructions Bronchitis is inflammation of the bronchial tubes, which carry air to the lungs. The tubes swell and produce mucus, or phlegm. The mucus and inflamed bronchial tubes make you cough. You may have trouble breathing. Most cases of bronchitis are caused by viruses like those that cause colds. Antibiotics usually do not help and they may be harmful. Bronchitis usually develops rapidly and lasts about 2 to 3 weeks in otherwise healthy people. Follow-up care is a jennings part of your treatment and safety. Be sure to make and go to all appointments, and call your doctor if you are having problems. It's also a good idea to know your test resultsand keep a list of the medicines you take. How can you care for yourself at home? Take all medicines exactly as prescribed. Call your doctor if you think you are having a problem with your medicine. Get some extra rest. Take an pjlx-kaz-cjzztdx pain medicine, such as acetaminophen (Tylenol), ibuprofen (Advil, Motrin),or naproxen (Aleve) to reduce fever and relieve body aches. Read and follow all instructions on thelabel. Do not take two or more pain medicines at the same time unless the doctor told you to. Many pain medicines have acetaminophen, which is Tylenol. Too much acetaminophen (Tylenol) can be harmful. Take an nbjj-pgg-oviffqv cough medicine that contains dextromethorphan to help quiet a dry, hackingcough so that you can sleep. Avoid cough medicines that have more than one active ingredient. Read and follow all instructions on the label. Breathe moist air from a humidifier, hot shower, or sink filled with hot water. The heat and moisture will thin mucus so you can cough it out. Do not smoke. Smoking can make bronchitis worse. If you need help quitting, talk to your doctor about stop-smoking programs and medicines. These can increase your chances of quitting for good. When should you call for help? Call 911 anytime you think you may need emergency care. For example, call if: You have severe trouble breathing. Call your doctor now or seek immediate medical care if: You have new or worse trouble breathing. You cough up dark brown or bloody mucus (sputum). You have a new or higher fever. You have a new rash. Watch closely for changes in your health, and be sure to contact your doctor if: You cough more deeply or more often, especially if you notice more mucus or a change in the color of your mucus. You are not getting better as expected. Where can you learn more? Log into your personal health record on https://E[employer]veet.[email or web address] and enter H333 in the Education box to learn more about Bronchitis: Care Instructions. Current as of: January 04, 2018 Content Version: .[id number] [employer]. Care instructions adapted under license by your healthcare professional. If you have questions about a medical condition or this instruction, always ask your healthcare professional. [employer] disclaims any warranty or liability for your use of this information. Cough: Care Instructions Your Care Instructions A cough is your body's response to something that bothers your throat or airways. Many things can cause a cough. You might cough because of a cold or the flu, bronchitis, or asthma. Smoking, postnasal drip, allergies, and stomach acid that backs up into your throat also can cause coughs. A cough is a symptom, not a disease. Most coughs stop when the cause, such as a cold, goes away. You can take a few steps at home to cough less and feel better. Follow-up care is a jennings part of your treatment and safety. Be sure to make and go to all appointments, and call your doctor if you are having problems. It's also a good idea to know your test resultsand keep a list of the medicines you take. How can you care for yourself at home? Drink lots of water and other fluids. This helps thin the mucus and soothes a dry or sore throat. Honey or lemon juice in hot water or tea may ease a dry cough. Take cough medicine as directed by your doctor. Prop up your head on pillows to help you breathe and ease a dry cough. Try cough drops to soothe a dry or sore throat. Cough drops don't stop a cough. Medicine-flavored cough drops are no better than candy-flavored drops or hard candy. Do not smoke. Avoid secondhand smoke. If you need help quitting, talk to your doctor about stop-smoking programs and medicines. These can increase your chances of quitting for good. When should you call for help? Call 911 anytime you think you may need emergency care. For example, call if: You have severe trouble breathing. Call your doctor now or seek immediate medical care if: You cough up blood. You have new or worse trouble breathing. You have a new or higher fever. You have a new rash. Watch closely for changes in your health, and be sure to contact your doctor if: You cough more deeply or more often, especially if you notice more mucus or a change in the color of your mucus. You have new symptoms, such as a sore throat, an earache, or sinus pain. You do not get better as expected. Where can you learn more? Log into your personal health record on [email or web address] and enter D279 in the Education box to learn more about Cough: Care Instructions. Current as of: January 04, 2018 Content Version: [id number] [employer]. Care instructions adapted under license by your healthcare professional. If you have questions about a medical condition or this instruction, always ask your healthcare professional. [employer] disclaims any warranty or liability for your use of this information. documented in this encounter* Patient Instructions* Liana Mccollum CNP - 01/09/2019 10:26 AM EDT Cough: Care Instructions Your Care Instructions A cough is your body's response to something that bothers your throat or airways. Many things can cause a cough. You might cough because of a cold or the flu, bronchitis, or asthma. Smoking, postnasal drip, allergies, and stomach acid that backs up into your throat also can cause coughs. A cough is a symptom, not a disease. Most coughs stop when the cause, such as a cold, goes away. You can take a few steps at home to cough less and feel better. Follow-up care is a jennings part of your treatment and safety. Be sure to make and go to all appointments, and call your doctor if you are having problems. It's also a good idea to know your test resultsand keep a list of the medicines you take. How can you care for yourself at home? Drink lots of water and other fluids. This helps thin the mucus and soothes a dry or sore throat. Honey or lemon juice in hot water or tea may ease a dry cough. Take cough medicine as directed by your doctor. Prop up your head on pillows to help you breathe and ease a dry cough. Try cough drops to soothe a dry or sore throat. Cough drops don't stop a cough. Medicine-flavored cough drops are no better than candy-flavored drops or hard candy. Do not smoke. Avoid secondhand smoke. If you need help quitting, talk to your doctor about stop-smoking programs and medicines. These can increase your chances of quitting for good. When should you call for help? Call 911 anytime you think you may need emergency care. For example, call if: You have severe trouble breathing. Call your doctor now or seek immediate medical care if: You cough up blood. You have new or worse trouble breathing. You have a new or higher fever. You have a new rash. Watch closely for changes in your health, and be sure to contact your doctor if: You cough more deeply or more often, especially if you notice more mucus or a change in the color of your mucus. You have new symptoms, such as a sore throat, an earache, or sinus pain. You do not get better as expected. Where can you learn more? Log into your personal health record on [email or web address] and enter D279 in the Education box to learn more about Cough: Care Instructions. Current as of: January 04, 2018 Content Version: [id number] [employer]. Care instructions adapted under license by your healthcare professional. If you have questions about a medical condition or this instruction, always ask your healthcare professional. [employer] disclaims any warranty or liability for your use of this information. Saline Nasal Washes: Care Instructions Your Care Instructions Saline nasal washes help keep the nasal passages open by washing out thick or dried mucus. This simple remedy can help relieve symptoms of allergies, sinusitis, and colds. It also can make the nose feel more comfortable by keeping the mucous membranes moist. You may notice a little burning sensation in your nose the first few times you use the solution, but this usually gets better in a few days. Follow-up care is a jennings part of your treatment and safety. Be sure to make and go to all appointments, and call your doctor if you are having problems. It's also a good idea to know your test resultsand keep a list of the medicines you take. How can you care for yourself at home? You can buy premixed saline solution in a squeeze bottle or other sinus rinse products at a drugstore. Read and follow the instructions on the label. You also can make your own saline solution by adding 1 teaspoon of salt and 1 teaspoon of baking soda to 2 cups of distilled water. If you use a homemade solution, pour a small amount into a clean bowl. Using a rubber bulb syringe,squeeze the syringe and place the tip in the salt water. Pull a small amount of the salt water intothe syringe by relaxing your hand. Sit down with your head tilted slightly back. Do not lie down. Put the tip of the bulb syringe or the squeeze bottle a little way into one of your nostrils. Gently drip or squirt a few drops into thenostril. Repeat with the other nostril. Some sneezing and gagging are normal at first. Gently blow your nose. Wipe the syringe or bottle tip clean after each use. Repeat this 2 or 3 times a day. Use nasal washes gently if you have nosebleeds often. When should you call for help? Watch closely for changes in your health, and be sure to contact your doctor if: You often get nosebleeds. You have problems doing the nasal washes. Where can you learn more? Log into your personal health record on [email or web address] and enter B784 in the Education box to learn more about Saline Nasal Washes: Care Instructions. Current as of: February 19, 2018 Content Version: [id number] [employer]. Care instructions adapted under license by your healthcare professional. If you have questions about a medical condition or this instruction, always ask your healthcare professional. [employer] disclaims any warranty or liability for your use of this information. Sinusitis: Care Instructions Your Care Instructions Sinusitis is an infection of the lining of the sinus cavities in your head. Sinusitis often followsa cold. It causes pain and pressure in your head and face. In most cases, sinusitis gets better on its own in 1 to 2 weeks. But some mild symptoms may last for several weeks. Sometimes antibiotics are needed. Follow-up care is a jennings part of your treatment and safety. Be sure to make and go to all appointments, and call your doctor if you are having problems. It's also a good idea to know your test resultsand keep a list of the medicines you take. How can you care for yourself at home? Take an relw-xui-rkzxjbk pain medicine, such as acetaminophen (Tylenol), ibuprofen (Advil, Motrin),or naproxen (Aleve). Read and follow all instructions on the label. If the doctor prescribed antibiotics, take them as directed. Do not stop taking them just because you feel better. You need to take the full course of antibiotics. Be careful when taking eqmj-fbg-[id number] cold or flu medicines and Tylenol at the same time. Many ofthese medicines have acetaminophen, which is Tylenol. Read the labels to make sure that you are nottaking more than the recommended dose. Too much acetaminophen (Tylenol) can be harmful. Breathe warm, moist air from a steamy shower, a hot bath, or a sink filled with hot water. Avoid cold, dry air. Using a humidifier in your home may help. Follow the directions for cleaning the machine. Use saline (saltwater) nasal washes to help keep your nasal passages open and wash out mucus and bacteria. You can buy saline nose drops at a grocery store or drugstore. Or you can make your own at home by adding 1 teaspoon of salt and 1 teaspoon of baking soda to 2 cups of distilled water. If you make your own, fill a bulb syringe with the solution, insert the tip into your nostril, and squeeze gently. Blow your nose. Put a hot, wet towel or a warm gel pack on your face 3 or 4 times a day for 5 to 10 minutes each time. Try a decongestant nasal spray like oxymetazoline (Afrin). Do not use it for more than 3 days in a row. Using it for more than 3 days can make your congestion worse. When should you call for help? Call your doctor now or seek immediate medical care if: You have new or worse swelling or redness in your face or around your eyes. You have a new or higher fever. Watch closely for changes in your health, and be sure to contact your doctor if: You have new or worse facial pain. The mucus from your nose becomes thicker (like pus) or has new blood in it. You are not getting better as expected. Where can you learn more? Log into your personal health record on [email or web address] and enter I933 in the Education box to learn more about Sinusitis: Care Instructions. Current as of: February 19, 2018 Content Version: 12.1 [id number] [employer]. Care instructions adapted under license by your healthcare professional. If you have questions about a medical condition or this instruction, always ask your healthcare professional. [employer] disclaims any warranty or liability for your use of this information. documented in this encounter* Patient Instructions* Liana Mccollum CNP - 04/03/2019 11:33 AM EST Middle Ear Fluid: Care Instructions Your Care Instructions Fluid often builds up inside the ear during a cold or allergies. Usually the fluid drains away, butsometimes a small tube in the ear, called the eustachian tube, stays blocked for months. Symptoms of fluid buildup may include: Popping, ringing, or a feeling of fullness or pressure in the ear. Trouble hearing. Balance problems and dizziness. In most cases, you can treat yourself at home. Follow-up care is a jennings part of your treatment and safety. Be sure to make and go to all appointments, and call your doctor if you are having problems. It's also a good idea to know your test resultsand keep a list of the medicines you take. How can you care for yourself at home? In most cases, the fluid clears up within a few months without treatment. You may need more tests if the fluid does not clear up after 3 months. If your doctor prescribed antibiotics, take them as directed. Do not stop taking them just because you feel better. You need to take the full course of antibiotics. When should you call for help? Call your doctor now or seek immediate medical care if: You have symptoms of infection, such as: ? Increased pain, swelling, warmth, or redness. ? Pus draining from the area. ? A fever. Watch closely for changes in your health, and be sure to contact your doctor if: You notice changes in hearing. You do not get better as expected. Where can you learn more? Log into your personal health record on [email or web address] and enter S930 in the Education box to learn more about Middle Ear Fluid: Care Instructions. Current as of: February 19, 2018 Content Version: 12.1 6869-5891 [employer]. Care instructions adapted under license by your healthcare professional. If you have questions about a medical condition or this instruction, always ask your healthcare professional. [employer] disclaims any warranty or liability for your use of this information. documented in this encounter* Patient Instructions* Yoan Diaz DO - 01/22/2020 11:07 AM EDT Blood in the Urine: Care Instructions Your Care Instructions Blood in the urine, or hematuria, may make the urine look red, brown, or pink. There may be blood every time you urinate or just from time to time. You cannot always see blood in the urine, but it will show up in a urine test. Blood in the urine may be serious. It should always be checked by a doctor. Your doctor may recommend more tests, including an X-ray, a CT scan, or a cystoscopy (which lets a doctor look inside the urethra and bladder). Blood in the urine can be a sign of another problem. Common causes are bladder infections and kidney stones. An injury to your groin or your genital area can also cause bleeding in the urinary tract.Very hard exercise such as running a marathon can cause blood in the urine. Blood in the urine can also be a sign of kidney disease or cancer in the bladder or kidney. Many cases of blood in the urine are caused by a harmless condition that runs in families. This is called benign familial hematuria. It does not need any treatment. Sometimes your urine may look red or brown even though it does not contain blood. For example, not getting enough fluids (dehydration), taking certain medicines, or having a liver problem can change the color of your urine. Eating foods such as beets, rhubarb, or blackberries or foods with red foodcoloring can make your urine look red or pink. Follow-up care is a jennings part of your treatment and safety. Be sure to make and go to all appointments, and call your doctor if you are having problems. It's also a good idea to know your test resultsand keep a list of the medicines you take. When should you call for help? Call your doctor now or seek immediate medical care if: You have symptoms of a urinary infection. For example: ? You have pus in your urine. ? You have pain in your back just below your rib cage. This is called flank pain. ? You have a fever, chills, or body aches. ? It hurts to urinate. ? You have groin or belly pain. You have more blood in your urine. Watch closely for changes in your health, and be sure to contact your doctor if: You have new urination problems. You do not get better as expected. Where can you learn more? Log into your personal health record on [email or web address] and enter N871 in the Education box to learn more about Blood in the Urine: Care Instructions. Current as of: December 21, 2018 Content Version: 12.5 [employer]. Care instructions adapted under license by your healthcare professional. If you have questions about a medical condition or this instruction, always ask your healthcare professional. [employer] disclaims any warranty or liability for your use of this information. documented in this encounter History of Present Illness * Yoan Diaz DO - 04/13/2018 11:46 AM EST Subjective Pt here today for nasal congestion x5 days. Denies fever. +Cough. Patient ID: Livia Dang is a 22 y.o. female. HPI Review of Systems Constitutional: Negative for chills and fever. HENT: Positive for congestion. Negative for sore throat. Eyes: Positive for visual disturbance (wears glasses). Respiratory: Positive for cough. Negative for shortness of breath. Cardiovascular: Negative for chest pain and leg swelling. Gastrointestinal: Negative for abdominal pain, nausea and vomiting. Endocrine: Negative for polydipsia. Genitourinary: Negative for dysuria. Musculoskeletal: Negative for myalgias. Skin: Negative for rash. Allergic/Immunologic: Negative. Neurological: Negative for dizziness and headaches. Hematological: Negative for adenopathy. Psychiatric/Behavioral: Negative. Objective Physical Exam Constitutional: She is oriented to person, place, and time. She appears well- developed and well-nourished. No distress. HENT: Head: Normocephalic and atraumatic. Right Ear: External ear normal. Left Ear: External ear normal. Nose: Right sinus exhibits maxillary sinus tenderness. Left sinus exhibits maxillary sinus tenderness. Mouth/Throat: Posterior oropharyngeal erythema present. Eyes: Pupils are equal, round, and reactive to light. Conjunctivae and EOM are normal. Neck: Normal range of motion. Neck supple. No JVD present. No thyromegaly present. Cardiovascular: Normal rate, regular rhythm and normal heart sounds. Pulmonary/Chest: Effort normal and breath sounds normal. She has no wheezes. She has no rales. She exhibits no tenderness. Abdominal: Soft. Bowel sounds are normal. There is no tenderness. There is no rebound and no guarding. Musculoskeletal: Normal range of motion. She exhibits no edema or tenderness. Lymphadenopathy: She has no cervical adenopathy. Neurological: She is alert and oriented to person, place, and time. She has normal reflexes. Skin: Skin is warm and dry. No rash noted. No erythema. Psychiatric: She has a normal mood and affect. Her behavior is normal. Assessment/Plan: Diagnoses and all orders for this visit: Acute maxillary sinusitis, recurrence not specified - cephALEXin (KEFLEX) 500 MG capsule; Take 1 (one) capsule (500 mg total) by mouth 3 (three) times a day for 10 days . Sore throat Follow up if not improving. in this encounter* Dominga Mederos CNP - 12/31/2016 11:19 AM EDT Formatting of this note may be different from the original. Subjective: Livia Dang is a 21 y.o. female here for Shortness of Breath (x 3 days ) and Nasal Congestion (x 3 days ) Pt presents today w/ worsening cough & congestion that she thought was allergies. She states that she has tried mucunex, benadryl & NSAIDs & none of these Have helped. She denies fever but does complain of ear pain & sore throat The following portions of the patient's history were reviewed and updated as appropriate: allergies, current medications, past surgical history and problem list. Review of Systems Constitutional: Negative for fatigue and fever. HENT: Positive for congestion, ear pain and sore throat. Eyes: Negative for visual disturbance. Respiratory: Positive for cough. Negative for shortness of breath. Cardiovascular: Negative for chest pain. Genitourinary: Negative for difficulty urinating. Musculoskeletal: Negative for arthralgias, back pain, joint swelling, myalgias, neck pain and neck stiffness. Skin: Negative for rash and wound. Neurological: Negative for tremors, weakness, numbness and headaches. Psychiatric/Behavioral: Negative for agitation and confusion. Objective: BP 104/72 Pulse (!) 120 Temp 98.5 F (36.9 C) Ht 5' 3 Wt 58.2 kg (128 lb 3.2 oz) SpO2 98% BMI 22.71 kg/m2 Physical Exam Constitutional: She is oriented to person, place, and time. She appears well- developed and well-nourished. HENT: Right Ear: Tympanic membrane is bulging. Left Ear: Tympanic membrane is bulging. Eyes: EOM are normal. Pupils are equal, round, and reactive to light. Cardiovascular: Normal rate, regular rhythm, normal heart sounds and intact distal pulses. Pulmonary/Chest: Effort normal. She has wheezes. Neurological: She is alert and oriented to person, place, and time. Skin: Skin is warm and dry. Psychiatric: She has a normal mood and affect. Judgment normal. Assessment/Plan: SNOMED CT(R) 1. Bronchitis BRONCHITIS predniSONE (DELTASONE) 10 MG tablet benzonatate (TESSALON) 100 MG capsule amoxicillin-clavulanate (AUGMENTIN) 875-125 mg per tablet 2. Cough COUGH budesonide-formoterol (SYMBICORT) 160-4.5 mcg/actuation inhaler 3. Mild intermittent asthma with acute exacerbation MILD INTERMITTENT ASTHMA budesonide-formoterol (SYMBICORT) 160-4.5 mcg/actuation inhaler Plan as discussed w/ pt is to use ATB & symptomatic meds as RX'd; f/up 5 days if not patti Mederos, BRYN 12/31/2016 in this encounter* Liana Mccollum, BRYN - 10/09/2018 11:24 AM EDT [facility] [address] [facility] [address] [facility] [id number] Patient: Livia Dang : 1995 OFFICE VISIT: 10/09/2018 ASSESSMENT AND PLAN SNOMED CT(R) 1. RLQ abdominal pain RIGHT LOWER QUADRANT PAIN US Abdomen Complete -Will obtain abdominal imaging, will call with results -Take Ibuprofen 600 mg every 8 hours -Increase clear liquids -rest -use warm compress -decrease caffeine intake -increase fiber in diet, use Metamucil as needed to increase fiber if not able to increase with diet -Can take 1 tsp Miralax at HS to help with constipation -Call if s/s worsen or no improvement, develop fever, diarrhea, nausea or vomiting Discussed over the counter medications for symptomatic management and side effects of medications. Recommended taking all medications with food and to stop medications if they develop any signs of anallergic reaction.Educated patient and/or guardian about signs and symptoms that would warrant further immediate evaluation. All pertinent side effects, risks, benefits and precautions of suggested treatments were discussed in detail. Ms. Dang understands and agrees with the above plan. Follow Up: Return if symptoms worsen or fail to improve. SUBJECTIVE: Livia Dang is a 23 y.o. female. Chief Complaint Patient presents with Abdominal Cramping States that lower abdominal cramping started last night. States that it feels like menses craming. Not supposed to start for another 2 weeks. Denies any N/V or diarrhea. No fevers. Constipation Normal for patient. States that she takes a laxative weekly. Presents with c/o lower abdominal pain x 1 day. Started suddenly yesterday. Aggravating factors include sitting, activity. Alleviating factors include standing. Menses are regular, flow regular, denies control, vaginal discharge, STI's, hematuria, dysuria or flank pain. Menses started at age 13. Mom has history chron's. Denies nausea, vomiting, fever, diarrhea. Does have intermittent constipation. Drinks 4 cups coffee daily, poor fiber intake, drinks 3-4 amaral daily. Is sexually active, in monogamous relationship. Abdominal Cramping This is a new problem. The current episode started yesterday. The onset quality is sudden. The problem occurs constantly. The most recent episode lasted 1 day. The problem has been unchanged. The pain is located in the RLQ, LLQ and periumbilical region. The pain is mild. The quality of the pain is aching. The abdominal pain does not radiate. Pertinent negatives include no constipation, diarrhea, fever, flatus, headaches, hematochezia, hematuria, melena, nausea, vomiting or weight loss. Nothing aggravates the pain. The pain is relieved by activity and sitting up. She has tried nothing for the symptoms. Constipation This is a recurrent problem. The current episode started more than 1 month ago. The problem is unchanged. Her stool frequency is 2 to 3 times per week. The stool is described as firm. The patient is not on a high fiber diet. She does not exercise regularly. There has not been adequate water intake.Associated symptoms include abdominal pain. Pertinent negatives include no back pain, bloating, diarrhea, fever, flatus, hematochezia, melena, nausea, rectal pain, vomiting or weight loss. She has tried laxatives for the symptoms. The treatment provided moderate relief. Review of Systems Constitutional: Negative for activity change, fatigue, fever and weight loss. Eyes: Negative for visual disturbance. Respiratory: Negative for chest tightness, shortness of breath and wheezing. Cardiovascular: Negative for chest pain, palpitations and leg swelling. Gastrointestinal: Positive for abdominal pain. Negative for abdominal distention, bloating, blood in stool, constipation, diarrhea, flatus, hematochezia, melena, nausea, rectal pain and vomiting. Endocrine: Negative for cold intolerance and heat intolerance. Genitourinary: Negative for flank pain, hematuria, menstrual problem, pelvic pain, vaginal bleeding, vaginal discharge and vaginal pain. Musculoskeletal: Negative for back pain. Skin: Negative for color change, pallor and rash. Neurological: Negative for dizziness, syncope, weakness, light-headedness, numbness and headaches. OBJECTIVE: BP 120/83 Pulse (!) 103 Temp 98.2 F (36.8 C) Ht 5' 3 Wt 68.1 kg (150 lb 1.6 oz) LMP 09/23/2018 (Exact Date) SpO2 98% BMI 26.59 kg/m Wt Readings from Last 3 Encounters: 10/09/18 68.1 kg (150 lb 1.6 oz) 04/13/18 65.1 kg (143 lb 9.6 oz) 01/27/18 64.3 kg (141 lb 12.8 oz) Ht Readings from Last 3 Encounters: 10/09/18 5' 3 04/13/18 5' 3 01/27/18 5' 3 BP Readings from Last 3 Encounters: 10/09/18 120/83 04/13/18 111/74 01/27/18 101/67 Physical Exam Constitutional: She is oriented to person, place, and time. She appears well- developed and well-nourished. HENT: Head: Normocephalic and atraumatic. Right Ear: Tympanic membrane and ear canal normal. Left Ear: Tympanic membrane and ear canal normal. Mouth/Throat: Mucous membranes are normal. Eyes: Pupils are equal, round, and reactive to light. Conjunctivae are normal. Cardiovascular: Normal rate, regular rhythm, S1 normal, S2 normal, normal heart sounds and normal pulses. Pulmonary/Chest: Effort normal and breath sounds normal. Abdominal: Soft. Normal appearance and bowel sounds are normal. There is tenderness in the right lower quadrant. There is guarding. Neurological: She is alert and oriented to person, place, and time. Skin: Skin is warm, dry and intact. Vitals reviewed. MEDICATION LIST AT END OF VISIT (Previously prescribed by our office or your other providers and prescribed today): Current Outpatient Medications Medication Sig Dispense Refill albuterol (PROVENTIL) 2.5 mg /3 mL (0.083 %) nebulizer solution Inhale 2.5 mg every 4 (four) hours as needed. albuterol (VENTOLIN HFA) 90 mcg/actuation inhaler Inhale 2 (two) puffs every 6 (six) hours as needed NEEDED FOR WHEEZING. 1 Inhaler 11 budesonide-formoterol (SYMBICORT) 160-4.5 mcg/actuation inhaler Inhale 2 (two) puffs 2 (two) times a day. 3 Inhaler 3 levocetirizine (XYZAL) 5 MG tablet TAKE ONE TABLET BY MOUTH EVERY EVENING 30 tablet 11 No current facility-administered medications for this visit. There are no discontinued medications. The following portions of the patient's history were reviewed and updated as appropriate: allergies, current medications, past family history, past medical history, past social history, past surgicalhistory and problem list. Past Medical History: Diagnosis Date Asthma Past Surgical History: Procedure Laterality Date knee scope KNEE SURGERY Right WISDOM TOOTH EXTRACTION Family History Problem Relation Age of Onset Intestinal malrotation Mother Diabetes Father Hypertension Paternal Grandmother Hyperlipidemia Paternal Grandmother Hypertension Paternal Grandfather Hyperlipidemia Paternal Grandfather Social History Tobacco Use Smoking status: Never Smoker Smokeless tobacco: Never Used Substance Use Topics Alcohol use: No Alcohol/week: 0.0 standard drinks Drug use: Yes Types: Fentanyl There is no immunization history on file for this patient. Results No results found for this or any previous visit (from the past 672 hour(s)). Electronically signed by Liana Mccollum CNP 10/10/1911:29 PM documented in this encounter* Hailey Arredondo LPN - 10/10/2018 12:18 PM EDT Patient was seen at the ED on 10/09/18. Patient has an appointment scheduled with Yoan Diaz DO on 10/10/18. documented in this encounter* Liana Mccollum CNP - 10/10/2018 1:53 PM EDT [facility] [address] [facility] [address] [facility] [id number] Patient: Livia Dang : 1995 OFFICE VISIT: 10/10/2018 ASSESSMENT AND PLAN SNOMED CT(R) 1. Ruptured ovarian cyst RUPTURED CYST OF OVARY -advised to follow up with [facility] for pap/pelvic ultrasound -continue to take Ibuprofen as need for discomfort -Use heat for 15 minutes every 2-3 hours -Call if pain worsens or does not improve or develop any bleeding or fever Discussed over the counter medications for symptomatic management and side effects of medications. Recommended taking all medications with food and to stop medications if they develop any signs of anallergic reaction.Educated patient and/or guardian about signs and symptoms that would warrant further immediate evaluation. All pertinent side effects, risks, benefits and precautions of suggested treatments were discussed in detail. Ms. Dang understands and agrees with the above plan. Follow Up: Return if symptoms worsen or fail to improve. SUBJECTIVE: Livia Dang is a 23 y.o. female. Chief Complaint Patient presents with Follow-up [facility] for ovarian cyst Presents for follow up regarding RLQ pain. Pain started tuesday. described as a constant cramping inthe right lower abdomen without any radiation into her back. She states she has had some nausea without any vomiting. She denies any diarrhea, urinary symptoms, vaginal bleeding or discharge. Ultrasound was ordered, insurance would not cover at [facility], presented to ER for imaging. CT was completed. CT abdomen pelvis was read as few lymph nodes in the right lower quadrant near the cecum measuring 5 to 6 mm in short axis may represent mesenteric adenitis. Normal appendix. A small amount of fluid in the pelvis measures higher than water in attenuation suggesting blood products which may be secondary to a ruptured hemorrhagic ovarian cyst. No hydronephrosis. Patient was given IV fluids,Zofran, Bentyl. Was discharged home, advised to follow up and to take Ibuprofen as needed for discomfort. Labs and UA, urine were unremarkable. Pain has improve, only taking Ibuprofen a fewtimes. Pain is described as dull ache. Denies any nausea, vomiting, diarrhea, fever, dysuria, vaginal bleeding or discharge. Review of Systems Constitutional: Negative for chills, fatigue and fever. HENT: Negative for congestion, ear pain, rhinorrhea, sinus pain, sneezing and sore throat. Respiratory: Negative for cough, chest tightness, shortness of breath and wheezing. Cardiovascular: Negative for chest pain, palpitations and leg swelling. Gastrointestinal: Positive for abdominal pain (rlq). Negative for constipation, diarrhea, nausea and vomiting. Endocrine: Negative for cold intolerance and heat intolerance. Genitourinary: Negative for frequency and urgency. Skin: Negative for color change and rash. Neurological: Negative for dizziness, syncope, weakness, light-headedness, numbness and headaches. Hematological: Negative for adenopathy. Does not bruise/bleed easily. OBJECTIVE: BP 96/66 Pulse 91 Temp 98.5 F (36.9 C) (Temporal) Ht 5' 2 Wt 67.8 kg (149 lb 8 oz) LMP 09/23/2018 (Exact Date) BMI 27.34 kg/m Wt Readings from Last 3 Encounters: 10/10/18 67.8 kg (149 lb 8 oz) 10/09/18 65.8 kg (145 lb) 10/09/18 68.1 kg (150 lb 1.6 oz) Ht Readings from Last 3 Encounters: 10/10/18 5' 2 10/09/18 5' 2 10/09/18 5' 3 BP Readings from Last 3 Encounters: 10/10/18 96/66 10/09/18 111/80 10/09/18 120/83 Physical Exam Constitutional: She is oriented to person, place, and time. She appears well- developed and well-nourished. HENT: Head: Normocephalic and atraumatic. Right Ear: Tympanic membrane, external ear and ear canal normal. Left Ear: Tympanic membrane, external ear and ear canal normal. Nose: Nose normal. Mouth/Throat: Oropharynx is clear and moist and mucous membranes are normal. Eyes: Pupils are equal, round, and reactive to light. Conjunctivae are normal. Neck: Normal range of motion. Neck supple. Cardiovascular: Normal rate, regular rhythm, S1 normal, S2 normal, normal heart sounds, intact distal pulses and normal pulses. Pulmonary/Chest: Effort normal and breath sounds normal. Abdominal: Soft. Normal appearance and bowel sounds are normal. There is tenderness in the right lower quadrant. RLQ tenderness improving Neurological: She is alert and oriented to person, place, and time. Skin: Skin is warm, dry and intact. MEDICATION LIST AT END OF VISIT (Previously prescribed by our office or your other providers and prescribed today): Current Outpatient Medications Medication Sig Dispense Refill albuterol (PROVENTIL) 2.5 mg /3 mL (0.083 %) nebulizer solution Inhale 2.5 mg every 4 (four) hours as needed. albuterol (VENTOLIN HFA) 90 mcg/actuation inhaler Inhale 2 (two) puffs every 6 (six) hours as needed NEEDED FOR WHEEZING. 1 Inhaler 11 budesonide-formoterol (SYMBICORT) 160-4.5 mcg/actuation inhaler Inhale 2 (two) puffs 2 (two) times a day. 3 Inhaler 3 dicyclomine (BENTYL) 20 mg tablet Take 1 (one) tablet (20 mg total) by mouth 3 (three) times a day as needed (Abdominal pain) . 20 tablet 0 ibuprofen (ADVIL,MOTRIN) 600 MG tablet Take 1 (one) tablet (600 mg total) by mouth every 8 (eight) hours as needed for pain . 30 tablet 0 levocetirizine (XYZAL) 5 MG tablet TAKE ONE TABLET BY MOUTH EVERY EVENING 30 tablet 11 ondansetron (ZOFRAN ODT) 4 MG disintegrating tablet Dissolve 1 (one) tablet (4 mg total) on top of tongue every 6 (six) hours as needed for nausea . 20 tablet 0 No current facility-administered medications for this visit. There are no discontinued medications. The following portions of the patient's history were reviewed and updated as appropriate: allergies, current medications, past family history, past medical history, past social history, past surgicalhistory and problem list. Past Medical History: Diagnosis Date Asthma Ovarian cyst right ovary Past Surgical History: Procedure Laterality Date knee scope KNEE SURGERY Right WISDOM TOOTH EXTRACTION Family History Problem Relation Age of Onset Intestinal malrotation Mother Diabetes Father Hypertension Paternal Grandmother Hyperlipidemia Paternal Grandmother Hypertension Paternal Grandfather Hyperlipidemia Paternal Grandfather Social History Tobacco Use Smoking status: Never Smoker Smokeless tobacco: Never Used Substance Use Topics Alcohol use: No Alcohol/week: 0.0 standard drinks Drug use: Not Currently Types: Fentanyl There is no immunization history on file for this patient. Results Recent Results (from the past 672 hour(s)) Urinalysis Collection Time: 10/09/18 3:55 PM Result Value Ref Range Color, Urine Yellow Colorless, Yellow Clarity, Urine Clear Clear Specific [place] 1.014 1.005 - 1.025 pH, Urine 6.0 5.0 - 7.0 Protein, Urine Negative Negative mg/dL Glucose, Urine Negative Negative mg/dL Ketones, Urine Negative Negative mg/dL Bilirubin, Urine Negative Negative Urobilinogen, Urine <2.0 <2.0 mg/dL Blood, Urine Negative Negative Nitrite, Urine Negative Negative Leukocyte Esterase, Urine Negative Negative RBCs, Urine 1 0 - 3 /hpf Bacteria, Urine None Seen None Seen /hpf Squamous Epithelial 1 0 - 4 /hpf Urine Collection Time: 10/09/18 3:55 PM Result Value Ref Range Beta-hCG, Ur, Qual Negative Negative Comprehensive Metabolic Panel Collection Time: 10/09/18 5:11 PM Result Value Ref Range Sodium 138 135 - 145 mmol/L Potassium 3.7 3.5 - 5.1 mmol/L Chloride 105 98 - 108 mmol/L Bicarbonate 27 21 - 32 mmol/L Anion Gap 10 10 - 20 mmol/L Glucose 90 65 - 99 mg/dL BUN 8 8 - 25 mg/dL Creatinine 0.74 0.40 - 1.10 mg/dL eGFR 115 >=60 mL/min/1.73 m2 BUN/Creatinine Ratio 10.8 10.0 - 20.0 Total Protein 7.6 6.0 - 8.0 g/dL Albumin 4.2 3.2 - 5.2 g/dL Calcium 9.2 8.4 - 10.2 mg/dL Alkaline Phosphatase 55 40 - 140 U/L AST 13 0 - 45 U/L Total Bilirubin 0.5 0.0 - 1.3 mg/dL ALT 21 14 - 65 U/L CBC Auto Differential Collection Time: 10/09/18 5:11 PM Result Value Ref Range WBC 7.42 4.50 - 11.00 K/mcL RBC 4.62 4.00 - 5.20 M/mcL Hemoglobin 13.5 12.0 - 16.0 g/dL Hematocrit 39.7 36.0 - 46.0 % MCV 85.9 80.0 - 100.0 fL MCH 29.2 26.0 - 34.0 pg MCHC 34.0 31.0 - 37.0 g/dL Platelets 264 150 - 400 K/mcL RDW - CV 12.5 11.6 - 14.8 % MPV 9.5 9.0 - 15.5 fL Neutrophils 51.6 % Lymphocytes 37.9 % Monocytes 7.4 % Eosinophils 2.6 % Basophils 0.4 % IG Percent 0.10 % Neutrophils Abs 3.83 1.70 - 7.00 K/mcL Lymphocytes Abs 2.81 0.90 - 4.00 K/mcL Monocytes Abs 0.55 0.30 - 0.90 K/mcL Eosinophils Abs 0.19 0.00 - 0.50 K/mcL Basophils Abs 0.03 0.00 - 0.30 K/mcL IG Absolute 0.01 0.00 - 0.30 K/mcL Nucleated RBC 0.0 % Nucleated RBC Abs 0.00 0.00 - 0.00 K/mcL Electronically signed by Liana Mccollum CNP 192:11 PM documented in this encounter* Camila Short LPN - 10/20/2018 11:34 AM EDT Spoke to patient about abdominal discomfort. States that she did have some severe pain this morningbut it is now starting to ease up. Patient informed that she can take ibuprofen as needed for pain and can use heating pad. Patient states that she was able to speak with office staff at [facility]. She is awaiting a nurse to call her back from that office. Patient will proceed with CT scan. Will have it repeated at [facility]. * Camila Short LPN - 10/20/2018 11:05 AM EDT Patient called stating that her pain is the exact same area that has been bothering her (RLQ). States that her pain did ease up for a little bit but then had severe abdominal discomfort last night. Patient states that she has been trying to get a hold of OBGYN for ruptured ovarian cysts. States that her Mother reached out and was able to get a hold OBGYN. Patient is going to call office today. Patient to take tylenol as needed for pain. MELVA Gaines would like for patient to repeat CT scan to makesure no issues with fallopian tubes, colon and appendix. documented in this encounter* Liana Mccollum CNP - 12/13/2018 9:16 AM EDT [facility] [address] [facility] [address] [facility] [id number] Patient: Livia Dang : 1995 OFFICE VISIT: 12/13/2018 ASSESS[address](R) 1. Bronchitis BRONCHITIS doxycycline hyclate (VIBRA-TABS) 100 MG tablet predniSONE (DELTASONE) 10 MG tablet 2. Exacerbation of asthma, unspecified asthma severity, unspecified whether persistent EXACERBATIONOF ASTHMA doxycycline hyclate (VIBRA-TABS) 100 MG tablet predniSONE (DELTASONE) 10 MG tablet Home Nebulizer (E0570) with Nebulizer Supplies albuterol (ACCUNEB); every 6 hours as needed 3. Cough COUGH benzonatate (TESSALON) 100 MG capsule budesonide-formoterol (SYMBICORT) 160-4.5 mcg/actuation inhaler 4. Mild intermittent asthma with acute exacerbation MILD INTERMITTENT ASTHMA budesonide-formoterol (SYMBICORT) 160-4.5 mcg/actuation inhaler montelukast (SINGULAIR) 10 mg tablet Bronchitis: Reviewed supportive measures for cough and bronchitis on AVS. Initiating Flonase and Mucinex for symptomatic control. Initiating Tessalon Perls for coughing and Prednisone burst. Recommended increase in PO hydration and promoted rest. Instructed on medications: dosing, length of medication use and side effects. Instructed to take Acetaminophen as needed for fever, headache, or general aches. Aware to not take any NSAIDs while taking Prednisone. Counseled patient on expected length of recovery. Aware to follow-up if symptoms persist or worsen. Adding singular 10 mg on daily basis Continue to use symbicort daily Use rescue and nebulizer PRN Discussed over the counter medications for symptomatic management and side effects of medications. Recommended taking all medications with food and to stop medications if they develop any signs of anallergic reaction.Educated patient and/or guardian about signs and symptoms that would warrant further immediate evaluation. All pertinent side effects, risks, benefits and precautions of suggested treatments were discussed in detail. Ms. Dang understands and agrees with the above plan. Follow Up: Return if symptoms worsen or fail to improve. SUBJECTIVE: Livia Dang is a 23 y.o. female. Chief Complaint Patient presents with Shortness of Breath x 1 week. Wheezing x 1 week. Medication Refill symbicort Presents with complaints of cough, wheezing, sinus pain and pressure for the past week. Does have ahistory of asthma and bronchitis. Uses Symbicort on a daily basis. Has been taking DayQuil [id number] with minimal relief and using her rescue inhaler. States she has been around ill contacts, denies any recent travel. Denies fever, ear pain, sore throat, nausea, vomiting or diarrhea. Cough This is a new problem. The current episode started in the past 7 days. The problem has been gradually worsening. The problem occurs constantly. The cough is productive of sputum. Associated symptoms include nasal congestion, postnasal drip, rhinorrhea, shortness of breath and wheezing. Pertinent negatives include no chest pain, chills, ear congestion, ear pain, fever, headaches, rash or sore throat. The symptoms are aggravated by lying down. She has tried steroid inhaler (dayquil) for the symptoms. The treatment provided mild relief. Her past medical history is significant for asthma. URI This is a new problem. The current episode started in the past 7 days. The problem has been gradually worsening. There has been no fever. Associated symptoms include congestion, coughing, rhinorrhea,sinus pain, sneezing and wheezing. Pertinent negatives include no chest pain, diarrhea, ear pain, he adaches, nausea, plugged ear sensation, rash, sore throat or vomiting. She has tried inhaler use (dayquil) for the symptoms. The treatment provided mild relief. Review of Systems Constitutional: Negative for chills, fatigue and fever. HENT: Positive for congestion, postnasal drip, rhinorrhea, sinus pressure, sinus pain and sneezing.Negative for ear pain and sore throat. Respiratory: Positive for cough, shortness of breath and wheezing. Negative for chest tightness. Cardiovascular: Negative for chest pain and palpitations. Gastrointestinal: Negative for constipation, diarrhea, nausea and vomiting. Skin: Negative for color change and rash. Neurological: Negative for dizziness, syncope, weakness, light-headedness, numbness and headaches. Hematological: Negative for adenopathy. Does not bruise/bleed easily. OBJECTIVE: BP 107/74 Pulse (!) 101 Temp 97.1 F (36.2 C) (Temporal) Ht 5' 2 Wt 69.8 kg (153 lb 14.4 oz) SpO2 98% BMI 28.15 kg/m Wt Readings from Last 3 Encounters: 12/13/18 69.8 kg (153 lb 14.4 oz) 10/10/18 67.8 kg (149 lb 8 oz) 10/09/18 65.8 kg (145 lb) Ht Readings from Last 3 Encounters: 12/13/18 5' 2 10/10/18 5' 2 10/09/18 5' 2 BP Readings from Last 3 Encounters: 12/13/18 107/74 10/10/18 96/66 10/09/18 111/80 Physical Exam Constitutional: She is oriented to person, place, and time. She appears well- developed and well-nourished. HENT: Head: Normocephalic and atraumatic. Right Ear: External ear and ear canal normal. A middle ear effusion is present. Left Ear: External ear and ear canal normal. A middle ear effusion is present. Nose: Mucosal edema, rhinorrhea and sinus tenderness present. Right sinus exhibits maxillary sinus tenderness. Right sinus exhibits no frontal sinus tenderness. Left sinus exhibits maxillary sinus tenderness. Left sinus exhibits no frontal sinus tenderness. Mouth/Throat: Mucous membranes are normal. Posterior oropharyngeal erythema present. No oropharyngeal exudate or posterior oropharyngeal edema. Eyes: Pupils are equal, round, and reactive to light. Conjunctivae are normal. Neck: Normal range of motion. Neck supple. Cardiovascular: Normal rate, regular rhythm, S1 normal, S2 normal, normal heart sounds and normal pulses. Pulmonary/Chest: Effort normal and breath sounds normal. cough Neurological: She is alert and oriented to person, place, and time. Skin: Skin is warm, dry and intact. MEDICATION LIST AT END OF VISIT (Previously prescribed by our office or your other providers and prescribed today): Current Outpatient Medications Medication Sig Dispense Refill albuterol (VENTOLIN HFA) 90 mcg/actuation inhaler Inhale 2 (two) puffs every 6 (six) hours as needed NEEDED FOR WHEEZING. 1 Inhaler 11 budesonide-formoterol (SYMBICORT) 160-4.5 mcg/actuation inhaler Inhale 2 (two) puffs 2 (two) times a day . 3 Inhaler 3 dicyclomine (BENTYL) 20 mg tablet Take 1 (one) tablet (20 mg total) by mouth 3 (three) times a day as needed (Abdominal pain) . 20 tablet 0 levocetirizine (XYZAL) 5 MG tablet TAKE ONE TABLET BY MOUTH EVERY EVENING 30 tablet 11 albuterol (PROVENTIL) 2.5 mg /3 mL (0.083 %) nebulizer solution Inhale 2.5 mg every 4 (four) hours as needed. benzonatate (TESSALON) 100 MG capsule Take 1 (one) capsule (100 mg total) by mouth 3 (three) times a day as needed for cough . 20 capsule 0 doxycycline hyclate (VIBRA-TABS) 100 MG tablet Take 1 (one) tablet (100 mg total) by mouth 2 (two) times a day for 10 days . 20 tablet 0 montelukast (SINGULAIR) 10 mg tablet Take 1 (one) tablet (10 mg total) by mouth nightly . 30 ondansetron (ZOFRAN ODT) 4 MG disintegrating tablet Dissolve 1 (one) tablet (4 mg total) on top of tongue every 6 (six) hours as needed for nausea . 20 tablet 0 predniSONE (DELTASONE) 10 MG tablet Take 3 tabs by mouth for 3 days, take 2 tabs by mouth for 3 days, take 1 tab by mouth for 3 days . 18 tablet 0 No current facility-administered medications for this visit. Medications Discontinued During This Encounter Medication Reason budesonide-formoterol (SYMBICORT) 160-4.5 mcg/actuation inhaler Reorder The following portions of the patient's history were reviewed and updated as appropriate: allergies, current medications, past family history, past medical history, past social history, past surgicalhistory and problem list. Past Medical History: Diagnosis Date Asthma Ovarian cyst right ovary Past Surgical History: Procedure Laterality Date knee scope KNEE SURGERY Right WISDOM TOOTH EXTRACTION Family History Problem Relation Age of Onset Intestinal malrotation Mother Diabetes Father Hypertension Paternal Grandmother Hyperlipidemia Paternal Grandmother Hypertension Paternal Grandfather Hyperlipidemia Paternal Grandfather Social History Tobacco Use Smoking status: Never Smoker Smokeless tobacco: Never Used Substance Use Topics Alcohol use: No Alcohol/week: 0.0 standard drinks Drug use: Not Currently Types: Fentanyl There is no immunization history on file for this patient. Results No results found for this or any previous visit (from the past 672 hour(s)). Electronically signed by Liana Mccollum CNP 199:32 AM documented in this encounter* Liana Mccollum CNP - 01/09/2019 10:17 AM EDT [facility] [address] [facility] [address] [facility] [id number] Patient: Livia Dang : 1995 OFFICE VISIT: 01/09/2019 ASSESSMENT AND PLAN 1. Acute non-recurrent frontal sinusitis fluticasone propionate (FLONASE) 50 mcg/actuation nasal spray amoxicillin-clavulanate (AUGMENTIN) 875-125 mg per tablet 2. Cough benzonatate (TESSALON) 100 MG capsule 1.Complete all Antibiotics 2. Return if there is swelling the the periorbital area 3. Practice good handwashing 4. Avoid smoke 5. Humidify the air, steam inhalation, warm compress to face to relieve congestion 6. Increase fluid intake 7. Sleep with head elevated 8. Avoid swimming 9. Neti pot, saline irrigation 10. Pt verbalized understanding and voiced agreement with treatment plan Discussed over the counter medications for symptomatic management and side effects of medications. Recommended taking all medications with food and to stop medications if they develop any signs of anallergic reaction.Educated patient and/or guardian about signs and symptoms that would warrant further immediate evaluation. All pertinent side effects, risks, benefits and precautions of suggested treatments were discussed in detail. Ms. Dang understands and agrees with the above plan. Follow Up: Return if symptoms worsen or fail to improve. SUBJECTIVE: Livia Dang is a 23 y.o. female. Chief Complaint Patient presents with Cough x 6 days. Nasal Congestion x 6 days. Presents with complaints of cough, sinus congestion, sinus pain and pressure for the past week. 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 Does have seasonal allergies, takes Benadryl at night. Has been taking NyQuil and DayQuil with minimal relief. Associated symptoms include ear congestion, ear pain, fever, headaches, nasal congestion, postnasal drip, rhinorrhea and a sore throat. Cough This is a new problem. The current episode started in the past 7 days. The problem has been gradually worsening. The problem occurs constantly. The cough is productive of sputum. Associated symptoms include ear congestion, ear pain, a fever, headaches, nasal congestion, postnasal drip, rhinorrhea and a sore throat. Pertinent negatives include no chest pain, chills, shortness of breath or wheezing. The symptoms are aggravated by lying down. Treatments tried: dayquil, nyquil. The treatment provided mild relief. Sinus Problem This is a new problem. The current episode started in the past 7 days. The problem has been gradually worsening since onset. The maximum temperature recorded prior to her arrival was 100.4 - 100.9 F.The fever has been present for 1 to 2 days. The pain is mild. Associated symptoms include congestion, coughing, ear pain, headaches, sinus pressure, sneezing and a sore throat. Pertinent negatives include no chills or shortness of breath. Past treatments include oral decongestants (dayqil, nyquil).The treatment provided mild relief. Review of Systems Constitutional: Positive for fever. Negative for chills and fatigue. HENT: Positive for congestion, ear pain, postnasal drip, rhinorrhea, sinus pressure, sinus pain, sneezing and sore throat. Respiratory: Positive for cough. Negative for chest tightness, shortness of breath and wheezing. Cardiovascular: Negative for chest pain, palpitations and leg swelling. Gastrointestinal: Negative for constipation, diarrhea, nausea and vomiting. Neurological: Positive for headaches. Negative for dizziness, syncope, weakness, light-headedness and numbness. OBJECTIVE: BP 103/67 Pulse 93 Temp 97.4 F (36.3 C) (Temporal) Ht 5' 2.5 Wt 69.4 kg (153 lb) BMI 27.54 kg/m Wt Readings from Last 3 Encounters: 01/09/19 69.4 kg (153 lb) 12/13/18 69.8 kg (153 lb 14.4 oz) 10/10/18 67.8 kg (149 lb 8 oz) Ht Readings from Last 3 Encounters: 01/09/19 5' 2.5 12/13/18 5' 2 10/10/18 5' 2 BP Readings from Last 3 Encounters: 01/09/19 103/67 12/13/18 107/74 10/10/18 96/66 Physical Exam Constitutional: She is oriented to person, place, and time. She appears well- developed and well-nourished. HENT: Head: Normocephalic and atraumatic. Right Ear: External ear and ear canal normal. A middle ear effusion is present. Left Ear: External ear and ear canal normal. A middle ear effusion is present. Nose: Mucosal edema, rhinorrhea and sinus tenderness present. Right sinus exhibits maxillary sinus tenderness and frontal sinus tenderness. Left sinus exhibits maxillary sinus tenderness and frontal sinus tenderness. Mouth/Throat: Mucous membranes are normal. Posterior oropharyngeal erythema present. No oropharyngeal exudate or posterior oropharyngeal edema. Eyes: Pupils are equal, round, and reactive to light. Conjunctivae and EOM are normal. Neck: Normal range of motion. Neck supple. Cardiovascular: Normal rate, regular rhythm, S1 normal, S2 normal, normal heart sounds and normal pulses. Pulmonary/Chest: Effort normal and breath sounds normal. Lymphadenopathy: Head (right side): Submandibular adenopathy present. Head (left side): Submandibular adenopathy present. Neurological: She is alert and oriented to person, place, and time. Skin: Skin is warm, dry and intact. MEDICATION LIST AT END OF VISIT (Previously prescribed by our office or your other providers and prescribed today): Current Outpatient Medications Medication Sig Dispense Refill albuterol (PROVENTIL) 2.5 mg /3 mL (0.083 %) nebulizer solution Take 3 mL (2.5 mg total) by nebulization every 4 (four) hours as needed . 75 mL 3 albuterol (VENTOLIN HFA) 90 mcg/actuation inhaler Inhale 2 (two) puffs every 6 (six) hours as needed NEEDED FOR WHEEZING. 1 Inhaler 11 budesonide-formoterol (SYMBICORT) 160-4.5 mcg/actuation inhaler Inhale 2 (two) puffs 2 (two) times a day . 3 Inhaler 3 montelukast (SINGULAIR) 10 mg tablet Take 1 (one) tablet (10 mg total) by mouth nightly . 30 [id number] amoxicillin-clavulanate (AUGMENTIN) 875-125 mg per tablet Take 1 (one) tablet by mouth 2 (two) times a day for 10 days . 20 tablet 0 benzonatate (TESSALON) 100 MG capsule Take 1 (one) capsule (100 mg total) by mouth 3 (three) times a day as needed for cough . 20 capsule 0 fluticasone propionate (FLONASE) 50 mcg/actuation nasal spray Instill 2 (two) sprays into each nostril daily . 16 g 12 No current facility-administered medications for this visit. Medications Discontinued During This Encounter Medication Reason predniSONE (DELTASONE) 10 MG tablet Therapy completed ondansetron (ZOFRAN ODT) 4 MG disintegrating tablet Therapy completed levocetirizine (XYZAL) 5 MG tablet Therapy completed dicyclomine (BENTYL) 20 mg tablet Therapy completed The following portions of the patient's history were reviewed and updated as appropriate: allergies, current medications, past family history, past medical history, past social history, past surgicalhistory and problem list. Past Medical History: Diagnosis Date Asthma Ovarian cyst right ovary Past Surgical History: Procedure Laterality Date knee scope KNEE SURGERY Right WISDOM TOOTH EXTRACTION Family History Problem Relation Age of Onset Intestinal malrotation Mother Diabetes Father Hypertension Paternal Grandmother Hyperlipidemia Paternal Grandmother Hypertension Paternal Grandfather Hyperlipidemia Paternal Grandfather Social History Tobacco Use Smoking status: Never Smoker Smokeless tobacco: Never Used Substance Use Topics Alcohol use: No Alcohol/week: 0.0 standard drinks Drug use: Not Currently Types: Fentanyl There is no immunization history on file for this patient. Results No results found for this or any previous visit (from the past 672 hour(s)). Electronically signed by Liana Mccollum CNP 01/09/1910:29 AM documented in this encounter* Liana Mccollum CNP - 04/03/2019 11:00 AM EST [facility] [address] [facility] [address] [facility] [id number] Patient: Livia Dang : 1995 OFFICE VISIT: 04/03/2019 ASSESSMENT AND PLAN 1. Non-recurrent acute serous otitis media of left ear amoxicillin-clavulanate (AUGMENTIN) 875-125 mg per tablet 2. Acute non-recurrent maxillary sinusitis amoxicillin-clavulanate (AUGMENTIN) 875-125 mg per tablet 1.Complete all Antibiotics 2. Return if there is swelling the the periorbital area 3. Practice good handwashing 4. Avoid smoke 5. Humidify the air, steam inhalation, warm compress to face to relieve congestion 6. Increase fluid intake 7. Sleep with head elevated 8. Avoid swimming 9. Neti pot, saline irrigation 10. Pt verbalized understanding and voiced agreement with treatment plan Discussed over the counter medications for symptomatic management and side effects of medications. Recommended taking all medications with food and to stop medications if they develop any signs of anallergic reaction.Educated patient and/or guardian about signs and symptoms that would warrant further immediate evaluation. All pertinent side effects, risks, benefits and precautions of suggested treatments were discussed in detail. Ms. Dang understands and agrees with the above plan. Follow Up: Return if symptoms worsen or fail to improve. SUBJECTIVE: Livia Dang is a 23 y.o. female. Chief Complaint Patient presents with Otalgia b/l left is worse Presents with c/o congestion, cough, otalgia for the past 2 weeks. Does have seasonal allergies, denies recent travel, has been exosed to ill contacts. Associated symptoms include cough, congestion, headache, rhinorrhea, postnasal drip, otalgia, sore throat. Has been taking DayQuil with minimal relief. Otalgia There is pain in both ears. This is a new problem. The current episode started in the past 7 days. The problem occurs constantly. The problem has been gradually worsening. The pain is mild. Associated symptoms include coughing, ear discharge, headaches, rhinorrhea and a sore throat. Pertinent negatives include no diarrhea, rash or vomiting. She has tried acetaminophen for the symptoms. The treatment provided mild relief. URI This is a new problem. The current episode started 1 to 4 weeks ago. The problem has been graduallyworsening. There has been no fever. Associated symptoms include congestion, coughing, ear pain, headaches, a plugged ear sensation, rhinorrhea, sinus pain, sneezing and a sore throat. Pertinent negatives include no chest pain, diarrhea, nausea, rash, vomiting or wheezing. She has tried acetaminophen and decongestant (dayquil) for the symptoms. The treatment provided mild relief. Review of Systems Constitutional: Positive for fatigue. Negative for chills and fever. HENT: Positive for congestion, ear discharge, ear pain, postnasal drip, rhinorrhea, sinus pressure,sinus pain, sneezing and sore throat. Respiratory: Positive for cough. Negative for chest tightness, shortness of breath and wheezing. Cardiovascular: Negative for chest pain, palpitations and leg swelling. Gastrointestinal: Negative for constipation, diarrhea, nausea and vomiting. Skin: Negative for color change and rash. Allergic/Immunologic: Positive for environmental allergies. Neurological: Positive for headaches. Negative for dizziness, syncope, weakness, light-headedness and numbness. Hematological: Negative for adenopathy. Does not bruise/bleed easily. OBJECTIVE: BP 118/77 Pulse 89 Temp 97.8 F (36.6 C) Ht 5' 2 Wt 67.7 kg (149 lb 4.8 oz) BMI 27.31 kg/m Wt Readings from Last 3 Encounters: 04/03/19 67.7 kg (149 lb 4.8 oz) 03/26/19 65.8 kg (145 lb) 01/09/19 69.4 kg (153 lb) Ht Readings from Last 3 Encounters: 04/03/19 5' 2 03/26/19 5' 2 01/09/19 5' 2.5 BP Readings from Last 3 Encounters: 04/03/19 118/77 03/26/19 (!) 148/92 01/09/19 103/67 Physical Exam Constitutional: She is oriented to person, place, and time. She appears well- developed and well-nourished. HENT: Head: Normocephalic and atraumatic. Right Ear: Ear canal normal. There is tenderness. Tympanic membrane is erythematous. A middle ear effusion is present. Left Ear: Ear canal normal. There is tenderness. Tympanic membrane is erythematous and bulging. A middle ear effusion is present. Nose: Mucosal edema, rhinorrhea and sinus tenderness present. Right sinus exhibits maxillary sinus tenderness and frontal sinus tenderness. Left sinus exhibits maxillary sinus tenderness and frontal sinus tenderness. Mouth/Throat: Mucous membranes are normal. Posterior oropharyngeal erythema present. No oropharyngeal exudate or posterior oropharyngeal edema. Eyes: Conjunctivae are normal. Neck: Normal range of motion. Neck supple. Cardiovascular: Normal rate, regular rhythm, S1 normal, S2 normal, normal heart sounds and normal pulses. Pulmonary/Chest: Effort normal and breath sounds normal. Neurological: She is alert and oriented to person, place, and time. Skin: Skin is warm, dry and intact. MEDICATION LIST AT END OF VISIT (Previously prescribed by our office or your other providers and prescribed today): Current Outpatient Medications Medication Sig Dispense Refill albuterol (Ventolin HFA) 90 mcg/actuation inhaler Inhale 2 (two) puffs every 6 (six) hours as needed for wheezing or shortness of breath . 1 Inhaler 5 budesonide-formoterol (SYMBICORT) 160-4.5 mcg/actuation inhaler Inhale 2 (two) puffs 2 (two) times a day . 3 Inhaler 3 fluticasone propionate (FLONASE) 50 mcg/actuation nasal spray Instill 2 (two) sprays into each nostril daily . 16 g 12 montelukast (SINGULAIR) 10 mg tablet Take 1 (one) tablet (10 mg total) by mouth nightly . 30 [id number] albuterol (PROVENTIL) 2.5 mg /3 mL (0.083 %) nebulizer solution Take 3 mL (2.5 mg total) by nebulization every 4 (four) hours as needed . 75 mL 3 amoxicillin-clavulanate (AUGMENTIN) 875-125 mg per tablet Take 1 (one) tablet by mouth 2 (two) times a day for 10 days . 20 tablet 0 No current facility-administered medications for this visit. There are no discontinued medications. The following portions of the patient's history were reviewed and updated as appropriate: allergies, current medications, past family history, past medical history, past social history, past surgicalhistory and problem list. Past Medical History: Diagnosis Date Asthma Ovarian cyst right ovary Past Surgical History: Procedure Laterality Date knee scope KNEE SURGERY Right WISDOM TOOTH EXTRACTION Family History Problem Relation Age of Onset Intestinal malrotation Mother Diabetes Father Hypertension Paternal Grandmother Hyperlipidemia Paternal Grandmother Hypertension Paternal Grandfather Hyperlipidemia Paternal Grandfather Social History Tobacco Use Smoking status: Never Smoker Smokeless tobacco: Never Used Substance Use Topics Alcohol use: No Alcohol/week: 0.0 standard drinks Drug use: Not Currently Types: Fentanyl There is no immunization history on file for this patient. Results No results found for this or any previous visit (from the past 672 hour(s)). Electronically signed by Liana Mccollum CNP 04/03/1911:42 AM documented in this encounter* Yoan Diaz, DO - 01/22/2020 11:06 AM EDT Subjective Pt here today for hematuria. Had physical yesterday and had hematuria show up on UA, advised to see PCP. Denies being on menses, denies any visible blood. POC UA today trace blood. Denies back or flank pain. Patient ID: Livia Dang is a 24 y.o. female. HPI Review of Systems Constitutional: Negative for chills and fever. HENT: Negative for congestion and sore throat. Eyes: Negative for visual disturbance. Respiratory: Negative for cough and shortness of breath. Cardiovascular: Negative for chest pain. Gastrointestinal: Negative for abdominal pain. Endocrine: Negative for polydipsia. Genitourinary: Positive for hematuria. Negative for flank pain. Musculoskeletal: Negative for back pain. Skin: Negative for rash. Allergic/Immunologic: Negative. Neurological: Negative for dizziness and headaches. Hematological: Negative for adenopathy. Psychiatric/Behavioral: Negative. Objective Physical Exam Vitals signs and nursing note reviewed. Constitutional: Appearance: Normal appearance. She is well-developed. HENT: Head: Normocephalic and atraumatic. Right Ear: External ear normal. Left Ear: External ear normal. Nose: No congestion. Eyes: Conjunctiva/sclera: Conjunctivae normal. Pupils: Pupils are equal, round, and reactive to light. Neck: Musculoskeletal: Normal range of motion and neck supple. No muscular tenderness. Cardiovascular: Rate and Rhythm: Normal rate and regular rhythm. Heart sounds: Normal heart sounds. Pulmonary: Effort: Pulmonary effort is normal. Breath sounds: Normal breath sounds. No wheezing or rales. Chest: Chest wall: No tenderness. Abdominal: General: Bowel sounds are normal. Palpations: Abdomen is soft. Tenderness: There is no abdominal tenderness. There is no guarding or rebound. Musculoskeletal: Normal range of motion. General: No swelling or tenderness. Lymphadenopathy: Cervical: No cervical adenopathy. Skin: General: Skin is warm and dry. Findings: No erythema or rash. Neurological: Mental Status: She is alert and oriented to person, place, and time. Deep Tendon Reflexes: Reflexes are normal and symmetric. Psychiatric: Mood and Affect: Mood normal. Behavior: Behavior normal. Thought Content: Thought content normal. Assessment/Plan: Diagnoses and all orders for this visit: Hematuria, unspecified type - POC Urinalysis Dipstick - Outreach Urinalysis w/ Reflex Culture Discussed likely benign microscopic hematuria. Will send to lab to further evaluate. Workup depending on amount of RBC on urinalysis. documented in this encounter Reason for Referral Status Reason Specialty Diagnoses / Procedures Referred By Contact Referred To Contact Pending Review Radiology Diagnoses RLQ abdominal pain Procedures US Abdomen Liana Walton, [employer] [address] [place] [address] Status Reason Specialty Diagnoses / Procedures Referred By Contact Referred To Contact New Request Ultrasound Diagnoses Abdominal pain, right lower quadrant Procedures US ABDOMEN Liana Walton CNP [address] [place] [address] [facility] [address] [place] [address] Status Reason Specialty Diagnoses / Procedures Referred By Contact Referred To Contact Auth Not Needed Ultrasound Diagnoses Abdominal pain, right lower quadrant Procedures US ABDOMEN COMPLETE Liana Mccollum, [employer] [address] [place] [address] [facility] [address] [place] [address] Discharge Instructions * Attachments The following attachments cannot be sent through Care Everywhere. * Mesenteric Adenitis (Canadian) * Ovarian Cyst: Ruptured (Canadian) documented in this encounter* Instructions* Susi Ny, DO - 03/26/2019 Apply ice to painful area 20 to 30 minutes every 2 hours as needed. May take Tylenol or Motrin every 6 hours needed for pain. May wear gauze wrap or splint to protect the thumb for the next 2 to 3 days. See family doctor as needed. * Attachments The following attachments cannot be sent through Care Everywhere. * Finger: Bruises (Canadian) documented in this encounter Chief Complaint and Reason for Visit Chief Complaint Admit Date Dysphagia December 20, 2024 1: 52pm Reason for Visit Admit Date Dysphagia December 20, 2024 1: 52pm Family history of colon cancer in mother December 20, 2024 1:52pm Additional Source Comments INFORMATION SOURCE (unrecogn ized section and content) DATE CREATED AUTHOR 10/20/2017 [facility] DATE CREATED AUTHOR AUTHOR'S ORGANIZ ATION 10/25/2017 [facility] DATE CREATED AUTHOR AUTHOR'S ORGANIZ ATION 10/25/2017 [facility] DATE CREATED AUTHOR AUTHOR'S ORGANIZ ATION 10/26/2017 [facility] DATE CREATED AUTHOR AUTHOR'S ORGANIZ ATION 12/31/2018 [facility] DATE CREATED AUTHOR AUTHOR'S ORGANIZ ATION 04/09/2019 [facility] DATE CREATED AUTHOR AUTHOR[facility]S ORGANIZ ATION [facility] DATE CREATED AUTHOR AUTHOR'S ORGANIZ ATION 09/26/2023 [facility] DATE CREATED AUTHOR AUTHOR'S ORGANIZ ATION 12/26/2023 [facility] DATE CREATED AUTHOR AUTHOR'S ORGANIZ ATION 03/02/2024 [facility] DATE CREATED AUTHOR AUTHOR'S ORGANIZ ATION 07/01/2024 [facility] DATE CREATED AUTHOR AUTHOR'S ORGANIZ ATION 01/17/2025 [facility] Reason for Visit (unrecogniz ed section and content) Reason Comments Nasal Congestion x 5 days. Reason Comments Shortness of Breath x 3 days Nasal Congestion x 3 days Reason Comments Abdominal Cramping States that lower ab dominal cramping started last night. States that it feels like menses craming. Not supposed to start for another 2 weeks. Denies any N/V or diarrhea. No fevers. Constipation Normal for patient. States that she takes a laxative weekly. Status Reason Specialty Diagnoses / Procedures Referred By Contact Referred To Contact New Request Ultrasound Diagnoses Abdominal pain, right lower quadrant Procedures US ABDOMEN COMPLETE Liana Mccollum, [employer] [address] [place] [address] [facility] [address] [place] [address] Reason Comments Abdominal Pain Reason Comments ED Follow-up Reason Comments Follow-up [facility] for ovarian c yst Reason Comments RLQ pain Reason Comments Shortness of Breath x 1 week. Wheezing x 1 week. Medication Refill symbicort Reason Comments Cough x 6 days. Nasal Congestion x 6 days. Reason Comments Hand Injury Reason Comments Otalgia b/l left is worse Reason Comments Hematuria had physical yesterd ay, was told to recheck urine for hematuria, currently taking keflex Reason Comments Sore Throat RAMIREZ, runny nose x1 da Shirley Pelaez RN - 10/09/2018 6:57 PM Sanju Tan RN - 10/09/2018 6:34 PM Irish Rizzo PA-C - 10/09/2018 4:37 PM Shirley Guadarrama RN - 10/09/2018 3:34 PM EDT ED Notes (unrecognized secti on and content) Pt resting in bed with boyfriend cartside TO CT SCAN PER CART. ED PROVIDER NOTE [facility] NAME: Livia Dang AGE: 23 y.o. : 1995 VISIT DATE: 10/09/2018 CSN: [id number] PCP: Yoan Diaz DO Chief Complaint Patient presents with Abdominal Pain Patient presents ambulatory complaining of right lower quadrant abdominal pain. Patient states this started last night. She describes as a constant cramping in the right lower abdomen without any radiation into her back. She states she has had some nausea without any vomiting. She denies any diarrhea, urinary symptoms, vaginal bleeding or discharge. Patient states that she did go to her primary care this morning who was sent her to [facility] for an ultrasound however she found out her insurance does not cover there so she came here for an ultrasound. Patient states that she did take 3 ibuprofen at noon today she states her last menstrual period was September 23. She denies any possibility of . She denies any flank pain or any other complaints at this time. Differential diagnosis: Appendicitis, , urinary tract infection, ovarian cyst. Past Medical History: Diagnosis Date Asthma Past Surgical History: Procedure Laterality Date knee scope KNEE SURGERY Right WISDOM TOOTH EXTRACTION Family History Problem Relation Age of Onset Intestinal malrotation Mother Diabetes Father Hypertension Paternal Grandmother Hyperlipidemia Paternal Grandmother Hypertension Paternal Grandfather Hyperlipidemia Paternal Grandfather Social History Socioeconomic History Marital status: Single Spouse name: Not on file Number of children: Not on file Years of education: Not on file Highest education level: Not on file Occupational History Not on file Social Needs Financial resource strain: Not on file Food insecurity: Worry: Not on file Inability: Not on file Transportation needs: Medical: Not on file Non-medical: Not on file Tobacco Use Smoking status: Never Smoker Smokeless tobacco: Never Used Substance and Sexual Activity Alcohol use: No Alcohol/week: 0.0 standard drinks Drug use: Not Currently Types: Fentanyl Sexual activity: Yes Partners: Male control/protection: Condom Lifestyle Physical activity: Days per week: Not on file Minutes per session: Not on file Stress: Not on file Relationships Social connections: Talks on phone: Not on file Gets together: Not on file Attends quaker service: Not on file Active member of club or organization: Not on file Attends meetings of clubs or organizations: Not on file Relationship status: Not on file Other Topics Concern Not on file Social History Narrative Not on file Previous Medications Medication Sig albuterol (PROVENTIL) 2.5 mg /3 mL (0.083 %) nebulizer solution Inhale 2.5 mg every 4 (four) hours as needed. albuterol (VENTOLIN HFA) 90 mcg/actuation inhaler Inhale 2 (two) puffs every 6 (six) hours as needed NEEDED FOR WHEEZING. budesonide-formoterol (SYMBICORT) 160-4.5 mcg/actuation inhaler Inhale 2 (two) puffs 2 (two) times a day. levocetirizine (XYZAL) 5 MG tablet TAKE ONE TABLET BY MOUTH EVERY EVENING No Known Allergies Review of Systems Constitutional: Patient denies any recent illness, fever, chills. HENT: Negative. Respiratory: Patient denies any cough or difficulty breathing. Gastrointestinal: Patient complains of right lower quadrant abdominal pain which she states she has had since last night. She describes as a constant cramping pain in the right lower abdomen without any radiation into her back. She states she has had associated nausea without vomiting or diarrhea. Genitourinary: Patient denies any flank pain, urinary symptoms, vaginal bleeding or discharge. She states her last menstrual period was September 23. Musculoskeletal: Negative. Skin: Negative. Neurological: Negative. All other systems reviewed and are negative. Patient Vitals for the past 24 hrs: BP Temp Temp src Pulse Resp SpO2 Height Weight 10/09/18 1729 111/80 82 16 98 % 10/09/18 1535 121/82 98.1 F (36.7 C) Oral 87 16 99 % 5' 2 65.8 kg (145 lb) Physical Exam Constitutional: She is oriented to person, place, and time. She appears well-developed and well-nourished. Well-developed female sitting upright in the bed in no acute distress. Vital signs are stable. HENT: Head: Normocephalic and atraumatic. Mouth/Throat: Oropharynx is clear and moist. TMs are nonerythematous, nonbulging bilateral. Mucous membranes are moist there is no erythema, hypertrophy or exudate. Eyes: EOM are normal. Pupils are equal, round, and reactive to light. Cardiovascular: Normal rate, regular rhythm, normal heart sounds and intact distal pulses. Cardiac regular rate and rhythm no murmurs, rubs, gallops. Pulmonary/Chest: Lungs are clear and equal bilateral with good expansion, equal chest rise. There is no wheezes, rales, rhonchi. Abdominal: Abdomen is soft, nondistended, bowel sounds are present and normoactive. She does have tenderness on palpation in the right lower abdomen there is no guarding, rebound, rigidity, masses. There was no CVA tenderness. Neurological: She is alert and oriented to person, place, and time. Skin: Skin is warm and dry. Capillary refill takes less than 2 seconds. Psychiatric: She has a normal mood and affect. Her behavior is normal. Nursing note and vitals reviewed. Laboratory & Radiographic Imaging (if done): Results for orders placed or performed during the hospital encounter of 10/09/18 Urinalysis Result Value Ref Range Color, Urine Yellow Colorless, Yellow Clarity, Urine Clear Clear Specific [place] 1.014 1.005 - 1.025 pH, Urine 6.0 5.0 - 7.0 Protein, Urine Negative Negative mg/dL Glucose, Urine Negative Negative mg/dL Ketones, Urine Negative Negative mg/dL Bilirubin, Urine Negative Negative Urobilinogen, Urine <2.0 <2.0 mg/dL Blood, Urine Negative Negative Nitrite, Urine Negative Negative Leukocyte Esterase, Urine Negative Negative RBCs, Urine 1 0 - 3 /hpf Bacteria, Urine None Seen None Seen /hpf Squamous Epithelial 1 0 - 4 /hpf Urine Result Value Ref Range Beta-hCG, Ur, Qual Negative Negative Comprehensive Metabolic Panel Result Value Ref Range Sodium 138 135 - 145 mmol/L Potassium 3.7 3.5 - 5.1 mmol/L Chloride 105 98 - 108 mmol/L Bicarbonate 27 21 - 32 mmol/L Anion Gap 10 10 - 20 mmol/L Glucose 90 65 - 99 mg/dL BUN 8 8 - 25 mg/dL Creatinine 0.74 0.40 - 1.10 mg/dL eGFR 115 >=60 mL/min/1.73 m2 BUN/Creatinine Ratio 10.8 10.0 - 20.0 Total Protein 7.6 6.0 - 8.0 g/dL Albumin 4.2 3.2 - 5.2 g/dL Calcium 9.2 8.4 - 10.2 mg/dL Alkaline Phosphatase 55 40 - 140 U/L AST 13 0 - 45 U/L Total Bilirubin 0.5 0.0 - 1.3 mg/dL ALT 21 14 - 65 U/L CBC Auto Differential Result Value Ref Range WBC 7.42 4.50 - 11.00 K/mcL RBC 4.62 4.00 - 5.20 M/mcL Hemoglobin 13.5 12.0 - 16.0 g/dL Hematocrit 39.7 36.0 - 46.0 % MCV 85.9 80.0 - 100.0 fL MCH 29.2 26.0 - 34.0 pg MCHC 34.0 31.0 - 37.0 g/dL Platelets 264 150 - 400 K/mcL RDW - CV 12.5 11.6 - 14.8 % MPV 9.5 9.0 - 15.5 fL Neutrophils 51.6 % Lymphocytes 37.9 % Monocytes 7.4 % Eosinophils 2.6 % Basophils 0.4 % IG Percent 0.10 % Neutrophils Abs 3.83 1.70 - 7.00 K/mcL Lymphocytes Abs 2.81 0.90 - 4.00 K/mcL Monocytes Abs 0.55 0.30 - 0.90 K/mcL Eosinophils Abs 0.19 0.00 - 0.50 K/mcL Basophils Abs 0.03 0.00 - 0.30 K/mcL IG Absolute 0.01 0.00 - 0.30 K/mcL Nucleated RBC 0.0 % Nucleated RBC Abs 0.00 0.00 - 0.00 K/mcL CT Abdomen Pelvis With IV Contrast Only Preliminary Result 1. A few lymph nodes in the right lower quadrant near the cecum measuring 5-6 mm in short axis may represent mesenteric adenitis. 2. Normal appendix. 3. A small amount of fluid in the pelvis measures higher than water in attenuation, suggesting blood products, which may be secondary to a ruptured hemorrhagic ovarian cyst. The uterus and ovaries are normal in size. 4. No hydronephrosis. [facility]/[employer] Workstation ID: [id number] Procedures MDM Number of Diagnoses or Management Options Diagnosis management comments: Patient presents ambulatory complaining of some right lower quadrant abdominal pain. Patient states that this is a constant pain that she has had since last night. She states she has had associated nausea without any vomiting or diarrhea. She denies any urinary symptoms. She denies any fever or chills. Patient did go to her primary care today who sent her to the emergency department for a possible ultrasound and also to rule out appendicitis. She states she did take 3 ibuprofen at noon today. She states she has not had any abdominal surgeries. She denies any history of ovarian cyst or possibility of . She denies any other complaints at this time. On exam patient's vital signs are stable. She does not appear to be in any acute distress sitting upright in the bed. Abdomen is soft, she does have some tenderness on palpation in the right lower quadrant. There is no guarding, rebound, rigidity, masses. There was no CVA tenderness. Patient's labs were unremarkable, urine was negative. CT abdomen pelvis was read as few lymph nodes in the right lower quadrant near the cecum measuring 5 to 6 mm in short axis may represent mesenteric adenitis. Normal appendix. A small amount of fluid in the pelvis measures higher than water in attenuation suggesting blood products which may be secondary to a ruptured hemorrhagic ovarian cyst. No hydronephrosis. Patient was given IV fluids, Zofran, Bentyl. At this time patient is resting comfortably in the bed. Patient will be discharged to continue using ibuprofen as needed for pain she will also be given a prescription for Bentyl and Zofran. She is referred to follow-up with her primary care physician for any further evaluation or treatment. Condition on discharge is stable. Amount and/or Complexity of Data Reviewed Clinical lab tests: ordered and reviewed Tests in the radiology section of CPT : ordered and reviewed The patient has been informed that they may have pre-hypertension or hypertension based on a blood pressure reading in the Emergency Department. I recommend that the patient call the primary care provider listed on their discharge instructions or a physician of their choice as soon as possible to arrange follow-up in the next 4 weeks for further evaluation of possible pre-hypertension or hypertension. . Clinical Impression: SNOMED CT(R) 1. Acute mesenteric adenitis ACUTE MESENTERIC ADENITIS 2. Hemorrhagic ovarian cyst HEMORRHAGIC CYST OF OVARY ED Disposition ED Disposition Condition Comment Discharge Stable Livia Dang discharged to home/self care in stable condition. Follow-up Information Follow-up information has not been specified. Contact information for after-discharge care Follow-up information has not been specified. New Prescriptions ibuprofen (ADVIL,MOTRIN) 600 MG tablet Take 1 (one) tablet (600 mg total) by mouth every 8 (eight) hours as needed for pain . dicyclomine (BENTYL) 20 mg tablet Take 1 (one) tablet (20 mg total) by mouth 3 (three) times a day as needed (Abdominal pain) . ondansetron (ZOFRAN ODT) 4 MG disintegrating tablet Dissolve 1 (one) tablet (4 mg total) on top of tongue every 6 (six) hours as needed for nausea . Irish Marr PA-C 10/09/181944 Pt c/o right lower quadrant abdominal pain the developed last emanuel and continues today. Pt stated she was told by pcp to come to ER documented in this encounter ED PROVIDER NOTE [facility] EMERGENCY DEPARTMENT NAME: Livia Dang AGE: 23 y.o. : 1995 VISIT DATE: 03/26/2019 CSN: [id number] PCP: Yoan Diaz DO Chief Complaint Patient presents with Hand Injury Chief complaint: Injury right thumb. History chief complaint: This 23-year-old female presents to ER stating that she accidentally smashed her right thumb in a door at work earlier today she now complains of pain to the tip of the digit but denies any other injuries or numbness. Past Medical History: Diagnosis Date Asthma Ovarian cyst right ovary Past Surgical History: Procedure Laterality Date knee scope KNEE SURGERY Right WISDOM TOOTH EXTRACTION Family History Problem Relation Age of Onset Intestinal malrotation Mother Diabetes Father Hypertension Paternal Grandmother Hyperlipidemia Paternal Grandmother Hypertension Paternal Grandfather Hyperlipidemia Paternal Grandfather Social History Socioeconomic History Marital status: Single Spouse name: Not on file Number of children: Not on file Years of education: Not on file Highest education level: Not on file Occupational History Not on file Social Needs Financial resource strain: Not on file Food insecurity Worry: Not on file Inability: Not on file Transportation needs Medical: Not on file Non-medical: Not on file Tobacco Use Smoking status: Never Smoker Smokeless tobacco: Never Used Substance and Sexual Activity Alcohol use: No Alcohol/week: 0.0 standard drinks Drug use: Not Currently Types: Fentanyl Sexual activity: Yes Partners: Male control/protection: Condom Lifestyle Physical activity Days per week: Not on file Minutes per session: Not on file Stress: Not on file Relationships Social connections Talks on phone: Not on file Gets together: Not on file Attends quaker service: Not on file Active member of club or organization: Not on file Attends meetings of clubs or organizations: Not on file Relationship status: Not on file Other Topics Concern Not on file Social History Narrative Not on file Previous Medications Medication Sig albuterol (PROVENTIL) 2.5 mg /3 mL (0.083 %) nebulizer solution Take 3 mL (2.5 mg total) by nebulization every 4 (four) hours as needed . albuterol (Ventolin HFA) 90 mcg/actuation inhaler Inhale 2 (two) puffs every 6 (six) hours as needed for wheezing or shortness of breath . budesonide-formoterol (SYMBICORT) 160-4.5 mcg/actuation inhaler Inhale 2 (two) puffs 2 (two) times a day . fluticasone propionate (FLONASE) 50 mcg/actuation nasal spray Instill 2 (two) sprays into each nostril daily . montelukast (SINGULAIR) 10 mg tablet Take 1 (one) tablet (10 mg total) by mouth nightly . No Known Allergies Review of Systems Constitutional: Negative. HENT: Negative. Eyes: Negative. Respiratory: Negative. Cardiovascular: Negative. Gastrointestinal: Negative. Endocrine: Negative. Genitourinary: Negative. Musculoskeletal: Positive for arthralgias and myalgias. Pain distal phalanx right thumb Skin: No lacerations or abrasions. Allergic/Immunologic: Negative. Neurological: Negative. Hematological: Negative. Psychiatric/Behavioral: Negative. All other systems reviewed and are negative. Patient Vitals for the past 24 hrs: BP Temp Temp src Pulse Resp SpO2 Height Weight 03/26/19 2133 (!) 148/92 98 F (36.7 C) Oral (!) 120 16 98 % 5' 2 65.8 kg (145 lb) Physical Exam Vitals signs and nursing note reviewed. Constitutional: Appearance: Normal appearance. HENT: Head: Normocephalic and atraumatic. Nose: Nose normal. Mouth/Throat: Mouth: Mucous membranes are moist. Pharynx: Oropharynx is clear. Eyes: Extraocular Movements: Extraocular movements intact. Pupils: Pupils are equal, round, and reactive to light. Neck: Musculoskeletal: Normal range of motion and neck supple. Cardiovascular: Rate and Rhythm: Normal rate and regular rhythm. Pulmonary: Effort: Pulmonary effort is normal. Breath sounds: Normal breath sounds. Musculoskeletal: Normal range of motion. General: Tenderness present. Comments: There is tenderness to palpation over the right thumb distal phalanx. Nail is intact. No lacerations or bleeding. There is some pain with flexion extension at the DIP joint. Skin: General: Skin is warm and dry. Capillary Refill: Capillary refill takes less than 2 seconds. Findings: No bruising. Neurological: General: No focal deficit present. Mental Status: She is alert and oriented to person, place, and time. Psychiatric: Mood and Affect: Mood normal. Laboratory & Radiographic Imaging (if done): No results found for this visit on 03/26/19. XR Hand Right 3+ Views (Standard) (Results Pending) X-ray right hand attention right thumb negative. Procedures MDM The patient has been informed that they may have pre-hypertension or hypertension based on a blood pressure reading in the Emergency Department. I recommend that the patient call the primary care provider listed on their discharge instructions or a physician of their choice as soon as possible to arrange follow-up in the next 4 weeks for further evaluation of possible pre-hypertension or hypertension. . Clinical Impression: No diagnosis found. ED Disposition None Follow-up Information Follow-up information has not been specified. Contact information for after-discharge care Follow-up information has not been specified. 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 I have reviewed the chart and agree with the documentation as recorded by the AZEEM (Advanced Practice Provider), including the assessment, treatment plan, and disposition documented in this encounter Addended by: CAMILA WHITE on: 01/22/2020 11:35 AM Modules accepted: Orders documented in this encounter Care Team (unrecognized sect ion and content) Team Status: Active Member Role/Relationship Status Dates Moni Tony NP, [employer] Primary Care Provider Active Team Status: Inactive Member Role/Relationship Status Dates Ning Menchaca NP-Melinda Attending Provider Active Start: December 20, 2024 End: December 20, 2024 Moni Tony NP, [employer]-Melinda Primary Care Provider Active Start: December 20, 2024 End: December 20, 2024 Moni Tony NP, MELVA-Melinda Referring Provider Active Start: December 20, 2024 End: December 20, 2024 Source Comments (unrecognize d section and content) In the event this informatio n is protected by the Federal Confidentiality of Alcohol and Drug Abuse Patient Records regulations: The Federal rules restrict any use of the information to criminally investigate or prosecute any alcohol or drug abuse patient.[facility] Goals (unrecognized section and content) Goals may be documented in a n alternate section FOR RECORDS PERTAINING TO PATIENTS WHO ARE OR HAVE BEEN ENROLLED IN A CHEMICAL DEPENDENCY/SUBSTANCEABUSE PROGRAM, SOME INFORMATION MAY BE OMITTED. This clinical summary was aggregated from multiple sources. Caution should be exercised in using it in the provision of clinical care. This summary normalizes information from multiple sources, and as a consequence, information in this document may materially change the coding, format and clinical context of patient data. In addition, data may be omitted in some cases. CLINICAL DECISIONS SHOULD BE BASED ON THE PRIMARY CLINICAL RECORDS. [facility]. provides no warranty or guarantee of the accuracy or completeness of information in this document.
== END 2025-01-30 08:15 | disposition home or self-care (01) ==
LOC: EN 05:34 → AC 05:34
PROVIDERS: Anesthesiology; PCP Nurse Practitioner Family; Referring Provider Nurse Practitioner Family; Visit Provider Internal Medicine Gastroenterology
PROC: 0DJD8ZZ Inspection of Lower Intestinal Tract, Via Natural or Artificial Opening Endoscopic (ICD-10-PCS; CPT 45378; principal; 2025-01-30 06:25)
DX: Z12.11 Encounter for screening for malignant neoplasm of colon (principal); R13.10 Dysphagia, unspecified; K22.2 Esophageal obstruction; Z79.51 Long term (current) use of inhaled steroids; Z80.0 Family history of malignant neoplasm of digestive organs; J45.909 Unspecified asthma, uncomplicated; K20.0 Eosinophilic esophagitis
CPT/HCPCS: 43248; 43239; 45378; 84703; 88305; C1769; J2405